=== PATIENT | male | born 1940 | race Caucasian/White ===

== ENCOUNTER 2020-07-01 14:34 | Inpatient (IN) | payer MEDICARE, BC ==
--- NOTE | 2020-07-01 15:10 | EDM.PDOC ---
ED HPI GENERAL MEDICAL PROBLEM - General Chief Complaint: Respiratory Problem Stated Complaint: SOB Time Seen by Provider: 07/01/20 14:34 Source of Information: Reports: Patient History Limitations: Reports: No Limitations - History of Present Illness INITIAL COMMENTS - FREE TEXT/NARRATIVE: Patient comes emergency department today for further evaluation of shortness of breath. This patient has had generalized malaise fatigue weakness and shortness of breath since . No fever no chills. He has some intermittent stabbing chest pain that is chronic for him that has been going on for years that last for about a second or 2 but otherwise no other chest pain. He has generalized weakness but no weakness of his extremities. No palpitations. No syncope. No dizziness no vertigo. No cough or congestion or difficulty breathing. No abdominal pain nausea or vomiting. No hematuria dysuria or urinary frequency. No black or tarry stools. No pedal edema. He does have a pretty extensive history hypertension coronary artery disease TIA PVD COPD type 2 diabetes. He had some arterial vascular procedures in his lower extremities at the beginning of May. He has no history of DVTs or pulmonary embolism. No COVID exposure no COVID symptoms. - Related Data Allergies Allergy/AdvReac Type Severity Reaction Status Date / Time Ptuaacf-Rse-Dex Reductase Allergy Leg Cramps Verified 07/01/20 14:47 Inhibitor Home Meds: Home Meds Hydrocodone/Acetaminophen [Hydrocodone-Acetaminophen 5-325] 2 tab PO Q4HR PRN 01/19/14 [History] Metoprolol Tartrate [Lopressor] 50 mg PO Q12HR 01/19/14 [History] NIFEdipine [Nifedipine ER] 60 mg PO DAILY 01/19/14 [History] Nitroglycerin [Nitrostat] 1 tab PO ASDIRECTED PRN 01/19/14 [History] metFORMIN [Glucophage] 500 mg PO BID 01/19/14 [History] traMADol [Ultram] 50 mg PO Q6HR PRN 01/19/14 [History] Aspirin 81 mg PO DAILY 07/01/20 [History] Cyclobenzaprine [Flexeril] 10 mg PO BID PRN 07/01/20 [History] Past Medical History Cardiovascular History: Reports: CAD, High Cholesterol, PVD Respiratory History: Reports: COPD Endocrine/Metabolic History: Reports: Diabetes, Type II Social & Family History - Tobacco Use Tobacco Use Status *Q: Unknown Ever Used Tobacco ED ROS GENERAL - Review of Systems Review Of Systems: Comprehensive ROS is negative, except as noted in HPI. ED EXAM, GENERAL - Physical Exam Exam: See Below Free Text/Narrative:: The patient at rest is minimally dyspneic. He is only able to speak in about 7- 8 word sentences. I did get him up from the chair and walk him over about 3 steps to the caught and he became very tachypneic and short of breath. And this resolved after about 30 seconds of sitting on the cot. There is no audible wheezing. Exam Limited By: No Limitations General Appearance: Alert, WD/WN, Mild Distress Eye Exam: Bilateral Eye: EOMI Ears: Normal External Exam Nose: Normal Inspection Throat/Mouth: Normal Inspection Head: Atraumatic, Normocephalic Neck: Normal Inspection, Supple, Non-Tender, Full Range of Motion Respiratory/Chest: Lungs Clear, Normal Breath Sounds, No Accessory Muscle Use, Chest Non-Tender. No: Crackles, Rales, Rhonchi, Wheezing Cardiovascular: Normal Peripheral Pulses, Regular Rate, Rhythm, Tachycardia Peripheral Pulses: 1+: Posterior Tibial (L), Posterior Tibial (R), Dorsalis Pedis (L), Dorsalis Pedis (R), 2+: Radial (L), Radial (R) GI/Abdominal: Normal Bowel Sounds, Soft, Non-Tender (Male) Exam: Deferred Rectal (Males) Exam: Deferred Back Exam: Normal Inspection, Full Range of Motion Extremities: Normal Inspection, Normal Range of Motion, Non-Tender, No Pedal Edema, Normal Capillary Refill Neurological: Alert, Oriented, Normal Cognition, Normal Gait, No Motor/Sensory Deficits Psychiatric: Normal Affect, Normal Mood Skin Exam: Dry, Intact, No Rash, Cool, Pallor #1 Interpretation EKG Date: 07/01/20 Time: 15:03 Rhythm: NSR Rate (Beats/Min): 88 Todd: Normal P-Wave: Present QRS: Normal ST-T: Normal QT: Normal Course - Vital Signs Last Recorded V/S: Last Vital Signs Temp 96.9 F 07/01/20 14:34 Pulse 122 H 07/01/20 14:34 Resp 28 H 07/01/20 14:34 BP 137/73 07/01/20 15:28 Pulse Ox 96 07/01/20 14:34 - Orders/Labs/Meds Orders: Active Orders 24 hr Category Date Time Status EKG Documentation Completion [RC] STAT Care 07/01/20 14:34 Active RT Aerosol Therapy [RC] ASDIRECTED Care 07/01/20 15:29 Active CULTURE BLOOD [BC] Stat Lab 07/01/20 14:59 Received CULTURE BLOOD [BC] Stat Lab 07/01/20 15:05 Received LACTIC ACID [CHEM] Timed Lab 07/01/20 19:00 Ordered UA RFX BLADIMIR AND CULT IF INDIC [URIN] Stat Lab 07/01/20 14:35 Ordered Azithromycin [Zithromax] 500 mg Med 07/01/20 15:28 Active Sodium Chloride 0.9% [Normal Saline (AdvBag)] 250 ml IV STAT Lactated Ringers [Ringers, Lactated] 1,000 ml Med 07/01/20 16:00 Active IV ASDIRECTED Lactated Ringers [Ringers, Lactated] 1,000 ml Med 07/01/20 15:51 Active IV ONETIME Sodium Chloride 0.9% [Saline Flush] Med 07/01/20 14:34 Active 10 ml FLUSH ASDIRECTED PRN Blood Culture x2 Reflex Set [OM.PC] Stat Oth 07/01/20 14:35 Ordered Peripheral IV Insertion Adult [OM.PC] Stat Oth 07/01/20 14:34 Ordered Medication Orders Azithromycin 500 mg/ Sodium (Chloride) 250 mls @ 250 mls/hr IV STAT ONE Stop: 07/01/20 16:27 Last Admin: 07/01/20 15:52 Dose: 250 mls/hr Documented by: HAUGJOD Lactated Ringer's (Ringers, Lactated) 1,000 mls @ 150 mls/hr IV ASDIRECTED RADHA Lactated Ringer's (Ringers, Lactated) 1,000 mls @ 999 mls/hr IV ONETIME ONE Stop: 07/01/20 16:51 Last Admin: 07/01/20 16:06 Dose: 999 mls/hr Documented by: Sodium Chloride (Saline Flush) 10 ml FLUSH ASDIRECTED PRN PRN Reason: Keep Vein Open Labs: Laboratory Tests 07/01/20 07/01/20 07/01/20 Range/Units 14:37 14:59 14:59 WBC 15.4 H (4.0-10.0) x10^3/uL RBC 4.09 L (4.5-6.0) x10^6/uL Hgb 13.0 L D (14.0-18.0) g/dL Hct 39.0 L (40.0-52.0) % MCV 95.4 H (78.0-93.0) fL MCH 31.8 (26.0-32.0) pg MCHC 33.3 (32.0-36.0) g/dL RDW Coeff of Bobo 14.0 (10.0-15.0) % Plt Count 419 H D (130-400) x10^3/uL Neut % (Auto) 89.1 H (50.0-80.0) % Lymph % (Auto) 4.5 L (25.0-50.0) % Navarro % (Auto) 6.2 (2.0-11.0) % Eos % (Auto) 0.1 (0.0-4.0) % Baso % (Auto) 0.1 L (0.2-1.2) % PT (9.5-12.3) SEC INR (2.0-3.5) APTT (25.6-32.8) SEC D-Dimer, Quantitative (<=0.58) mg/LFEU Sodium 131 L (136-145) mmol/L Potassium 4.0 (3.5-5.1) mmol/L Chloride 94 L (98-107) mmol/L Carbon Dioxide 22 (21-32) mmol/L Anion Gap 19.0 H (5-15) mmol/L BUN 21 H (7-18) mg/dL Creatinine 1.7 H (0.70-1.30) mg/dL Est Cr Clr Drug Dosing TNP Estimated GFR (MDRD) 39 Glucose 171 H (74-106) mg/dL Lactic Acid (0.4-2.0) mmol/L Calcium 9.4 (8.5-10.1) mg/dL Corrected Calcium 10.20 H (8.5-10.1) mg/dL Total Bilirubin 0.9 (0.2-1.0) mg/dL AST 17 (15-37) U/L ALT 24 (16-63) U/L Alkaline Phosphatase 146 H (46-116) U/L Troponin I < 0.017 (<=0.056) ng/mL C-Reactive Protein 112.9 H (<=0.9) mg/dL NT-Pro-B Natriuret Pep 2945 H (<=450) pg/mL Total Protein 8.3 H (6.4-8.2) g/dL Albumin 3.0 L (3.4-5.0) g/dL Globulin 5.3 Albumin/Globulin Ratio 0.57 SARS CoV-2 RNA Rapid HUMBERTO Negative (NEGATIVE) 07/01/20 07/01/20 07/01/20 Range/Units 14:59 14:59 14:59 WBC (4.0-10.0) x10^3/uL RBC (4.5-6.0) x10^6/uL Hgb (14.0-18.0) g/dL Hct (40.0-52.0) % MCV (78.0-93.0) fL MCH (26.0-32.0) pg MCHC (32.0-36.0) g/dL RDW Coeff of Bobo (10.0-15.0) % Plt Count (130-400) x10^3/uL Neut % (Auto) (50.0-80.0) % Lymph % (Auto) (25.0-50.0) % Navarro % (Auto) (2.0-11.0) % Eos % (Auto) (0.0-4.0) % Baso % (Auto) (0.2-1.2) % PT 11.7 (9.5-12.3) SEC INR 1.1 L (2.0-3.5) APTT 31.6 (25.6-32.8) SEC D-Dimer, Quantitative 6.61 H (<=0.58) mg/LFEU Sodium (136-145) mmol/L Potassium (3.5-5.1) mmol/L Chloride (98-107) mmol/L Carbon Dioxide (21-32) mmol/L Anion Gap (5-15) mmol/L BUN (7-18) mg/dL Creatinine (0.70-1.30) mg/dL Est Cr Clr Drug Dosing Estimated GFR (MDRD) Glucose (74-106) mg/dL Lactic Acid 3.9 H* (0.4-2.0) mmol/L Calcium (8.5-10.1) mg/dL Corrected Calcium (8.5-10.1) mg/dL Total Bilirubin (0.2-1.0) mg/dL AST (15-37) U/L ALT (16-63) U/L Alkaline Phosphatase (46-116) U/L Troponin I (<=0.056) ng/mL C-Reactive Protein (<=0.9) mg/dL NT-Pro-B Natriuret Pep (<=450) pg/mL Total Protein (6.4-8.2) g/dL Albumin (3.4-5.0) g/dL Globulin Albumin/Globulin Ratio SARS CoV-2 RNA Rapid HUMBERTO (NEGATIVE) Meds: Medications Generic Name Dose Route Start Last Admin Trade Name Jr PRN Reason Stop Dose Admin Azithromycin 500 mg/ Sodium 250 mls @ 250 mls/hr 07/01/20 15:28 07/01/20 15:52 Chloride IV 07/01/20 16:27 250 mls/hr STAT ONE Administration Lactated Ringer's 1,000 mls @ 150 mls/hr 07/01/20 16:00 Ringers, Lactated IV ASDIRECTED RADHA Lactated Ringer's 1,000 mls @ 999 mls/hr 07/01/20 15:51 07/01/20 16:06 Ringers, Lactated IV 07/01/20 16:51 999 mls/hr ONETIME ONE Administration Sodium Chloride 10 ml 07/01/20 14:34 Saline Flush FLUSH ASDIRECTED PRN Keep Vein Open Discontinued Medications Generic Name Dose Route Start Last Admin Trade Name Freq PRN Reason Stop Dose Admin Albuterol/Ipratropium 3 ml 07/01/20 15:29 07/01/20 15:49 Duoneb 3.0-0.5 Mg/3 Ml NEB 07/01/20 15:30 3 ml ONETIME ONE Administration Ceftriaxone Sodium 1 gm 07/01/20 15:28 07/01/20 15:44 Rocephin IVPUSH 07/01/20 15:29 1 gm STAT ONE Administration Methylprednisolone Sodium Succinate 125 mg 07/01/20 15:33 07/01/20 15:49 Solu-Medrol IVPUSH 07/01/20 15:34 125 mg ONETIME ONE Administration - Radiology Interpretation Free Text/Narrative:: Chest x-ray per radiology shows right midlung zone pulmonary infiltrate - Re-Assessments/Exams Free Text/Narrative Re-Assessment/Exam: 07/01/20 15:11 COVID influenza negative. Blood cultures x 2 pending. CXR pending. Chest x-ray initially reviewed extemporaneously by myself concerns for right midlung infiltrate. Radiological review to follow. Labs pending and EKG. There is no adventitious lung sounds even when he becomes quite dyspneic with even 3 steps. This resolved shortly after sitting back down. Laboratory evaluation with a WBC of 15.4 hemoglobin of 13.0 platelet count of 419. Neutrophil 89% with a lymphocyte push down of 4.5. Sodium 131, creatinine 1.7 with a BUN of 21, glucose 171. Lactic acid 3.9. Ceftriaxone 1 g IV push. A azithromycin 500 mg IV piggyback. LR 500 mill bolus then 150 an hour. I will be gentle with hydration with his mild elevation of a proBNP at 2945. Troponin less than 0.017. 07/01/20 16:02 Also has a presence of acute kidney injury with a baseline of creatinine of 1. 07/01/20 16:03 He does have a elevated D-Dimer at 6.61 although his age variation for D-Dimer that is not elevated. Wells score is 1.5 low risk And I have a cause of his SOB with pneumonia and sepsis. I will discuss this case with Dr. Keith his PCP about admission here in [place] for further care management as inpatient. 07/01/20 16:16 Dr. Keith agrees low risk for PE and will admit Acute inpatient her for further care management. Departure - Departure Time of Disposition: 15:55 Disposition: Admitted As Inpatient 64 Clinical Impression: COPD with exacerbation, LORENA (acute kidney injury) Pneumonia Qualifiers: Pneumonia type: due to unspecified organism Laterality: right Lung location: middle lobe of lung Qualified Code(s): J18.9 - Pneumonia, unspecified organism Sepsis Qualifiers: Sepsis type: sepsis due to unspecified organism Sepsis acute organ dysfunction status: with acute organ dysfunction Severe sepsis acute organ dysfunction type: acute renal failure Acute renal failure type: unspecified Severe sepsis shock status: without septic shock Qualified Code(s): A41.9 - Sepsis, unspecified organism - Discharge Information Forms: ED Department Discharge Sepsis Event Note (ED) - Evaluation Sepsis Screening Result: No Definite Risk - Focused Exam Vital Signs: Vital Signs Temp Pulse Resp BP Pulse Ox 07/01/20 15:28 137/73 07/01/20 14:34 96.9 F 122 H 28 H 146/75 H 96 - My Orders Last 24 Hours: My Active Orders 07/01/20 14:34 EKG Documentation Completion [RC] STAT Sodium Chloride 0.9% [Saline Flush] 10 ml FLUSH ASDIRECTED PRN Peripheral IV Insertion Adult [OM.PC] Stat 07/01/20 14:35 UA RFX BLADIMIR AND CULT IF INDIC [URIN] Stat Blood Culture x2 Reflex Set [OM.PC] Stat 07/01/20 14:59 CULTURE BLOOD [BC] Stat 07/01/20 15:05 CULTURE BLOOD [BC] Stat 07/01/20 15:28 Azithromycin [Zithromax] 500 mg Sodium Chloride 0.9% [Normal Saline (AdvBag)] 250 ml IV STAT 07/01/20 15:29 RT Aerosol Therapy [RC] ASDIRECTED 07/01/20 15:51 Lactated Ringers [Ringers, Lactated] 1,000 ml IV ONETIME 07/01/20 16:00 Lactated Ringers [Ringers, Lactated] 1,000 ml IV ASDIRECTED 07/01/20 19:00 LACTIC ACID [CHEM] Timed - Assessment/Plan Last 24 Hours: My Active Orders 07/01/20 14:34 EKG Documentation Completion [RC] STAT Sodium Chloride 0.9% [Saline Flush] 10 ml FLUSH ASDIRECTED PRN Peripheral IV Insertion Adult [OM.PC] Stat 07/01/20 14:35 UA RFX BLADIMIR AND CULT IF INDIC [URIN] Stat Blood Culture x2 Reflex Set [OM.PC] Stat 07/01/20 14:59 CULTURE BLOOD [BC] Stat 07/01/20 15:05 CULTURE BLOOD [BC] Stat 07/01/20 15:28 Azithromycin [Zithromax] 500 mg Sodium Chloride 0.9% [Normal Saline (AdvBag)] 250 ml IV STAT 07/01/20 15:29 RT Aerosol Therapy [RC] ASDIRECTED 07/01/20 15:51 Lactated Ringers [Ringers, Lactated] 1,000 ml IV ONETIME 07/01/20 16:00 Lactated Ringers [Ringers, Lactated] 1,000 ml IV ASDIRECTED 07/01/20 19:00 LACTIC ACID [CHEM] Timed
[2020-07-01] MEDS ORDERED: Azithromycin 500 MG in Sodium Chloride 0.9% 250 ML IV ONE (15:28)
[2020-07-01] MEDS ORDERED: cefTRIAXone 1 GM Vial IVPUSH ONE (15:28)
[2020-07-01] MEDS ORDERED: Albuterol/Ipratropium 3.0-0.5 MG/3 ML Neb Soln NEB ONE (15:29)
[2020-07-01] MEDS ORDERED: methylPREDNISolone Sodium Succinate 125 MG/2 ML SDV IVPUSH ONE (15:33)
[2020-07-01 15:39] LABS: PTT,PARTIAL THROMBOPLSTIN TIME 31.6 SEC (25.6-32.8)
[2020-07-01 15:42] LABS: CHLORIDE,CL 94 mmol/L (98-107); SODIUM,NA 131 mmol/L (136-145)
--- NOTE | 2020-07-01 15:48 | CR ---
[id number] RAD/RAD Chest PA or AP 1V EXAM: RAD Chest PA or AP 1V INDICATION: SHORTNESS OF BREATH, QUESTION COVID-19. COMPARISON: January 19, 2014. DISCUSSION: Median sternotomy wires. Cardiomediastinal silhouette is stable in size and contour. Right midlung zone pulmonary infiltrate. No pneumothorax or pleural effusion. IMPRESSION: Right midlung zone pulmonary infiltrate. Keny Parada DO 07/01/20 1547 Thank you for allowing us to participate in the care of your patient.
[2020-07-01] MEDS ORDERED: Lactated Ringers 1,000 ML IV ONE (15:51)
[2020-07-01] MEDS ORDERED: Ondansetron 4 MG Tab.DIS PO PRN (18:03)
--- NOTE | 2020-07-01 18:17 | PCM.HP.2 ---
H&P History of Present Illness - General Date of Service: 07/01/20 Admit Problem/Dx: Admission Diagnosis/Problem Admission Diagnosis/Problem Pneumonia Source of Information: Patient History Limitations: Reports: No Limitations - History of Present Illness Initial Comments - Free Text/Narative: Mike Rincon is an 79-year-old male with a past medical history of hypertension, coronary artery disease, TIA, peripheral vascular disease, COPD, type 2 diabetes, hyperlipidemia who called into the clinic for evaluation of shortness of breath, body aches, fatigue earlier today. Symptoms initially started on 06/27/2020. He noted that he was hardly able to get up and move aroun d the house. So nauseous that he is unable to even look at food for the last few days. Due to the degree of shortness of breath that he was having during our conversation I referred him to the ER for further evaluation. Upon arrival to the ER he was noted to be tachycardic with a pulse of 122, t achypnea with a respiratory rate of 28, and slightly hypertensive with blood pressure 146/75. Oxygen saturation was normal. Provider in the ER noted that his breath sounds were normal throughout the bilateral lungs. He was not short of breath when resting but with any exertion he would become severely short of breath. Laboratory evaluation was notable for leukocytosis with a left shift. Provided to grab a d-dimer which is elevated at 6.61. Lactic acid came back at 3.9. Sodium slightly low at 131. Small AK I with creatinine of 1.7 (baseline of 1.0). CRP was elevated at 112.9. ProBNP elevated at 2945. COVID and FLU tests were negative. Chest x-ray did demonstrate a right middle lobe infiltrate. Patient was given 1 L of IV fluids. He was also given a dose Rocephin and azithromycin for the community-acquired pneumonia. Decision was made to admit him for further evaluation and IV antibiotics. At the time of this provider saw the patient he notes that he was feeling quite a bit better after getting some IV fluids and the first dose of antibiotic. He does bring up the lower back pain that he has been having since all the other symptoms started this last Tuesday. ER provider has also mention this and noted the patient was very slow to move. Patient is able to ambulate on his own at this time, denies overt weakness in the extremities; just notes pain around the area of the L5/sacroiliac joints. - Related Data Allergies/Adverse Reactions: Allergies Allergy/AdvReac Type Severity Reaction Status Date / Time [id number]-[id number] Reductase Allergy Leg Cramps Verified 07/01/20 14:47 Inhibitor Home Medications: Home Meds Metoprolol Tartrate [Lopressor] 50 mg PO Q12HR 01/19/14 [History] NIFEdipine [Nifedipine ER] 60 mg PO DAILY 01/19/14 [History] metFORMIN [Glucophage] 500 mg PO BID 01/19/14 [History] traMADol [Ultram] 50 mg PO Q6HR PRN 01/19/14 [History] Aspirin 81 mg PO DAILY 07/01/20 [History] Cyclobenzaprine [Flexeril] 10 mg PO BID PRN 07/01/20 [History] Sennosides/Docusate Sodium [Senna-Docusate Sodium Tablet] 2 each PO DAILY 07/01/20 [History] Past Medical History HEENT History: Reports: Hard of Hearing Cardiovascular History: Reports: CAD, High Cholesterol, PVD, Other (See Below) Other Cardiovascular History: coronary atherosclerosis. peripheral vascular disease Respiratory History: Reports: COPD Gastrointestinal History: Reports: Other (See Below) Other Gastrointestinal History: peptic ulcer disease Genitourinary History: Reports: Other (See Below) Other Genitourinary History: Hypertrophy of prostate w/o urinary obstruction. elevated PSA Musculoskeletal History: Reports: Neck Pain, Chronic, Other (See Below) Other Musculoskeletal History: LBP radiating to right leg Neurological History: Reports: TIA, Other (See Below) Other Neuro History: abd aortic aneurysm Psychiatric History: Reports: Other (See Below) Other Psychiatric History: depressive disorder not classified elsewhere Endocrine/Metabolic History: Reports: Diabetes, Type II - Infectious Disease History Infectious Disease History: Reports: Chicken Pox, Measles, Mumps - Past Surgical History Cardiovascular Surgical History: Reports: Other (See Below) Other Cardiovascular Surgeries/Procedures: right to left femoral artery bypass. right femoral politeal bypass. vein grafting. Hyperlipidemia Musculoskeletal Surgical History: Reports: Other (See Below) Other Musculoskeletal Surgeries/Procedures:: right hallux partial amputation Social & Family History - Tobacco Use Tobacco Use Status *Q: Unknown Ever Used Tobacco H&P Review of Systems - Review of Systems: Review Of Systems: See Below General: Reports: No Symptoms, Fatigue HEENT: Reports: No Symptoms Pulmonary: Reports: Shortness of Breath, Wheezing Cardiovascular: Reports: No Symptoms Gastrointestinal: Reports: Constipation (for 6 days) Genitourinary: Reports: No Symptoms Musculoskeletal: Reports: Back Pain (low back ,for 5 days) Skin: Reports: No Symptoms Psychiatric: Reports: No Symptoms Neurological: Reports: No Symptoms Hematologic/Lymphatic: Reports: No Symptoms Immunologic: Reports: No Symptoms Exam - Exam Exam: See Below - Vital Signs Vital Signs: Last Vital Signs Temp 96.9 F 07/01/20 16:23 Pulse 72 07/01/20 16:23 Resp 20 07/01/20 16:15 BP 134/73 07/01/20 16:23 Pulse Ox 94 L 07/01/20 16:23 - Exam General: Alert, Oriented HEENT: EOMI Neck: Supple, Trachea Midline Lungs: Normal Respiratory Effort, Crackles (faint (heard under the left axilla)) Cardiovascular: Regular Rate, Regular Rhythm GI/Abdominal Exam: Other (hypoactive bowel sounds, slightly distended, slightly tender to palpation) Back Exam: Paraspinal Tenderness (SI/L5 area. patient is tender over the bony area here) Extremities: Normal Inspection, Non-Tender, No Pedal Edema Skin: Warm, Dry, Incision (bilateral inguinal incisions are CDI) Neuro Extensive - Mental Status: Alert, Oriented x3, Normal Mood/Affect Psychiatric: Alert, Normal Affect, Normal Mood - Patient Data Lab Results Last 24 hrs: Laboratory Results - last 24 hr 07/01/20 07/01/20 07/01/20 Range/Units 14:37 14:59 14:59 WBC 15.4 H (4.0-10.0) x10^3/uL RBC 4.09 L (4.5-6.0) x10^6/uL Hgb 13.0 L D (14.0-18.0) g/dL Hct 39.0 L (40.0-52.0) % MCV 95.4 H (78.0-93.0) fL MCH 31.8 (26.0-32.0) pg MCHC 33.3 (32.0-36.0) g/dL RDW Coeff of Bobo 14.0 (10.0-15.0) % Plt Count 419 H D (130-400) x10^3/uL Neut % (Auto) 89.1 H (50.0-80.0) % Lymph % (Auto) 4.5 L (25.0-50.0) % [place] % (Auto) 6.2 (2.0-11.0) % Eos % (Auto) 0.1 (0.0-4.0) % Baso % (Auto) 0.1 L (0.2-1.2) % PT (9.5-12.3) SEC INR (2.0-3.5) APTT (25.6-32.8) SEC D-Dimer, Quantitative (<=0.58) mg/LFEU Sodium 131 L (136-145) mmol/L Potassium 4.0 (3.5-5.1) mmol/L Chloride 94 L (98-107) mmol/L Carbon Dioxide 22 (21-32) mmol/L Anion Gap 19.0 H (5-15) mmol/L BUN 21 H (7-18) mg/dL Creatinine 1.7 H (0.70-1.30) mg/dL Est Cr Clr Drug Dosing TNP Estimated GFR (MDRD) 39 Glucose 171 H (74-106) mg/dL Lactic Acid (0.4-2.0) mmol/L Calcium 9.4 (8.5-10.1) mg/dL Corrected Calcium 10.20 H (8.5-10.1) mg/dL Total Bilirubin 0.9 (0.2-1.0) mg/dL AST 17 (15-37) U/L ALT 24 (16-63) U/L Alkaline Phosphatase 146 H (46-116) U/L Troponin I < 0.017 (<=0.056) ng/mL C-Reactive Protein 112.9 H (<=0.9) mg/dL NT-Pro-B Natriuret Pep 2945 H (<=450) pg/mL Total Protein 8.3 H (6.4-8.2) g/dL Albumin 3.0 L (3.4-5.0) g/dL Globulin 5.3 Albumin/Globulin Ratio 0.57 SARS CoV-2 RNA Rapid HUMBERTO Negative (NEGATIVE) 07/01/20 07/01/20 07/01/20 Range/Units 14:59 14:59 14:59 WBC (4.0-10.0) x10^3/uL RBC (4.5-6.0) x10^6/uL Hgb (14.0-18.0) g/dL Hct (40.0-52.0) % MCV (78.0-93.0) fL MCH (26.0-32.0) pg MCHC (32.0-36.0) g/dL RDW Coeff of Bobo (10.0-15.0) % Plt Count (130-400) x10^3/uL Neut % (Auto) (50.0-80.0) % Lymph % (Auto) (25.0-50.0) % [place] % (Auto) (2.0-11.0) % Eos % (Auto) (0.0-4.0) % Baso % (Auto) (0.2-1.2) % PT 11.7 (9.5-12.3) SEC INR 1.1 L (2.0-3.5) APTT 31.6 (25.6-32.8) SEC D-Dimer, Quantitative 6.61 H (<=0.58) mg/LFEU Sodium (136-145) mmol/L Potassium (3.5-5.1) mmol/L Chloride (98-107) mmol/L Carbon Dioxide (21-32) mmol/L Anion Gap (5-15) mmol/L BUN (7-18) mg/dL Creatinine (0.70-1.30) mg/dL Est Cr Clr Drug Dosing Estimated GFR (MDRD) Glucose (74-106) mg/dL Lactic Acid 3.9 H* (0.4-2.0) mmol/L Calcium (8.5-10.1) mg/dL Corrected Calcium (8.5-10.1) mg/dL Total Bilirubin (0.2-1.0) mg/dL AST (15-37) U/L ALT (16-63) U/L Alkaline Phosphatase (46-116) U/L Troponin I (<=0.056) ng/mL C-Reactive Protein (<=0.9) mg/dL NT-Pro-B Natriuret Pep (<=450) pg/mL Total Protein (6.4-8.2) g/dL Albumin (3.4-5.0) g/dL Globulin Albumin/Globulin Ratio SARS CoV-2 RNA Rapid HUMBERTO (NEGATIVE) Result Diagrams: 07/01/20 14:59 07/01/20 14:59 Manjit Results Last 24 hrs: Microbiology 07/01/20 14:37 Influenza Type A Antigen Screen - Final Nasopharyngeal Swab NEGATIVE INFLUENZA A VIRUS AG REFERENCE RANGE: NEGATIVE Influenza Type B Antigen Screen - Final NEGATIVE INFLUENZA B VIRUS AG REFERENCE RANGE: NEGATIVE Sepsis Event Note - Evaluation Sepsis Screening Result: No Definite Risk - Focused Exam Vital Signs: Vital Signs Temp Pulse Resp BP Pulse Ox 07/01/20 16:23 96.9 F 72 134/73 94 L 07/01/20 16:15 97.8 F 73 20 132/70 95 07/01/20 15:28 137/73 07/01/20 14:34 96.9 F 122 H 28 H 146/75 H 96 - Problem List (1) Sepsis SNOMED Code(s): 36949353 ICD Code: A41.9 - SEPSIS, UNSPECIFIED ORGANISM Status: Acute Current Visit: No Qualifiers: Sepsis type: sepsis due to unspecified organism Sepsis acute organ dysfunction status: with acute organ dysfunction Severe sepsis acute organ dysfunction type: acute renal failure Acute renal failure type: unspecified Severe sepsis shock status: without septic shock Qualified Code(s): A41.9 - Sepsis, unspecified organism; R65.20 - Severe sepsis without septic shock; N17.9 - Acute kidney failure, unspecified (2) Pneumonia SNOMED Code(s): 270413756 ICD Code: J18.9 - PNEUMONIA, UNSPECIFIED ORGANISM Status: Acute Current Visit: No Qualifiers: Pneumonia type: due to unspecified organism Laterality: right Lung location: middle lobe of lung Qualified Code(s): J18.9 - Pneumonia, unspecified organism (3) COPD with exacerbation SNOMED Code(s): 326556413 ICD Code: J44.1 - CHRONIC OBSTRUCTIVE PULMONARY DISEASE W (ACUTE) EXACERBATIO N Status: Acute Current Visit: No (4) LORENA (acute kidney injury) SNOMED Code(s): 32935880, 73068695 ICD Code: N17.9 - ACUTE KIDNEY FAILURE, UNSPECIFIED Status: Acute Current Visit: No (5) Constipation SNOMED Code(s): 85779516 ICD Code: K59.00 - CONSTIPATION, UNSPECIFIED Status: Acute Current Visit: Yes (6) Low back pain SNOMED Code(s): 300923685 ICD Code: M54.5 - LOW BACK PAIN Status: Acute Current Visit: Yes (7) Generalized weakness SNOMED Code(s): 20944238 ICD Code: R53.1 - WEAKNESS Status: Acute Current Visit: Yes Problem List Initiated/Reviewed/Updated: Yes Orders Last 24hrs: Active Orders 24 hr Category Date Time Status Admission Status [Patient Status] [ADT] Routine ADT 07/01/20 16:20 Active Dietary Supplements [RC] BIDMEALS Care 07/01/20 18:08 Ordered Dietary Supplements [RC] BIDMEALS Care 07/01/20 18:11 Ordered EKG Documentation Completion [RC] STAT Care 07/01/20 14:34 Active Oxygen Therapy [RC] PRN Care 07/01/20 18:03 Ordered Pulse Oximetry [RC] PRN Care 07/01/20 18:04 Ordered RT Aerosol Therapy [RC] ASDIRECTED Care 07/01/20 15:29 Active Up ad Laura [RC] ASDIRECTED Care 07/01/20 18:03 Ordered VTE/DVT Education [RC] PER UNIT ROUTINE Care 07/01/20 18:03 Ordered Vital Signs [RC] Q4H Care 07/01/20 18:03 Ordered Heart Healthy Diet [DIET] Diet 07/01/20 Dinner Ordered BASIC METABOLIC PANEL,BMP [CHEM] AM Lab 07/02/20 05:11 Ordered CBC WITH AUTO DIFF [HEME] AM Lab 07/02/20 05:11 Ordered CULTURE BLOOD [BC] Stat Lab 07/01/20 14:59 Received CULTURE BLOOD [BC] Stat Lab 07/01/20 15:05 Received LACTIC ACID [CHEM] Timed Lab 07/01/20 19:00 Ordered UA RFX MANJIT AND CULT IF INDIC [URIN] Stat Lab 07/01/20 14:35 Ordered Acetaminophen [TylenoL] Med 07/01/20 18:03 Ordered 650 mg PO Q4H PRN Aspirin Med 07/02/20 08:00 Ordered 81 mg PO DAILY Azithromycin [Zithromax] 500 mg Med 07/02/20 08:00 Ordered Sodium Chloride 0.9% [Normal Saline (AdvBag)] 250 ml IV DAILY Cyclobenzaprine [Flexeril] Med 07/01/20 18:09 Ordered 10 mg PO BID PRN Docusate Sodium/Sennosides [Senna Plus] Med 07/02/20 08:00 Ordered 2 each PO DAILY Enoxaparin [Lovenox] Med 07/02/20 08:00 Ordered 40 mg SUBCUT DAILY HYDROmorphone [Dilaudid] Med 07/01/20 18:03 Ordered 0.25 mg IVPUSH Q2H PRN Lactated Ringers [Ringers, Lactated] 1,000 ml Med 07/01/20 16:00 Active IV ASDIRECTED Metoprolol Tartrate [Lopressor] Med 07/01/20 20:00 Ordered 50 mg PO Q12HR NIFEdipine [Nifedipine ER] Med 07/02/20 08:00 Ordered 60 mg PO DAILY Ondansetron [Zofran ODT] Med 07/01/20 18:03 Ordered 4 mg PO Q4H PRN Sodium Chloride 0.9% [Saline Flush] Med 07/01/20 14:34 Active 10 ml FLUSH ASDIRECTED PRN cefTRIAXone [Rocephin] Med 07/02/20 08:00 Ordered 1 gm IVPUSH DAILY polyethylene glycoL 3350 [MiraLAX] Med 07/01/20 18:30 Once 17 gm PO BEDTIME ONE traMADol [Ultram] Med 07/01/20 18:09 Ordered 50 mg PO Q6HR PRN Blood Culture x2 Reflex Set [OM.PC] Stat Oth 07/01/20 14:35 Ordered Peripheral IV Insertion Adult [OM.PC] Stat Oth 07/01/20 14:34 Ordered Resuscitation Status Routine Resus Stat 07/01/20 18:03 Ordered Medication Orders Acetaminophen (Tylenol) 650 mg PO Q4H PRN PRN Reason: Pain (Mild 1-3)/fever Aspirin (Aspirin) 81 mg PO DAILY RADHA Ceftriaxone Sodium (Rocephin) 1 gm IVPUSH DAILY RADHA Stop: 07/07/20 08:00 Cyclobenzaprine HCl (Flexeril) 10 mg PO BID PRN PRN Reason: Muscle Spasm Enoxaparin Sodium (Lovenox) 40 mg SUBCUT DAILY RADHA Hydromorphone HCl (Dilaudid) 0.25 mg IVPUSH Q2H PRN PRN Reason: Pain (severe 7-10) Lactated Ringer's (Ringers, Lactated) 1,000 mls @ 150 mls/hr IV ASDIRECTED RADHA Azithromycin 500 mg/ Sodium (Chloride) 250 mls @ 250 mls/hr IV DAILY [facility] Stop: 07/05/20 08:00 Metoprolol Tartrate (Lopressor) 50 mg PO Q12HR [facility] Non-Formulary Medication (Nifedipine [Nifedipine Er]) 60 mg PO DAILY [facility] Ondansetron HCl (Zofran Odt) 4 mg PO Q4H PRN PRN Reason: nausea, able to take PO Polyethylene Glycol (Miralax) 17 gm PO BEDTIME ONE Stop: 07/01/20 18:31 Senna/Docusate Sodium (Senna Plus) tab PO DAILY [facility] Sodium Chloride (Saline Flush) 10 ml FLUSH ASDIRECTED PRN PRN Reason: Keep Vein Open Tramadol HCl (Ultram) 50 mg PO Q6HR PRN PRN Reason: Pain Assessment/Plan Comment:: Patient with 5 days of increasing shortness of breath, body aches and fatigue. Found to have a right middle lobe pneumonia. Sepsis secondary to Pneumonia - Tachypnea, tachycardia, leukocytosis and elevated lactic acid in the setting of a right middle lobe pneumonia - COVID and Flu negative - Patient received Rocephin and azithromycin in the ER as well as 1 L fluid and continues on a saline drip at 150mL's per hour Plan: - Blood cultures pending - Repeat LA pending. If this comes back improved would cut normal saline down from 150 to 75 mils per hour given the elevated BNP at admit - Repeat CBC in the am - Rocephin and Azithro IV tomorrow - Supplemental O2 as needed (on RA now) as well as prn O2 monitoring LORENA - Cr 1.7 on admit (baseline 1.0) - Patient s/p 1L bolus + NS @ 150ml/hr at this time Plan: - Likely cut down fluids after repeat LA tonight - Holding home metformin, likely able to restart in the morning - Repeat BMP in the am Acute on Chronic Low Back Pain - Patient with new onset of low back pain. Previous site of trouble - Slightly tender with palpation of the L5/SI area Plan: - Monitor - Pain control: tylenol, ultram (home med), dilaudid - Continue home Flexeril prn - If worsening could consider repeat imaging Constipation - Patient has a tendency towards constipation however has not had a bowel movement in over 6 days at this point and abdomen is a little bit distended and tender to palpation Plan: - Continue home stool softener - Will add on MiraLAX tonight - If no improvement with bowel movements would have to consider Fleet enema tomorrow pending patient's discomfort Chronic: Hypertension - continue home metoprolol and Procardia Coronary artery disease - continue home baby aspirin Diabetes - holding metformin, we've restart once AK I is improved Diet -heart healthy DVT - SQ Lovenox 40 daily IV fluids - NS @150mL/hr, likely able to cut down to 75 tonight if LA improved Therapies - physical therapy for deconditioning and generalized weakness Code - full Dispo: Anticipate 1-2 days of hospitalization for IV antibiotics for a right middle lobe pneumonia. Patient will benefit from some physical therapy as well as he is here. We will keep a close eye in the low back pain and if this pe rsists or worsen would have a low threshold to image this. - Mortality Measure Prognosis:: Good
[2020-07-01] MEDS ORDERED: Polyethylene Glycol 3350 Powder 17 GM Packet PO ONE (18:30)
[2020-07-01] MEDS: traMADol 50 MG Tab PO PRN (19:40)
[2020-07-01] MEDS: Metoprolol Tartrate 50 MG Tab PO SCH (19:41)
[2020-07-01] MEDS: Lactated Ringers 1,000 ML IV SCH (20:19)
[2020-07-02] MEDS: Lactated Ringers 1,000 ML IV SCH (03:00)
[2020-07-02 06:51] LABS: CHLORIDE,CL 99 mmol/L (98-107); SODIUM,NA 135 mmol/L (136-145)
[2020-07-02 06:52] LABS: ANION GAP 13.3 mmol/L (5-15)
[2020-07-02] MEDS: Aspirin 81 MG Tab.Chew PO SCH (07:35)
[2020-07-02] MEDS: Enoxaparin 40 MG/0.4 ML Syringe SUBCUT SCH (07:35)
[2020-07-02] MEDS: NIFEdipine 30 MG Tab.ER PO SCH (07:35)
[2020-07-02] MEDS: cefTRIAXone 1 GM Vial IVPUSH SCH (07:35)
[2020-07-02] MEDS: Metoprolol Tartrate 50 MG Tab PO SCH ×2 (07:35→19:24)
[2020-07-02] MEDS: Sodium Chloride 0.9% 10 ML Syringe FLUSH PRN (07:36)
[2020-07-02] MEDS: Azithromycin 500 MG in Sodium Chloride 0.9% 250 ML IV SCH (07:46)
[2020-07-02] MEDS: traMADol 50 MG Tab PO PRN ×2 (08:00→15:36)
--- NOTE | 2020-07-02 11:24 | PCM.PN ---
- General Info Date of Service: 07/02/20 Admission Dx/Problem (Free Text): Admission Diagnosis/Problem Admission Diagnosis/Problem Pneumonia Subjective Update: Jacek is an 79-year-old male who was admitted on 07/01/2020 (now hospital day 2) for community-acquired pneumonia. Did meet criteria for sepsis at the time of admission. No acute events overnight. Nursing concern: Brought positive blood cultures to the provider's attention. Continued on fluid at 150mL/hr overnight for the continued elevation of lactic acid on repeat last evening. He did end up being placed on a little bit of oxygen early this morning due to his saturations dipping down into the upper 80s while he was sleeping. Patient states that he feels about the same as when he came in in regards to his shortness of breath. He is eating and drinking fine and urinating very well. Has not yet had a bowel movement. - Review of Systems General: Reports: Fatigue HEENT: Reports: No Symptoms Pulmonary: Reports: Shortness of Breath Cardiovascular: Reports: No Symptoms Gastrointestinal: Reports: Constipation Genitourinary: Reports: No Symptoms Musculoskeletal: Reports: Back Pain Skin: Reports: No Symptoms Neurological: Reports: No Symptoms Psychiatric: Reports: No Symptoms - Patient Data Vitals - Most Recent: Last Vital Signs Temp 96.7 F L 07/02/20 10:00 Pulse 76 07/02/20 10:00 Resp 20 07/02/20 10:00 BP 109/55 L 07/02/20 10:00 Pulse Ox 89 L 07/02/20 10:00 Weight - Most Recent: 178 lb 12.8 oz I&O - Last 24 Hours: Intake & Output 07/01/20 07/02/20 07/02/20 22:59 06:59 14:59 Intake Total 750 1800 240 Output Total 500 Balance 750 1300 240 Lab Results Last 24 Hours: Laboratory Results - last 24 hr 07/01/20 07/01/20 07/01/20 Range/Units 14:37 14:59 14:59 WBC 15.4 H (4.0-10.0) x10^3/uL RBC 4.09 L (4.5-6.0) x10^6/uL Hgb 13.0 L D (14.0-18.0) g/dL Hct 39.0 L (40.0-52.0) % MCV 95.4 H (78.0-93.0) fL MCH 31.8 (26.0-32.0) pg MCHC 33.3 (32.0-36.0) g/dL RDW Coeff of Bobo 14.0 (10.0-15.0) % Plt Count 419 H D (130-400) x10^3/uL Neut % (Auto) 89.1 H (50.0-80.0) % Lymph % (Auto) 4.5 L (25.0-50.0) % Hend[place] % (Auto) 6.2 (2.0-11.0) % Eos % (Auto) 0.1 (0.0-4.0) % Baso % (Auto) 0.1 L (0.2-1.2) % PT (9.5-12.3) SEC INR (2.0-3.5) APTT (25.6-32.8) SEC D-Dimer, Quantitative (<=0.58) mg/LFEU Sodium 131 L (136-145) mmol/L Potassium 4.0 (3.5-5.1) mmol/L Chloride 94 L (98-107) mmol/L Carbon Dioxide 22 (21-32) mmol/L Anion Gap 19.0 H (5-15) mmol/L BUN 21 H (7-18) mg/dL Creatinine 1.7 H (0.70-1.30) mg/dL Est Cr Clr Drug Dosing TNP Estimated GFR (MDRD) 39 Glucose 171 H (74-106) mg/dL Lactic Acid (0.4-2.0) mmol/L Calcium 9.4 (8.5-10.1) mg/dL Corrected Calcium 10.20 H (8.5-10.1) mg/dL Total Bilirubin 0.9 (0.2-1.0) mg/dL AST 17 (15-37) U/L ALT 24 (16-63) U/L Alkaline Phosphatase 146 H (46-116) U/L Troponin I < 0.017 (<=0.056) ng/mL C-Reactive Protein 112.9 H (<=0.9) mg/dL NT-Pro-B Natriuret Pep 2945 H (<=450) pg/mL Total Protein 8.3 H (6.4-8.2) g/dL Albumin 3.0 L (3.4-5.0) g/dL Globulin 5.3 Albumin/Globulin Ratio 0.57 Urine Color (YELLOW) Urine Appearance (CLEAR) Urine pH (5.0-8.0) Ur Specific [place] Urine Protein (NEGATIVE) mg/dL Urine Glucose (UA) (NEGATIVE) mg/dL Urine Ketones (NEGATIVE) mg/dL Urine Occult Blood (NEGATIVE) Urine Nitrite (NEGATIVE) Urine Bilirubin (NEGATIVE) Urine Urobilinogen (0.2) EU/dL Ur Leukocyte Esterase (NEGATIVE) U Hyaline Cast (Auto) Urine RBC (NOT SEEN) /HPF Urine WBC (NOT SEEN) /HPF Ur Squamous Epith Cells (NEGATIVE) /HPF Amorphous Sediment Urine Bacteria (NEGATIVE) /HPF Urine Mucus (NEGATIVE) /LPF SARS CoV-2 RNA Rapid HUMBERTO Negative (NEGATIVE) 07/01/20 07/01/20 07/01/20 Range/Units 14:59 14:59 14:59 WBC (4.0-10.0) x10^3/uL RBC (4.5-6.0) x10^6/uL Hgb (14.0-18.0) g/dL Hct (40.0-52.0) % MCV (78.0-93.0) fL MCH (26.0-32.0) pg MCHC (32.0-36.0) g/dL RDW Coeff of Bobo (10.0-15.0) % Plt Count (130-400) x10^3/uL Neut % (Auto) (50.0-80.0) % Lymph % (Auto) (25.0-50.0) % Hendry % (Auto) (2.0-11.0) % Eos % (Auto) (0.0-4.0) % Baso % (Auto) (0.2-1.2) % PT 11.7 (9.5-12.3) SEC INR 1.1 L (2.0-3.5) APTT 31.6 (25.6-32.8) SEC D-Dimer, Quantitative 6.61 H (<=0.58) mg/LFEU Sodium (136-145) mmol/L Potassium (3.5-5.1) mmol/L Chloride (98-107) mmol/L Carbon Dioxide (21-32) mmol/L Anion Gap (5-15) mmol/L BUN (7-18) mg/dL Creatinine (0.70-1.30) mg/dL Est Cr Clr Drug Dosing Estimated GFR (MDRD) Glucose (74-106) mg/dL Lactic Acid 3.9 H* (0.4-2.0) mmol/L Calcium (8.5-10.1) mg/dL Corrected Calcium (8.5-10.1) mg/dL Total Bilirubin (0.2-1.0) mg/dL AST (15-37) U/L ALT (16-63) U/L Alkaline Phosphatase (46-116) U/L Troponin I (<=0.056) ng/mL C-Reactive Protein (<=0.9) mg/dL NT-Pro-B Natriuret Pep (<=450) pg/mL Total Protein (6.4-8.2) g/dL Albumin (3.4-5.0) g/dL Globulin Albumin/Globulin Ratio Urine Color (YELLOW) Urine Appearance (CLEAR) Urine pH (5.0-8.0) Ur Specific [place] Urine Protein (NEGATIVE) mg/dL Urine Glucose (UA) (NEGATIVE) mg/dL Urine Ketones (NEGATIVE) mg/dL Urine Occult Blood (NEGATIVE) Urine Nitrite (NEGATIVE) Urine Bilirubin (NEGATIVE) Urine Urobilinogen (0.2) EU/dL Ur Leukocyte Esterase (NEGATIVE) U Hyaline Cast (Auto) Urine RBC (NOT SEEN) /HPF Urine WBC (NOT SEEN) /HPF Ur Squamous Epith Cells (NEGATIVE) /HPF Amorphous Sediment Urine Bacteria (NEGATIVE) /HPF Urine Mucus (NEGATIVE) /LPF SARS CoV-2 RNA Rapid HUMBERTO (NEGATIVE) 07/01/20 07/01/20 07/02/20 Range/Units 19:03 19:33 06:17 WBC 12.0 H (4.0-10.0) x10^3/uL RBC 3.57 L (4.5-6.0) x10^6/uL Hgb 11.4 L D (14.0-18.0) g/dL Hct 34.1 L (40.0-52.0) % MCV 95.5 H (78.0-93.0) fL MCH 31.9 (26.0-32.0) pg MCHC 33.4 (32.0-36.0) g/dL RDW Coeff of Bobo 13.7 (10.0-15.0) % Plt Count 328 D (130-400) x10^3/uL Neut % (Auto) 89.5 H (50.0-80.0) % Lymph % (Auto) 7.2 L (25.0-50.0) % Hendry % (Auto) 3.2 (2.0-11.0) % Eos % (Auto) 0.0 (0.0-4.0) % Baso % (Auto) 0.1 L (0.2-1.2) % PT (9.5-12.3) SEC INR (2.0-3.5) APTT (25.6-32.8) SEC D-Dimer, Quantitative (<=0.58) mg/LFEU Sodium (136-145) mmol/L Potassium (3.5-5.1) mmol/L Chloride (98-107) mmol/L Carbon Dioxide (21-32) mmol/L Anion Gap (5-15) mmol/L BUN (7-18) mg/dL Creatinine (0.70-1.30) mg/dL Est Cr Clr Drug Dosing Estimated GFR (MDRD) Glucose (74-106) mg/dL Lactic Acid 3.2 H* (0.4-2.0) mmol/L Calcium (8.5-10.1) mg/dL Corrected Calcium (8.5-10.1) mg/dL Total Bilirubin (0.2-1.0) mg/dL AST (15-37) U/L ALT (16-63) U/L Alkaline Phosphatase (46-116) U/L Troponin I (<=0.056) ng/mL C-Reactive Protein (<=0.9) mg/dL NT-Pro-B Natriuret Pep (<=450) pg/mL Total Protein (6.4-8.2) g/dL Albumin (3.4-5.0) g/dL Globulin Albumin/Globulin Ratio Urine Color Dark yellow H (YELLOW) Urine Appearance Slightly cloudy H (CLEAR) Urine pH 5.0 (5.0-8.0) Ur Specific [place] 1.025 Urine Protein 30 H (NEGATIVE) mg/dL Urine Glucose (UA) 100 H (NEGATIVE) mg/dL Urine Ketones 15 H (NEGATIVE) mg/dL Urine Occult Blood Negative (NEGATIVE) Urine Nitrite Negative (NEGATIVE) Urine Bilirubin Small H (NEGATIVE) Urine Urobilinogen 0.2 (0.2) EU/dL Ur Leukocyte Esterase Negative (NEGATIVE) U Hyaline Cast (Auto) Occasional Urine RBC Not seen (NOT SEEN) /HPF Urine WBC 0-5 (NOT SEEN) /HPF Ur Squamous Epith Cells Not seen (NEGATIVE) /HPF Amorphous Sediment Few Urine Bacteria Few H (NEGATIVE) /HPF Urine Mucus Few H (NEGATIVE) /LPF SARS CoV-2 RNA Rapid HUMBERTO (NEGATIVE) 07/02/20 07/02/20 Range/Units 06:17 06:17 WBC (4.0-10.0) x10^3/uL RBC (4.5-6.0) x10^6/uL Hgb (14.0-18.0) g/dL Hct (40.0-52.0) % MCV (78.0-93.0) fL MCH (26.0-32.0) pg MCHC (32.0-36.0) g/dL RDW Coeff of Bobo (10.0-15.0) % Plt Count (130-400) x10^3/uL Neut % (Auto) (50.0-80.0) % Lymph % (Auto) (25.0-50.0) % [place] % (Auto) (2.0-11.0) % Eos % (Auto) (0.0-4.0) % Baso % (Auto) (0.2-1.2) % PT (9.5-12.3) SEC INR (2.0-3.5) APTT (25.6-32.8) SEC D-Dimer, Quantitative (<=0.58) mg/LFEU Sodium 135 L (136-145) mmol/L Potassium 4.3 (3.5-5.1) mmol/L Chloride 99 (98-107) mmol/L Carbon Dioxide 27 (21-32) mmol/L Anion Gap 13.3 (5-15) mmol/L BUN 18 (7-18) mg/dL Creatinine 1.0 (0.70-1.30) mg/dL Est Cr Clr Drug Dosing 61.70 Estimated GFR (MDRD) > 60 Glucose 173 H (74-106) mg/dL Lactic Acid 1.2 (0.4-2.0) mmol/L Calcium 8.7 (8.5-10.1) mg/dL Corrected Calcium (8.5-10.1) mg/dL Total Bilirubin (0.2-1.0) mg/dL AST (15-37) U/L ALT (16-63) U/L Alkaline Phosphatase (46-116) U/L Troponin I (<=0.056) ng/mL C-Reactive Protein (<=0.9) mg/dL NT-Pro-B Natriuret Pep (<=450) pg/mL Total Protein (6.4-8.2) g/dL Albumin (3.4-5.0) g/dL Globulin Albumin/Globulin Ratio Urine Color (YELLOW) Urine Appearance (CLEAR) Urine pH (5.0-8.0) Ur Specific [place] Urine Protein (NEGATIVE) mg/dL Urine Glucose (UA) (NEGATIVE) mg/dL Urine Ketones (NEGATIVE) mg/dL Urine Occult Blood (NEGATIVE) Urine Nitrite (NEGATIVE) Urine Bilirubin (NEGATIVE) Urine Urobilinogen (0.2) EU/dL Ur Leukocyte Esterase (NEGATIVE) U Hyaline Cast (Auto) Urine RBC (NOT SEEN) /HPF Urine WBC (NOT SEEN) /HPF Ur Squamous Epith Cells (NEGATIVE) /HPF Amorphous Sediment Urine Bacteria (NEGATIVE) /HPF Urine Mucus (NEGATIVE) /LPF SARS CoV-2 RNA Rapid HUMBERTO (NEGATIVE) Manjit Results Last 24 Hours: Microbiology 07/01/20 14:59 Aerobic Blood Culture - Preliminary Blood - Venous Gram Positive Cocci Anaerobic Blood Culture - Preliminary Gram Positive Cocci 07/01/20 15:05 Aerobic Blood Culture - Preliminary Blood - Venous - Lab Draw Gram Positive Cocci Anaerobic Blood Culture - Preliminary Gram Positive Cocci 07/01/20 14:37 Influenza Type A Antigen Screen - Final Nasopharyngeal Swab NEGATIVE INFLUENZA A VIRUS AG REFERENCE RANGE: NEGATIVE Influenza Type B Antigen Screen - Final NEGATIVE INFLUENZA B VIRUS AG REFERENCE RANGE: NEGATIVE Med Orders - Current: Current Medications Acetaminophen (Tylenol) 650 mg PO Q4H PRN PRN Reason: Pain (Mild 1-3)/fever Aspirin (Aspirin) 81 mg PO DAILY RADHA Last Admin: 07/02/20 07:35 Dose: 81 mg Documented by: Ceftriaxone Sodium (Rocephin) 1 gm IVPUSH DAILY [facility] Stop: 07/07/20 08:00 Last Admin: 07/02/20 07:35 Dose: 1 gm Documented by: Cyclobenzaprine HCl (Flexeril) 10 mg PO BID PRN PRN Reason: Muscle Spasm Enoxaparin Sodium (Lovenox) 40 mg SUBCUT DAILY [facility] Last Admin: 07/02/20 07:35 Dose: 40 mg Documented by: Hydromorphone HCl (Dilaudid) 0.25 mg IVPUSH Q2H PRN PRN Reason: Pain (severe 7-10) Azithromycin 500 mg/ Sodium (Chloride) 250 mls @ 250 mls/hr IV DAILY@0830 [facility] Last Admin: 07/02/20 07:46 Dose: 250 mls/hr Documented by: Metformin HCl (Glucophage) 500 mg PO BID [facility] Metoprolol Tartrate (Lopressor) 50 mg PO Q12HR [facility] Last Admin: 07/02/20 07:35 Dose: 50 mg Documented by: Nifedipine (Procardia Xl) 60 mg PO DAILY [facility] Last Admin: 07/02/20 07:35 Dose: 60 mg Documented by: Ondansetron HCl (Zofran Odt) 4 mg PO Q4H PRN PRN Reason: nausea, able to take PO Senna/Docusate Sodium (Senna Plus) 2 tab PO DAILY [facility] Last Admin: 07/02/20 07:34 Dose: 2 tab Documented by: Sodium Chloride (Saline Flush) 10 ml FLUSH ASDIRECTED PRN PRN Reason: Keep Vein Open Last Admin: 07/02/20 07:36 Dose: 10 ml Documented by: Tramadol HCl (Ultram) 50 mg PO Q6HR PRN PRN Reason: Pain Last Admin: 07/02/20 08:00 Dose: 50 mg Documented by: Discontinued Medications Albuterol/Ipratropium (Duoneb 3.0-0.5 Mg/3 Ml) 3 ml NEB ONETIME ONE Stop: 07/01/20 15:30 Last Admin: 07/01/20 15:49 Dose: 3 ml Documented by: Ceftriaxone Sodium (Rocephin) 1 gm IVPUSH STAT ONE Stop: 07/01/20 15:29 Last Admin: 07/01/20 15:44 Dose: 1 gm Documented by: Azithromycin 500 mg/ Sodium (Chloride) 250 mls @ 250 mls/hr IV STAT ONE Stop: 07/01/20 16:27 Last Admin: 07/01/20 15:52 Dose: 250 mls/hr Documented by: Lactated Ringer's (Ringers, Lactated) 1,000 mls @ 75 mls/hr IV ASDIRECTED RADHA Last Admin: 07/02/20 03:00 Dose: 150 mls/hr Documented by: Lactated Ringer's (Ringers, Lactated) 1,000 mls @ 999 mls/hr IV ONETIME ONE Stop: 07/01/20 16:51 Last Admin: 07/01/20 16:06 Dose: 999 mls/hr Documented by: Methylprednisolone Sodium Succinate (Solu-Medrol) 125 mg IVPUSH ONETIME ONE Stop: 07/01/20 15:34 Last Admin: 07/01/20 15:49 Dose: 125 mg Documented by: Polyethylene Glycol (Miralax) 17 gm PO BEDTIME ONE Stop: 07/01/20 18:31 Last Admin: 07/01/20 19:40 Dose: 17 gm Documented by: - Exam Quality Assessment: Supplemental Oxygen (1L) General: Alert, Oriented HEENT: EOMI, Mucous Membr. Moist/[place] Neck: Supple Lungs: Normal Respiratory Effort, Crackles (Right middle/lower lobe) Cardiovascular: Regular Rate, Regular Rhythm GI/Abdominal Exam: Normal Bowel Sounds, Soft, Non-Tender, Distended Extremities: Normal Inspection, No Pedal Edema Skin: Warm, Dry, Intact Wound/Incisions: Healing Well Neurological: No New Focal Deficit Psy/Mental Status: Alert, Normal Affect, Normal Mood Sepsis Event Note - Evaluation Sepsis Screening Result: Severe Sepsis Risk - Focused Exam Vital Signs: Vital Signs Temp Pulse Pulse Resp BP BP BP 07/02/20 10:00 96.7 F L 76 20 109/55 L 07/02/20 07:35 75 107/57 L 07/02/20 06:00 95.5 F L 72 19 98/40 L 07/02/20 05:57 07/02/20 02:00 95 F L 68 19 120/66 Pulse Ox 07/02/20 10:00 89 L 07/02/20 07:35 07/02/20 06:00 91 L 07/02/20 05:57 91 L 07/02/20 02:00 92 L - Problem List & Annotations (1) Bacteremia SNOMED Code(s): 3299615 Code(s): R78.81 - BACTEREMIA Status: Acute Current Visit: Yes (2) Sepsis SNOMED Code(s): 15552248 Code(s): A41.9 - SEPSIS, UNSPECIFIED ORGANISM Status: Resolved Current Visit: No Qualifiers: Sepsis type: sepsis due to unspecified organism Sepsis acute organ dysfunction status: with acute organ dysfunction Severe sepsis acute organ dysfunction type: acute renal failure Acute renal failure type: unspecified Severe sepsis shock status: without septic shock Qualified Code(s): A41.9 - Sepsis, unspecified organism; R65.20 - Severe sepsis without septic shock; N17.9 - Acute kidney failure, unspecified (3) Pneumonia SNOMED Code(s): 230460369 Code(s): J18.9 - PNEUMONIA, UNSPECIFIED ORGANISM Status: Acute Current Visit: No Qualifiers: Pneumonia type: due to unspecified organism Laterality: right Lung location: middle lobe of lung Qualified Code(s): J18.9 - Pneumonia, unspecified organism (4) Diastolic CHF SNOMED Code(s): 622021342, 337032195 Code(s): I50.30 - UNSPECIFIED DIASTOLIC (CONGESTIVE) HEART FAILURE Status: Acute Current Visit: Yes (5) COPD with exacerbation SNOMED Code(s): 022364399 Code(s): J44.1 - CHRONIC OBSTRUCTIVE PULMONARY DISEASE W (ACUTE) EXACERBATION Status: Acute Current Visit: No (6) LORENA (acute kidney injury) SNOMED Code(s): 71605236, 47054111 Code(s): N17.9 - ACUTE KIDNEY FAILURE, UNSPECIFIED Status: Resolved Current Visit: No (7) Constipation SNOMED Code(s): 32392144 Code(s): K59.00 - CONSTIPATION, UNSPECIFIED Status: Acute Current Visit: Yes (8) Low back pain SNOMED Code(s): 449029615 Code(s): M54.5 - LOW BACK PAIN Status: Acute Current Visit: Yes (9) Generalized weakness SNOMED Code(s): 23758594 Code(s): R53.1 - WEAKNESS Status: Acute Current Visit: Yes - Problem List Review Problem List Initiated/Reviewed/Updated: Yes - My Orders Last 24 Hours: My Active Orders 07/01/20 Dinner Heart Healthy Diet [DIET] 07/01/20 18:03 Oxygen Therapy [RC] 08,20 Up ad Laura [RC] 08,20 VTE/DVT Education [RC] PER UNIT ROUTINE Vital Signs [RC] 06,10,14,18,22,02 Acetaminophen [TylenoL] 650 mg PO Q4H PRN HYDROmorphone [Dilaudid] 0.25 mg IVPUSH Q2H PRN Ondansetron [Zofran ODT] 4 mg PO Q4H PRN Resuscitation Status Routine 07/01/20 18:04 Pulse Oximetry [RC] 06,10,14,18,22,02 07/01/20 18:08 Dietary Supplements [] 11,1730 07/01/20 18:09 Cyclobenzaprine [Flexeril] 10 mg PO BID PRN traMADol [Ultram] 50 mg PO Q6HR PRN 07/01/20 18:20 Consult to Physical Therapy [PT Evaluation and Treatment] [CONS] Routine 07/01/20 20:00 Metoprolol Tartrate [Lopressor] 50 mg PO Q12HR 07/02/20 08:00 Aspirin 81 mg PO DAILY Docusate Sodium/Sennosides [Senna Plus] 2 tab PO DAILY Enoxaparin [Lovenox] 40 mg SUBCUT DAILY NIFEdipine [Procardia XL] 60 mg PO DAILY cefTRIAXone [Rocephin] 1 gm IVPUSH DAILY 07/02/20 08:30 Azithromycin [Zithromax] 500 mg Sodium Chloride 0.9% [Normal Saline (AdvBag)] 250 ml IV DAILY@0830 07/02/20 11:30 metFORMIN [Glucophage] 500 mg PO BID 07/03/20 06:00 BASIC METABOLIC PANEL,BMP [CHEM] Routine CBC WITH AUTO DIFF [HEME] Routine - Plan Plan:: Kidney is an 79-year-old male who is now hospital day #2 for community-acquired pneumonia. Community Acquired Pneumonia -right middle lobe Gram Positive Bacteremia Hypoxic respiratory Failure Chronic Diastolic CHF Sepsis - Resolved - Vital signs and labs improved this morning. A lactic acid back to normal range. - Blood cultures grew out gram-positive cocci in 2 out of 2 tubes - Patient with need for supplemental oxygen overnight. ProBNP was elevated at time of admission. Has now received all over 2 L of fluid but is having good diuresis without medical assistance. Plan: - Repeat CBC in the am - Continue IV Rocephin and azithromycin - Supplemental O2 as needed as well as prn O2 monitoring - Will stop fluids at this time and monitor respiratory status, if worsening/no improvement may need to consider addition of Lasix LORENA - Resolved - Cr 1.7 on admit (baseline 1.0), back to baseline this am Plan: - Repeat BMP in the am Acute on Chronic Low Back Pain - Patient with new onset of low back pain. Previous site of trouble - Slightly tender with palpation of the L5/SI area Plan: - Monitor - Pain control: tylenol, ultram (home med), dilaudid - Continue home Flexeril prn - If worsening could consider repeat imaging Constipation - Patient has a tendency towards constipation however has not had a bowel movement in over 6 days at this point and abdomen is a little bit distended and tender to palpation Plan: - Continue home stool softener - patient would like to try miralax 1 more time today - If no improvement with bowel movements would have to consider Fleet enema tomorrow pending patient's discomfort Chronic: Hypertension - continue home metoprolol and Procardia Coronary artery disease - continue home baby aspirin Diabetes - metformin restarted today Diet -heart healthy DVT - SQ Lovenox 40 daily IV fluids - NS @150mL/hr, likely able to cut down to 75 tonight if LA improved Therapies - physical therapy for deconditioning and generalized weakness Code - full Dispo: Anticipate 1-2 days of hospitalization for IV antibiotics for a right middle lobe pneumonia. may need diuresis given fluid hydration and new need for O2 (will monitor). Patient will benefit from some physical therapy as well as he is here. We will keep a close eye in the low back pain and if this persists or worsen would have a low threshold to image this.
[2020-07-02] MEDS ORDERED: Polyethylene Glycol 3350 Powder 17 GM Packet PO ONE (11:32)
[2020-07-02] MEDS: metFORMIN 500 MG Tab PO SCH ×2 (11:52→19:21)
[2020-07-02] MEDS ORDERED: Furosemide 20 MG Tab PO ONE (14:48)
[2020-07-02] MEDS: Acetaminophen 325 MG Tab PO PRN (15:37)
[2020-07-03] MEDS: traMADol 50 MG Tab PO PRN ×3 (01:56→17:37)
[2020-07-03] MEDS: Sodium Chloride 0.9% 10 ML Syringe FLUSH PRN ×2 (01:57→07:56)
[2020-07-03] MEDS: Acetaminophen 325 MG Tab PO PRN ×2 (06:41→20:18)
[2020-07-03] MEDS: Cyclobenzaprine 10 MG Tab PO PRN ×2 (06:41→20:18)
[2020-07-03 07:11] LABS: CHLORIDE,CL 101 mmol/L (98-107); SODIUM,NA 138 mmol/L (136-145)
[2020-07-03 07:13] LABS: ANION GAP 10.8 mmol/L (5-15)
[2020-07-03] MEDS: Aspirin 81 MG Tab.Chew PO SCH (07:56)
[2020-07-03] MEDS: Enoxaparin 40 MG/0.4 ML Syringe SUBCUT SCH (07:56)
[2020-07-03] MEDS: cefTRIAXone 1 GM Vial IVPUSH SCH (07:56)
[2020-07-03] MEDS: metFORMIN 500 MG Tab PO SCH ×2 (07:56→20:19)
[2020-07-03] MEDS: NIFEdipine 30 MG Tab.ER PO SCH (07:57)
[2020-07-03] MEDS: Metoprolol Tartrate 50 MG Tab PO SCH ×2 (07:57→20:18)
[2020-07-03] MEDS: Azithromycin 500 MG in Sodium Chloride 0.9% 250 ML IV SCH (07:57)
[2020-07-03] MEDS ORDERED: Furosemide 20 MG Tab PO ONE (10:05)
[2020-07-03] MEDS ORDERED: Sodium Phosphate,Monobasic/Sodium Phosphate,Dibasic Enema 133 ML Bottle RECTAL ONE (10:06)
--- NOTE | 2020-07-03 10:13 | PCM.PN ---
- General Info Date of Service: 07/03/20 Admission Dx/Problem (Free Text): Admission Diagnosis/Problem Admission Diagnosis/Problem Pneumonia Subjective Update: Jacek is an 79-year-old male who was admitted on 07/01/2020 (now hospital day 3) for community-acquired pneumonia. Did meet criteria for sepsis at the time of admission. No acute events overnight. Continues on supplemental O2. Still has SOB. Did well with PT yesterday. Still has low back pain. No fevers, chills, CP. Still constipated (no movement with miralax), willing to give a trial of enema today. Functional Status: Reports: Pain Controlled - Review of Systems General: Reports: Fatigue HEENT: Reports: No Symptoms Pulmonary: Reports: Shortness of Breath Cardiovascular: Reports: No Symptoms Gastrointestinal: Reports: Constipation Genitourinary: Reports: No Symptoms Musculoskeletal: Reports: No Symptoms Skin: Reports: No Symptoms Neurological: Reports: No Symptoms Psychiatric: Reports: No Symptoms - Patient Data Vitals - Most Recent: Last Vital Signs Temp 96.1 F L 07/03/20 06:00 Pulse 77 07/03/20 07:57 Resp 07/03/20 06:00 BP 135/70 07/03/20 07:57 Pulse Ox 94 L 07/03/20 08:44 Weight - Most Recent: 182 lb 9.6 oz I&O - Last 24 Hours: Intake & Output 07/02/20 07/03/20 07/03/20 22:59 06:59 14:59 Intake Total 670 300 Output Total 700 575 Balance -30 -575 300 Lab Results Last 24 Hours: Laboratory Results - last 24 hr 07/02/20 07/02/20 07/03/20 Range/Units 11:52 19:18 06:27 WBC 11.2 H (4.0-10.0) x10^3/uL RBC 3.60 L (4.5-6.0) x10^6/uL Hgb 11.2 L (14.0-18.0) g/dL Hct 34.7 L (40.0-52.0) % MCV 96.4 H (78.0-93.0) fL MCH 31.1 (26.0-32.0) pg MCHC 32.3 (32.0-36.0) g/dL RDW Coeff of Bobo 13.7 (10.0-15.0) % Plt Count 339 (130-400) x10^3/uL Neut % (Auto) 78.1 (50.0-80.0) % Lymph % (Auto) 14.4 L (25.0-50.0) % [place] % (Auto) 6.6 (2.0-11.0) % Eos % (Auto) 0.8 (0.0-4.0) % Baso % (Auto) 0.1 L (0.2-1.2) % Sodium (136-145) mmol/L Potassium (3.5-5.1) mmol/L Chloride (98-107) mmol/L Carbon Dioxide (21-32) mmol/L Anion Gap (5-15) mmol/L BUN (7-18) mg/dL Creatinine (0.70-1.30) mg/dL Est Cr Clr Drug Dosing mL/min Estimated GFR (MDRD) Glucose (74-106) mg/dL POC Glucose 153 H 192 H (74-106) mg/dL Calcium (8.5-10.1) mg/dL NT-Pro-B Natriuret Pep (<=450) pg/mL 07/03/20 07/03/20 07/03/20 Range/Units 06:27 06:27 06:37 WBC (4.0-10.0) x10^3/uL RBC (4.5-6.0) x10^6/uL Hgb (14.0-18.0) g/dL Hct (40.0-52.0) % MCV (78.0-93.0) fL MCH (26.0-32.0) pg MCHC (32.0-36.0) g/dL RDW Coeff of Bobo (10.0-15.0) % Plt Count (130-400) x10^3/uL Neut % (Auto) (50.0-80.0) % Lymph % (Auto) (25.0-50.0) % [place] % (Auto) (2.0-11.0) % Eos % (Auto) (0.0-4.0) % Baso % (Auto) (0.2-1.2) % Sodium 138 (136-145) mmol/L Potassium 3.8 (3.5-5.1) mmol/L Chloride 101 (98-107) mmol/L Carbon Dioxide 30 (21-32) mmol/L Anion Gap 10.8 (5-15) mmol/L BUN 19 H (7-18) mg/dL Creatinine 1.1 (0.70-1.30) mg/dL Est Cr Clr Drug Dosing 56.09 mL/min Estimated GFR (MDRD) > 60 Glucose 87 (74-106) mg/dL POC Glucose 91 (74-106) mg/dL Calcium 8.8 (8.5-10.1) mg/dL NT-Pro-B Natriuret Pep 1102 H (<=450) pg/mL Manjit Results Last 24 Hours: Microbiology 07/01/20 15:05 Aerobic Blood Culture - Preliminary Blood - Venous - Lab Draw Staphylococcus Aureus Anaerobic Blood Culture - Preliminary Staphylococcus Aureus 07/01/20 14:59 Aerobic Blood Culture - Preliminary Blood - Venous Staphylococcus Aureus Anaerobic Blood Culture - Preliminary Staphylococcus Aureus Med Orders - Current: Current Medications Acetaminophen (Tylenol) 650 mg PO Q4H PRN PRN Reason: Pain (Mild 1-3)/fever Last Admin: 07/03/20 06:41 Dose: 650 mg Documented by: Aspirin (Aspirin) 81 mg PO DAILY [facility] Last Admin: 07/03/20 07:56 Dose: 81 mg Documented by: Ceftriaxone Sodium (Rocephin) 1 gm IVPUSH DAILY [facility] Stop: 07/07/20 08:00 Last Admin: 07/03/20 07:56 Dose: 1 gm Documented by: Cyclobenzaprine HCl (Flexeril) 10 mg PO BID PRN PRN Reason: Muscle Spasm Last Admin: 07/03/20 06:41 Dose: 10 mg Documented by: Enoxaparin Sodium (Lovenox) 40 mg SUBCUT DAILY [facility] Last Admin: 07/03/20 07:56 Dose: 40 mg Documented by: Furosemide (Lasix) 20 mg PO ONETIME ONE Stop: 07/03/20 10:06 Hydromorphone HCl (Dilaudid) 0.25 mg IVPUSH Q2H PRN PRN Reason: Pain (severe 7-10) Azithromycin 500 mg/ Sodium (Chloride) 250 mls @ 250 mls/hr IV DAILY@0830 [facility] Last Admin: 07/03/20 07:57 Dose: 250 mls/hr Documented by: Metformin HCl (Glucophage) 500 mg PO BID [facility] Last Admin: 07/03/20 07:56 Dose: 500 mg Documented by: Metoprolol Tartrate (Lopressor) 50 mg PO Q12HR [facility] Last Admin: 07/03/20 07:57 Dose: 50 mg Documented by: Nifedipine (Procardia Xl) 60 mg PO DAILY [facility] Last Admin: 07/03/20 07:57 Dose: 60 mg Documented by: Ondansetron HCl (Zofran Odt) 4 mg PO Q4H PRN PRN Reason: nausea, able to take PO Senna/Docusate Sodium (Senna Plus) 2 tab PO DAILY [facility] Last Admin: 07/03/20 07:57 Dose: 2 tab Documented by: Sodium Biphosphate/Sodium Phosphate (Fleet Enema) 133 ml RECTAL ONETIME ONE Stop: 07/03/20 10:07 Sodium Chloride (Saline Flush) 10 ml FLUSH ASDIRECTED PRN PRN Reason: Keep Vein Open Last Admin: 07/03/20 07:56 Dose: 10 ml Documented by: Tramadol HCl (Ultram) 50 mg PO Q6HR PRN PRN Reason: Pain Last Admin: 07/03/20 01:56 Dose: 50 mg Documented by: Discontinued Medications Albuterol/Ipratropium (Duoneb 3.0-0.5 Mg/3 Ml) 3 ml NEB ONETIME ONE Stop: 07/01/20 15:30 Last Admin: 07/01/20 15:49 Dose: 3 ml Documented by: Ceftriaxone Sodium (Rocephin) 1 gm IVPUSH STAT ONE Stop: 07/01/20 15:29 Last Admin: 07/01/20 15:44 Dose: 1 gm Documented by: Furosemide (Lasix) 20 mg PO ONETIME ONE Stop: 07/02/20 14:49 Last Admin: 07/02/20 15:31 Dose: 20 mg Documented by: Azithromycin 500 mg/ Sodium (Chloride) 250 mls @ 250 mls/hr IV STAT ONE Stop: 07/01/20 16:27 Last Admin: 07/01/20 15:52 Dose: 250 mls/hr Documented by: Lactated Ringer's (Ringers, Lactated) 1,000 mls @ 75 mls/hr IV ASDIRECTED [facility] Last Admin: 07/02/20 03:00 Dose: 150 mls/hr Documented by: Lactated Ringer's (Ringers, Lactated) 1,000 mls @ 999 mls/hr IV ONETIME ONE Stop: 07/01/20 16:51 Last Admin: 07/01/20 16:06 Dose: 999 mls/hr Documented by: Methylprednisolone Sodium Succinate (Solu-Medrol) 125 mg IVPUSH ONETIME ONE Stop: 07/01/20 15:34 Last Admin: 07/01/20 15:49 Dose: 125 mg Documented by: Polyethylene Glycol (Miralax) 17 gm PO BEDTIME ONE Stop: 07/01/20 18:31 Last Admin: 07/01/20 19:40 Dose: 17 gm Documented by: Polyethylene Glycol (Miralax) 17 gm PO ONETIME ONE Stop: 07/02/20 11:33 Last Admin: 07/02/20 11:51 Dose: 17 gm Documented by: - Exam General: Alert, Oriented HEENT: EOMI Neck: Supple Lungs: Crackles (RLL>LLL) Cardiovascular: Regular Rate, Regular Rhythm GI/Abdominal Exam: Normal Bowel Sounds, Soft, Non-Tender Back Exam: Normal Inspection Extremities: Normal Inspection, Non-Tender, No Pedal Edema Skin: Warm, Dry Psy/Mental Status: Alert, Normal Affect, Normal Mood Sepsis Event Note - Evaluation Sepsis Screening Result: No Definite Risk - Focused Exam Vital Signs: Vital Signs Temp Pulse Pulse Resp BP BP Pulse Ox 07/03/20 08:44 07/03/20 07:57 77 135/70 07/03/20 06:44 94 L 07/03/20 06:00 96.1 F L 77 20 135/70 94 L 07/03/20 02:09 96 07/03/20 02:00 96.1 F L 85 18 143/74 H 96 07/02/20 22:51 92 L 07/02/20 22:49 Pulse Ox 07/03/20 08:44 94 L 07/03/20 07:57 07/03/20 06:44 07/03/20 06:00 07/03/20 02:09 07/03/20 02:00 07/02/20 22:51 07/02/20 22:49 92 L - Problem List & Annotations (1) Bacteremia SNOMED Code(s): 5800403 Code(s): R78.81 - BACTEREMIA Status: Acute Current Visit: Yes (2) Pneumonia SNOMED Code(s): 569522337 Code(s): J18.9 - PNEUMONIA, UNSPECIFIED ORGANISM Status: Acute Current Vi sit: No Qualifiers: Pneumonia type: due to unspecified organism Laterality: right Lung location: middle lobe of lung Qualified Code(s): J18.9 - Pneumonia, unspecified organism (3) Diastolic CHF SNOMED Code(s): 832173691, 798976133 Code(s): I50.30 - UNSPECIFIED DIASTOLIC (CONGESTIVE) HEART FAILURE Status: Acute Current Visit: Yes (4) COPD with exacerbation SNOMED Code(s): 460201445 Code(s): J44.1 - CHRONIC OBSTRUCTIVE PULMONARY DISEASE W (ACUTE) EXACERBATION Status: Acute Current Visit: No (5) Constipation SNOMED Code(s): 91183233 Code(s): K59.00 - CONSTIPATION, UNSPECIFIED Status: Acute Current Visit: Yes (6) Low back pain SNOMED Code(s): 703212600 Code(s): M54.5 - LOW BACK PAIN Status: Acute Current Visit: Yes (7) Generalized weakness SNOMED Code(s): 31658922 Code(s): R53.1 - WEAKNESS Status: Acute Current Visit: Yes - Problem List Review Problem List Initiated/Reviewed/Updated: Yes - My Orders Last 24 Hours: My Active Orders 07/02/20 11:30 metFORMIN [Glucophage] 500 mg PO BID 07/02/20 11:54 Accu Check [Blood Glucose Check, Bedside] [RC] 07/02/20 20:44 Resuscitation Status Routine 07/03/20 10:05 Chest 2V [CR] Routine Furosemide [Lasix] 20 mg PO ONETIME ONE 07/03/20 10:06 Na Phos,M-B/Na Phos,DI-B [Fleet Enema] 133 ml RECTAL ONETIME ONE - Plan Plan:: Kidney is an 79-year-old male who is now hospital day #3 for community-acquired pneumonia. Community Acquired Pneumonia -right middle lobe Gram Positive Bacteremia: preliminary staph Hypoxic respiratory Failure Chronic Diastolic CHF Sepsis - Resolved - Vital signs and labs improved this morning. Continues on supplemental O2 - Blood cultures grew out prelim staph: 2/2 tubes - BNP improved from admit, good diuresis Plan: - Repeat CBC in the am - Continue IV Rocephin and azithromycin - Supplemental O2 as needed as well as prn O2 monitoring - Will repeat CXR today as well as dose of Lasix 20mg PO given continued O2 need LORENA - Resolved - Cr 1.7 on admit (baseline 1.0), back to baseline this am Plan: - Repeat BMP in the am Acute on Chronic Low Back Pain - Patient with new onset of low back pain. Previous site of trouble - Slightly tender with palpation of the L5/SI area Plan: - Monitor - Pain control: tylenol, ultram (home med), dilaudid - Continue home Flexeril prn - If worsening could consider repeat imaging Constipation - Now 1 week without a BM Plan: - Continue home stool softener - Will order Fleet today Chronic: Hypertension - continue home metoprolol and Procardia Coronary artery disease - continue home baby aspirin Diabetes - metformin restarted today Diet -heart healthy DVT - SQ Lovenox 40 daily Therapies - physical therapy for deconditioning and generalized weakness Code - DNR Dispo: Anticipate another 1-2 days of hospitalization for IV antibiotics for a right middle lobe pneumonia as well as diuresis given the amount of fluid we gave him.
[2020-07-03] MEDS: Albuterol/Ipratropium 3.0-0.5 MG/3 ML Neb Soln NEB PRN ×2 (12:25→18:18)
--- NOTE | 2020-07-03 12:33 | CR ---
[id number] RAD/RAD Chest PA And Lateral EXAM: RAD Chest PA And Lateral INDICATION: SHORT OF BREATH,HYPOXIA. COMPARISON: July 01, 2020. DISCUSSION: Cardiomediastinal silhouette is normal in size and contour. Median sternotomy wires. Persistent but improved right midlung pulmonary infiltrate. No pneumothorax or pleural effusion. IMPRESSION: Persistent but improved right midlung pulmonary infiltrate. Keny Parada DO 07/03/20 1232 Thank you for allowing us to participate in the care of your patient.
[2020-07-03] MEDS: HYDROmorphone 0.5 MG/0.5 ML Syringe IVPUSH PRN ×2 (13:37→20:15)
[2020-07-04] MEDS: HYDROmorphone 0.5 MG/0.5 ML Syringe IVPUSH PRN (02:54)
[2020-07-04] MEDS: Albuterol/Ipratropium 3.0-0.5 MG/3 ML Neb Soln NEB PRN (02:54)
[2020-07-04] MEDS: Sodium Chloride 0.9% 10 ML Syringe FLUSH PRN ×2 (02:54→07:55)
[2020-07-04] MEDS ORDERED: Albuterol/Ipratropium 3.0-0.5 MG/3 ML Neb Soln NEB PRN (06:15)
[2020-07-04] MEDS ORDERED: Albuterol/Ipratropium 3.0-0.5 MG/3 ML Neb Soln NEB SCH (07:00)
[2020-07-04 07:05] LABS: ANION GAP 11.8 mmol/L (5-15); CHLORIDE,CL 101 mmol/L (98-107); SODIUM,NA 138 mmol/L (136-145)
[2020-07-04] MEDS: Azithromycin 500 MG in Sodium Chloride 0.9% 250 ML IV SCH (07:54)
[2020-07-04] MEDS: NIFEdipine 30 MG Tab.ER PO SCH (07:54)
[2020-07-04] MEDS: metFORMIN 500 MG Tab PO SCH ×2 (07:54→19:31)
[2020-07-04] MEDS: Aspirin 81 MG Tab.Chew PO SCH (07:54)
[2020-07-04] MEDS: Metoprolol Tartrate 50 MG Tab PO SCH ×2 (07:54→19:32)
[2020-07-04] MEDS: cefTRIAXone 1 GM Vial IVPUSH SCH (07:54)
[2020-07-04] MEDS: traMADol 50 MG Tab PO PRN ×2 (07:54→19:31)
[2020-07-04] MEDS: Enoxaparin 40 MG/0.4 ML Syringe SUBCUT SCH (07:55)
[2020-07-04] MEDS ORDERED: Albuterol HFA 18 Gm Inhaler INH PRN (10:16)
--- NOTE | 2020-07-04 10:32 | PCM.PN ---
- General Info Date of Service: 07/04/20 Admission Dx/Problem (Free Text): Admission Diagnosis/Problem Admission Diagnosis/Problem Pneumonia Subjective Update: Jacek is an 79-year-old male who was admitted on 07/01/2020 (now hospital day 4) for community-acquired pneumonia. Did meet criteria for sepsis at the time of admission. No acute events overnight. Continues on supplemental O2 (2L). Patient notes his breathing status is improved; feels almost back to baseline. Still has low back pain but in looking back this level of pain has been there for over a year, comes and goes at the level it is at. Did have a BM yesterday. - Review of Systems General: Reports: No Symptoms HEENT: Reports: No Symptoms Pulmonary: Reports: No Symptoms Cardiovascular: Reports: No Symptoms Musculoskeletal: Reports: Back Pain Skin: Reports: No Symptoms Neurological: Reports: No Symptoms Psychiatric: Reports: No Symptoms - Patient Data Vitals - Most Recent: Last Vital Signs Temp 98.7 F 07/04/20 10:00 Pulse 95 07/04/20 10:00 Resp 16 07/04/20 10:00 BP 116/77 07/04/20 10:00 Pulse Ox 95 07/04/20 10:00 Weight - Most Recent: 182 lb 9.6 oz I&O - Last 24 Hours: Intake & Output 07/03/20 07/04/20 07/04/20 22:59 06:59 14:59 Intake Total 430 300 Output Total 300 225 Balance 130 -225 300 Lab Results Last 24 Hours: Laboratory Results - last 24 hr 07/03/20 07/04/20 07/04/20 Range/Units 20:15 06:30 06:30 WBC 8.9 (4.0-10.0) x10^3/uL RBC 3.69 L (4.5-6.0) x10^6/uL Hgb 11.5 L (14.0-18.0) g/dL Hct 36.1 L (40.0-52.0) % MCV 97.8 H (78.0-93.0) fL MCH 31.2 (26.0-32.0) pg MCHC 31.9 L (32.0-36.0) g/dL RDW Coeff of Bobo 13.9 (10.0-15.0) % Plt Count 328 (130-400) x10^3/uL Neut % (Auto) 75.8 (50.0-80.0) % Lymph % (Auto) 14.6 L (25.0-50.0) % [place] % (Auto) 8.3 (2.0-11.0) % Eos % (Auto) 1.2 (0.0-4.0) % Baso % (Auto) 0.1 L (0.2-1.2) % Sodium 138 (136-145) mmol/L Potassium 4.8 (3.5-5.1) mmol/L Chloride 101 (98-107) mmol/L Carbon Dioxide 30 (21-32) mmol/L Anion Gap 11.8 (5-15) mmol/L BUN 16 (7-18) mg/dL Creatinine 1.1 (0.70-1.30) mg/dL Est Cr Clr Drug Dosing 56.09 mL/min Estimated GFR (MDRD) > 60 Glucose 96 (74-106) mg/dL POC Glucose 157 H (74-106) mg/dL Calcium 8.5 (8.5-10.1) mg/dL 07/04/20 Range/Units 06:30 WBC (4.0-10.0) x10^3/uL RBC (4.5-6.0) x10^6/uL Hgb (14.0-18.0) g/dL Hct (40.0-52.0) % MCV (78.0-93.0) fL MCH (26.0-32.0) pg MCHC (32.0-36.0) g/dL RDW Coeff of [place] (10.0-15.0) % Plt Count (130-400) x10^3/uL Neut % (Auto) (50.0-80.0) % Lymph % (Auto) (25.0-50.0) % [place] % (Auto) (2.0-11.0) % Eos % (Auto) (0.0-4.0) % Baso % (Auto) (0.2-1.2) % Sodium (136-145) mmol/L Potassium (3.5-5.1) mmol/L Chloride (98-107) mmol/L Carbon Dioxide (21-32) mmol/L Anion Gap (5-15) mmol/L BUN (7-18) mg/dL Creatinine (0.70-1.30) mg/dL Est Cr Clr Drug Dosing mL/min Estimated GFR (MDRD) Glucose (74-106) mg/dL POC Glucose 91 (74-106) mg/dL Calcium (8.5-10.1) mg/dL Manjit Results Last 24 Hours: Microbiology 07/01/20 14:59 Bacterial Identification - Preliminary Blood - Venous Staphylococcus Aureus 07/01/20 15:05 Aerobic Blood Culture - Preliminary Blood - Venous - Lab Draw Staphylococcus Aureus Anaerobic Blood Culture - Preliminary Staphylococcus Aureus 07/01/20 14:59 Aerobic Blood Culture - Preliminary Blood - Venous Staphylococcus Aureus Anaerobic Blood Culture - Preliminary Staphylococcus Aureus Med Orders - Current: Current Medications Acetaminophen (Tylenol) 650 mg PO Q4H PRN PRN Reason: Pain (Mild 1-3)/fever Last Admin: 07/03/20 20:18 Dose: 650 mg Documented by: Albuterol (Ventolin Hfa) 0 gm INH Q4H PRN PRN Reason: Shortness of Breath Aspirin (Aspirin) 81 mg PO DAILY [facility] Last Admin: 07/04/20 07:54 Dose: 81 mg Documented by: Azithromycin (Zithromax) 500 mg PO DAILY [facility] Ceftriaxone Sodium (Rocephin) 1 gm IVPUSH DAILY [facility] Stop: 07/07/20 08:00 Last Admin: 07/04/20 07:54 Dose: 1 gm Documented by: Cyclobenzaprine HCl (Flexeril) 10 mg PO BID PRN PRN Reason: Muscle Spasm Last Admin: 07/03/20 20:18 Dose: 10 mg Documented by: Enoxaparin Sodium (Lovenox) 40 mg SUBCUT DAILY [facility] Last Admin: 07/04/20 07:55 Dose: 40 mg Documented by: Hydromorphone HCl (Dilaudid) 0.25 mg IVPUSH Q2H PRN PRN Reason: Pain (severe 7-10) Last Admin: 07/04/20 02:54 Dose: 0.25 mg Documented by: Azithromycin 500 mg/ Sodium (Chloride) 250 mls @ 250 mls/hr IV DAILY@0830 [facility] Last Admin: 07/04/20 07:54 Dose: 250 mls/hr Documented by: Metformin HCl (Glucophage) 500 mg PO BID [facility] Last Admin: 07/04/20 07:54 Dose: 500 mg Documented by: Metoprolol Tartrate (Lopressor) 50 mg PO Q12HR [facility] Last Admin: 07/04/20 07:54 Dose: 50 mg Documented by: Nifedipine (Procardia Xl) 60 mg PO DAILY [facility] Last Admin: 07/04/20 07:54 Dose: 60 mg Documented by: Ondansetron HCl (Zofran Odt) 4 mg PO Q4H PRN PRN Reason: nausea, able to take PO Senna/Docusate Sodium (Senna Plus) 2 tab PO DAILY [facility] Last Admin: 07/04/20 07:54 Dose: 2 tab Documented by: Sodium Chloride (Saline Flush) 10 ml FLUSH ASDIRECTED PRN PRN Reason: Keep Vein Open Last Admin: 07/04/20 07:55 Dose: 10 ml Documented by: Tramadol HCl (Ultram) 50 mg PO Q6HR PRN PRN Reason: Pain Last Admin: 07/04/20 07:54 Dose: 50 mg Documented by: Discontinued Medications Albuterol/Ipratropium (Duoneb 3.0-0.5 Mg/3 Ml) 3 ml NEB ONETIME ONE Stop: 07/01/20 15:30 Last Admin: 07/01/20 15:49 Dose: 3 ml Documented by: Albuterol/Ipratropium (Duoneb 3.0-0.5 Mg/3 Ml) 3 ml NEB Q4HRRT PRN PRN Reason: Wheezing/Shortness of Breath Last Admin: 07/04/20 02:54 Dose: 3 ml Documented by: Albuterol/Ipratropium (Duoneb 3.0-0.5 Mg/3 Ml) 3 ml NEB BID PRN PRN Reason: Wheezing/Shortness of Breath Albuterol/Ipratropium (Duoneb 3.0-0.5 Mg/3 Ml) 3 ml NEB BIDRT [facility] Last Admin: 07/04/20 06:29 Dose: 3 ml Documented by: Ceftriaxone Sodium (Rocephin) 1 gm IVPUSH STAT ONE Stop: 07/01/20 15:29 Last Admin: 07/01/20 15:44 Dose: 1 gm Documented by: Furosemide (Lasix) 20 mg PO ONETIME ONE Stop: 07/02/20 14:49 Last Admin: 07/02/20 15:31 Dose: 20 mg Documented by: Furosemide (Lasix) 20 mg PO ONETIME ONE Stop: 07/03/20 10:06 Last Admin: 07/03/20 11:08 Dose: 20 mg Documented by: Azithromycin 500 mg/ Sodium (Chloride) 250 mls @ 250 mls/hr IV STAT ONE Stop: 07/01/20 16:27 Last Admin: 07/01/20 15:52 Dose: 250 mls/hr Documented by: Lactated Ringer's (Ringers, Lactated) 1,000 mls @ 75 mls/hr IV ASDIRECTED [facility] Last Admin: 07/02/20 03:00 Dose: 150 mls/hr Documented by: Lactated Ringer's (Ringers, Lactated) 1,000 mls @ 999 mls/hr IV ONETIME ONE Stop: 07/01/20 16:51 Last Admin: 07/01/20 16:06 Dose: 999 mls/hr Documented by: Methylprednisolone Sodium Succinate (Solu-Medrol) 125 mg IVPUSH ONETIME ONE Stop: 07/01/20 15:34 Last Admin: 07/01/20 15:49 Dose: 125 mg Documented by: Polyethylene Glycol (Miralax) 17 gm PO BEDTIME ONE Stop: 07/01/20 18:31 Last Admin: 07/01/20 19:40 Dose: 17 gm Documented by: Polyethylene Glycol (Miralax) 17 gm PO ONETIME ONE Stop: 07/02/20 11:33 Last Admin: 07/02/20 11:51 Dose: 17 gm Documented by: Sodium Biphosphate/Sodium Phosphate (Fleet Enema) 133 ml RECTAL ONETIME ONE Stop: 07/03/20 10:07 Last Admin: 07/03/20 17:51 Dose: Not Given Documented by: - Exam General: Alert, Oriented HEENT: Mucous Membr. Moist/[place] Neck: Supple Lungs: Normal Respiratory Effort, Rales (RML/RLL areas, faint, improving) Cardiovascular: Regular Rate, Regular Rhythm GI/Abdominal Exam: Normal Bowel Sounds, Soft, Non-Tender, No Distention Extremities: Normal Inspection Skin: Warm, Dry Psy/Mental Status: Alert, Normal Affect, Normal Mood Sepsis Event Note - Evaluation Sepsis Screening Result: No Definite Risk - Focused Exam Vital Signs: Vital Signs Temp Pulse Pulse Resp BP BP Pulse Ox 07/04/20 10:00 98.7 F 95 16 116/77 95 07/04/20 07:54 78 133/66 07/04/20 06:00 92 L 07/04/20 05:46 96.4 F L 78 22 H 126/54 L 92 L 07/04/20 02:00 96.5 F L 73 18 125/59 L 95 - Problem List & Annotations (1) Bacteremia SNOMED Code(s): 7399520 Code(s): R78.81 - BACTEREMIA Status: Acute Current Visit: Yes (2) Pneumonia SNOMED Code(s): 387942654 Code(s): J18.9 - PNEUMONIA, UNSPECIFIED ORGANISM Status: Acute Current Visit: No Qualifiers: Pneumonia type: due to unspecified organism Laterality: right Lung location: middle lobe of lung Qualified Code(s): J18.9 - Pneumonia, unspecified organism (3) Diastolic CHF SNOMED Code(s): 470034493, 227361526 Code(s): I50.30 - UNSPECIFIED DIASTOLIC (CONGESTIVE) HEART FAILURE Status: Acute Current Visit: Yes (4) COPD with exacerbation SNOMED Code(s): 359310198 Code(s): J44.1 - CHRONIC OBSTRUCTIVE PULMONARY DISEASE W (ACUTE) EXACERBATION Status: Acute Current Visit: No (5) Constipation SNOMED Code(s): 47339702 Code(s): K59.00 - CONSTIPATION, UNSPECIFIED Status: Resolved Current Visit: Yes (6) Low back pain SNOMED Code(s): 205662841 Code(s): M54.5 - LOW BACK PAIN Status: Acute Current Visit: Yes (7) Generalized weakness SNOMED Code(s): 09836731 Code(s): R53.1 - WEAKNESS Status: Acute Current Visit: Yes - Problem List Review Problem List Initiated/Reviewed/Updated: Yes - My Orders Last 24 Hours: My Active Orders 07/03/20 11:44 RT Aerosol Therapy [RC] .PRN 07/04/20 06:16 RT Aerosol Therapy [RC] 07/04/20 10:16 Albuterol [Ventolin HFA] See Dose Instructions INH Q4H PRN 07/04/20 10:18 Dietary Supplements [RC] BIDMEALS 07/05/20 08:00 Azithromycin [Zithromax] 500 mg PO DAILY Tiotropium BR/Olodaterol HCL [Stiolto Respimat] See Dose Instructions INH DAILY - Plan Plan:: Kidney is an 79-year-old male who is now hospital day #4 for community-acquired pneumonia with hypoxic respiratory failure in the setting of underlying HFpEF and COPD. Community Acquired Pneumonia -right middle lobe MSSA bacteremia Acute hypoxic respiratory Failure Chronic Diastolic CHF Sepsis - Resolved - Leukocytosis resolved, vitals stable - Continues on supplemental O2 - Blood cultures grew out prelim staph: 2/2 tubes - Repeat CXR yesterday demonstrating improvement of RML consolidation Plan: - Repeat CBC in the am. Will also recheck pro-BNP tomorrow - Continue IV Rocephin. Azithro switched to PO (starting tomorrow). Plan for a total of 7 days of antibiotics. - Supplemental O2 as needed as well as prn O2 monitoring, working on wean today - COPD regiment to be started - spiriva daily, albuterol prn Acute on Chronic Low Back Pain - Long discussion this morning about chronicity of pain. This is not a 'new' problem for him. Has been having trouble for well over a year. Hx of surgery in the past Plan: - Monitor - Pain control: tylenol, ultram (home med), dilaudid - Continue home Flexeril prn - Offered possible referral to pain clinic, patient defers Constipation - resolved - BM yesterday after fleets Plan: - Continue home stool softener LORENA - resolved - Cr back to baseline Plan: - Monitor BMP daily Chronic: Hypertension - continue home metoprolol and Procardia Coronary artery disease - continue home baby aspirin Diabetes - metformin restarted today Diet -heart healthy DVT - SQ Lovenox 40 daily Therapies - physical therapy for deconditioning and generalized weakness Code - DNR Dispo: Anticipate another 1-2 days of hospitalization for continued hypoxia in the setting of resolved RML pneumonia. Patient has underlying COPD that is likely what we are fighting now with his continued hypoxia. Starting inhaler regiment today in hopes to work towards discharge. Nursing to get patient out of bed and attempt wean down on O2.
[2020-07-04] MEDS: Tiotropium BR/Olodaterol HCL 4 GM Inhalation Spray 2.5mcg/1 dose; 10 doses INH SCH (12:22)
[2020-07-04] MEDS: Cyclobenzaprine 10 MG Tab PO PRN (19:31)
[2020-07-05] MEDS: HYDROmorphone 0.5 MG/0.5 ML Syringe IVPUSH PRN ×3 (05:59→19:21)
[2020-07-05] MEDS: Enoxaparin 40 MG/0.4 ML Syringe SUBCUT SCH (07:42)
[2020-07-05] MEDS: Azithromycin 250 MG Tab PO SCH (07:42)
[2020-07-05] MEDS: metFORMIN 500 MG Tab PO SCH ×2 (07:43→19:22)
[2020-07-05] MEDS: NIFEdipine 30 MG Tab.ER PO SCH (07:43)
[2020-07-05] MEDS: cefTRIAXone 1 GM Vial IVPUSH SCH (07:43)
[2020-07-05] MEDS: Aspirin 81 MG Tab.Chew PO SCH (07:43)
[2020-07-05] MEDS: Metoprolol Tartrate 50 MG Tab PO SCH ×2 (07:43→19:22)
[2020-07-05] MEDS: Tiotropium BR/Olodaterol HCL 4 GM Inhalation Spray 2.5mcg/1 dose; 10 doses INH SCH (07:44)
[2020-07-05] MEDS: traMADol 50 MG Tab PO PRN (07:45)
[2020-07-05 08:17] LABS: CHLORIDE,CL 101 mmol/L (98-107); SODIUM,NA 137 mmol/L (136-145)
[2020-07-05 08:20] LABS: ANION GAP 11.8 mmol/L (5-15)
[2020-07-05] MEDS ORDERED: Albuterol/Ipratropium 3.0-0.5 MG/3 ML Neb Soln NEB PRN (10:01)
[2020-07-05] MEDS: methylPREDNISolone Sodium Succinate 40 MG/1 ML SDV IVPUSH SCH (10:48)
[2020-07-05] MEDS: Albuterol/Ipratropium 3.0-0.5 MG/3 ML Neb Soln NEB SCH ×4 (10:48→23:55)
[2020-07-05] MEDS: Sodium Chloride 0.9% 10 ML Syringe FLUSH PRN ×2 (10:48→13:07)
--- NOTE | 2020-07-05 14:48 | PN ---
Progress Note for TAMARA MCDUFFIE Date: 07/05/2020 Room #: VM214 CHIEF COMPLAINT: Shortness of breath. SUBJECTIVE: Hospital day #5 for an 79-year-old male patient with a past medical history of hypertension, CAD, TIA, peripheral vascular disease, COPD, type 2 diabetes, and hyperlipidemia who was admitted on 07/01/2020 for community- acquired pneumonia. The patient states he is feeling much better today. He has had a productive cough producing a green/yellow-appearing purulent sputum. The patient continues to require oxygen as his oxygen saturations have been in the mid 80s without oxygen. The patient denies any headaches. No dizziness or lightheadedness. The patient has chronic back pain. The patient denies any chest pain or palpitations. No leg edema. The patient denies any abdominal pain. No nausea, vomiting, or diarrhea. The patient states he does not feel overly short of breath, but continues to have a productive cough. REVIEW OF SYSTEMS: Constitutional: Negative. Skin: Negative. Respiratory: Denies shortness of breath, but has a productive cough. Cardiovascular: Negative. Abdomen: Negative. Neurological: Negative. PHYSICAL EXAMINATION: Vital Signs: Temperature 96.3, pulse 72, blood pressure 138/72, respiratory rate 22, oxygen saturation 95% on 1 L. General: The patient is alert. The patient is not in any acute distress. The patient is cooperative. Skin: Intact. Warm and dry. Respiratory: Lungs are clear to auscultation with the exception of scant scattered crackles bibasilar. Cardiovascular: Regular rate and rhythm, no murmur. Abdomen: Soft. Abdominal sounds are normoactive x4. Nontender. Neurologic: The patient is alert. The patient is oriented to person, place, and time. Sensation is intact. LABORATORY DATA: CBC: White blood cell count 7.9, hemoglobin 11.6, hematocrit 36.3, platelets are 315,000. BMP: Sodium 137, potassium 3.8, chloride 101, CO2 of 28, anion gap 11.8, BUN 13, creatinine 1.0, GFR greater than 60, glucose 105, calcium 8.8. BNP is 1091. ASSESSMENT: 1. Sepsis. 2. Pneumonia. 3. Chronic obstructive pulmonary disease with exacerbation. 4. Acute kidney injury. 5. Constipation. 6. Low back pain. 7. Generalized weakness. 8. Methicillin-sensitive Staphylococcus aureus bacteremia. 9. Acute hypoxic respiratory failure. PLAN: Hospital day #5 for an 79-year-old male patient who was admitted for the above diagnoses. We will start the patient on scheduled DuoNeb every 4 hours and every 2 hours as needed. We will also add Solu-Medrol 40 mg IV daily. The patient remains on acute care due to hypoxia and need for oxygen. If the patient is able to wean off oxygen and maintain saturation over the next 24 hours, may consider discharge home tomorrow. We discussed cough and deep breathing exercises. IS at bedside. Discussed with the patient he needs to get up out of bed and walk as much as he is able. The patient will continue on antibiotic after discharge. The patient's blood cultures were positive for Staph aureus. Antibiotics will be as adjusted at time of discharge. The patient is a code level 2. TB: 07/05/2020 12:45:21 MODL: 07/05/2020 14:43:44 /[id number]
[2020-07-05] MEDS: Cyclobenzaprine 10 MG Tab PO PRN (18:17)
[2020-07-06] MEDS: Albuterol/Ipratropium 3.0-0.5 MG/3 ML Neb Soln NEB SCH ×2 (03:21→06:11)
[2020-07-06 06:11] VITALS: BP 146/60; PULSE 78
[2020-07-06] MEDS: methylPREDNISolone Sodium Succinate 40 MG/1 ML SDV IVPUSH SCH (07:56)
[2020-07-06] MEDS: cefTRIAXone 1 GM Vial IVPUSH SCH (07:56)
[2020-07-06] MEDS: Metoprolol Tartrate 50 MG Tab PO SCH (07:56)
[2020-07-06] MEDS: Enoxaparin 40 MG/0.4 ML Syringe SUBCUT SCH (07:56)
[2020-07-06] MEDS: traMADol 50 MG Tab PO PRN (07:57)
[2020-07-06] MEDS: Aspirin 81 MG Tab.Chew PO SCH (07:57)
[2020-07-06] MEDS: Azithromycin 250 MG Tab PO SCH (07:57)
[2020-07-06] MEDS: NIFEdipine 30 MG Tab.ER PO SCH (07:57)
[2020-07-06] MEDS: metFORMIN 500 MG Tab PO SCH (07:57)
[2020-07-06] MEDS: Tiotropium BR/Olodaterol HCL 4 GM Inhalation Spray 2.5mcg/1 dose; 10 doses INH SCH (08:07)
[2020-07-06 08:11] LABS: CHLORIDE,CL 102 mmol/L (98-107); SODIUM,NA 140 mmol/L (136-145)
--- NOTE | 2020-07-06 14:02 | DISCH ---
ADMITTING DIAGNOSES: 1. Sepsis. 2. Pneumonia. 3. Chronic obstructive pulmonary disease with exacerbation. 4. Acute kidney injury. 5. Constipation. 6. Chronic low back pain. 7. Generalized weakness. DISCHARGE DIAGNOSES: 1. Sepsis secondary to pneumonia-improved. 2. Chronic obstructive pulmonary disease with exacerbation-resolved. 3. Acute kidney injury-resolved. 4. Constipation, chronic. 5. Chronic low back pain. 6. Generalized weakness-improved. HISTORY OF PRESENT ILLNESS: An 79-year-old male patient with a past medical history of hypertension, coronary artery disease, TIA, peripheral vascular disease, COPD, type 2 diabetes, hyperlipidemia, was admitted to the acute care floor at [facility] for the above diagnoses. The patient's admitting symptoms started on 06/27/2020. The patient states he had profound weakness. He felt very nauseous. The patient has some degree of shortness of breath. Upon arrival to the emergency room, the patient was tachycardic and tachypneic. The patient was slightly hypertensive in the 140s over 70s. Oxygen saturation was normal. The patient's laboratory work did show elevated D-dimer of 6.61, lactic acid 3.9, low sodium at 131. The patient's creatinine was elevated at 1.7 with a baseline of 1.0. The patient also had an elevated CRP of 112.9. The patient's COVID and influenza tests were negative. The patient's chest x-ray did show a right middle lobe infiltrate, therefore the patient was admitted for further treatment. BRIEF HOSPITAL COURSE: The patient did remain hemodynamically stable and afebrile. However, the patient did have problems with oxygen saturations. The patient was started appropriately on azithromycin and Rocephin IV. The patient was continued on his home medications. The patient continued to have a productive cough throughout his stay. The patient was adamant he did not want to go home on home oxygen. Therefore, medications were changed yesterday in which Solu-Medrol and scheduled DuoNeb were added. The patient's oxygen saturations did improve and he was able to be off oxygen for over 24 hours. The patient maintained room air saturations of 92% to 94%. The patient's blood test results also did improve. REVIEW OF SYSTEMS: Skin: Negative. Respiratory: Intermittent productive cough, denies shortness of breath. Cardiovascular: Denies chest pain or palpitations. Abdomen: Negative. Neurological: Negative. DISCHARGE PHYSICAL EXAMINATION: Vital Signs: Temperature 97.7, pulse 78, blood pressure 146/60, respiratory rate 15, oxygen saturation 91% on room air. Skin: Intact, warm and dry. Respiratory: Lungs are diminished, but clear throughout, no crackles, no rhonchi. Cardiovascular: Regular rate and rhythm, no murmur. Abdomen: Soft. Nontender. Bowel sounds are normoactive x4. Neurological: No focal neurological deficits. The patient is alert and oriented appropriately. DISCHARGE LABORATORY DATA: 1. CBC: White blood cell count 9.7, hemoglobin 11.3, hematocrit 36.2, platelets 314,000. 2. CMP: Sodium 140, potassium 4.0, chloride 102, CO2 of 28, anion gap of 14, BUN 15, creatinine 1.0, GFR greater than 60, glucose 113, calcium 9.1, AST 35, ALT 62, alkaline phosphatase 117, total protein 6.6. DISCHARGE MEDICATIONS: 1. Aspirin 81 mg 1 tablet p.o. daily. 2. Cyclobenzaprine 10 mg 1 tablet p.o. twice daily as needed. 3. Metoprolol 50 mg 1 tablet p.o. twice daily. 4. Nifedipine 60 mg 1 tablet p.o. daily. 5. Senna/docusate 2 tablets p.o. daily. 6. Stiolto Respimat 2 puffs inhalation daily. 7. Triamcinolone 0.1% cream, apply topical twice daily as needed for itching. 8. Metformin 500 mg 1 tablet p.o. twice daily. 9. Tramadol 50 mg 1 tablet p.o. every 6 hours as needed. 10.Azithromycin 500 mg 1 tablet p.o. daily x5 days. 11.Prednisone 20 mg 1 tablet p.o. twice daily x5 days. ASSESSMENT: 1. Community-acquired pneumonia-right middle lobe. 2. Methicillin-sensitive Staphylococcus aureus bacteremia. 3. Acute hypoxic respiratory failure, resolved. 4. Chronic diastolic heart failure-stable. 5. Sepsis-resolved. 6. Evluu-qe-pcczbmr low back pain-stable. 7. Constipation-resolved. 8. Acute kidney injury-resolved. PLAN: An 79-year-old male patient who was admitted to the acute care floor at [facility] for the above diagnoses. The patient will be continued on azithromycin for the next 5 days. We will also start the patient on prednisone 20 mg 1 tablet twice daily for the next 5 days. The patient will also have an albuterol inhaler to be used every 4 hours as needed. Continue all other home medications the same without any changes. Diabetic diet. Activity as tolerated. We thoroughly discussed cough and deep breathing and using the incentive spirometer. We discussed that the inhaler is only as rescue. The patient to continue on his Stiolto Respimat as directed. Would like close monitoring of the patient, therefore, I have asked the patient to follow up in the clinic over the next couple of days. Discussed should his symptoms get worse, he should return to the emergency room, however, the patient was stable at the time of discharge. TB: 07/06/2020 11:19:53 MODL: 07/06/2020 13:56:44 /[id number]
== END 2020-07-06 10:00 | disposition home or self-care (01) | DRG 871 ==
LOC: VM.ED 14:34 → VM.MS 16:20
PROVIDERS: ADMIT Family Medicine; ATTEND Family Medicine
DX: A41.9 Sepsis, unspecified organism (principal); A41.01 Sepsis due to Methicillin susceptible Staphylococcus aureus; J18.9 Pneumonia, unspecified organism; J96.01 Acute respiratory failure with hypoxia; J44.1 Chronic obstructive pulmonary disease with (acute) exacerbation; N17.9 Acute kidney failure, unspecified; E78.00 Pure hypercholesterolemia, unspecified; I50.32 Chronic diastolic (congestive) heart failure; I73.9 Peripheral vascular disease, unspecified; J44.0 Chronic obstructive pulmonary disease with (acute) lower respiratory infection; K59.00 Constipation, unspecified; G89.29 Other chronic pain; M54.5 Low back pain; R53.1 Weakness; I25.10 Atherosclerotic heart disease of native coronary artery without angina pectoris; I11.0 Hypertensive heart disease with heart failure; E11.51 Type 2 diabetes mellitus with diabetic peripheral angiopathy without gangrene; E78.5 Hyperlipidemia, unspecified; Z79.82 Long term (current) use of aspirin; Z79.899 Other long term (current) drug therapy; Z86.73 Personal history of transient ischemic attack (TIA), and cerebral infarction without residual deficits; Z88.8 Allergy status to other drugs, medicaments and biological substances; Z79.52 Long term (current) use of systemic steroids; Z79.84 Long term (current) use of oral hypoglycemic drugs; E11.9 Type 2 diabetes mellitus without complications; Z20.822 Contact with and (suspected) exposure to COVID-19
CPT/HCPCS: 36415; 71045; 71046; 80048; 80053; 81001; 82962; 83605; 83880; 84484; 85025; 85379; 85610; 85730; 86140; 87040; 87077; 87147; 87186; 87804; 87804-59; 93005; 93010; 94640; 94760; 96365; 96375; 97110-GP; 97116-GP; 97161-GP; 97530-GP; 99284; 99285-25; A9270-GY; J0456; J0696; J1170; J1650; J2920; J2930; J7050; J7120; J7620-GY; U0002

== ENCOUNTER 2020-07-29 09:50 | Inpatient (IN) | payer MEDICARE, BC ==
--- NOTE | 2020-07-29 10:28 | EDM.PDOC ---
ED HPI GENERAL MEDICAL PROBLEM - General Chief Complaint: General Stated Complaint: WEAK, FALLING Time Seen by Provider: 07/29/20 09:50 Source of Information: Reports: Patient History Limitations: Reports: No Limitations - History of Present Illness INITIAL COMMENTS - FREE TEXT/NARRATIVE: Pt. presents to ER via EMS. He is a resident at [facility], and his neighbor heard him yelling for hold in his apartment and called 911. Pt. was notably confused for EMS. He states that he thought someone was stealing his TV and furniture of his apartment. He states that he crawled out to assess the situation and was unable to get off the floor. He does not think he fell, but states that he was weak and unable to stand due to severe low back pain. He has been dealing with problems with acute exacerbation of low back pain for some time, and is set up to see pain management. Denies any saddle anesthesia or fecal incontinence. Pt. denies any numbness/tingling in extremities, headache, head trauma, Pt. was admitted for pneumonia, sepsis, and COPD exacerbation approx. 1 month ago. Onset: Today Treatments ENVIRONMENTAL SERVICES FLOOR TECH: Reports: IV/IO Lower Back Pain Score (Numeric/FACES): 8 - Related Data Allergies Allergy/AdvReac Type Severity Reaction Status Date / Time [id number] Reductase AdvReac Leg Cramps Verified 07/29/20 12:20 Inhibitor Home Meds: Home Meds metFORMIN [Glucophage] 500 mg PO BID 01/19/14 [History] traMADol [Ultram] 50 mg PO Q6HR PRN 01/19/14 [History] Cyclobenzaprine [Flexeril] 10 mg PO BID PRN 07/01/20 [History] Sennosides/Docusate Sodium [Senna-Docusate Sodium Tablet] 2 tab PO DAILY 1 [History] Aspirin [Adult Aspirin Regimen] 81 mg PO DAILY 07/02/20 [History] Metoprolol Tartrate [Lopressor] 50 mg PO BID 07/02/20 [History] Triamcinolone Acetonide [Triamcinolone Acetonide 0.1% Crm] 1 gram TOP BID PRN 07/02/20 [History] Azithromycin 500 mg PO DAILY 5 Days #5 tablet 07/06/20 [Rx] Tiotropium BR/Olodaterol HCL [Stiolto Respimat] 2 puff INH DAILY inhaler 07/06/20 [Rx] predniSONE 20 mg PO BID 5 Days #10 tab 07/06/20 [Rx] NIFEdipine [Procardia Xl] 60 mg PO DAILY 07/29/20 [History] Past Medical History HEENT History: Reports: Hard of Hearing Cardiovascular History: Reports: CAD, High Cholesterol, PVD, Other (See Below) Other Cardiovascular History: coronary atherosclerosis. peripheral vascular disease Respiratory History: Reports: COPD Gastrointestinal History: Reports: Other (See Below) Other Gastrointestinal History: peptic ulcer disease Genitourinary History: Reports: Other (See Below) Other Genitourinary History: Hypertrophy of prostate w/o urinary obstruction. elevated PSA Musculoskeletal History: Reports: Neck Pain, Chronic, Other (See Below) Other Musculoskeletal History: LBP radiating to right leg Neurological History: Reports: TIA, Other (See Below) Other Neuro History: abd aortic aneurysm Psychiatric History: Reports: Other (See Below) Other Psychiatric History: depressive disorder not classified elsewhere Endocrine/Metabolic History: Reports: Diabetes, Type II - Infectious Disease History Infectious Disease History: Reports: Chicken Pox, Measles, Mumps - Past Surgical History Cardiovascular Surgical History: Reports: Other (See Below) Other Cardiovascular Surgeries/Procedures: right to left femoral artery bypass. right femoral politeal bypass. vein grafting. Hyperlipidemia Musculoskeletal Surgical History: Reports: Other (See Below) Other Musculoskeletal Surgeries/Procedures:: right hallux partial amputation Social & Family History - Tobacco Use Tobacco Use Status *Q: Unknown Ever Used Tobacco - Caffeine Use Caffeine Use: Reports: Coffee ED ROS GENERAL - Review of Systems Review Of Systems: See Below Constitutional: Reports: Weakness HEENT: Reports: No Symptoms Respiratory: Reports: No Symptoms Cardiovascular: Reports: No Symptoms Endocrine: Reports: No Symptoms GI/Abdominal: Reports: No Symptoms : Reports: No Symptoms Musculoskeletal: Reports: Back Pain (states is chronic. Denies any acute injury.) Skin: Reports: No Symptoms Neurological: Reports: Confusion Psychiatric: Reports: No Symptoms Hematologic/Lymphatic: Reports: No Symptoms Immunologic: Reports: No Symptoms ED EXAM, GENERAL - Physical Exam Exam: See Below Exam Limited By: No Limitations General Appearance: Alert, No Apparent Distress Eye Exam: Bilateral Eye: EOMI Nose: Normal Inspection, Normal Mucosa, No Blood Throat/Mouth: Normal Inspection, Normal Lips, Normal Oropharynx, Normal Voice, No Airway Compromise Head: Atraumatic, Normocephalic Neck: Normal Inspection, Supple, Non-Tender, Full Range of Motion Respiratory/Chest: No Respiratory Distress, Normal Breath Sounds, No Accessory Muscle Use, Chest Non-Tender, Decreased Breath Sounds Cardiovascular: Normal Peripheral Pulses, Regular Rate, Rhythm, No Edema, No JVD Peripheral Pulses: 4+: Radial (L) GI/Abdominal: Soft, Non-Tender, No Distention, No Mass (Male) Exam: Deferred Rectal (Males) Exam: Deferred Extremities: Normal Inspection, Normal Range of Motion, Non-Tender, No Pedal Edema, Normal Capillary Refill Neurological: Alert, Oriented, CN II-XII Intact, Confused Psychiatric: Normal Affect, Normal Mood Skin Exam: Warm, Dry, Intact, No Rash, Pallor Lymphatic: No Adenopathy Course - Vital Signs Last Recorded V/S: Last Vital Signs Temp 36.8 C 07/30/20 02:00 Pulse 72 07/30/20 02:00 Resp 20 07/30/20 02:00 BP 138/56 L 07/30/20 02:00 Pulse Ox 95 07/30/20 02:00 - Orders/Labs/Meds Orders: Active Orders 24 hr Category Date Time Status CULTURE BLOOD [BC] Stat Lab 07/29/20 10:23 Results CULTURE BLOOD [BC] Stat Lab 07/29/20 10:26 Received Sodium Chloride 0.9% [Normal Saline] 1,000 ml Med 07/29/20 11:00 Active IV ASDIRECTED Blood Culture x2 Reflex Set [OM.PC] Stat Oth 07/29/20 10:11 Ordered Medication Orders Acetaminophen (Tylenol) 650 mg PO Q4H PRN PRN Reason: Pain (Mild 1-3)/fever Hydrocodone Bitart/Acetaminophen (Lawrence 325-5 Mg) 1 tab PO Q4H PRN PRN Reason: Pain (moderate 4-6) Last Admin: 07/30/20 00:21 Dose: 1 tab Documented by: Admin: 07/29/20 18:42 Dose: 1 tab Documented by: NANCY Heparin Sodium (Porcine) (Heparin Sodium) 5,000 units SUBCUT Q8H [facility] Last Admin: 07/29/20 15:32 Dose: 5,000 units Documented by: YVON Hydromorphone HCl (Dilaudid) 0.25 mg IVPUSH Q2H PRN PRN Reason: Pain (severe 7-10) Last Admin: 07/30/20 02:33 Dose: 0.25 mg Documented by: RIP Sodium Chloride (Normal Saline) 1,000 mls @ 150 mls/hr IV ASDIRECTED [facility] Last Admin: 07/30/20 00:14 Dose: 500 mls/hr Documented by: Infusion: 07/29/20 15:22 Dose: 500 mls/hr Documented by: Admin: 07/29/20 13:22 Dose: 500 mls/hr Documented by: Infusion: 07/29/20 13:22 Dose: 500 mls/hr Documented by: Infusion: 07/29/20 11:50 Dose: 500 mls/hr Documented by: Admin: 07/29/20 10:57 Dose: 150 mls/hr Documented by: TRACY Sodium Chloride (Normal Saline) 1,000 mls @ 150 mls/hr IV ASDIRECTED [facility] Last Admin: 07/29/20 17:35 Dose: 150 mls/hr Documented by: NANCY Influenza Virus Vaccine (Fluzone High-Dose Quad ) 240 mcg IM .ONCE ONE Stop: 07/30/20 10:01 Metformin HCl (Glucophage) 500 mg PO BIDMEALS [facility] Last Admin: 07/29/20 17:34 Dose: 500 mg Documented by: NANCY Metoprolol Tartrate (Lopressor) 50 mg PO BID [facility] Last Admin: 07/29/20 20:25 Dose: 50 mg Documented by: KYLE Nifedipine (Procardia Xl) 60 mg PO DAILY [facility] Ondansetron HCl (Zofran Odt) 4 mg PO Q4H PRN PRN Reason: nausea, able to take PO Polyethylene Glycol (Miralax) 17 gm PO DAILY [facility] Last Admin: 07/29/20 15:33 Dose: Not Given Documented by: YVON Senna/Docusate Sodium (Senna Plus) 2 tab PO DAILY [facility] Triamcinolone Acetonide (Triamcinolone Acetonide 0.1% Crm) 0 gm TOP BID PRN PRN Reason: Itching Labs: Laboratory Tests 02/16/21 02/16/21 02/16/21 Range/Units 10:16 10:23 10:23 WBC 7.0 (4.0-10.0) x10^3/uL RBC 3.79 L (4.5-6.0) x10^6/uL Hgb 11.4 L (14.0-18.0) g/dL Hct 35.3 L (40.0-52.0) % MCV 93.1 H D (78.0-93.0) fL MCH 30.1 (26.0-32.0) pg MCHC 32.3 (32.0-36.0) g/dL RDW Coeff of Bobo 13.9 (10.0-15.0) % Plt Count 262 (130-400) x10^3/uL Neut % (Auto) 83.6 H (50.0-80.0) % Lymph % (Auto) 9.7 L (25.0-50.0) % Mckenzie % (Auto) 6.5 (2.0-11.0) % Eos % (Auto) 0.1 (0.0-4.0) % Baso % (Auto) 0.1 L (0.2-1.2) % PT 12.8 H (9.9-12.5) SEC INR 1.1 L (2.0-3.5) APTT (25.6-32.8) SEC Sodium (136-145) mmol/L Potassium (3.5-5.1) mmol/L Chloride (98-107) mmol/L Carbon Dioxide (21-32) mmol/L Anion Gap (5-15) mmol/L BUN (7-18) mg/dL Creatinine (0.70-1.30) mg/dL Est Cr Clr Drug Dosing Estimated GFR (MDRD) Glucose (74-106) mg/dL Lactic Acid (0.4-2.0) mmol/L Calcium (8.5-10.1) mg/dL Corrected Calcium (8.5-10.1) mg/dL Magnesium (1.8-2.4) mg/dL Total Bilirubin (0.2-1.0) mg/dL AST (15-37) U/L ALT (16-63) U/L Alkaline Phosphatase (46-116) U/L Creatine Kinase (39-308) U/L Troponin I (<=0.056) ng/mL C-Reactive Protein (<=0.9) mg/dL Total Protein (6.4-8.2) g/dL Albumin (3.4-5.0) g/dL Globulin Albumin/Globulin Ratio Urine Color Peri H (YELLOW) Urine Appearance Slightly cloudy H (CLEAR) Urine pH 5.5 (5.0-8.0) Ur Specific [place] >=1.030 Urine Protein 30 H (NEGATIVE) mg/dL Urine Glucose (UA) Negative (NEGATIVE) mg/dL Urine Ketones 40 H (NEGATIVE) mg/dL Urine Occult Blood Trace-intact H (NEGATIVE) Urine Nitrite Negative (NEGATIVE) Urine Bilirubin Small H (NEGATIVE) Urine Urobilinogen 0.2 (0.2) EU/dL Ur Leukocyte Esterase Negative (NEGATIVE) Urine RBC 5-10 H (NOT SEEN) /HPF Urine WBC 0-5 (NOT SEEN) /HPF Ur Squamous Epith Cells Not seen (NEGATIVE) /HPF Amorphous Sediment Rare Urine Bacteria Rare (NEGATIVE) /HPF Urine Mucus Occasional H (NEGATIVE) /LPF 07/29/20 07/29/20 07/29/20 Range/Units 10:23 10:23 10:23 WBC (4.0-10.0) x10^3/uL RBC (4.5-6.0) x10^6/uL Hgb (14.0-18.0) g/dL Hct (40.0-52.0) % MCV (78.0-93.0) fL MCH (26.0-32.0) pg MCHC (32.0-36.0) g/dL RDW Coeff of Bobo (10.0-15.0) % Plt Count (130-400) x10^3/uL Neut % (Auto) (50.0-80.0) % Lymph % (Auto) (25.0-50.0) % Mckenzie % (Auto) (2.0-11.0) % Eos % (Auto) (0.0-4.0) % Baso % (Auto) (0.2-1.2) % PT (9.9-12.5) SEC INR (2.0-3.5) APTT 28.6 (25.6-32.8) SEC Sodium 136 (136-145) mmol/L Potassium 3.7 (3.5-5.1) mmol/L Chloride 97 L (98-107) mmol/L Carbon Dioxide 25 (21-32) mmol/L Anion Gap 17.7 H (5-15) mmol/L BUN 11 (7-18) mg/dL Creatinine 1.0 (0.70-1.30) mg/dL Est Cr Clr Drug Dosing TNP Estimated GFR (MDRD) > 60 Glucose 108 H (74-106) mg/dL Lactic Acid 2.4 H* (0.4-2.0) mmol/L Calcium 9.7 (8.5-10.1) mg/dL Corrected Calcium 10.42 H (8.5-10.1) mg/dL Magnesium 1.8 (1.8-2.4) mg/dL Total Bilirubin 0.7 (0.2-1.0) mg/dL AST 23 (15-37) U/L ALT 20 (16-63) U/L Alkaline Phosphatase 119 H (46-116) U/L Creatine Kinase 567 H* (39-308) U/L Troponin I < 0.017 (<=0.056) ng/mL C-Reactive Protein 20.1 H (<=0.9) mg/dL Total Protein 7.8 (6.4-8.2) g/dL Albumin 3.1 L (3.4-5.0) g/dL Globulin 4.7 Albumin/Globulin Ratio 0.66 Urine Color (YELLOW) Urine Appearance (CLEAR) Urine pH (5.0-8.0) Ur Specific [place] Urine Protein (NEGATIVE) mg/dL Urine Glucose (UA) (NEGATIVE) mg/dL Urine Ketones (NEGATIVE) mg/dL Urine Occult Blood (NEGATIVE) Urine Nitrite (NEGATIVE) Urine Bilirubin (NEGATIVE) Urine Urobilinogen (0.2) EU/dL Ur Leukocyte Esterase (NEGATIVE) Urine RBC (NOT SEEN) /HPF Urine WBC (NOT SEEN) /HPF Ur Squamous Epith Cells (NEGATIVE) /HPF Amorphous Sediment Urine Bacteria (NEGATIVE) /HPF Urine Mucus (NEGATIVE) /LPF Meds: Medications Generic Name Dose Route Start Last Admin Trade Name Freq PRN Reason Stop Dose Admin Acetaminophen 650 mg 07/29/20 15:10 Tylenol PO Q4H PRN Pain (Mild 1-3)/fever Hydrocodone Bitart/Acetaminophen 1 tab 07/29/20 15:10 07/30/20 00:21 Lawrence 325-5 Mg PO 1 tab Q4H PRN Administration Pain (moderate 4-6) Heparin Sodium (Porcine) 5,000 units 07/29/20 15:30 07/29/20 15:32 Heparin Sodium SUBCUT 5,000 units Q8H RADHA Administration Hydromorphone HCl 0.25 mg 07/29/20 15:10 07/30/20 02:33 Dilaudid IVPUSH 0.25 mg Q2H PRN Administration Pain (severe 7-10) Sodium Chloride 1,000 mls @ 150 mls/hr 07/29/20 11:00 07/30/20 00:14 Normal Saline IV 500 mls/hr ASDIRECTED RADHA Administration Sodium Chloride 1,000 mls @ 150 mls/hr 07/29/20 15:15 07/29/20 17:35 Normal Saline IV 150 mls/hr ASDIRECTED RADHA Administration Influenza Virus Vaccine 240 mcg 07/30/20 10:00 Fluzone High-Dose Quad IM 07/30/20 10:01 .ONCE ONE Metformin HCl 500 mg 07/29/20 18:00 07/29/20 17:34 Glucophage PO 500 mg BIDMEALS RADHA Administration Metoprolol Tartrate 50 mg 07/29/20 20:00 07/29/20 20:25 Lopressor PO 50 mg BID RADHA Administration Nifedipine 60 mg 07/30/20 08:00 Procardia Xl PO DAILY RADHA Ondansetron HCl 4 mg 07/29/20 15:10 Zofran Odt PO Q4H PRN nausea, able to take PO Polyethylene Glycol 17 gm 07/29/20 15:15 07/29/20 15:33 Miralax PO Not Given DAILY [facility] Senna/Docusate Sodium 2 tab 07/30/20 08:00 Senna Plus PO DAILY RADHA Triamcinolone Acetonide 0 gm 07/29/20 15:14 Triamcinolone Acetonide 0.1% Crm TOP BID PRN Itching Discontinued Medications Generic Name Dose Route Start Last Admin Trade Name Freq PRN Reason Stop Dose Admin Influenza Virus Vaccine 1 each 07/29/20 13:10 Pharmacy To Dose - Influenza Vaccine IM 07/29/20 13:11 ONETIME ONE Influenza Virus Vaccine 240 mcg 07/29/20 14:00 Fluzone High-Dose Quad IM 07/29/20 14:01 .ONCE ONE - Radiology Interpretation Free Text/Narrative:: CT brain negative for acute pathology Chest x-ray is negative Departure - Departure Time of Disposition: 12:00 Disposition: Admitted As Inpatient 64 Clinical Impression: Rhabdomyolysis - Discharge Information Sepsis Event Note (ED) - Evaluation Sepsis Screening Result: No Definite Risk - Problem List Review Problem List Initiated/Reviewed/Updated: Yes - My Orders Last 24 Hours: My Active Orders 07/29/20 10:11 Blood Culture x2 Reflex Set [OM.PC] Stat 07/29/20 10:23 CULTURE BLOOD [BC] Stat 07/29/20 10:26 CULTURE BLOOD [BC] Stat 07/29/20 11:00 Sodium Chloride 0.9% [Normal Saline] 1,000 ml IV ASDIRECTED - Assessment/Plan Last 24 Hours: My Active Orders 07/29/20 10:11 Blood Culture x2 Reflex Set [OM.PC] Stat 07/29/20 10:23 CULTURE BLOOD [BC] Stat 07/29/20 10:26 CULTURE BLOOD [BC] Stat 07/29/20 11:00 Sodium Chloride 0.9% [Normal Saline] 1,000 ml IV ASDIRECTED Plan: Pt. will be admitted acutely. He is a code 2, DNR/DNI. He has 2 sons, one in [place] and one in [place] who are his next of kin. Lisette Keith MD will be admitting this patient.
[2020-07-29] MEDS: Sodium Chloride 0.9% 1,000 ML IV SCH ×3 (10:57→17:35)
[2020-07-29 11:07] LABS: ANION GAP 17.7 mmol/L (5-15); CHLORIDE,CL 97 mmol/L (98-107); SODIUM,NA 136 mmol/L (136-145)
--- NOTE | 2020-07-29 12:05 | CR ---
[id number] RAD/RAD Chest PA or AP 1V EXAM: SINGLE VIEW CHEST. INDICATION: CHANGE IN MENTAL STATUS COMPARISON: CORRELATION IS MADE WITH JULY 03, 2020 FINDINGS: The lungs are clear but hyperaerated The cardiomediastinal contour is stable IMPRESSION: AIRWAY DISEASE Hebert Bianchi MD 07/29/20 [id number] Thank you for allowing us to participate in the care of your patient.
--- NOTE | 2020-07-29 12:05 | CT ---
[id number] CT/CT Head WO IV EXAM: CT Head WO IV CLINICAL DATA: CHANGE IN MENTAL STATUS COMPARISON: NO PREVIOUS SIMILAR EXAM IS AVAILABLE FOR COMPARISON. FINDINGS: There is no mass or mass effect. There is no hemorrhage or hydrocephalus. There are no extra-axial fluid collections. There are no sites of abnormal attenuation. IMPRESSION: NO PLAIN CT EVIDENCE OF ACUTE INTRACRANIAL PROCESS. Hebert Bianchi MD 07/29/20 [id number] Thank you for allowing us to participate in the care of your patient.
[2020-07-29] MEDS ORDERED: FLU Vacc QV2020-21(65YR UP)/PF 240 MCG/0.7 ML Syringe IM ONE (14:00)
[2020-07-29] MEDS ORDERED: Ondansetron 4 MG Tab.DIS PO PRN (15:10)
[2020-07-29] MEDS ORDERED: Acetaminophen 325 MG Tab PO PRN (15:10)
[2020-07-29] MEDS ORDERED: Triamcinolone Acetonide 0.1% Crm 15 GM Tube TOP PRN (15:14)
[2020-07-29] MEDS: Heparin Sodium 5,000 Units/ML Vial SUBCUT SCH (15:32)
[2020-07-29] MEDS: Polyethylene Glycol 3350 Powder 17 GM Packet PO SCH (15:33)
[2020-07-29] MEDS: Tiotropium BR/Olodaterol HCL 4 GM Inhalation Spray 2.5mcg/1 dose; 10 doses INH SCH (15:33)
--- NOTE | 2020-07-29 16:27 | PCM.HP.2 ---
H&P History of Present Illness - General Date of Service: 07/29/20 Admit Problem/Dx: Admission Diagnosis/Problem Admission Diagnosis/Problem Rhabdomyolysis - History of Present Illness Initial Comments - Free Text/Narative: Mike is an 79-year-old male with past medical history of coronary artery disease, TIA, hypertension, COPD, hyperlipidemia, type 2 diabetes, chronic low back pain who presented to the ER this morning via EMS. He is found by neighbor this morning after they heard him yelling (lives at [facility]). He is noted to the EMS on arrival that he thought that he was feeling his TV and his furniture in his apartment last night he crawled out of his bedroom to assess the situation and known was unable to get up off the floor. He denied any falls. He has been struggling with back pain for which we have been trying to manage an outpatient for; at his last visit we set him up to it establish with the pain management clinic here at the hospital. Upon arrival to the ED he was noted to be hypertensive and tachycardic; do not take his morning meds. Laboratory evaluation was notable for a lactic acid of 2.4, anion gap of 17.7, CK of 567, CRP of 20. Cr was 1.0. Blood counts are stable from previous. Urine was negative for UTI. COVID was negative. EKG, chest x-ray, head CT were normal. Blood cultures were drawn. He was given 1 L of fluid over a two-hour period. He is being admitted for rhabdomyolysis. Upon my discussion with the patient he notes that he is very embarrassed about the circumstances. At that he is allergic crawling up and down the hallway of his apartment complex looking for somebody to help. He is unsure if he was on the floor for 12 hours or potentially even up to 3 days. He is much more confused than he normally is. He does have a little bit of pain on his head from hitting head when he fell. He denies any lightheadedness, dizziness, vision changes, trouble swallowing, chest pain, racing heart, breathing troubles (aside from baseline shortness of breath), bowel or bladder changes. He does have the back pain as well as some leg weakness. Lower Back Pain Score (Numeric/FACES): 8 - Related Data Allergies/Adverse Reactions: Allergies Allergy/AdvReac Type Severity Reaction Status Date / Time Obhpyoq-Vco-Cby Reductase AdvReac Leg Cramps Verified 07/29/20 12:20 Inhibitor Home Medications: Home Meds metFORMIN [Glucophage] 500 mg PO BID 01/19/14 [History] traMADol [Ultram] 50 mg PO Q6HR PRN 01/19/14 [History] Cyclobenzaprine [Flexeril] 10 mg PO BID PRN 07/01/20 [History] Sennosides/Docusate Sodium [Senna-Docusate Sodium Tablet] 2 tab PO DAILY 07/01/20 [History] Aspirin [Adult Aspirin Regimen] 81 mg PO DAILY 07/02/20 [History] Metoprolol Tartrate [Lopressor] 50 mg PO BID 07/02/20 [History] Triamcinolone Acetonide [Triamcinolone Acetonide 0.1% Crm] 1 gram TOP BID PRN 07/02/20 [History] Azithromycin 500 mg PO DAILY 5 Days #5 tablet 07/06/20 [Rx] Tiotropium BR/Olodaterol HCL [Stiolto Respimat] 2 puff INH DAILY inhaler 07/06/20 [Rx] predniSONE 20 mg PO BID 5 Days #10 tab 07/06/20 [Rx] NIFEdipine [Procardia Xl] 60 mg PO DAILY 07/29/20 [History] Past Medical History HEENT History: Reports: Hard of Hearing Cardiovascular History: Reports: CAD, High Cholesterol, Hypertension, [place], PVD, Other (See Below) Other Cardiovascular History: coronary atherosclerosis. peripheral vascular disease. AAA without rupture Respiratory History: Reports: COPD Gastrointestinal History: Reports: Other (See Below) Other Gastrointestinal History: peptic ulcer disease Genitourinary History: Reports: Other (See Below) Other Genitourinary History: Hypertrophy of prostate w/o urinary obstruction. 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 right femoral politeal bypass. vein grafting. Hyperlipidemia Musculoskeletal Surgical History: Reports: Other (See Below) Other Musculoskeletal Surgeries/Procedures:: right hallux partial amputation Social & Family History - Family History Family Medical History: No Pertinent Family History - Tobacco Use Tobacco Use Status *Q: Never Tobacco User - Caffeine Use Caffeine Use: Reports: None - Alcohol Use Days Per Week of Alcohol Use: 1 Number of Drinks Per Day: 1 Total Drinks Per Week: 1 - Recreational Drug Use Recreational Drug Use: No H&P Review of Systems - Review of Systems: Review Of Systems: See Below General: Reports: Weakness, Fatigue HEENT: Reports: Headaches Pulmonary: Reports: No Symptoms Cardiovascular: Reports: No Symptoms Gastrointestinal: Reports: No Symptoms Genitourinary: Reports: No Symptoms Musculoskeletal: Reports: No Symptoms Skin: Reports: No Symptoms Neurological: Reports: Headache, Weakness Exam - Exam Exam: See Below - Vital Signs Vital Signs: Last Vital Signs Temp 97.8 F 07/29/20 15:20 Pulse 110 H 07/29/20 15:20 Resp 24 H 07/29/20 15:20 BP 159/78 H 07/29/20 15:20 Pulse Ox 99 07/29/20 15:20 Weight: 175 lb 4.8 oz - Exam General: Alert, Oriented, Mild Distress HEENT: Conjunctiva Clear, EOMI Neck: Supple Lungs: Normal Respiratory Effort, Wheezing Cardiovascular: Regular Rate, Regular Rhythm GI/Abdominal Exam: Soft, Non-Tender, Abnormal Bowel Sounds (hypoactive) Back Exam: Other (tenderness over lumbar spine) Extremities: Normal Inspection, Non-Tender, No Pedal Edema Peripheral Pulses: 2+: Posterior Tibial (L), Posterior Tibial (R) Skin: Warm, Dry, Other (rug burn to forehead, knuckles, knees, dorsum of toes) Neurological: Cranial Nerves Intact, Reflexes Equal Bilateral, Strength Equal Bilateral (4+/5 on leg raise, 5/5 dorsi and plantar flexion bilaterally) Neuro Extensive - Mental Status: Alert, Memory Loss-Recent Events Psychiatric: Alert - Patient Data Lab Results Last 24 hrs: Laboratory Results - last 24 hr 07/29/20 07/29/20 07/29/20 Range/Units 10:16 10:23 10:23 WBC 7.0 (4.0-10.0) x10^3/uL RBC 3.79 L (4.5-6.0) x10^6/uL Hgb 11.4 L (14.0-18.0) g/dL Hct 35.3 L (40.0-52.0) % MCV 93.1 H D (78.0-93.0) fL MCH 30.1 (26.0-32.0) pg MCHC 32.3 (32.0-36.0) g/dL RDW Coeff of Bobo 13.9 (10.0-15.0) % Plt Count 262 (130-400) x10^3/uL Neut % (Auto) 83.6 H (50.0-80.0) % Lymph % (Auto) 9.7 L (25.0-50.0) % [place] % (Auto) 6.5 (2.0-11.0) % Eos % (Auto) 0.1 (0.0-4.0) % Baso % (Auto) 0.1 L (0.2-1.2) % PT 12.8 H (9.9-12.5) SEC INR 1.1 L (2.0-3.5) APTT (25.6-32.8) SEC Sodium (136-145) mmol/L Potassium (3.5-5.1) mmol/L Chloride (98-107) mmol/L Carbon Dioxide (21-32) mmol/L Anion Gap (5-15) mmol/L BUN (7-18) mg/dL Creatinine (0.70-1.30) mg/dL Est Cr Clr Drug Dosing Estimated GFR (MDRD) Glucose (74-106) mg/dL Lactic Acid (0.4-2.0) mmol/L Calcium (8.5-10.1) mg/dL Corrected Calcium (8.5-10.1) mg/dL Magnesium (1.8-2.4) mg/dL Total Bilirubin (0.2-1.0) mg/dL AST (15-37) U/L ALT (16-63) U/L Alkaline Phosphatase (46-116) U/L Creatine Kinase (39-308) U/L Troponin I (<=0.056) ng/mL C-Reactive Protein (<=0.9) mg/dL Total Protein (6.4-8.2) g/dL Albumin (3.4-5.0) g/dL Globulin Albumin/Globulin Ratio Urine Color Peri H (YELLOW) Urine Appearance Slightly cloudy H (CLEAR) Urine pH 5.5 (5.0-8.0) Ur Specific Tiger >=1.030 Urine Protein 30 H (NEGATIVE) mg/dL Urine Glucose (UA) Negative (NEGATIVE) mg/dL Urine Ketones 40 H (NEGATIVE) mg/dL Urine Occult Blood Trace-intact H (NEGATIVE) Urine Nitrite Negative (NEGATIVE) Urine Bilirubin Small H (NEGATIVE) Urine Urobilinogen 0.2 (0.2) EU/dL Ur Leukocyte Esterase Negative (NEGATIVE) Urine RBC 5-10 H (NOT SEEN) /HPF Urine WBC 0-5 (NOT SEEN) /HPF Ur Squamous Epith Cells Not seen (NEGATIVE) /HPF Amorphous Sediment Rare Urine Bacteria Rare (NEGATIVE) /HPF Urine Mucus Occasional H (NEGATIVE) /LPF SARS CoV-2 RNA Rapid HUMBERTO (NEGATIVE) 07/29/20 07/29/20 07/29/20 Range/Units 10:23 10:23 10:23 WBC (4.0-10.0) x10^3/uL RBC (4.5-6.0) x10^6/uL Hgb (14.0-18.0) g/dL Hct (40.0-52.0) % MCV (78.0-93.0) fL MCH (26.0-32.0) pg MCHC (32.0-36.0) g/dL RDW Coeff of Bobo (10.0-15.0) % Plt Count (130-400) x10^3/uL Neut % (Auto) (50.0-80.0) % Lymph % (Auto) (25.0-50.0) % [place] % (Auto) (2.0-11.0) % Eos % (Auto) (0.0-4.0) % Baso % (Auto) (0.2-1.2) % PT (9.9-12.5) SEC INR (2.0-3.5) APTT 28.6 (25.6-32.8) SEC Sodium 136 (136-145) mmol/L Potassium 3.7 (3.5-5.1) mmol/L Chloride 97 L (98-107) mmol/L Carbon Dioxide 25 (21-32) mmol/L Anion Gap 17.7 H (5-15) mmol/L BUN 11 (7-18) mg/dL Creatinine 1.0 (0.70-1.30) mg/dL Est Cr Clr Drug Dosing TNP Estimated GFR (MDRD) > 60 Glucose 108 H (74-106) mg/dL Lactic Acid 2.4 H* (0.4-2.0) mmol/L Calcium 9.7 (8.5-10.1) mg/dL Corrected Calcium 10.42 H (8.5-10.1) mg/dL Magnesium 1.8 (1.8-2.4) mg/dL Total Bilirubin 0.7 (0.2-1.0) mg/dL AST 23 (15-37) U/L ALT 20 (16-63) U/L Alkaline Phosphatase 119 H (46-116) U/L Creatine Kinase 567 H* (39-308) U/L Troponin I < 0.017 (<=0.056) ng/mL C-Reactive Protein 20.1 H (<=0.9) mg/dL Total Protein 7.8 (6.4-8.2) g/dL Albumin 3.1 L (3.4-5.0) g/dL Globulin 4.7 Albumin/Globulin Ratio 0.66 Urine Color (YELLOW) Urine Appearance (CLEAR) Urine pH (5.0-8.0) Ur Specific Tiger Urine Protein (NEGATIVE) mg/dL Urine Glucose (UA) (NEGATIVE) mg/dL Urine Ketones (NEGATIVE) mg/dL Urine Occult Blood (NEGATIVE) Urine Nitrite (NEGATIVE) Urine Bilirubin (NEGATIVE) Urine Urobilinogen (0.2) EU/dL Ur Leukocyte Esterase (NEGATIVE) Urine RBC (NOT SEEN) /HPF Urine WBC (NOT SEEN) /HPF Ur Squamous Epith Cells (NEGATIVE) /HPF Amorphous Sediment Urine Bacteria (NEGATIVE) /HPF Urine Mucus (NEGATIVE) /LPF SARS CoV-2 RNA Rapid HUMBERTO (NEGATIVE) 07/29/20 07/29/20 Range/Units 12:10 13:50 WBC (4.0-10.0) x10^3/uL RBC (4.5-6.0) x10^6/uL Hgb (14.0-18.0) g/dL Hct (40.0-52.0) % MCV (78.0-93.0) fL MCH (26.0-32.0) pg MCHC (32.0-36.0) g/dL RDW Coeff of Bobo (10.0-15.0) % Plt Count (130-400) x10^3/uL Neut % (Auto) (50.0-80.0) % Lymph % (Auto) (25.0-50.0) % [place] % (Auto) (2.0-11.0) % Eos % (Auto) (0.0-4.0) % Baso % (Auto) (0.2-1.2) % PT (9.9-12.5) SEC INR (2.0-3.5) APTT (25.6-32.8) SEC Sodium (136-145) mmol/L Potassium (3.5-5.1) mmol/L Chloride (98-107) mmol/L Carbon Dioxide (21-32) mmol/L Anion Gap (5-15) mmol/L BUN (7-18) mg/dL Creatinine (0.70-1.30) mg/dL Est Cr Clr Drug Dosing Estimated GFR (MDRD) Glucose (74-106) mg/dL Lactic Acid 1.3 (0.4-2.0) mmol/L Calcium (8.5-10.1) mg/dL Corrected Calcium (8.5-10.1) mg/dL Magnesium (1.8-2.4) mg/dL Total Bilirubin (0.2-1.0) mg/dL AST (15-37) U/L ALT (16-63) U/L Alkaline Phosphatase (46-116) U/L Creatine Kinase (39-308) U/L Troponin I (<=0.056) ng/mL C-Reactive Protein (<=0.9) mg/dL Total Protein (6.4-8.2) g/dL Albumin (3.4-5.0) g/dL Globulin Albumin/Globulin Ratio Urine Color (YELLOW) Urine Appearance (CLEAR) Urine pH (5.0-8.0) Ur Specific Tiger Urine Protein (NEGATIVE) mg/dL Urine Glucose (UA) (NEGATIVE) mg/dL Urine Ketones (NEGATIVE) mg/dL Urine Occult Blood (NEGATIVE) Urine Nitrite (NEGATIVE) Urine Bilirubin (NEGATIVE) Urine Urobilinogen (0.2) EU/dL Ur Leukocyte Esterase (NEGATIVE) Urine RBC (NOT SEEN) /HPF Urine WBC (NOT SEEN) /HPF Ur Squamous Epith Cells (NEGATIVE) /HPF Amorphous Sediment Urine Bacteria (NEGATIVE) /HPF Urine Mucus (NEGATIVE) /LPF SARS CoV-2 RNA Rapid HUMBERTO Negative (NEGATIVE) Result Diagrams: 07/29/20 10:23 07/29/20 10:23 Sepsis Event Note - Evaluation Sepsis Screening Result: No Definite Risk - Focused Exam Vital Signs: Vital Signs Temp Pulse Resp BP BP Pulse Ox 07/29/20 15:20 97.8 F 110 H 24 H 159/78 H 99 07/29/20 12:32 97.6 F 112 H 16 174/85 H 100 07/29/20 11:45 98.3 F 111 H 18 177/101 H 100 07/29/20 09:50 98.0 F 120 H 24 H 176/104 H 98 - Problem List (1) Rhabdomyolysis SNOMED Code(s): 284797105 ICD Code: M62.82 - RHABDOMYOLYSIS Status: Acute Current Visit: Yes (2) Physical deconditioning SNOMED Code(s): 10197718153957 ICD Code: R53.81 - OTHER MALAISE Status: Acute Current Visit: Yes (3) Confusion SNOMED Code(s): 439521959 ICD Code: R41.0 - DISORIENTATION, UNSPECIFIED Status: Acute Current Visit: Yes (4) Low back pain SNOMED Code(s): 189565303 ICD Code: M54.5 - LOW BACK PAIN Status: Acute Current Visit: No Problem List Initiated/Reviewed/Updated: Yes Orders Last 24hrs: Active Orders 24 hr Category Date Time Status Patient Status [ADT] Routine ADT 07/29/20 11:58 Active Influenza Vaccine Charge [RC] .DISCHARGE Care 07/29/20 13:10 Active Intake and Output [RC] 06,18 Care 07/29/20 12:32 Active Oxygen Therapy [RC] PRN Care 07/29/20 15:10 Ordered Up With Assistance [RC] 08,20 Care 07/29/20 12:32 Active VTE/DVT Education [RC] .PRN Care 07/29/20 12:32 Active VTE/DVT Education [RC] PER UNIT ROUTINE Care 07/29/20 15:10 Ordered Vital Signs [RC] 02,06,10,14,18,22 Care 07/29/20 12:32 Active Vital Signs [RC] Q4H Care 07/29/20 15:10 Ordered PT Evaluation and Treatment [CONS] Routine Cons 07/29/20 16:07 Ordered [place] [employer] Diet [DIET] Diet 07/29/20 Dinner Active BASIC METABOLIC PANEL,BMP [CHEM] DAILY Lab 07/30/20 07:00 Ordered CBC WITH AUTO DIFF [HEME] DAILY Lab 07/30/20 07:00 Ordered CREATINE KINASE,CK [CHEM] AM Lab 07/30/20 05:11 Ordered CULTURE BLOOD [BC] Stat Lab 07/29/20 10:23 Received CULTURE BLOOD [BC] Stat Lab 07/29/20 10:26 Received Acetaminophen [TylenoL] Med 07/29/20 15:10 Ordered 650 mg PO Q4H PRN Acetaminophen/HYDROcodone [[place] 325-5 MG] Med 07/29/20 15:10 Ordered 1 tab PO Q4H PRN Docusate Sodium/Sennosides [Senna Plus] Med 07/30/20 08:00 Ordered 2 tab PO DAILY HYDROmorphone [Dilaudid] Med 07/29/20 15:10 Ordered 0.25 mg IVPUSH Q2H PRN Heparin Sodium Med 07/29/20 15:15 Ordered 5,000 units SUBCUT Q8H Metoprolol Tartrate [Lopressor] Med 07/29/20 20:00 Ordered 50 mg PO BID NIFEdipine [Procardia Xl] Med 07/30/20 08:00 Ordered 60 mg PO DAILY Ondansetron [Zofran ODT] Med 07/29/20 15:10 Ordered 4 mg PO Q4H PRN Sodium Chloride 0.9% @ 150 MLS/HR (1000ml) Med 07/29/20 15:15 Ordered Sodium Chloride 0.9% [Normal Saline] 1,000 ml IV ASDIRECTED Sodium Chloride 0.9% [Normal Saline] 1,000 ml Med 07/29/20 11:00 Active IV ASDIRECTED Tiotropium BR/Olodaterol HCL [Stiolto Respimat] Med 07/29/20 15:15 Ordered 2 puff INH DAILY Triamcinolone Acetonide [Triamcinolone Acetonide 0.1% Med 07/29/20 15:14 Ordered Crm] 1 gm TOP BID PRN metFORMIN [Glucophage] Med 07/29/20 20:00 Ordered 500 mg PO BID polyethylene glycoL 3350 [MiraLAX] Med 07/29/20 15:15 Ordered 17 gm PO DAILY Blood Culture x2 Reflex Set [OM.PC] Stat Oth 07/29/20 10:11 Ordered CM Case Management Follow Up [CM] Routine Oth 07/29/20 16:07 Ordered Code Status [Resuscitation Status] Routine Resus Stat 07/29/20 12:32 Ordered Medication Orders Acetaminophen (Tylenol) 650 mg PO Q4H PRN PRN Reason: Pain (Mild 1-3)/fever Hydrocodone Bitart/Acetaminophen ([place] 325-5 Mg) 1 tab PO Q4H PRN PRN Reason: Pain (moderate 4-6) Heparin Sodium (Porcine) (Heparin Sodium) 5,000 units SUBCUT Q8H [facility] Last Admin: 07/29/20 15:32 Dose: 5,000 units Documented by: YVON Hydromorphone HCl (Dilaudid) 0.25 mg IVPUSH Q2H PRN PRN Reason: Pain (severe 7-10) Sodium Chloride (Normal Saline) 1,000 mls @ 150 mls/hr IV ASDIRECTED [facility] Last Admin: 07/29/20 13:22 Dose: 500 mls/hr Documented by: Infusion: 07/29/20 13:22 Dose: 500 mls/hr Documented by: Infusion: 07/29/20 11:50 Dose: 500 mls/hr Documented by: Admin: 07/29/20 10:57 Dose: 150 mls/hr Documented by: TRACY Sodium Chloride (Normal Saline) 1,000 mls @ 150 mls/hr IV ASDIRECTED [facility] Metformin HCl (Glucophage) 500 mg PO BIDMEALS [facility] Metoprolol Tartrate (Lopressor) 50 mg PO BID [facility] Nifedipine (Procardia Xl) 60 mg PO DAILY [facility] Ondansetron HCl (Zofran Odt) 4 mg PO Q4H PRN PRN Reason: nausea, able to take PO Polyethylene Glycol (Miralax) 17 gm PO DAILY [facility] Last Admin: 07/29/20 15:33 Dose: Not Given Documented by: WAGEFEY Senna/Docusate Sodium (Senna Plus) 2 tab PO DAILY [facility] Triamcinolone Acetonide (Triamcinolone Acetonide 0.1% Crm) 0 gm TOP BID PRN PRN Reason: Itching Assessment/Plan Comment:: Rhabdomyolysis Confusion -Patient was found on the ground by a neighbor after being there for a clean most of the night. Renal function is stable at this time. -CK 567 on admit. LA elevated on presentation, improved at 4 hour recheck -Patient was given 1 L of fluid for rehydration, no history of heart failure Plan: Continue IV fluids at 150mL/hr Repeat CK in the morning Repeat BMP in the morning Low back pain Deconditioning -Acute on chronic. Patients most recently on a regiment of Flexeril 10 mg twice a day for muscle spasms as well as Ultram 50 mg every 6 hours as needed for severe pain. Plan: -Pain control: tylenol, norco, dilaudid -PT evaluation -Social Work evaluation; 2 hospitalizations over the last month -Will see how the next 24 hours go, if pain continues to be elevated I think we should do imaging of the back given the progressive nature -Did already breach discussion about safety returns about him going home; [facility] would not an option for him financially Constipation 5-7 days per patient report Does suffer from constipatoin chronically Plan: - Stool softeners, mirilax - Will monitor for the next 24 hours if not improving will give enema Hypertension - continue home meds metoprolol 50 mg twice a day, Procardia 60 mg daily Diabetes - continue home metformin 500 mg twice a day COPD - patient stopped his home inhaler, restart here Diet: Diabetic DVT: Heparin SQ CODE: DNR Disposition: Patient is admitted for continued hydration and monitoring in the setting of his acute confusion and rhabdomyoysis. I am quite concerned about his functional decline in the setting of the worsening lower back pain. Appreciate input from both PT and CM on this. - Mortality Measure Prognosis:: Good
[2020-07-29] MEDS: metFORMIN 500 MG Tab PO SCH (17:34)
[2020-07-29] MEDS: Acetaminophen/HYDROcodone 325-5 MG Tab PO PRN (18:42)
[2020-07-29] MEDS: Metoprolol Tartrate 50 MG Tab PO SCH (20:25)
[2020-07-30] MEDS: Sodium Chloride 0.9% 1,000 ML IV SCH ×3 (00:14→13:32)
[2020-07-30] MEDS: Acetaminophen/HYDROcodone 325-5 MG Tab PO PRN ×2 (00:21→08:40)
[2020-07-30] MEDS: HYDROmorphone 0.5 MG/0.5 ML Syringe IVPUSH PRN ×2 (02:33→15:40)
[2020-07-30] MEDS: Heparin Sodium 5,000 Units/ML Vial SUBCUT SCH ×3 (04:10→14:39)
[2020-07-30 07:30] LABS: CHLORIDE,CL 104 mmol/L (98-107); SODIUM,NA 139 mmol/L (136-145)
[2020-07-30 07:35] LABS: ANION GAP 15.7 mmol/L (5-15)
[2020-07-30] MEDS ORDERED: NIFEdipine 30 MG Tab.ER PO SCH (08:00)
[2020-07-30] MEDS: Polyethylene Glycol 3350 Powder 17 GM Packet PO SCH (08:40)
[2020-07-30] MEDS: metFORMIN 500 MG Tab PO SCH (08:42)
[2020-07-30] MEDS: Metoprolol Tartrate 50 MG Tab PO SCH (08:42)
[2020-07-30] MEDS: Tiotropium BR/Olodaterol HCL 4 GM Inhalation Spray 2.5mcg/1 dose; 10 doses INH SCH (08:48)
--- NOTE | 2020-07-30 10:36 | PCM.PN ---
- General Info Date of Service: 07/30/20 Admission Dx/Problem (Free Text): Admission Diagnosis/Problem Admission Diagnosis/Problem Rhabdomyolysis Subjective Update: Jacek did well overnight. Labs improved this morning with this CK back WNL. He still has c/o of the bad low back pain. Blood cultures grew out 2/2 cultures gram + cocci. When he was in for pneumonia in June he grew out MSSA. Jacek is still a bit confused this morning, frustrated that he can't find his kids numbers as he left his phone at his apartment. He still has the bad back pain. No other complaints. Vitals and labwork normal and not indicative of bacteremic/septic picture. - Review of Systems General: Reports: Weakness HEENT: Reports: No Symptoms Pulmonary: Reports: No Symptoms Cardiovascular: Reports: No Symptoms Gastrointestinal: Reports: No Symptoms, Other (Had a good BM yesterday per patient, no longer constipated) Genitourinary: Reports: No Symptoms Musculoskeletal: Reports: Back Pain Skin: Reports: No Symptoms Neurological: Reports: Confusion Psychiatric: Reports: Confusion - Patient Data Vitals - Most Recent: Last Vital Signs Temp 96.3 F L 07/30/20 09:52 Pulse 74 07/30/20 09:52 Resp 20 07/30/20 09:52 BP 173/97 H 07/30/20 09:52 Pulse Ox 100 07/30/20 09:52 Weight - Most Recent: 175 lb 4.8 oz I&O - Last 24 Hours: Intake & Output 07/29/20 07/30/20 07/30/20 22:59 06:59 14:59 Intake Total 670 1350 Output Total 350 475 Balance 320 875 Lab Results Last 24 Hours: Laboratory Results - last 24 hr 07/29/20 07/29/20 07/29/20 Range/Units 10:16 10:23 10:23 WBC 7.0 (4.0-10.0) x10^3/uL RBC 3.79 L (4.5-6.0) x10^6/uL Hgb 11.4 L (14.0-18.0) g/dL Hct 35.3 L (40.0-52.0) % MCV 93.1 H D (78.0-93.0) fL MCH 30.1 (26.0-32.0) pg MCHC 32.3 (32.0-36.0) g/dL RDW Coeff of Bobo 13.9 (10.0-15.0) % Plt Count 262 (130-400) x10^3/uL Neut % (Auto) 83.6 H (50.0-80.0) % Lymph % (Auto) 9.7 L (25.0-50.0) % [place] % (Auto) 6.5 (2.0-11.0) % Eos % (Auto) 0.1 (0.0-4.0) % Baso % (Auto) 0.1 L (0.2-1.2) % PT 12.8 H (9.9-12.5) SEC INR 1.1 L (2.0-3.5) APTT (25.6-32.8) SEC Sodium (136-145) mmol/L Potassium (3.5-5.1) mmol/L Chloride (98-107) mmol/L Carbon Dioxide (21-32) mmol/L Anion Gap (5-15) mmol/L BUN (7-18) mg/dL Creatinine (0.70-1.30) mg/dL Est Cr Clr Drug Dosing Estimated GFR (MDRD) Glucose (74-106) mg/dL Lactic Acid (0.4-2.0) mmol/L Calcium (8.5-10.1) mg/dL Corrected Calcium (8.5-10.1) mg/dL Magnesium (1.8-2.4) mg/dL Total Bilirubin (0.2-1.0) mg/dL AST (15-37) U/L ALT (16-63) U/L Alkaline Phosphatase (46-116) U/L Creatine Kinase (39-308) U/L Troponin I (<=0.056) ng/mL C-Reactive Protein (<=0.9) mg/dL Total Protein (6.4-8.2) g/dL Albumin (3.4-5.0) g/dL Globulin Albumin/Globulin Ratio Urine Color Peri H (YELLOW) Urine Appearance Slightly cloudy H (CLEAR) Urine pH 5.5 (5.0-8.0) Ur Specific [place] >=1.030 Urine Protein 30 H (NEGATIVE) mg/dL Urine Glucose (UA) Negative (NEGATIVE) mg/dL Urine Ketones 40 H (NEGATIVE) mg/dL Urine Occult Blood Trace-intact H (NEGATIVE) Urine Nitrite Negative (NEGATIVE) Urine Bilirubin Small H (NEGATIVE) Urine Urobilinogen 0.2 (0.2) EU/dL Ur Leukocyte Esterase Negative (NEGATIVE) Urine RBC 5-10 H (NOT SEEN) /HPF Urine WBC 0-5 (NOT SEEN) /HPF Ur Squamous Epith Cells Not seen (NEGATIVE) /HPF Amorphous Sediment Rare Urine Bacteria Rare (NEGATIVE) /HPF Urine Mucus Occasional H (NEGATIVE) /LPF SARS CoV-2 RNA Rapid HUMBERTO (NEGATIVE) 07/29/20 07/29/20 07/29/20 Range/Units 10:23 10:23 10:23 WBC (4.0-10.0) x10^3/uL RBC (4.5-6.0) x10^6/uL Hgb (14.0-18.0) g/dL Hct (40.0-52.0) % MCV (78.0-93.0) fL MCH (26.0-32.0) pg MCHC (32.0-36.0) g/dL RDW Coeff of Bobo (10.0-15.0) % Plt Count (130-400) x10^3/uL Neut % (Auto) (50.0-80.0) % Lymph % (Auto) (25.0-50.0) % [place] % (Auto) (2.0-11.0) % Eos % (Auto) (0.0-4.0) % Baso % (Auto) (0.2-1.2) % PT (9.9-12.5) SEC INR (2.0-3.5) APTT 28.6 (25.6-32.8) SEC Sodium 136 (136-145) mmol/L Potassium 3.7 (3.5-5.1) mmol/L Chloride 97 L (98-107) mmol/L Carbon Dioxide 25 (21-32) mmol/L Anion Gap 17.7 H (5-15) mmol/L BUN 11 (7-18) mg/dL Creatinine 1.0 (0.70-1.30) mg/dL Est Cr Clr Drug Dosing TNP Estimated GFR (MDRD) > 60 Glucose 108 H (74-106) mg/dL Lactic Acid 2.4 H* (0.4-2.0) mmol/L Calcium 9.7 (8.5-10.1) mg/dL Corrected Calcium 10.42 H (8.5-10.1) mg/dL Magnesium 1.8 (1.8-2.4) mg/dL Total Bilirubin 0.7 (0.2-1.0) mg/dL AST 23 (15-37) U/L ALT 20 (16-63) U/L Alkaline Phosphatase 119 H (46-116) U/L Creatine Kinase 567 H* (39-308) U/L Troponin I < 0.017 (<=0.056) ng/mL C-Reactive Protein 20.1 H (<=0.9) mg/dL Total Protein 7.8 (6.4-8.2) g/dL Albumin 3.1 L (3.4-5.0) g/dL Globulin 4.7 Albumin/Globulin Ratio 0.66 Urine Color (YELLOW) Urine Appearance (CLEAR) Urine pH (5.0-8.0) Ur Specific [place] Urine Protein (NEGATIVE) mg/dL Urine Glucose (UA) (NEGATIVE) mg/dL Urine Ketones (NEGATIVE) mg/dL Urine Occult Blood (NEGATIVE) Urine Nitrite (NEGATIVE) Urine Bilirubin (NEGATIVE) Urine Urobilinogen (0.2) EU/dL Ur Leukocyte Esterase (NEGATIVE) Urine RBC (NOT SEEN) /HPF Urine WBC (NOT SEEN) /HPF Ur Squamous Epith Cells (NEGATIVE) /HPF Amorphous Sediment Urine Bacteria (NEGATIVE) /HPF Urine Mucus (NEGATIVE) /LPF SARS CoV-2 RNA Rapid HUMBERTO (NEGATIVE) 07/29/20 07/29/20 07/30/20 Range/Units 12:10 13:50 06:37 WBC (4.0-10.0) x10^3/uL RBC (4.5-6.0) x10^6/uL Hgb (14.0-18.0) g/dL Hct (40.0-52.0) % MCV (78.0-93.0) fL MCH (26.0-32.0) pg MCHC (32.0-36.0) g/dL RDW Coeff of Bobo (10.0-15.0) % Plt Count (130-400) x10^3/uL Neut % (Auto) (50.0-80.0) % Lymph % (Auto) (25.0-50.0) % [place] % (Auto) (2.0-11.0) % Eos % (Auto) (0.0-4.0) % Baso % (Auto) (0.2-1.2) % PT (9.9-12.5) SEC INR (2.0-3.5) APTT (25.6-32.8) SEC Sodium (136-145) mmol/L Potassium (3.5-5.1) mmol/L Chloride (98-107) mmol/L Carbon Dioxide (21-32) mmol/L Anion Gap (5-15) mmol/L BUN (7-18) mg/dL Creatinine (0.70-1.30) mg/dL Est Cr Clr Drug Dosing Estimated GFR (MDRD) Glucose (74-106) mg/dL Lactic Acid 1.3 (0.4-2.0) mmol/L Calcium (8.5-10.1) mg/dL Corrected Calcium (8.5-10.1) mg/dL Magnesium (1.8-2.4) mg/dL Total Bilirubin (0.2-1.0) mg/dL AST (15-37) U/L ALT (16-63) U/L Alkaline Phosphatase (46-116) U/L Creatine Kinase 185 (39-308) U/L Troponin I (<=0.056) ng/mL C-Reactive Protein (<=0.9) mg/dL Total Protein (6.4-8.2) g/dL Albumin (3.4-5.0) g/dL Globulin Albumin/Globulin Ratio Urine Color (YELLOW) Urine Appearance (CLEAR) Urine pH (5.0-8.0) Ur Specific [place] Urine Protein (NEGATIVE) mg/dL Urine Glucose (UA) (NEGATIVE) mg/dL Urine Ketones (NEGATIVE) mg/dL Urine Occult Blood (NEGATIVE) Urine Nitrite (NEGATIVE) Urine Bilirubin (NEGATIVE) Urine Urobilinogen (0.2) EU/dL Ur Leukocyte Esterase (NEGATIVE) Urine RBC (NOT SEEN) /HPF Urine WBC (NOT SEEN) /HPF Ur Squamous Epith Cells (NEGATIVE) /HPF Amorphous Sediment Urine Bacteria (NEGATIVE) /HPF Urine Mucus (NEGATIVE) /LPF SARS CoV-2 RNA Rapid HUMBERTO Negative (NEGATIVE) 07/30/20 07/30/20 Range/Units 06:37 06:37 WBC 5.0 (4.0-10.0) x10^3/uL RBC 3.20 L (4.5-6.0) x10^6/uL Hgb 9.6 L D (14.0-18.0) g/dL Hct 30.3 L (40.0-52.0) % MCV 94.7 H (78.0-93.0) fL MCH 30.0 (26.0-32.0) pg MCHC 31.7 L (32.0-36.0) g/dL RDW Coeff of Bobo 14.0 (10.0-15.0) % Plt Count 236 (130-400) x10^3/uL Neut % (Auto) 69.3 (50.0-80.0) % Lymph % (Auto) 20.2 L (25.0-50.0) % [place] % (Auto) 8.7 (2.0-11.0) % Eos % (Auto) 1.4 (0.0-4.0) % Baso % (Auto) 0.4 (0.2-1.2) % PT (9.9-12.5) SEC INR (2.0-3.5) APTT (25.6-32.8) SEC Sodium 139 (136-145) mmol/L Potassium 3.7 (3.5-5.1) mmol/L Chloride 104 (98-107) mmol/L Carbon Dioxide 23 (21-32) mmol/L Anion Gap 15.7 H (5-15) mmol/L BUN 6 L (7-18) mg/dL Creatinine 0.9 (0.70-1.30) mg/dL Est Cr Clr Drug Dosing 67.40 Estimated GFR (MDRD) > 60 Glucose 79 (74-106) mg/dL Lactic Acid (0.4-2.0) mmol/L Calcium 8.2 L D (8.5-10.1) mg/dL Corrected Calcium (8.5-10.1) mg/dL Magnesium (1.8-2.4) mg/dL Total Bilirubin (0.2-1.0) mg/dL AST (15-37) U/L ALT (16-63) U/L Alkaline Phosphatase (46-116) U/L Creatine Kinase (39-308) U/L Troponin I (<=0.056) ng/mL C-Reactive Protein (<=0.9) mg/dL Total Protein (6.4-8.2) g/dL Albumin (3.4-5.0) g/dL Globulin Albumin/Globulin Ratio Urine Color (YELLOW) Urine Appearance (CLEAR) Urine pH (5.0-8.0) Ur Specific [place] Urine Protein (NEGATIVE) mg/dL Urine Glucose (UA) (NEGATIVE) mg/dL Urine Ketones (NEGATIVE) mg/dL Urine Occult Blood (NEGATIVE) Urine Nitrite (NEGATIVE) Urine Bilirubin (NEGATIVE) Urine Urobilinogen (0.2) EU/dL Ur Leukocyte Esterase (NEGATIVE) Urine RBC (NOT SEEN) /HPF Urine WBC (NOT SEEN) /HPF Ur Squamous Epith Cells (NEGATIVE) /HPF Amorphous Sediment Urine Bacteria (NEGATIVE) /HPF Urine Mucus (NEGATIVE) /LPF SARS CoV-2 RNA Rapid HUMBERTO (NEGATIVE) Manjit Results Last 24 Hours: Microbiology 07/29/20 10:23 Aerobic Blood Culture - Preliminary Blood - Venous Gram Positive Cocci Anaerobic Blood Culture - Preliminary Gram Positive Cocci 07/29/20 10:26 Aerobic Blood Culture - Preliminary Blood - Venous - Lab Draw Gram Positive Cocci Anaerobic Blood Culture - Preliminary Gram Positive Cocci Med Orders - Current: Current Medications Acetaminophen (Tylenol) 650 mg PO Q4H PRN PRN Reason: Pain (Mild 1-3)/fever Hydrocodone Bitart/Acetaminophen (Valier 325-5 Mg) 1 tab PO Q4H PRN PRN Reason: Pain (moderate 4-6) Last Admin: 07/30/20 08:40 Dose: 1 tab Documented by: Heparin Sodium (Porcine) (Heparin Sodium) 5,000 units SUBCUT Q8H [facility] Last Admin: 07/30/20 04:10 Dose: 5,000 units Documented by: Hydromorphone HCl (Dilaudid) 0.25 mg IVPUSH Q2H PRN PRN Reason: Pain (severe 7-10) Last Admin: 07/30/20 02:33 Dose: 0.25 mg Documented by: Sodium Chloride (Normal Saline) 1,000 mls @ 150 mls/hr IV ASDIRECTED [facility] Last Admin: 07/30/20 06:58 Dose: 500 mls/hr Documented by: Sodium Chloride (Normal Saline) 1,000 mls @ 150 mls/hr IV ASDIRECTED [facility] Last Admin: 07/29/20 17:35 Dose: 150 mls/hr Documented by: Influenza Virus Vaccine (Fluzone High-Dose Quad ) 240 mcg IM .ONCE ONE Stop: 08/01/20 10:01 Metformin HCl (Glucophage) 500 mg PO BIDMEALS [facility] Last Admin: 07/30/20 08:42 Dose: 500 mg Documented by: Metoprolol Tartrate (Lopressor) 50 mg PO BID [facility] Last Admin: 07/30/20 08:42 Dose: 50 mg Documented by: Nafcillin Sodium (Nafcillin) 2 gm IV Q4H [facility] Nifedipine (Procardia Xl) 60 mg PO DAILY [facility] Last Admin: 07/30/20 08:43 Dose: 60 mg Documented by: Ondansetron HCl (Zofran Odt) 4 mg PO Q4H PRN PRN Reason: nausea, able to take PO Polyethylene Glycol (Miralax) 17 gm PO DAILY [facility] Last Admin: 07/30/20 08:40 Dose: 17 gm Documented by: Senna/Docusate Sodium (Senna Plus) 2 tab PO DAILY [facility] Last Admin: 07/30/20 08:43 Dose: 2 tab Documented by: Triamcinolone Acetonide (Triamcinolone Acetonide 0.1% Crm) 0 gm TOP BID PRN PRN Reason: Itching Discontinued Medications Influenza Virus Vaccine (Pharmacy To Dose - Influenza Vaccine) 1 each IM ONETIME ONE Stop: 07/29/20 13:11 Influenza Virus Vaccine (Fluzone High-Dose Quad ) 240 mcg IM .ONCE ONE Stop: 07/29/20 14:01 - Exam General: Alert, Oriented, Mild Distress HEENT: Pupils Equal, EOMI, Mucous Membr. Moist/[place] Neck: Supple Lungs: Clear to Auscultation, Normal Respiratory Effort Cardiovascular: Regular Rate, Regular Rhythm GI/Abdominal Exam: Normal Bowel Sounds, Soft, Non-Tender (Male) Exam: No Hernia, Normal Inspection, Other (surgicanl incisions reviewed again this morning, CDI, no sign of infection) Back Exam: Normal Inspection, Paraspinal Tenderness, Vertebral Tenderness (L4 r egion) Extremities: Normal Inspection, Non-Tender, No Pedal Edema, Normal Capillary Refill Skin: Warm, Dry, Intact (full body skin check with no cuts, scrapes, infected lesions) Psy/Mental Status: Alert, Anxious Sepsis Event Note - Evaluation Sepsis Screening Result: No Definite Risk - Focused Exam Vital Signs: Vital Signs Temp Pulse Pulse Resp BP BP Pulse Ox 07/30/20 09:52 96.3 F L 74 20 173/97 H 100 07/30/20 08:43 128/56 L 07/30/20 08:42 71 128/56 L 07/30/20 05:49 98.0 F 71 18 128/56 L 97 07/30/20 02:00 98.3 F 72 20 138/56 L 95 - Problem List & Annotations (1) Rhabdomyolysis SNOMED Code(s): 993465268 Code(s): M62.82 - RHABDOMYOLYSIS Status: Acute Current Visit: Yes (2) Physical deconditioning SNOMED Code(s): 13747071529344 Code(s): R53.81 - OTHER MALAISE Status: Acute Current Visit: Yes (3) Confusion SNOMED Code(s): 532392963 Code(s): R41.0 - DISORIENTATION, UNSPECIFIED Status: Acute Current Visit: Yes (4) Low back pain SNOMED Code(s): 743873107 Code(s): M54.5 - LOW BACK PAIN Status: Acute Current Visit: No (5) Bacteremia SNOMED Code(s): 0505454 Code(s): R78.81 - BACTEREMIA Status: Acute Current Visit: No - My Orders Last 24 Hours: My Active Orders 07/29/20 13:10 Influenza Vaccine Charge [RC] .DISCHARGE 07/29/20 15:10 Oxygen Therapy [RC] PRN VTE/DVT Education [RC] PER UNIT ROUTINE Vital Signs [RC] Q4H Acetaminophen [TylenoL] 650 mg PO Q4H PRN Acetaminophen/HYDROcodone [Valier 325-5 MG] 1 tab PO Q4H PRN HYDROmorphone [Dilaudid] 0.25 mg IVPUSH Q2H PRN Ondansetron [Zofran ODT] 4 mg PO Q4H PRN 07/29/20 15:14 Triamcinolone Acetonide [Triamcinolone Acetonide 0.1% Crm] 0 gm TOP BID PRN 07/29/20 15:15 Sodium Chloride 0.9% [Normal Saline] 1,000 ml IV ASDIRECTED Tiotropium BR/Olodaterol HCL [Stiolto Respimat] 0 gm INH DAILY polyethylene glycoL 3350 [MiraLAX] 17 gm PO DAILY 07/29/20 15:30 Heparin Sodium 5,000 units SUBCUT Q8H 07/29/20 16:07 PT Evaluation and Treatment [CONS] Routine CM Case Management Follow Up [CM] Routine 07/29/20 18:00 metFORMIN [Glucophage] 500 mg PO BIDMEALS 07/29/20 20:00 Metoprolol Tartrate [Lopressor] 50 mg PO BID 07/30/20 08:00 Docusate Sodium/Sennosides [Senna Plus] 2 tab PO DAILY NIFEdipine [Procardia XL] 60 mg PO DAILY 07/30/20 08:20 Abdomen Pelvis wo Cont [CT] Routine 07/30/20 10:24 Dietary Supplements [RC] BIDMEALS 07/30/20 10:30 Nafcillin 2 gm IV Q4H 08/01/20 10:00 FLU Vacc [id number](65YR UP)/PF [Fluzone High-Dose Quad ] 240 mcg IM .ONCE ONE 08/01/20 12:00 CULTURE BLOOD [BC] Stat CULTURE BLOOD [BC] Stat Blood Culture x2 Reflex Set [OM.PC] Stat - Plan Plan:: Jacek is [id number] who is HD #2 for Rhabdo/confusion. Found to have Gram+ bacteremia on 07/30/20. Suspect MSSA as this is what he had on last admission in June when he was in for pneumonia. Gram Positive Bacteremia (suspect MSSA) Confusion Low back pain Deconditioning - Strong suspicion for disciitis at this time given increasing back pain over the last month and seemingly undertreated bacteremia - Vitals and remainder of the labwork look good - No prosthetic valves, prosthetic joints Plan: -CT scan today of a/p/lumbar spine -Nafcillin 2g q4hr -Repeat blood cultures 08/01/20 -Pain control: tylenol, norco, dilaudid -PT evaluation -Social Work evaluation; 2 hospitalizations over the last month -Did already breach discussion about safety returns about him going home; NURSING HOME would not an option for him financially Rhabdomyolysis - resolved - CK normal this morning Plan: - Slow fluids down to TKO Constipation - resolved - Patient reports large BM last night (not charted) - Does suffer from constipation chronically Plan: - Continue Stool softeners, mirilax Hypertension - continue home meds metoprolol 50 mg twice a day, Procardia 60 mg daily Diabetes - continue home metformin 500 mg twice a day COPD - patient stopped his home inhaler, restart here Diet: Diabetic DVT: Heparin SQ CODE: DNR Disposition: Patient is admitted for continued hydration and monitoring in the setting of his acute confusion and rhabdomyoysis. I am quite concerned about his functional decline in the setting of the worsening lower back pain. Appreciate input from both PT and CM on this.
--- NOTE | 2020-07-30 11:04 | CT ---
[id number] CT/CT Abdomen Pelvis WO IV EXAM: CT Abdomen Pelvis WO IV CLINICAL DATA: POSITIVE BLOOD CULTURES. COMPARISON STUDY: 04/28/2020. FINDINGS: There is new aneurysmal dilatation with surrounding inflammatory change involving the distal thoracic aorta measuring up to 5.1 x 4.5 x 4.7 cm. Postsurgical change following recent femorofemoral bypass. Evaluation for patency is limited without the use of IV contrast. Atherosclerotic calcifications of aorta and its branches. Dependent atelectasis at the lung bases bilaterally. Liver, spleen, gallbladder, pancreas, and adrenal glands are unremarkable. Bilateral renal cortical cysts. No bowel obstruction or inflammation. No lymphadenopathy, free fluid, or pneumoperitoneum. Postsurgical changes of the lower lumbar spine. Scattered changes of spondylosis the spine. No fracture or osseous lesion. IMPRESSION: 1. 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 Given the recent surgical history and clinical history of bacteremia. 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 Findings discussed with ordering provider at time of dictation. Keny Parada DO 07/30/20 [id number] Thank you for allowing us to participate in the care of your patient.
--- NOTE | 2020-07-30 13:01 | PCM.DCSUM1 ---
Discharge Summary - Hospital Course Free Text/Narrative:: Mike is an 80-year-old male with past medical history of coronary artery disease, TIA, hypertension, COPD, hyperlipidemia, type 2 diabetes, chronic low back pain who presented to the ER on 07/29/20 via EMS. He is found by neighbor this morning after they heard him yelling (lives at [facility]); he was found crawling around on the floor confused. States that he fell getting out bed but doesn't remember how and couldn't get back up. EMS was called. Upon arrival to the ED he was noted to be hypertensive and tachycardic; he did not take his morning meds. Laboratory evaluation was notable for a lactic acid of 2.4, anion gap of 17.7, CK of 567, CRP of 20. Cr was 1.0. Blood counts are stable from previous. Urine was negative for UTI. COVID was negative. EKG, chest x-ray, head CT were normal. Blood cultures were drawn. Fluids were given with resolution of his elevated LA and CK. He did well overnight. This morning he still has c/o of the bad low back pain. Still a little confused. Was informed by nursing staff that his blood cultures grew out 2/2 cultures gram + cocci. When he was in for pneumonia in June he grew out MSSA in a tube as well. Vitals and labwork are normal at this time; not indicative of bacteremia/septic picture. We did get a CT abdomen pelvis to assess for possible suspected disciitis/further evaluation of the back pain. The CT results were called into me before 11am and these demonstrated new aneurysmal irritation of the distal descending thoracic aorta with associated inflammatory change. 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 The aneurysm measures 5.1 cm at its widest. He is s/p fem-fem bypass on 05/23/21. These findings were discussed with the patient. He denies any abdominal pain at this time. He was initiated on on Nafcillin 2g q4hr for suspected MSSA bacteremia.One-call contacted; concern with location of aneurysm but plan for patient to be transferred to [facility] for med-surg admit with vascular consult once arrives. 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 - Blood cultures with 2/2 tubes positive for Gram+ cocci, did have positive tube when admitted for pneumonia last zackery - Vitals and remainder of the labwork look good - No prosthetic valves, prosthetic joints Plan: -Transfer to [place] -Nafcillin 2g q4hr -Repeat blood cultures 08/01/20 -Pain control: tylenol, norco, dilaudid Rhabdomyolysis - resolved - CK normal this morning Plan: - Slow fluids down to TKO Constipation - resolved - Patient reports large BM last night (not charted) - Does suffer from constipation chronically Plan: - Continue Stool softeners, mirilax Hypertension - continue home meds metoprolol 50 mg twice a day, Procardia 60 mg daily Diabetes - continue home metformin 500 mg twice a day COPD - untreated, patient preference - Discharge Data Discharge Date: 07/30/20 Discharge Disposition: DC/Tfer to Acute Hospital 02 Condition: Poor - Referral to Home Health Primary Care Physician: Lisette Keith MD - Discharge Diagnosis/Problem(s) (1) Bacteremia SNOMED Code(s): 3194998 ICD Code: R78.81 - BACTEREMIA Status: Acute Current Visit: No (2) Low back pain SNOMED Code(s): 645938631 ICD Code: M54.5 - LOW BACK PAIN Status: Acute Current Visit: No (3) Rhabdomyolysis SNOMED Code(s): 675380537 ICD Code: M62.82 - RHABDOMYOLYSIS Status: Acute Current Visit: Yes (4) Physical deconditioning SNOMED Code(s): 45781805368557 ICD Code: R53.81 - OTHER MALAISE Status: Acute Current Visit: Yes (5) Confusion SNOMED Code(s): 912708797 ICD Code: R41.0 - DISORIENTATION, UNSPECIFIED Status: Acute Current Visit: Yes - Patient Summary/Data Consults: Consultations 07/29/20 16:07 PT Evaluation and Treatment [CONS] Routine - Discharge Plan Home Medications: Home Meds metFORMIN [Glucophage] 500 mg PO BID 01/19/14 [History] traMADol [Ultram] 50 mg PO Q6HR PRN 01/19/14 [History] Cyclobenzaprine [Flexeril] 10 mg PO BID PRN 07/01/20 [History] Sennosides/Docusate Sodium [Senna-Docusate Sodium Tablet] 2 tab PO DAILY 07/01/20 [History] Aspirin [Adult Aspirin Regimen] 81 mg PO DAILY 07/02/20 [History] Metoprolol Tartrate [Lopressor] 50 mg PO BID 07/02/20 [History] Triamcinolone Acetonide [Triamcinolone Acetonide 0.1% Crm] 1 gram TOP BID PRN 07/02/20 [History] Azithromycin 500 mg PO DAILY 5 Days #5 tablet 07/06/20 [Rx] Tiotropium BR/Olodaterol HCL [Stiolto Respimat] 2 puff INH DAILY inhaler 07/06/20 [Rx] predniSONE 20 mg PO BID 5 Days #10 tab 07/06/20 [Rx] NIFEdipine [Procardia Xl] 60 mg PO DAILY 07/29/20 [History] Patient Handouts: Rhabdomyolysis Forms: ED Department Discharge, Interfacility Transfer EMTALA Referrals: Lisette Keith MD [Primary Care Provider] - - Discharge Summary/Plan Comment DC Time >30 min.: Yes - General Info Functional Status: Reports: Pain Controlled - Review of Systems General: Reports: Weakness, Fatigue HEENT: Reports: No Symptoms Pulmonary: Reports: No Symptoms Cardiovascular: Reports: No Symptoms Gastrointestinal: Reports: No Symptoms Genitourinary: Reports: No Symptoms Musculoskeletal: Reports: Back Pain Skin: Reports: No Symptoms Neurological: Reports: No Symptoms Psychiatric: Reports: Confusion - Patient Data Vitals - Most Recent: Last Vital Signs Temp 96.3 F L 07/30/20 09:52 Pulse 74 07/30/20 09:52 Resp 20 07/30/20 09:52 BP 173/97 H 07/30/20 09:52 Pulse Ox 100 07/30/20 09:52 Weight - Most Recent: 175 lb 4.8 oz I&O - Last 24 hours: Intake & Output 07/29/20 07/30/20 07/30/20 22:59 06:59 14:59 Intake Total 670 1350 Output Total 350 475 Balance 320 875 Lab Results - Last 24 hrs: Laboratory Results - last 24 hr 07/29/20 07/30/20 07/30/20 Range/Units 13:50 06:37 06:37 WBC 5.0 (4.0-10.0) x10^3/uL RBC 3.20 L (4.5-6.0) x10^6/uL Hgb 9.6 L D (14.0-18.0) g/dL Hct 30.3 L (40.0-52.0) % MCV 94.7 H (78.0-93.0) fL MCH 30.0 (26.0-32.0) pg MCHC 31.7 L (32.0-36.0) g/dL RDW Coeff of Bobo 14.0 (10.0-15.0) % Plt Count 236 (130-400) x10^3/uL Neut % (Auto) 69.3 (50.0-80.0) % Lymph % (Auto) 20.2 L (25.0-50.0) % [place] % (Auto) 8.7 (2.0-11.0) % Eos % (Auto) 1.4 (0.0-4.0) % Baso % (Auto) 0.4 (0.2-1.2) % Sodium (136-145) mmol/L Potassium (3.5-5.1) mmol/L Chloride (98-107) mmol/L Carbon Dioxide (21-32) mmol/L Anion Gap (5-15) mmol/L BUN (7-18) mg/dL Creatinine (0.70-1.30) mg/dL Est Cr Clr Drug Dosing mL/min Estimated GFR (MDRD) Glucose (74-106) mg/dL Lactic Acid 1.3 (0.4-2.0) mmol/L Calcium (8.5-10.1) mg/dL Creatine Kinase 185 (39-308) U/L 07/30/20 Range/Units 06:37 WBC (4.0-10.0) x10^3/uL RBC (4.5-6.0) x10^6/uL Hgb (14.0-18.0) g/dL Hct (40.0-52.0) % MCV (78.0-93.0) fL MCH (26.0-32.0) pg MCHC (32.0-36.0) g/dL RDW Coeff of Bobo (10.0-15.0) % Plt Count (130-400) x10^3/uL Neut % (Auto) (50.0-80.0) % Lymph % (Auto) (25.0-50.0) % [place] % (Auto) (2.0-11.0) % Eos % (Auto) (0.0-4.0) % Baso % (Auto) (0.2-1.2) % Sodium 139 (136-145) mmol/L Potassium 3.7 (3.5-5.1) mmol/L Chloride 104 (98-107) mmol/L Carbon Dioxide 23 (21-32) mmol/L Anion Gap 15.7 H (5-15) mmol/L BUN 6 L (7-18) mg/dL Creatinine 0.9 (0.70-1.30) mg/dL Est Cr Clr Drug Dosing 67.40 mL/min Estimated GFR (MDRD) > 60 Glucose 79 (74-106) mg/dL Lactic Acid (0.4-2.0) mmol/L Calcium 8.2 L D (8.5-10.1) mg/dL Creatine Kinase (39-308) U/L BLADIMIR Results - Last 24 hrs: Microbiology 07/29/20 10:23 Aerobic Blood Culture - Preliminary Blood - Venous Gram Positive Cocci Anaerobic Blood Culture - Preliminary Gram Positive Cocci 07/29/20 10:26 Aerobic Blood Culture - Preliminary Blood - Venous - Lab Draw Gram Positive Cocci Anaerobic Blood Culture - Preliminary Gram Positive Cocci Med Orders - Current: Current Medications Acetaminophen (Tylenol) 650 mg PO Q4H PRN PRN Reason: Pain (Mild 1-3)/fever Hydrocodone Bitart/Acetaminophen (Burson 325-5 Mg) 1 tab PO Q4H PRN PRN Reason: Pain (moderate 4-6) Last Admin: 07/30/20 08:40 Dose: 1 tab Documented by: Heparin Sodium (Porcine) (Heparin Sodium) 5,000 units SUBCUT Q8H RADHA Last Admin: 07/30/20 04:10 Dose: 5,000 units Documented by: Hydromorphone HCl (Dilaudid) 0.25 mg IVPUSH Q2H PRN PRN Reason: Pain (severe 7-10) Last Admin: 07/30/20 02:33 Dose: 0.25 mg Documented by: Sodium Chloride (Normal Saline) 1,000 mls @ 50 mls/hr IV ASDIRECTED [facility] Last Admin: 07/29/20 17:35 Dose: 150 mls/hr Documented by: Influenza Virus Vaccine (Fluzone High-Dose Quad ) 240 mcg IM .ONCE ONE Stop: 08/01/20 10:01 Metformin HCl (Glucophage) 500 mg PO BIDMEALS [facility] Last Admin: 07/30/20 08:42 Dose: 500 mg Documented by: Metoprolol Tartrate (Lopressor) 50 mg PO BID [facility] Last Admin: 07/30/20 08:42 Dose: 50 mg Documented by: Nafcillin Sodium (Nafcillin) 2 gm IV Q4H [facility] Nifedipine (Procardia Xl) 60 mg PO DAILY [facility] Last Admin: 07/30/20 08:43 Dose: 60 mg Documented by: Ondansetron HCl (Zofran Odt) 4 mg PO Q4H PRN PRN Reason: nausea, able to take PO Polyethylene Glycol (Miralax) 17 gm PO DAILY [facility] Last Admin: 07/30/20 08:40 Dose: 17 gm Documented by: Senna/Docusate Sodium (Senna Plus) 2 tab PO DAILY [facility] Last Admin: 07/30/20 08:43 Dose: 2 tab Documented by: Triamcinolone Acetonide (Triamcinolone Acetonide 0.1% Crm) 0 gm TOP BID PRN PRN Reason: Itching Discontinued Medications Sodium Chloride (Normal Saline) 1,000 mls @ 150 mls/hr IV ASDIRECTED [facility] Last Admin: 07/30/20 06:58 Dose: 500 mls/hr Documented by: Influenza Virus Vaccine (Pharmacy To Dose - Influenza Vaccine) 1 each IM ONETIME ONE Stop: 07/29/20 13:11 Influenza Virus Vaccine (Fluzone High-Dose Quad ) 240 mcg IM .ONCE ONE Stop: 07/29/20 14:01 - Exam General: Reports: Alert, Cooperative, Mild Distress HEENT: Reports: Pupils Equal, EOMI, Mucous Membr. Moist/[place] Neck: Reports: Supple Lungs: Reports: Clear to Auscultation, Normal Respiratory Effort Cardiovascular: Reports: Regular Rate, Regular Rhythm GI/Abdominal Exam: Normal Bowel Sounds, Soft, Non-Tender Back Exam: Reports: Normal Inspection, Paraspinal Tenderness (L>R), Vertebral Tenderness (lumbar spine, L4 level) Extremities: Normal Inspection, Non-Tender, No Pedal Edema, Normal Capillary Refill Skin: Reports: Warm, Dry Neurological: Reports: No New Focal Deficit Psy/Mental Status: Reports: Alert, Anxious
[2020-07-30] MEDS: Nafcillin 2 GM Vial IV SCH ×2 (13:28→15:41)
[2020-07-30 15:30] VITALS: BP 125/52; PULSE 83
[2020-08-01] MEDS ORDERED: FLU Vacc QV2020-21(65YR UP)/PF 240 MCG/0.7 ML Syringe IM ONE (10:00)
== END 2020-07-30 16:25 | disposition short-term general hospital (02) | DRG 558 ==
LOC: VM.ED 09:50 → VM.MS 11:58
PROVIDERS: ADMIT Family Medicine; ATTEND Family Medicine
DX: M62.82 Rhabdomyolysis (principal); R78.81 Bacteremia; M54.5 Low back pain; R53.81 Other malaise; R41.0 Disorientation, unspecified; M46.40 Discitis, unspecified, site unspecified; I71.2 Thoracic aortic aneurysm, without rupture; I25.10 Atherosclerotic heart disease of native coronary artery without angina pectoris; J44.9 Chronic obstructive pulmonary disease, unspecified; Z66 Do not resuscitate; I73.9 Peripheral vascular disease, unspecified; Z20.822 Contact with and (suspected) exposure to COVID-19; Z87.11 Personal history of peptic ulcer disease; E78.5 Hyperlipidemia, unspecified; G89.29 Other chronic pain; H91.90 Unspecified hearing loss, unspecified ear; E78.00 Pure hypercholesterolemia, unspecified; I10 Essential (primary) hypertension; I71.4 Abdominal aortic aneurysm, without rupture; M54.2 Cervicalgia; Z86.73 Personal history of transient ischemic attack (TIA), and cerebral infarction without residual deficits; Z88.8 Allergy status to other drugs, medicaments and biological substances; Z79.82 Long term (current) use of aspirin; Z79.899 Other long term (current) drug therapy; Z79.84 Long term (current) use of oral hypoglycemic drugs; Z79.52 Long term (current) use of systemic steroids; I25.2 Old myocardial infarction; N40.0 Benign prostatic hyperplasia without lower urinary tract symptoms; E11.9 Type 2 diabetes mellitus without complications
CPT/HCPCS: 36415; 70450; 71045; 74176; 80048; 80053; 81001; 82550; 83605; 83735; 84484; 85025; 85610; 85730; 86140; 87040; 87077; 93005; 97110-GP; 97161-GP; 99284; 99285-25; A9270-GY; J1170; J1644; J7030; U0002

== ENCOUNTER 2020-08-04 10:11 | Inpatient (IN) | payer MEDICARE, BC ==
[2020-08-08] MEDS: Ondansetron 4 MG Tab.DIS PO PRN (15:00)
[2020-08-08] MEDS ORDERED: Heparin Sodium 100 Units/ML 3 ML Syringe IVPUSH PRN (15:10)
[2020-08-08] MEDS ORDERED: HYDROmorphone 0.5 MG/0.5 ML Syringe IVPUSH PRN (16:34)
[2020-08-08] MEDS ORDERED: Acetaminophen/HYDROcodone 325-5 MG Tab PO PRN (16:34)
[2020-08-08] MEDS ORDERED: Triamcinolone Acetonide 0.1% Crm 15 GM Tube TOP PRN (16:50)
--- NOTE | 2020-08-08 17:26 | PCM.HP.2 ---
H&P History of Present Illness - General Date of Service: 08/08/20 Admit Problem/Dx: Admission Diagnosis/Problem Admission Diagnosis/Problem Bacteremia Source of Information: Patient, Old Records History Limitations: Reports: No Limitations - History of Present Illness Initial Comments - Free Text/Narative: Jacek is a pleasant 80yoM with a past medical history of coronary artery disease, type 2 diabetes, chronic back pain, hypertension, COPD who is admitted to [facility] today for step-down for prolonged antibiotic therapy for MSSA bacteremia. He was originally admitted to [facility] on 07/29/2020 after being found down in his apartment. He was treated for rhabdomyolysis. Due to ongoing back pain and positive blood cultures decision was made to CT scan him for concerns of intra-abdominal versus spinal infection. He was found to have a mycotic aneurysm at this time and was transferred to [place] on 07/30/2020 for infectious disease and vascular consult. Blood cultures grew out MSSA. Patient deferred any vascular intervention. An MRI was performed and did demonstrates discitis/osteomyelitis at T11-L2. Transthoracic echo was negative for any vegetation, patient deferred a BOYD. Once his blood cultures returned negative decision was made to place a PICC line and bring him back to [facility] for 8 weeks of IV antibiotic therapy. Infectious disease would like for him to be on Ancef 2 g every 8 hours through 09/29/2020. Infectious disease would like to be see him back on 09/30/2020 for follow-up. They would like weekly CBC, CMP, ESR, CRP. At this time Jacek is happy to be back home. He is a little bit frustrated at the length of antibiotic need. He is feeling well and has no concerns other than the back pain. - Related Data Allergies/Adverse Reactions: Allergies Allergy/AdvReac Type Severity Reaction Status Date / Time [id number] Reductase AdvReac Leg Cramps Verified 07/29/20 12:20 Inhibitor Home Medications: Home Meds metFORMIN [Glucophage] 500 mg PO BIDMEALS 01/19/14 [History] traMADol [Ultram] 50 mg PO Q6HR PRN 01/19/14 [History] Cyclobenzaprine [Flexeril] 10 mg PO BID PRN 07/01/20 [History] Sennosides/Docusate Sodium [Senna-Docusate Sodium Tablet] 2 tab PO DAILY 07/01/20 [History] Aspirin [Adult Aspirin Regimen] 81 mg PO DAILY 07/02/20 [History] Metoprolol Tartrate [Lopressor] 50 mg PO BID 07/02/20 [History] Triamcinolone Acetonide [Triamcinolone Acetonide 0.1% Crm] 1 gram TOP BID PRN 07/02/20 [History] Tiotropium BR/Olodaterol HCL [Stiolto Respimat] 2 puff INH DAILY inhaler 07/06/20 [Rx] NIFEdipine [Procardia Xl] 60 mg PO DAILY 07/29/20 [History] Past Medical History HEENT History: Reports: Hard of Hearing Cardiovascular History: Reports: CAD, High Cholesterol, Hypertension, HI, PVD, Other (See Below) Other Cardiovascular History: coronary atherosclerosis. peripheral vascular disease. AAA without rupture Respiratory History: Reports: COPD Gastrointestinal History: Reports: Other (See Below) Other Gastrointestinal History: peptic ulcer disease Genitourinary History: Reports: Other (See Below) Other Genitourinary History: Hypertrophy of prostate w/o urinary obstruction. 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 right femoral politeal bypass. vein grafting. Hyperlipidemia Musculoskeletal Surgical History: Reports: Other (See Below) Other Musculoskeletal Surgeries/Procedures:: right hallux partial amputation Social & Family History - Family History Family Medical History: No Pertinent Family History - Caffeine Use Caffeine Use: Reports: None H&P Review of Systems - Review of Systems: Review Of Systems: See Below General: Reports: No Symptoms HEENT: Reports: No Symptoms Pulmonary: Reports: No Symptoms Cardiovascular: Reports: No Symptoms Gastrointestinal: Reports: No Symptoms Genitourinary: Reports: No Symptoms Musculoskeletal: Reports: Back Pain Skin: Reports: No Symptoms Psychiatric: Reports: Depression Neurological: Reports: No Symptoms Exam - Exam Exam: See Below - Vital Signs Vital Signs: Last Vital Signs Temp 98.1 F 08/08/20 16:34 Pulse 74 08/08/20 16:34 Resp 20 08/08/20 16:34 BP 182/78 H 08/08/20 16:34 Pulse Ox 100 08/08/20 16:34 Weight: 176 lb 1.6 oz - Exam General: Alert, Oriented, 4 HEENT: Conjunctiva Clear, EOMI, Mucosa Moist & [place], Posterior Pharynx Clear Neck: Supple Lungs: Clear to Auscultation, Normal Respiratory Effort Cardiovascular: Regular Rate, Regular Rhythm GI/Abdominal Exam: Normal Bowel Sounds, Soft, Non-Tender Back Exam: Normal Inspection, Paraspinal Tenderness (L2-L4 area) Extremities: Normal Inspection, Non-Tender, No Pedal Edema Skin: Warm, Dry, Intact Neuro Extensive - Mental Status: Alert, Oriented x3, Normal Mood/Affect Psychiatric: Alert, Normal Affect, Depressed Sepsis Event Note - Focused Exam Vital Signs: Vital Signs Temp Pulse Resp BP Pulse Ox 08/08/20 16:34 98.1 F 74 20 182/78 H 100 08/08/20 14:35 98.3 F 68 21 H 204/88 H 99 - Problem List (1) Mycotic aneurysm SNOMED Code(s): 450595616 ICD Code: I72.9 - ANEURYSM OF UNSPECIFIED SITE Status: Acute Current Visit: Yes (2) Discitis SNOMED Code(s): 3004161 ICD Code: M46.40 - DISCITIS, UNSPECIFIED, SITE UNSPECIFIED Status: Acute Current Visit: Yes (3) Osteomyelitis SNOMED Code(s): 23855971 ICD Code: M86.9 - OSTEOMYELITIS, UNSPECIFIED Status: Acute Current Visit: Yes (4) Bacteremia SNOMED Code(s): 8468120 ICD Code: R78.81 - BACTEREMIA Status: Acute Current Visit: No (5) Physical deconditioning SNOMED Code(s): 01787754172073 ICD Code: R53.81 - OTHER MALAISE Status: Acute Current Visit: Yes Problem List Initiated/Reviewed/Updated: Yes Orders Last 24hrs: Active Orders 24 hr Category Date Time Status Admission Status [Patient Status] [ADT] Routine ADT 08/08/20 14:15 Active Blood Glucose Check, Bedside [RC] BIDMEALS Care 08/08/20 16:34 Ordered Dietary Supplements [RC] BIDMEALS Care 08/08/20 15:10 Active Oxygen Therapy [RC] PRN Care 08/08/20 16:34 Ordered Up With Assistance [RC] ASDIRECTED Care 08/08/20 16:34 Ordered VTE/DVT Education [RC] PER UNIT ROUTINE Care 08/08/20 16:34 Ordered Vital Signs [RC] Q4H Care 08/08/20 16:34 Ordered OT Evaluation and Treatment [CONS] Routine Cons 08/08/20 16:34 Ordered PT Evaluation and Treatment [CONS] Routine Cons 08/08/20 16:34 Ordered Citizen Of [place] [employer] Diet [DIET] Diet 08/08/20 Dinner Ordered C-REACTIVE PROTEIN [CHEM] WEEKLY Lab 08/11/20 16:34 Ordered C-REACTIVE PROTEIN [CHEM] WEEKLY Lab 08/18/20 16:34 Ordered C-REACTIVE PROTEIN [CHEM] WEEKLY Lab 08/25/20 16:34 Ordered C-REACTIVE PROTEIN [CHEM] WEEKLY Lab 09/01/20 16:34 Ordered C-REACTIVE PROTEIN [CHEM] WEEKLY Lab 09/08/20 16:34 Ordered C-REACTIVE PROTEIN [CHEM] WEEKLY Lab 09/15/20 16:34 Ordered C-REACTIVE PROTEIN [CHEM] WEEKLY Lab 09/22/20 16:34 Ordered C-REACTIVE PROTEIN [CHEM] WEEKLY Lab 09/29/20 16:34 Ordered CBC WITH AUTO DIFF [HEME] WEEKLY Lab 08/11/20 16:34 Ordered CBC WITH AUTO DIFF [HEME] WEEKLY Lab 08/18/20 16:34 Ordered CBC WITH AUTO DIFF [HEME] WEEKLY Lab 08/25/20 16:34 Ordered CBC WITH AUTO DIFF [HEME] WEEKLY Lab 09/01/20 16:34 Ordered CBC WITH AUTO DIFF [HEME] WEEKLY Lab 09/08/20 16:34 Ordered CBC WITH AUTO DIFF [HEME] WEEKLY Lab 09/15/20 16:34 Ordered CBC WITH AUTO DIFF [HEME] WEEKLY Lab 09/22/20 16:34 Ordered CBC WITH AUTO DIFF [HEME] WEEKLY Lab 09/29/20 16:34 Ordered COMPREHENSIVE METABOLIC PN,CMP [CHEM] WEEKLY Lab 08/11/20 16:34 Ordered COMPREHENSIVE METABOLIC PN,CMP [CHEM] WEEKLY Lab 08/18/20 16:34 Ordered COMPREHENSIVE METABOLIC PN,CMP [CHEM] WEEKLY Lab 08/25/20 16:34 Ordered COMPREHENSIVE METABOLIC PN,CMP [CHEM] WEEKLY Lab 09/01/20 16:34 Ordered COMPREHENSIVE METABOLIC PN,CMP [CHEM] WEEKLY Lab 09/08/20 16:34 Ordered COMPREHENSIVE METABOLIC PN,CMP [CHEM] WEEKLY Lab 09/15/20 16:34 Ordered COMPREHENSIVE METABOLIC PN,CMP [CHEM] WEEKLY Lab 09/22/20 16:34 Ordered COMPREHENSIVE METABOLIC PN,CMP [CHEM] WEEKLY Lab 09/29/20 16:34 Ordered ESR [SEDIMENTATION RATE AUTO] [HEME] WEEKLY Lab 08/11/20 16:39 Ordered ESR [SEDIMENTATION RATE AUTO] [HEME] WEEKLY Lab 08/18/20 16:39 Ordered ESR [SEDIMENTATION RATE AUTO] [HEME] WEEKLY Lab 08/25/20 16:39 Ordered ESR [SEDIMENTATION RATE AUTO] [HEME] WEEKLY Lab 09/01/20 16:39 Ordered ESR [SEDIMENTATION RATE AUTO] [HEME] WEEKLY Lab 09/08/20 16:39 Ordered ESR [SEDIMENTATION RATE AUTO] [HEME] WEEKLY Lab 09/15/20 16:39 Ordered ESR [SEDIMENTATION RATE AUTO] [HEME] WEEKLY Lab 09/22/20 16:39 Ordered ESR [SEDIMENTATION RATE AUTO] [HEME] WEEKLY Lab 09/29/20 16:39 Ordered Acetaminophen [TylenoL] Med 08/08/20 16:34 Ordered 650 mg PO Q4H PRN Aspirin [Halfprin] Med 08/09/20 08:00 Ordered 81 mg PO DAILY Cyclobenzaprine [Flexeril] Med 08/08/20 16:50 Ordered 10 mg PO BID PRN Docusate Sodium/Sennosides [Senna Plus] Med 08/09/20 08:00 Ordered 2 tab PO DAILY Enoxaparin [Lovenox] Med 08/09/20 08:00 Ordered 40 mg SUBCUT DAILY Heparin Sodium [Heparin Lock Flush 100 Units/ML] Med 08/08/20 15:10 Active 300 unit IVPUSH ASDIRECTED PRN Heparin Sodium [Heparin Lock Flush 100 Units/ML] Med 08/08/20 16:15 Active 300 unit IVPUSH Q8H Metoprolol Tartrate [Lopressor] Med 08/08/20 20:00 Ordered 50 mg PO BID NIFEdipine [Procardia Xl] Med 08/09/20 08:00 Ordered 60 mg PO DAILY Ondansetron [Zofran ODT] Med 08/08/20 14:46 Active 4 mg PO Q6H PRN Sodium Chloride 0.9% [Saline Flush] Med 08/08/20 15:10 Active 10 ml IV ASDIRECTED PRN Sodium Chloride 0.9% [Saline Flush] Med 08/08/20 16:15 Active 10 ml IV Q8H Tiotropium BR/Olodaterol HCL [Stiolto Respimat] Med 08/09/20 08:00 Ordered 2 puff INH DAILY Triamcinolone Acetonide [Triamcinolone Acetonide 0.1% Med 08/08/20 16:50 Ordered Crm] 1 gram TOP BID PRN ceFAZolin [Ancef] Med 08/08/20 16:00 Active 2 gm IVPUSH Q8H metFORMIN [Glucophage] Med 08/08/20 18:00 Ordered 500 mg PO BIDMEALS traMADol [Ultram] Med 08/08/20 16:50 Ordered 50 mg PO Q6HR PRN Resuscitation Status Routine Resus Stat 08/08/20 16:34 Ordered Medication Orders Acetaminophen (Tylenol) 650 mg PO Q4H PRN PRN Reason: Pain (Mild 1-3)/fever Aspirin (Halfprin) 81 mg PO DAILY [facility] Cefazolin Sodium (Ancef) 2 gm IVPUSH Q8H [facility] Stop: 09/29/20 16:01 Cyclobenzaprine HCl (Flexeril) 10 mg PO BID PRN PRN Reason: Muscle Spasm Enoxaparin Sodium (Lovenox) 40 mg SUBCUT DAILY [facility] Heparin Sodium (Porcine) (Heparin Lock Flush 100 Units/Ml) 300 unit IVPUSH Q8H RADHA Stop: 09/29/20 16:16 Heparin Sodium (Porcine) (Heparin Lock Flush 100 Units/Ml) 300 unit IVPUSH ASDIRECTED PRN PRN Reason: PICC FLUSH Stop: 09/29/20 15:11 Metformin HCl (Glucophage) 500 mg PO BIDMEALS [facility] Metoprolol Tartrate (Lopressor) 50 mg PO BID [facility] Non-Formulary Medication (Nifedipine [Procardia Xl]) 60 mg PO DAILY [facility] Non-Formulary Medication (Triamcinolone Acetonide [Triamcinolone Acetonide 0.1% Crm]) 1 gram TOP BID PRN PRN Reason: Itching Ondansetron HCl (Zofran Odt) 4 mg PO Q6H PRN PRN Reason: Nausea/Vomiting Last Admin: 08/08/20 15:00 Dose: 4 mg Documented by: DANNIE Senna/Docusate Sodium (Senna Plus) 2 tab PO DAILY RADHA Sodium Chloride (Saline Flush) 10 ml IV ASDIRECTED PRN PRN Reason: Keep Vein Open Stop: 09/29/20 15:11 Sodium Chloride (Saline Flush) 10 ml IV Q8H RADHA Stop: 09/29/20 16:16 Tramadol HCl (Ultram) 50 mg PO Q6HR PRN PRN Reason: SEVERE PAIN Assessment/Plan Comment:: #Bacteremia, MSSA (mec gene not detected) # 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, present on admission # 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 - Patient defers any invasive procedures - ID plans to treat with 8 weeks of IV antibiotics Plan: - Cefazolin 2g q8hr for 8 weeks (through 09/29/20) - ID followup on 09/30/20 - Weekly CBC, CMP, ESR, CRP (ordered for mondays) - Pain control: metformin BID prn for spasm, tylenol, tramadol #Deconditioning - Patient with multiple hospitalizations and ongoing back pain Plan: - PT and OT referrals placed Chronic: HTN - metoprolol 50 mg twice a day, Procardia 60 mg daily Type 2 diabetes - metformin 500 mg twice a day COPD - tiotropium-olodaterol 2 puff BID Diet: diabetic DVT: Lovenox SQ CODE: DNR Disposition: patient admitted for prolonged antibiotics and therapies in the setting of bacteremia with known mycotic aneurysm and discitis/osteomyelitis. - Mortality Measure Prognosis:: Good
[2020-08-08] MEDS: Metoprolol Tartrate 50 MG Tab PO SCH (19:46)
[2020-08-08] MEDS: ceFAZolin 1 GM Vial IVPUSH SCH (20:20)
[2020-08-08] MEDS: traMADol 50 MG Tab PO PRN (20:20)
[2020-08-08] MEDS: Heparin Sodium 100 Units/ML 3 ML Syringe IVPUSH SCH (20:21)
[2020-08-08] MEDS: Sodium Chloride 0.9% 10 ML Syringe IV SCH (20:21)
[2020-08-08] MEDS: metFORMIN 500 MG Tab PO SCH (22:22)
[2020-08-09] MEDS: ceFAZolin 1 GM Vial IVPUSH SCH ×3 (01:55→16:26)
[2020-08-09] MEDS: Heparin Sodium 100 Units/ML 3 ML Syringe IVPUSH SCH ×3 (01:56→16:38)
[2020-08-09] MEDS: Sodium Chloride 0.9% 10 ML Syringe IV SCH ×3 (01:56→16:20)
[2020-08-09] MEDS: traMADol 50 MG Tab PO PRN ×2 (05:24→12:16)
[2020-08-09] MEDS: Metoprolol Tartrate 50 MG Tab PO SCH ×2 (08:28→19:53)
[2020-08-09] MEDS: Aspirin 81 MG Tab.EC PO SCH (08:28)
[2020-08-09] MEDS: metFORMIN 500 MG Tab PO SCH ×2 (08:29→18:13)
[2020-08-09] MEDS: Enoxaparin 40 MG/0.4 ML Syringe SUBCUT SCH (08:30)
[2020-08-09] MEDS: NIFEdipine 30 MG Tab.ER PO SCH (08:30)
[2020-08-09] MEDS: Sodium Chloride 0.9% 10 ML Syringe IV PRN (08:31)
[2020-08-09] MEDS: Cyclobenzaprine 10 MG Tab PO PRN (08:54)
[2020-08-09] MEDS: Acetaminophen 325 MG Tab PO PRN ×2 (08:54→15:44)
[2020-08-09] MEDS: Tiotropium BR/Olodaterol HCL 4 GM Inhalation Spray 2.5mcg/1 dose; 10 doses INH SCH (16:28)
[2020-08-09] MEDS: HYDROmorphone 0.5 MG/0.5 ML Syringe IV PRN (19:59)
[2020-08-10] MEDS: traMADol 50 MG Tab PO PRN ×2 (00:15→15:30)
[2020-08-10] MEDS: Heparin Sodium 100 Units/ML 3 ML Syringe IVPUSH SCH ×3 (00:16→17:12)
[2020-08-10] MEDS: Sodium Chloride 0.9% 10 ML Syringe IV SCH ×3 (00:16→16:45)
[2020-08-10] MEDS: ceFAZolin 1 GM Vial IVPUSH SCH ×3 (00:16→16:42)
[2020-08-10] MEDS: metFORMIN 500 MG Tab PO SCH ×2 (08:29→20:15)
[2020-08-10] MEDS: Metoprolol Tartrate 50 MG Tab PO SCH ×2 (08:31→19:36)
[2020-08-10] MEDS: Aspirin 81 MG Tab.EC PO SCH (08:31)
[2020-08-10] MEDS: NIFEdipine 30 MG Tab.ER PO SCH (08:31)
[2020-08-10] MEDS: Enoxaparin 40 MG/0.4 ML Syringe SUBCUT SCH (08:32)
[2020-08-10] MEDS: Tiotropium BR/Olodaterol HCL 4 GM Inhalation Spray 2.5mcg/1 dose; 10 doses INH SCH (17:12)
[2020-08-10] MEDS: Ondansetron 4 MG Tab.DIS PO PRN (17:43)
[2020-08-11] MEDS: ceFAZolin 1 GM Vial IVPUSH SCH ×3 (00:11→16:04)
[2020-08-11] MEDS: Heparin Sodium 100 Units/ML 3 ML Syringe IVPUSH SCH ×3 (00:12→16:05)
[2020-08-11] MEDS: Sodium Chloride 0.9% 10 ML Syringe IV SCH ×3 (00:12→16:05)
[2020-08-11] MEDS: HYDROmorphone 0.5 MG/0.5 ML Syringe IV PRN (00:12)
[2020-08-11 07:43] LABS: CHLORIDE,CL 102 mmol/L (98-107); SODIUM,NA 140 mmol/L (136-145)
[2020-08-11] MEDS: metFORMIN 500 MG Tab PO SCH ×2 (08:06→17:50)
[2020-08-11] MEDS: Metoprolol Tartrate 50 MG Tab PO SCH ×2 (08:06→19:58)
[2020-08-11] MEDS: traMADol 50 MG Tab PO PRN ×2 (08:06→16:19)
[2020-08-11] MEDS: NIFEdipine 30 MG Tab.ER PO SCH (08:07)
[2020-08-11] MEDS: Enoxaparin 40 MG/0.4 ML Syringe SUBCUT SCH (08:07)
[2020-08-11] MEDS: Aspirin 81 MG Tab.EC PO SCH (08:07)
[2020-08-11] MEDS: Tiotropium BR/Olodaterol HCL 4 GM Inhalation Spray 2.5mcg/1 dose; 10 doses INH SCH (08:09)
[2020-08-11] MEDS: Cyclobenzaprine 10 MG Tab PO PRN (13:00)
[2020-08-11] MEDS: Ondansetron 4 MG Tab.DIS PO PRN (16:33)
[2020-08-12] MEDS: Heparin Sodium 100 Units/ML 3 ML Syringe IVPUSH SCH ×3 (00:11→16:10)
[2020-08-12] MEDS: Sodium Chloride 0.9% 10 ML Syringe IV SCH ×3 (00:11→16:08)
[2020-08-12] MEDS: ceFAZolin 1 GM Vial IVPUSH SCH ×3 (00:11→16:07)
[2020-08-12] MEDS: Enoxaparin 40 MG/0.4 ML Syringe SUBCUT SCH (08:41)
[2020-08-12] MEDS: metFORMIN 500 MG Tab PO SCH ×2 (08:42→18:20)
[2020-08-12] MEDS: Aspirin 81 MG Tab.EC PO SCH (08:42)
[2020-08-12] MEDS: NIFEdipine 30 MG Tab.ER PO SCH (08:43)
[2020-08-12] MEDS: Metoprolol Tartrate 50 MG Tab PO SCH ×2 (08:43→19:52)
[2020-08-12] MEDS: Tiotropium BR/Olodaterol HCL 4 GM Inhalation Spray 2.5mcg/1 dose; 10 doses INH SCH (08:44)
[2020-08-12] MEDS: traMADol 50 MG Tab PO PRN ×2 (08:45→19:51)
[2020-08-12] MEDS: Cyclobenzaprine 10 MG Tab PO PRN (08:46)
[2020-08-12] MEDS: Acetaminophen 325 MG Tab PO PRN (14:21)
[2020-08-13] MEDS: ceFAZolin 1 GM Vial IVPUSH SCH ×4 (00:33→23:34)
[2020-08-13] MEDS: Acetaminophen 325 MG Tab PO PRN (00:34)
[2020-08-13] MEDS: Sodium Chloride 0.9% 10 ML Syringe IV SCH ×4 (00:35→23:34)
[2020-08-13] MEDS: Heparin Sodium 100 Units/ML 3 ML Syringe IVPUSH SCH ×4 (00:35→23:46)
[2020-08-13] MEDS: Enoxaparin 40 MG/0.4 ML Syringe SUBCUT SCH (08:23)
[2020-08-13] MEDS: Aspirin 81 MG Tab.EC PO SCH (08:24)
[2020-08-13] MEDS: traMADol 50 MG Tab PO PRN ×2 (08:25→19:44)
[2020-08-13] MEDS: metFORMIN 500 MG Tab PO SCH ×2 (08:25→17:59)
[2020-08-13] MEDS: Metoprolol Tartrate 50 MG Tab PO SCH ×2 (08:26→19:42)
[2020-08-13] MEDS: NIFEdipine 30 MG Tab.ER PO SCH (08:26)
[2020-08-13] MEDS: Tiotropium BR/Olodaterol HCL 4 GM Inhalation Spray 2.5mcg/1 dose; 10 doses INH SCH (08:27)
[2020-08-13] MEDS: Ondansetron 4 MG Tab.DIS PO PRN (10:06)
[2020-08-13] MEDS: Cyclobenzaprine 10 MG Tab PO PRN (19:43)
[2020-08-13] MEDS: Sodium Chloride 0.9% 10 ML Syringe IV PRN (23:45)
[2020-08-14] MEDS: ceFAZolin 1 GM Vial IVPUSH SCH ×2 (07:49→16:15)
[2020-08-14] MEDS: Enoxaparin 40 MG/0.4 ML Syringe SUBCUT SCH (07:49)
[2020-08-14] MEDS: traMADol 50 MG Tab PO PRN ×2 (07:50→19:45)
[2020-08-14] MEDS: metFORMIN 500 MG Tab PO SCH ×2 (07:50→17:04)
[2020-08-14] MEDS: Aspirin 81 MG Tab.EC PO SCH (07:51)
[2020-08-14] MEDS: Tiotropium BR/Olodaterol HCL 4 GM Inhalation Spray 2.5mcg/1 dose; 10 doses INH SCH (07:52)
[2020-08-14] MEDS: NIFEdipine 30 MG Tab.ER PO SCH (07:53)
[2020-08-14] MEDS: Metoprolol Tartrate 50 MG Tab PO SCH ×2 (07:53→19:41)
[2020-08-14] MEDS: Heparin Sodium 100 Units/ML 3 ML Syringe IVPUSH SCH ×2 (07:53→16:16)
[2020-08-14] MEDS: Sodium Chloride 0.9% 10 ML Syringe IV SCH ×2 (10:07→16:16)
[2020-08-14] MEDS: Cyclobenzaprine 10 MG Tab PO PRN (15:16)
[2020-08-15] MEDS: ceFAZolin 1 GM Vial IVPUSH SCH ×3 (06:48→17:08)
[2020-08-15] MEDS: Heparin Sodium 100 Units/ML 3 ML Syringe IVPUSH SCH ×3 (06:48→17:20)
[2020-08-15] MEDS: Sodium Chloride 0.9% 10 ML Syringe IV SCH ×3 (06:48→17:08)
[2020-08-15] MEDS: traMADol 50 MG Tab PO PRN ×3 (08:02→23:47)
[2020-08-15] MEDS: metFORMIN 500 MG Tab PO SCH ×2 (08:03→17:20)
[2020-08-15] MEDS: Enoxaparin 40 MG/0.4 ML Syringe SUBCUT SCH (08:03)
[2020-08-15] MEDS: Metoprolol Tartrate 50 MG Tab PO SCH ×2 (08:03→20:16)
[2020-08-15] MEDS: NIFEdipine 30 MG Tab.ER PO SCH (08:04)
[2020-08-15] MEDS: Aspirin 81 MG Tab.EC PO SCH (08:04)
[2020-08-15] MEDS: Tiotropium BR/Olodaterol HCL 4 GM Inhalation Spray 2.5mcg/1 dose; 10 doses INH SCH (08:05)
[2020-08-15] MEDS: HYDROmorphone 0.5 MG/0.5 ML Syringe IV PRN (17:20)
[2020-08-16] MEDS: ceFAZolin 1 GM Vial IVPUSH SCH ×3 (00:04→17:04)
[2020-08-16] MEDS: Heparin Sodium 100 Units/ML 3 ML Syringe IVPUSH SCH ×3 (00:04→17:15)
[2020-08-16] MEDS: Sodium Chloride 0.9% 10 ML Syringe IV SCH ×3 (00:04→17:04)
[2020-08-16] MEDS: HYDROmorphone 0.5 MG/0.5 ML Syringe IV PRN (03:21)
[2020-08-16] MEDS: Enoxaparin 40 MG/0.4 ML Syringe SUBCUT SCH (08:33)
[2020-08-16] MEDS: NIFEdipine 30 MG Tab.ER PO SCH (08:33)
[2020-08-16] MEDS: Metoprolol Tartrate 50 MG Tab PO SCH ×2 (08:34→19:35)
[2020-08-16] MEDS: metFORMIN 500 MG Tab PO SCH ×2 (08:34→17:03)
[2020-08-16] MEDS: Aspirin 81 MG Tab.EC PO SCH (08:34)
[2020-08-16] MEDS: traMADol 50 MG Tab PO PRN (08:34)
[2020-08-16] MEDS: Tiotropium BR/Olodaterol HCL 4 GM Inhalation Spray 2.5mcg/1 dose; 10 doses INH SCH (08:38)
--- NOTE | 2020-08-16 18:13 | PCM.SN.2 ---
- Free Text/Narrative Note: Patient has a picc line for IV ABX just yesterday nurse noted some drainage from the line and a little bit of bleeding under the new dressing that had recently been changed. Picc is flushing and working ok. The drainage was a small amount after the ABX. I looked at his dressing there is some dried blood but no marylu kage now the site looks perfect. My advice to nursing is to change the dressing again today and let me know if the drainage gets worse.
[2020-08-17] MEDS: Heparin Sodium 100 Units/ML 3 ML Syringe IVPUSH SCH ×3 (00:12→16:02)
[2020-08-17] MEDS: ceFAZolin 1 GM Vial IVPUSH SCH ×3 (00:13→16:01)
[2020-08-17] MEDS: traMADol 50 MG Tab PO PRN ×3 (00:28→16:00)
[2020-08-17] MEDS: Sodium Chloride 0.9% 10 ML Syringe IV SCH ×3 (00:30→16:02)
[2020-08-17] MEDS: Tiotropium BR/Olodaterol HCL 4 GM Inhalation Spray 2.5mcg/1 dose; 10 doses INH SCH (09:19)
[2020-08-17] MEDS: Enoxaparin 40 MG/0.4 ML Syringe SUBCUT SCH (09:20)
[2020-08-17] MEDS: NIFEdipine 30 MG Tab.ER PO SCH (09:21)
[2020-08-17] MEDS: metFORMIN 500 MG Tab PO SCH ×2 (09:21→19:00)
[2020-08-17] MEDS: Metoprolol Tartrate 50 MG Tab PO SCH ×2 (09:22→20:17)
[2020-08-17] MEDS: Aspirin 81 MG Tab.EC PO SCH (09:22)
[2020-08-18] MEDS: ceFAZolin 1 GM Vial IVPUSH SCH ×3 (00:08→16:14)
[2020-08-18] MEDS: traMADol 50 MG Tab PO PRN ×4 (00:08→22:07)
[2020-08-18] MEDS: Heparin Sodium 100 Units/ML 3 ML Syringe IVPUSH SCH ×3 (00:09→16:14)
[2020-08-18] MEDS: Sodium Chloride 0.9% 10 ML Syringe IV SCH ×3 (00:10→16:14)
[2020-08-18 07:35] LABS: CHLORIDE,CL 104 mmol/L (98-107); SODIUM,NA 141 mmol/L (136-145)
[2020-08-18 07:41] LABS: ANION GAP 11.4 mmol/L (5-15)
[2020-08-18] MEDS: Acetaminophen 325 MG Tab PO PRN (07:47)
[2020-08-18] MEDS: NIFEdipine 30 MG Tab.ER PO SCH (07:47)
[2020-08-18] MEDS: Metoprolol Tartrate 50 MG Tab PO SCH ×2 (07:48→19:36)
[2020-08-18] MEDS: Aspirin 81 MG Tab.EC PO SCH (07:48)
[2020-08-18] MEDS: metFORMIN 500 MG Tab PO SCH ×2 (07:48→17:38)
[2020-08-18] MEDS: Tiotropium BR/Olodaterol HCL 4 GM Inhalation Spray 2.5mcg/1 dose; 10 doses INH SCH (07:49)
[2020-08-18] MEDS: Enoxaparin 40 MG/0.4 ML Syringe SUBCUT SCH (09:51)
[2020-08-19] MEDS: Heparin Sodium 100 Units/ML 3 ML Syringe IVPUSH SCH ×3 (00:10→16:46)
[2020-08-19] MEDS: Sodium Chloride 0.9% 10 ML Syringe IV SCH ×3 (00:11→16:46)
[2020-08-19] MEDS: ceFAZolin 1 GM Vial IVPUSH SCH ×3 (00:11→16:46)
[2020-08-19] MEDS: Enoxaparin 40 MG/0.4 ML Syringe SUBCUT SCH (08:01)
[2020-08-19] MEDS: Aspirin 81 MG Tab.EC PO SCH (08:01)
[2020-08-19] MEDS: Acetaminophen 325 MG Tab PO PRN (08:01)
[2020-08-19] MEDS: NIFEdipine 30 MG Tab.ER PO SCH (08:01)
[2020-08-19] MEDS: metFORMIN 500 MG Tab PO SCH ×2 (08:02→17:52)
[2020-08-19] MEDS: Metoprolol Tartrate 50 MG Tab PO SCH ×2 (08:03→19:40)
[2020-08-19] MEDS: Tiotropium BR/Olodaterol HCL 4 GM Inhalation Spray 2.5mcg/1 dose; 10 doses INH SCH (08:07)
[2020-08-19] MEDS: Ondansetron 4 MG Tab.DIS PO PRN ×2 (08:08→17:51)
[2020-08-19] MEDS: traMADol 50 MG Tab PO PRN (17:51)
[2020-08-20] MEDS: Heparin Sodium 100 Units/ML 3 ML Syringe IVPUSH SCH ×3 (00:54→15:56)
[2020-08-20] MEDS: ceFAZolin 1 GM Vial IVPUSH SCH ×3 (00:54→15:56)
[2020-08-20] MEDS: Sodium Chloride 0.9% 10 ML Syringe IV SCH ×3 (00:55→15:56)
[2020-08-20] MEDS: traMADol 50 MG Tab PO PRN ×3 (01:08→15:56)
[2020-08-20] MEDS: Enoxaparin 40 MG/0.4 ML Syringe SUBCUT SCH (07:31)
[2020-08-20] MEDS: Aspirin 81 MG Tab.EC PO SCH (07:36)
[2020-08-20] MEDS: Ondansetron 4 MG Tab.DIS PO PRN ×2 (07:36→20:16)
[2020-08-20] MEDS: NIFEdipine 30 MG Tab.ER PO SCH (07:36)
[2020-08-20] MEDS: Metoprolol Tartrate 50 MG Tab PO SCH ×2 (07:37→20:16)
[2020-08-20] MEDS: metFORMIN 500 MG Tab PO SCH ×2 (07:37→17:42)
[2020-08-20] MEDS: Tiotropium BR/Olodaterol HCL 4 GM Inhalation Spray 2.5mcg/1 dose; 10 doses INH SCH (07:38)
[2020-08-20] MEDS ORDERED: Metoprolol Tartrate 50 MG Tab PO ONE (08:30)
--- NOTE | 2020-08-20 08:53 | PCM.SN.2 ---
- Free Text/Narrative Note: Chart reviewed and patient seen today for quick visit. Vitals notable for continued slightly elevated BP. Will increase metoprolol to 100mg BID. Labs/inflammatory markers improving, BS stable. Patient reports he is 'holding in there.' Feels back pain and abdominal pain is slightly improved but not gone, still fairly reliant on the pain medication. Diet comes/goes, bowels and bladder working fine. Discussed medication adjustment with the patient and nursing staff. Continue therapies and antibiotics.
[2020-08-21] MEDS: Heparin Sodium 100 Units/ML 3 ML Syringe IVPUSH SCH ×4 (00:02→23:53)
[2020-08-21] MEDS: ceFAZolin 1 GM Vial IVPUSH SCH ×4 (00:02→23:52)
[2020-08-21] MEDS: traMADol 50 MG Tab PO PRN ×2 (00:02→20:08)
[2020-08-21] MEDS: Sodium Chloride 0.9% 10 ML Syringe IV SCH ×4 (00:03→23:53)
[2020-08-21] MEDS: Enoxaparin 40 MG/0.4 ML Syringe SUBCUT SCH (08:31)
[2020-08-21] MEDS: metFORMIN 500 MG Tab PO SCH ×2 (08:32→18:08)
[2020-08-21] MEDS: Metoprolol Tartrate 50 MG Tab PO SCH ×2 (08:33→20:09)
[2020-08-21] MEDS: Aspirin 81 MG Tab.EC PO SCH (08:34)
[2020-08-21] MEDS: NIFEdipine 30 MG Tab.ER PO SCH (08:34)
[2020-08-21] MEDS: Tiotropium BR/Olodaterol HCL 4 GM Inhalation Spray 2.5mcg/1 dose; 10 doses INH SCH (08:54)
[2020-08-22] MEDS: traMADol 50 MG Tab PO PRN ×3 (05:29→23:47)
[2020-08-22] MEDS: Ondansetron 4 MG Tab.DIS PO PRN (07:49)
[2020-08-22] MEDS: Sodium Chloride 0.9% 10 ML Syringe IV SCH ×3 (07:50→23:47)
[2020-08-22] MEDS: Heparin Sodium 100 Units/ML 3 ML Syringe IVPUSH SCH ×3 (07:50→23:46)
[2020-08-22] MEDS: ceFAZolin 1 GM Vial IVPUSH SCH ×3 (07:50→23:46)
[2020-08-22] MEDS: Enoxaparin 40 MG/0.4 ML Syringe SUBCUT SCH (07:50)
[2020-08-22] MEDS: Aspirin 81 MG Tab.EC PO SCH (07:51)
[2020-08-22] MEDS: NIFEdipine 30 MG Tab.ER PO SCH (07:51)
[2020-08-22] MEDS: Metoprolol Tartrate 50 MG Tab PO SCH ×2 (07:51→19:17)
[2020-08-22] MEDS: metFORMIN 500 MG Tab PO SCH ×2 (07:51→17:40)
[2020-08-22] MEDS: Tiotropium BR/Olodaterol HCL 4 GM Inhalation Spray 2.5mcg/1 dose; 10 doses INH SCH (07:52)
[2020-08-22] MEDS: Acetaminophen 325 MG Tab PO PRN ×2 (15:39→19:18)
[2020-08-22] MEDS: Cyclobenzaprine 10 MG Tab PO PRN (19:16)
[2020-08-23] MEDS: Acetaminophen 325 MG Tab PO PRN ×2 (06:13→16:11)
[2020-08-23] MEDS: traMADol 50 MG Tab PO PRN ×3 (06:45→23:42)
[2020-08-23] MEDS: ceFAZolin 1 GM Vial IVPUSH SCH ×3 (07:56→23:44)
[2020-08-23] MEDS: Ondansetron 4 MG Tab.DIS PO PRN ×2 (07:56→16:11)
[2020-08-23] MEDS: Heparin Sodium 100 Units/ML 3 ML Syringe IVPUSH SCH ×3 (07:56→23:52)
[2020-08-23] MEDS: Enoxaparin 40 MG/0.4 ML Syringe SUBCUT SCH (07:56)
[2020-08-23] MEDS: Sodium Chloride 0.9% 10 ML Syringe IV SCH ×3 (07:56→23:43)
[2020-08-23] MEDS: Aspirin 81 MG Tab.EC PO SCH (07:57)
[2020-08-23] MEDS: Metoprolol Tartrate 50 MG Tab PO SCH ×2 (07:57→20:00)
[2020-08-23] MEDS: NIFEdipine 30 MG Tab.ER PO SCH (07:57)
[2020-08-23] MEDS: metFORMIN 500 MG Tab PO SCH ×2 (07:58→17:33)
[2020-08-23] MEDS: Tiotropium BR/Olodaterol HCL 4 GM Inhalation Spray 2.5mcg/1 dose; 10 doses INH SCH (07:58)
[2020-08-23] MEDS: Cyclobenzaprine 10 MG Tab PO PRN ×2 (08:57→20:02)
--- NOTE | 2020-08-23 09:06 | PCM.SN.2 ---
- Free Text/Narrative Note: Patient received second dose of COVID vaccine yesterday and has had a headache since last night. Nurse has given tylenol, flexeril, and tramadol without relief. Patient inquired about Fiorinal. Does not want to do dilaudid given side effects before. Nurse will do tylenol and flexeril again this am. Anticipate headache will resolve by this evening regardless of what we do. I don't see a contraindication to NSAID's so this would be an option if the above measures are not effective.
[2020-08-23] MEDS: Sodium Chloride 0.9% 10 ML Syringe IV PRN (23:51)
[2020-08-24] MEDS: Tiotropium BR/Olodaterol HCL 4 GM Inhalation Spray 2.5mcg/1 dose; 10 doses INH SCH (08:01)
[2020-08-24] MEDS: ceFAZolin 1 GM Vial IVPUSH SCH ×3 (08:01→23:49)
[2020-08-24] MEDS: Sodium Chloride 0.9% 10 ML Syringe IV SCH ×3 (08:02→23:49)
[2020-08-24] MEDS: Heparin Sodium 100 Units/ML 3 ML Syringe IVPUSH SCH ×3 (08:02→23:57)
[2020-08-24] MEDS: Enoxaparin 40 MG/0.4 ML Syringe SUBCUT SCH (08:04)
[2020-08-24] MEDS: Metoprolol Tartrate 50 MG Tab PO SCH ×2 (08:04→19:35)
[2020-08-24] MEDS: Ondansetron 4 MG Tab.DIS PO PRN (08:05)
[2020-08-24] MEDS: NIFEdipine 30 MG Tab.ER PO SCH (08:05)
[2020-08-24] MEDS: Acetaminophen 325 MG Tab PO PRN ×2 (08:05→15:56)
[2020-08-24] MEDS: Aspirin 81 MG Tab.EC PO SCH (08:05)
[2020-08-24] MEDS: metFORMIN 500 MG Tab PO SCH ×2 (08:05→17:25)
[2020-08-24] MEDS: traMADol 50 MG Tab PO PRN ×3 (08:06→23:47)
[2020-08-24] MEDS: Cyclobenzaprine 10 MG Tab PO PRN (19:35)
[2020-08-24] MEDS: Sodium Chloride 0.9% 10 ML Syringe IV PRN (23:57)
[2020-08-25 07:32] LABS: CHLORIDE,CL 104 mmol/L (98-107); SODIUM,NA 142 mmol/L (136-145)
[2020-08-25] MEDS: ceFAZolin 1 GM Vial IVPUSH SCH ×3 (07:45→23:30)
[2020-08-25] MEDS: Enoxaparin 40 MG/0.4 ML Syringe SUBCUT SCH (07:45)
[2020-08-25] MEDS: Tiotropium BR/Olodaterol HCL 4 GM Inhalation Spray 2.5mcg/1 dose; 10 doses INH SCH (07:45)
[2020-08-25] MEDS: Heparin Sodium 100 Units/ML 3 ML Syringe IVPUSH SCH ×3 (07:46→23:37)
[2020-08-25] MEDS: Sodium Chloride 0.9% 10 ML Syringe IV SCH ×3 (07:46→23:30)
[2020-08-25] MEDS: Ondansetron 4 MG Tab.DIS PO PRN (07:46)
[2020-08-25] MEDS: Metoprolol Tartrate 50 MG Tab PO SCH ×2 (07:47→19:40)
[2020-08-25] MEDS: NIFEdipine 30 MG Tab.ER PO SCH (07:47)
[2020-08-25] MEDS: Aspirin 81 MG Tab.EC PO SCH (07:47)
[2020-08-25] MEDS: metFORMIN 500 MG Tab PO SCH ×2 (07:47→18:24)
[2020-08-25] MEDS: traMADol 50 MG Tab PO PRN ×3 (07:48→22:00)
[2020-08-25] MEDS: Cyclobenzaprine 10 MG Tab PO PRN (19:38)
[2020-08-25] MEDS: Sodium Chloride 0.9% 10 ML Syringe IV PRN ×2 (20:00→23:37)
[2020-08-26] MEDS: traMADol 50 MG Tab PO PRN ×3 (04:38→18:13)
[2020-08-26] MEDS: ceFAZolin 1 GM Vial IVPUSH SCH ×2 (08:14→16:07)
[2020-08-26] MEDS: Acetaminophen 325 MG Tab PO PRN (08:14)
[2020-08-26] MEDS: Aspirin 81 MG Tab.EC PO SCH (08:14)
[2020-08-26] MEDS: Metoprolol Tartrate 50 MG Tab PO SCH ×2 (08:15→19:34)
[2020-08-26] MEDS: NIFEdipine 30 MG Tab.ER PO SCH (08:15)
[2020-08-26] MEDS: Enoxaparin 40 MG/0.4 ML Syringe SUBCUT SCH (08:15)
[2020-08-26] MEDS: metFORMIN 500 MG Tab PO SCH ×2 (08:15→18:09)
[2020-08-26] MEDS: Heparin Sodium 100 Units/ML 3 ML Syringe IVPUSH SCH ×2 (08:16→16:08)
[2020-08-26] MEDS: Tiotropium BR/Olodaterol HCL 4 GM Inhalation Spray 2.5mcg/1 dose; 10 doses INH SCH (08:17)
[2020-08-26] MEDS: Sodium Chloride 0.9% 10 ML Syringe IV SCH ×2 (08:17→16:08)
[2020-08-26] MEDS: Cyclobenzaprine 10 MG Tab PO PRN (18:12)
[2020-08-27] MEDS: ceFAZolin 1 GM Vial IVPUSH SCH ×3 (00:59→16:33)
[2020-08-27] MEDS: Sodium Chloride 0.9% 10 ML Syringe IV SCH ×3 (00:59→16:33)
[2020-08-27] MEDS: Heparin Sodium 100 Units/ML 3 ML Syringe IVPUSH SCH ×3 (01:00→16:33)
[2020-08-27] MEDS: traMADol 50 MG Tab PO PRN ×3 (01:10→16:34)
[2020-08-27] MEDS: Acetaminophen 325 MG Tab PO PRN ×2 (01:11→19:55)
[2020-08-27] MEDS: metFORMIN 500 MG Tab PO SCH ×2 (07:46→18:24)
[2020-08-27] MEDS: Aspirin 81 MG Tab.EC PO SCH (07:46)
[2020-08-27] MEDS: NIFEdipine 30 MG Tab.ER PO SCH (07:47)
[2020-08-27] MEDS: Metoprolol Tartrate 50 MG Tab PO SCH ×2 (07:47→19:58)
[2020-08-27] MEDS: Enoxaparin 40 MG/0.4 ML Syringe SUBCUT SCH (07:47)
[2020-08-27] MEDS: Tiotropium BR/Olodaterol HCL 4 GM Inhalation Spray 2.5mcg/1 dose; 10 doses INH SCH (07:48)
[2020-08-27] MEDS: Cyclobenzaprine 10 MG Tab PO PRN (19:54)
[2020-08-28] MEDS: ceFAZolin 1 GM Vial IVPUSH SCH ×3 (00:12→16:18)
[2020-08-28] MEDS: Sodium Chloride 0.9% 10 ML Syringe IV SCH ×3 (00:13→16:19)
[2020-08-28] MEDS: Heparin Sodium 100 Units/ML 3 ML Syringe IVPUSH SCH ×3 (00:15→16:18)
[2020-08-28] MEDS: traMADol 50 MG Tab PO PRN ×3 (00:16→15:48)
[2020-08-28] MEDS: Enoxaparin 40 MG/0.4 ML Syringe SUBCUT SCH (07:40)
[2020-08-28] MEDS: Metoprolol Tartrate 50 MG Tab PO SCH ×2 (07:41→19:52)
[2020-08-28] MEDS: metFORMIN 500 MG Tab PO SCH ×2 (07:41→17:56)
[2020-08-28] MEDS: NIFEdipine 30 MG Tab.ER PO SCH (07:41)
[2020-08-28] MEDS: Aspirin 81 MG Tab.EC PO SCH (07:41)
[2020-08-28] MEDS: Tiotropium BR/Olodaterol HCL 4 GM Inhalation Spray 2.5mcg/1 dose; 10 doses INH SCH (08:28)
[2020-08-28] MEDS: Cyclobenzaprine 10 MG Tab PO PRN (17:55)
[2020-08-28] MEDS: Acetaminophen 325 MG Tab PO PRN (19:52)
[2020-08-29] MEDS: Heparin Sodium 100 Units/ML 3 ML Syringe IVPUSH SCH ×3 (00:20→16:03)
[2020-08-29] MEDS: traMADol 50 MG Tab PO PRN ×3 (00:20→16:01)
[2020-08-29] MEDS: ceFAZolin 1 GM Vial IVPUSH SCH ×3 (00:20→16:02)
[2020-08-29] MEDS: Sodium Chloride 0.9% 10 ML Syringe IV SCH ×3 (00:21→16:02)
[2020-08-29] MEDS: Enoxaparin 40 MG/0.4 ML Syringe SUBCUT SCH (07:41)
[2020-08-29] MEDS: Tiotropium BR/Olodaterol HCL 4 GM Inhalation Spray 2.5mcg/1 dose; 10 doses INH SCH (07:41)
[2020-08-29] MEDS: Acetaminophen 325 MG Tab PO PRN (07:42)
[2020-08-29] MEDS: Metoprolol Tartrate 50 MG Tab PO SCH ×2 (07:42→19:26)
[2020-08-29] MEDS: Aspirin 81 MG Tab.EC PO SCH (07:42)
[2020-08-29] MEDS: Ondansetron 4 MG Tab.DIS PO PRN (07:42)
[2020-08-29] MEDS: metFORMIN 500 MG Tab PO SCH ×2 (07:42→17:36)
[2020-08-29] MEDS: NIFEdipine 30 MG Tab.ER PO SCH (07:42)
[2020-08-30] MEDS: Heparin Sodium 100 Units/ML 3 ML Syringe IVPUSH SCH ×3 (00:02→16:09)
[2020-08-30] MEDS: ceFAZolin 1 GM Vial IVPUSH SCH ×3 (00:03→16:10)
[2020-08-30] MEDS: Sodium Chloride 0.9% 10 ML Syringe IV SCH ×3 (00:03→16:10)
[2020-08-30] MEDS: Cyclobenzaprine 10 MG Tab PO PRN ×2 (00:04→19:24)
[2020-08-30] MEDS: traMADol 50 MG Tab PO PRN ×3 (00:20→16:10)
[2020-08-30] MEDS: Ondansetron 4 MG Tab.DIS PO PRN (08:05)
[2020-08-30] MEDS: Enoxaparin 40 MG/0.4 ML Syringe SUBCUT SCH (08:06)
[2020-08-30] MEDS: Aspirin 81 MG Tab.EC PO SCH (08:08)
[2020-08-30] MEDS: NIFEdipine 30 MG Tab.ER PO SCH (08:08)
[2020-08-30] MEDS: Metoprolol Tartrate 50 MG Tab PO SCH ×2 (08:08→19:21)
[2020-08-30] MEDS: metFORMIN 500 MG Tab PO SCH ×2 (08:09→17:28)
[2020-08-30] MEDS: Tiotropium BR/Olodaterol HCL 4 GM Inhalation Spray 2.5mcg/1 dose; 10 doses INH SCH (08:09)
[2020-08-31] MEDS: Heparin Sodium 100 Units/ML 3 ML Syringe IVPUSH SCH ×4 (00:05→23:47)
[2020-08-31] MEDS: traMADol 50 MG Tab PO PRN ×4 (00:05→23:46)
[2020-08-31] MEDS: ceFAZolin 1 GM Vial IVPUSH SCH ×4 (00:06→23:47)
[2020-08-31] MEDS: Sodium Chloride 0.9% 10 ML Syringe IV SCH ×4 (00:07→23:47)
[2020-08-31] MEDS: Metoprolol Tartrate 50 MG Tab PO SCH ×2 (07:52→19:34)
[2020-08-31] MEDS: Aspirin 81 MG Tab.EC PO SCH (07:52)
[2020-08-31] MEDS: metFORMIN 500 MG Tab PO SCH ×2 (07:52→18:14)
[2020-08-31] MEDS: Enoxaparin 40 MG/0.4 ML Syringe SUBCUT SCH (07:52)
[2020-08-31] MEDS: NIFEdipine 30 MG Tab.ER PO SCH (07:53)
[2020-08-31] MEDS: Tiotropium BR/Olodaterol HCL 4 GM Inhalation Spray 2.5mcg/1 dose; 10 doses INH SCH (07:53)
[2020-08-31] MEDS: Cyclobenzaprine 10 MG Tab PO PRN (18:16)
[2020-09-01] MEDS: Ondansetron 4 MG Tab.DIS PO PRN (05:44)
[2020-09-01] MEDS: metFORMIN 500 MG Tab PO SCH ×3 (05:45→17:30)
[2020-09-01] MEDS: Aspirin 81 MG Tab.EC PO SCH ×2 (05:46→07:36)
[2020-09-01] MEDS: Heparin Sodium 100 Units/ML 3 ML Syringe IVPUSH SCH ×3 (05:46→16:00)
[2020-09-01] MEDS: traMADol 50 MG Tab PO PRN ×2 (05:46→12:07)
[2020-09-01] MEDS: ceFAZolin 1 GM Vial IVPUSH SCH ×3 (05:47→16:00)
[2020-09-01] MEDS: Metoprolol Tartrate 50 MG Tab PO SCH ×3 (05:49→19:36)
[2020-09-01] MEDS: NIFEdipine 30 MG Tab.ER PO SCH ×2 (05:49→07:37)
[2020-09-01] MEDS: Enoxaparin 40 MG/0.4 ML Syringe SUBCUT SCH ×2 (05:50→07:37)
[2020-09-01] MEDS: Sodium Chloride 0.9% 10 ML Syringe IV SCH ×3 (05:54→16:00)
[2020-09-01] MEDS: Tiotropium BR/Olodaterol HCL 4 GM Inhalation Spray 2.5mcg/1 dose; 10 doses INH SCH (07:37)
[2020-09-01] MEDS: Acetaminophen 325 MG Tab PO PRN (12:07)
[2020-09-01] MEDS: Cyclobenzaprine 10 MG Tab PO PRN (19:36)
[2020-09-02] MEDS: traMADol 50 MG Tab PO PRN ×3 (00:05→15:56)
[2020-09-02] MEDS: Sodium Chloride 0.9% 10 ML Syringe IV SCH ×3 (00:06→15:56)
[2020-09-02] MEDS: ceFAZolin 1 GM Vial IVPUSH SCH ×3 (00:06→15:55)
[2020-09-02] MEDS: Heparin Sodium 100 Units/ML 3 ML Syringe IVPUSH SCH ×3 (00:06→15:56)
[2020-09-02] MEDS: Ondansetron 4 MG Tab.DIS PO PRN (07:42)
[2020-09-02] MEDS: Tiotropium BR/Olodaterol HCL 4 GM Inhalation Spray 2.5mcg/1 dose; 10 doses INH SCH (07:42)
[2020-09-02] MEDS: Enoxaparin 40 MG/0.4 ML Syringe SUBCUT SCH (07:43)
[2020-09-02] MEDS: metFORMIN 500 MG Tab PO SCH ×2 (07:44→18:03)
[2020-09-02] MEDS: NIFEdipine 30 MG Tab.ER PO SCH (07:44)
[2020-09-02] MEDS: Acetaminophen 325 MG Tab PO PRN ×2 (07:44→15:56)
[2020-09-02] MEDS: Metoprolol Tartrate 50 MG Tab PO SCH ×2 (07:44→19:35)
[2020-09-02] MEDS: Aspirin 81 MG Tab.EC PO SCH (07:45)
[2020-09-02] MEDS: Cyclobenzaprine 10 MG Tab PO PRN (19:35)
[2020-09-03] MEDS: traMADol 50 MG Tab PO PRN ×4 (00:07→19:37)
[2020-09-03] MEDS: Sodium Chloride 0.9% 10 ML Syringe IV SCH ×3 (00:07→16:42)
[2020-09-03] MEDS: Heparin Sodium 100 Units/ML 3 ML Syringe IVPUSH SCH ×3 (00:07→16:41)
[2020-09-03] MEDS: ceFAZolin 1 GM Vial IVPUSH SCH ×3 (00:08→16:41)
[2020-09-03] MEDS: Enoxaparin 40 MG/0.4 ML Syringe SUBCUT SCH (07:36)
[2020-09-03] MEDS: Acetaminophen 325 MG Tab PO PRN ×2 (07:37→19:37)
[2020-09-03] MEDS: Aspirin 81 MG Tab.EC PO SCH (07:37)
[2020-09-03] MEDS: Metoprolol Tartrate 50 MG Tab PO SCH ×2 (07:37→19:36)
[2020-09-03] MEDS: metFORMIN 500 MG Tab PO SCH ×2 (07:38→17:54)
[2020-09-03] MEDS: NIFEdipine 30 MG Tab.ER PO SCH (07:38)
[2020-09-03] MEDS: Ondansetron 4 MG Tab.DIS PO PRN (07:38)
[2020-09-03] MEDS: Tiotropium BR/Olodaterol HCL 4 GM Inhalation Spray 2.5mcg/1 dose; 10 doses INH SCH (07:40)
[2020-09-04] MEDS: Cyclobenzaprine 10 MG Tab PO PRN (00:02)
[2020-09-04] MEDS: ceFAZolin 1 GM Vial IVPUSH SCH ×3 (00:03→16:48)
[2020-09-04] MEDS: Heparin Sodium 100 Units/ML 3 ML Syringe IVPUSH SCH ×3 (00:03→16:48)
[2020-09-04] MEDS: Sodium Chloride 0.9% 10 ML Syringe IV SCH ×3 (00:03→16:48)
[2020-09-04] MEDS: traMADol 50 MG Tab PO PRN ×3 (06:03→20:33)
[2020-09-04] MEDS: Tiotropium BR/Olodaterol HCL 4 GM Inhalation Spray 2.5mcg/1 dose; 10 doses INH SCH (07:59)
[2020-09-04] MEDS: Enoxaparin 40 MG/0.4 ML Syringe SUBCUT SCH (08:00)
[2020-09-04] MEDS: Metoprolol Tartrate 50 MG Tab PO SCH ×2 (08:00→20:32)
[2020-09-04] MEDS: Ondansetron 4 MG Tab.DIS PO PRN (08:01)
[2020-09-04] MEDS: metFORMIN 500 MG Tab PO SCH ×2 (08:01→18:06)
[2020-09-04] MEDS: Aspirin 81 MG Tab.EC PO SCH (08:01)
[2020-09-04] MEDS: Acetaminophen 325 MG Tab PO PRN ×3 (08:01→20:33)
[2020-09-04] MEDS: NIFEdipine 30 MG Tab.ER PO SCH (08:01)
[2020-09-05] MEDS: Cyclobenzaprine 10 MG Tab PO PRN ×2 (00:39→20:12)
[2020-09-05] MEDS: Heparin Sodium 100 Units/ML 3 ML Syringe IVPUSH SCH ×3 (00:40→16:25)
[2020-09-05] MEDS: ceFAZolin 1 GM Vial IVPUSH SCH ×3 (00:40→16:22)
[2020-09-05] MEDS: Sodium Chloride 0.9% 10 ML Syringe IV SCH ×3 (00:41→16:23)
[2020-09-05] MEDS: traMADol 50 MG Tab PO PRN ×2 (06:21→16:33)
[2020-09-05] MEDS: Tiotropium BR/Olodaterol HCL 4 GM Inhalation Spray 2.5mcg/1 dose; 10 doses INH SCH (08:10)
[2020-09-05] MEDS: Enoxaparin 40 MG/0.4 ML Syringe SUBCUT SCH (08:11)
[2020-09-05] MEDS: Aspirin 81 MG Tab.EC PO SCH (08:12)
[2020-09-05] MEDS: NIFEdipine 30 MG Tab.ER PO SCH (08:12)
[2020-09-05] MEDS: Metoprolol Tartrate 50 MG Tab PO SCH ×2 (08:12→20:12)
[2020-09-05] MEDS: metFORMIN 500 MG Tab PO SCH ×2 (08:12→17:28)
[2020-09-05] MEDS: Acetaminophen 325 MG Tab PO PRN (20:13)
[2020-09-06] MEDS: traMADol 50 MG Tab PO PRN ×4 (00:29→23:39)
[2020-09-06] MEDS: ceFAZolin 1 GM Vial IVPUSH SCH ×4 (00:29→23:40)
[2020-09-06] MEDS: Heparin Sodium 100 Units/ML 3 ML Syringe IVPUSH SCH ×4 (00:30→23:40)
[2020-09-06] MEDS: Sodium Chloride 0.9% 10 ML Syringe IV SCH ×4 (00:30→23:40)
[2020-09-06] MEDS: Enoxaparin 40 MG/0.4 ML Syringe SUBCUT SCH (08:00)
[2020-09-06] MEDS: Ondansetron 4 MG Tab.DIS PO PRN (08:01)
[2020-09-06] MEDS: Metoprolol Tartrate 50 MG Tab PO SCH ×2 (08:01→19:47)
[2020-09-06] MEDS: Aspirin 81 MG Tab.EC PO SCH (08:01)
[2020-09-06] MEDS: Acetaminophen 325 MG Tab PO PRN ×2 (08:01→16:05)
[2020-09-06] MEDS: NIFEdipine 30 MG Tab.ER PO SCH (08:01)
[2020-09-06] MEDS: metFORMIN 500 MG Tab PO SCH ×2 (08:01→17:26)
[2020-09-06] MEDS: Tiotropium BR/Olodaterol HCL 4 GM Inhalation Spray 2.5mcg/1 dose; 10 doses INH SCH (08:03)
[2020-09-06] MEDS: Cyclobenzaprine 10 MG Tab PO PRN (19:47)
[2020-09-07] MEDS: Metoprolol Tartrate 50 MG Tab PO SCH ×2 (08:20→20:17)
[2020-09-07] MEDS: Enoxaparin 40 MG/0.4 ML Syringe SUBCUT SCH (08:20)
[2020-09-07] MEDS: metFORMIN 500 MG Tab PO SCH ×2 (08:20→17:29)
[2020-09-07] MEDS: traMADol 50 MG Tab PO PRN ×2 (08:21→15:28)
[2020-09-07] MEDS: Sodium Chloride 0.9% 10 ML Syringe IV SCH ×2 (08:21→15:28)
[2020-09-07] MEDS: Acetaminophen 325 MG Tab PO PRN ×2 (08:21→15:28)
[2020-09-07] MEDS: NIFEdipine 30 MG Tab.ER PO SCH (08:21)
[2020-09-07] MEDS: ceFAZolin 1 GM Vial IVPUSH SCH ×2 (08:21→15:28)
[2020-09-07] MEDS: Heparin Sodium 100 Units/ML 3 ML Syringe IVPUSH SCH ×2 (08:21→15:28)
[2020-09-07] MEDS: Ondansetron 4 MG Tab.DIS PO PRN (08:21)
[2020-09-07] MEDS: Aspirin 81 MG Tab.EC PO SCH (08:22)
[2020-09-07] MEDS: Tiotropium BR/Olodaterol HCL 4 GM Inhalation Spray 2.5mcg/1 dose; 10 doses INH SCH (08:24)
[2020-09-07] MEDS: Cyclobenzaprine 10 MG Tab PO PRN (20:18)
[2020-09-08] MEDS: traMADol 50 MG Tab PO PRN ×4 (00:35→23:14)
[2020-09-08] MEDS: Heparin Sodium 100 Units/ML 3 ML Syringe IVPUSH SCH ×4 (00:36→23:15)
[2020-09-08] MEDS: ceFAZolin 1 GM Vial IVPUSH SCH ×4 (00:37→23:15)
[2020-09-08] MEDS: Sodium Chloride 0.9% 10 ML Syringe IV SCH ×4 (02:32→23:15)
[2020-09-08 07:31] LABS: ANION GAP 12.4 mmol/L (5-15); CHLORIDE,CL 104 mmol/L (98-107); SODIUM,NA 139 mmol/L (136-145)
[2020-09-08] MEDS: Acetaminophen 325 MG Tab PO PRN ×2 (08:25→15:43)
[2020-09-08] MEDS: Aspirin 81 MG Tab.EC PO SCH (08:25)
[2020-09-08] MEDS: NIFEdipine 30 MG Tab.ER PO SCH (08:25)
[2020-09-08] MEDS: Metoprolol Tartrate 50 MG Tab PO SCH ×2 (08:26→19:52)
[2020-09-08] MEDS: metFORMIN 500 MG Tab PO SCH ×2 (08:27→17:45)
[2020-09-08] MEDS: Tiotropium BR/Olodaterol HCL 4 GM Inhalation Spray 2.5mcg/1 dose; 10 doses INH SCH (08:28)
[2020-09-08] MEDS: Ondansetron 4 MG Tab.DIS PO PRN (08:28)
[2020-09-08] MEDS: Enoxaparin 40 MG/0.4 ML Syringe SUBCUT SCH (08:29)
[2020-09-08] MEDS: Cyclobenzaprine 10 MG Tab PO PRN (19:52)
[2020-09-09] MEDS: NIFEdipine 30 MG Tab.ER PO SCH (07:42)
[2020-09-09] MEDS: metFORMIN 500 MG Tab PO SCH ×2 (07:43→17:47)
[2020-09-09] MEDS: Aspirin 81 MG Tab.EC PO SCH (07:43)
[2020-09-09] MEDS: Enoxaparin 40 MG/0.4 ML Syringe SUBCUT SCH (07:43)
[2020-09-09] MEDS: ceFAZolin 1 GM Vial IVPUSH SCH ×3 (07:43→23:59)
[2020-09-09] MEDS: Metoprolol Tartrate 50 MG Tab PO SCH ×2 (07:43→19:45)
[2020-09-09] MEDS: Heparin Sodium 100 Units/ML 3 ML Syringe IVPUSH SCH ×2 (07:44→15:46)
[2020-09-09] MEDS: Sodium Chloride 0.9% 10 ML Syringe IV SCH ×2 (07:44→15:46)
[2020-09-09] MEDS: Tiotropium BR/Olodaterol HCL 4 GM Inhalation Spray 2.5mcg/1 dose; 10 doses INH SCH (07:44)
[2020-09-09] MEDS: Acetaminophen 325 MG Tab PO PRN (15:45)
[2020-09-09] MEDS: traMADol 50 MG Tab PO PRN (15:46)
[2020-09-09] MEDS: Cyclobenzaprine 10 MG Tab PO PRN (19:45)
[2020-09-10] MEDS: Tiotropium BR/Olodaterol HCL 4 GM Inhalation Spray 2.5mcg/1 dose; 10 doses INH SCH (07:14)
[2020-09-10] MEDS: Aspirin 81 MG Tab.EC PO SCH (07:14)
[2020-09-10] MEDS: Metoprolol Tartrate 50 MG Tab PO SCH ×2 (07:14→19:52)
[2020-09-10] MEDS: NIFEdipine 30 MG Tab.ER PO SCH (07:14)
[2020-09-10] MEDS: ceFAZolin 1 GM Vial IVPUSH SCH ×2 (07:15→16:09)
[2020-09-10] MEDS: Sodium Chloride 0.9% 10 ML Syringe IV SCH ×3 (07:15→16:09)
[2020-09-10] MEDS: Enoxaparin 40 MG/0.4 ML Syringe SUBCUT SCH (07:15)
[2020-09-10] MEDS: metFORMIN 500 MG Tab PO SCH ×2 (07:15→17:01)
[2020-09-10] MEDS: Heparin Sodium 100 Units/ML 3 ML Syringe IVPUSH SCH ×3 (07:15→16:10)
[2020-09-10] MEDS: traMADol 50 MG Tab PO PRN ×3 (11:17→19:50)
[2020-09-10] MEDS: Cyclobenzaprine 10 MG Tab PO PRN ×2 (16:08→16:09)
[2020-09-10] MEDS: Acetaminophen 325 MG Tab PO PRN ×2 (16:08→16:09)
[2020-09-11] MEDS: ceFAZolin 1 GM Vial IVPUSH SCH ×3 (00:01→16:17)
[2020-09-11] MEDS: Sodium Chloride 0.9% 10 ML Syringe IV SCH ×3 (00:02→16:17)
[2020-09-11] MEDS: Heparin Sodium 100 Units/ML 3 ML Syringe IVPUSH SCH ×3 (00:02→16:17)
[2020-09-11] MEDS: traMADol 50 MG Tab PO PRN ×3 (00:03→14:26)
[2020-09-11] MEDS: Acetaminophen 325 MG Tab PO PRN ×3 (00:04→19:19)
[2020-09-11] MEDS: Tiotropium BR/Olodaterol HCL 4 GM Inhalation Spray 2.5mcg/1 dose; 10 doses INH SCH (07:34)
[2020-09-11] MEDS: Enoxaparin 40 MG/0.4 ML Syringe SUBCUT SCH (07:34)
[2020-09-11] MEDS: NIFEdipine 30 MG Tab.ER PO SCH (07:35)
[2020-09-11] MEDS: Metoprolol Tartrate 50 MG Tab PO SCH ×2 (07:35→19:20)
[2020-09-11] MEDS: metFORMIN 500 MG Tab PO SCH ×2 (07:35→17:11)
[2020-09-11] MEDS: Aspirin 81 MG Tab.EC PO SCH (07:36)
[2020-09-11] MEDS: Ondansetron 4 MG Tab.DIS PO PRN (07:36)
[2020-09-11] MEDS: Cyclobenzaprine 10 MG Tab PO PRN (19:19)
[2020-09-12] MEDS: ceFAZolin 1 GM Vial IVPUSH SCH ×4 (00:10→23:47)
[2020-09-12] MEDS: Heparin Sodium 100 Units/ML 3 ML Syringe IVPUSH SCH ×4 (00:11→23:48)
[2020-09-12] MEDS: traMADol 50 MG Tab PO PRN ×4 (00:11→23:55)
[2020-09-12] MEDS: Sodium Chloride 0.9% 10 ML Syringe IV SCH ×4 (00:11→23:48)
[2020-09-12] MEDS: Acetaminophen 325 MG Tab PO PRN ×2 (08:16→16:00)
[2020-09-12] MEDS: Enoxaparin 40 MG/0.4 ML Syringe SUBCUT SCH (08:16)
[2020-09-12] MEDS: Aspirin 81 MG Tab.EC PO SCH (08:16)
[2020-09-12] MEDS: Metoprolol Tartrate 50 MG Tab PO SCH ×2 (08:16→19:33)
[2020-09-12] MEDS: Ondansetron 4 MG Tab.DIS PO PRN (08:16)
[2020-09-12] MEDS: NIFEdipine 30 MG Tab.ER PO SCH (08:17)
[2020-09-12] MEDS: metFORMIN 500 MG Tab PO SCH ×2 (08:17→17:40)
[2020-09-12] MEDS: Tiotropium BR/Olodaterol HCL 4 GM Inhalation Spray 2.5mcg/1 dose; 10 doses INH SCH (08:19)
--- NOTE | 2020-09-12 08:37 | PCM.PN ---
- General Info Date of Service: 09/12/20 Admission Dx/Problem (Free Text): Admission Diagnosis/Problem Admission Diagnosis/Problem Bacteremia Subjective Update: "Jacek is a pleasant 80yoM with a past medical history of coronary artery disease, type 2 diabetes, chronic back pain, hypertension, COPD who is admitted to [facility] today for step-down for prolonged antibiotic therapy for MSSA bacteremia. He was originally admitted to [facility] on 07/29/2020 after being found down in his apartment. He was treated for rhabdomyolysis. Due to ongoing back pain and positive blood cultures decision was made to CT scan him for concerns of intra-abdominal versus spinal infection. 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 Blood cultures grew out MSSA. Patient deferred any vascular intervention. An MRI was performed and did demonstrates discitis/osteomyelitis at T11-L2. Transthoracic echo was negative for any vegetation, patient deferred a BOYD. Once his blood cultures returned negative decision was made to place a PICC line and bring him back to [facility] for 8 weeks of IV antibiotic therapy. Infectious disease would like for him to be on Ancef 2 g every 8 hours through 09/29/2020. Infectious disease would like to be see him back on 09/30/2020 for follow-up. They would like weekly CBC, CMP, ESR, CRP." Jacek has done well progressing through therapies. Appetite and strength have improved significantly over the last month. Did see our pain specialist this last week for further evaluation of the back pain and some mild manipulations were performed, decision made not to pursue any steroids/injections at this time with the underlying infectious process and possible osteo. Jacek notes his back pain is slightly worse since working with pain; we discussed importance of hydration and stretching. - Review of Systems General: Reports: No Symptoms HEENT: Reports: No Symptoms Pulmonary: Reports: No Symptoms Cardiovascular: Reports: No Symptoms Gastrointestinal: Reports: No Symptoms, Constipation (every 5 days, clears with prune juice. Discussed likely 2/2 pain medications) Genitourinary: Reports: No Symptoms Musculoskeletal: Reports: Back Pain (a little worse this last week after working with pain specialist) Skin: Reports: No Symptoms Neurological: Reports: No Symptoms - Patient Data Vitals - Most Recent: Last Vital Signs Temp 97.4 F 09/12/20 06:27 Pulse 70 09/12/20 08:16 Resp 18 09/12/20 06:27 BP 144/74 H 09/12/20 08:17 Pulse Ox 96 09/12/20 06:27 Weight - Most Recent: 164 lb 6.4 oz I&O - Last 24 Hours: Intake & Output 09/11/20 09/12/20 09/12/20 22:59 06:59 14:59 Intake Total 220 380 Balance 220 380 Lab Results Last 24 Hours: Laboratory Results - last 24 hr 09/11/20 09/12/20 Range/Units 17:10 06:15 POC Glucose 116 H 108 H (74-106) mg/dL Med Orders - Current: Current Medications Acetaminophen (Acetaminophen 325 Mg Tab) 650 mg PO Q4H PRN PRN Reason: Pain (Mild 1-3)/fever Last Admin: 09/12/20 08:16 Dose: 650 mg Documented by: Aspirin (Aspirin 81 Mg Tab.Ec) 81 mg PO DAILY [facility] Last Admin: 09/12/20 08:16 Dose: 81 mg Documented by: Cefazolin Sodium (Cefazolin 1 Gm Vial) 2 gm IVPUSH Q8H RADHA Stop: 09/29/20 16:01 Last Admin: 09/12/20 08:15 Dose: 2 gm Documented by: Cyclobenzaprine HCl (Cyclobenzaprine 10 Mg Tab) 10 mg PO BID PRN PRN Reason: Muscle Spasm Last Admin: 09/11/20 19:19 Dose: 10 mg Documented by: Enoxaparin Sodium (Enoxaparin 40 Mg/0.4 Ml Syringe) 40 mg SUBCUT DAILY [facility] Last Admin: 09/12/20 08:16 Dose: 40 mg Documented by: Heparin Sodium (Porcine) (Heparin Sodium 100 Units/Ml 3 Ml Syringe) 300 unit IVPUSH Q8H RADHA Stop: 09/29/20 16:16 Last Admin: 09/12/20 08:15 Dose: 300 unit Documented by: Heparin Sodium (Porcine) (Heparin Sodium 100 Units/Ml 3 Ml Syringe) 300 unit IVPUSH ASDIRECTED PRN PRN Reason: PICC FLUSH Stop: 09/29/20 15:11 Last Admin: 08/25/20 20:00 Dose: 300 unit Documented by: Hydromorphone HCl (Hydromorphone 0.5 Mg/0.5 Ml Syringe) 0.25 mg IV Q2H PRN PRN Reason: Pain Last Admin: 08/16/20 03:21 Dose: 0.25 mg Documented by: Metformin HCl (Metformin 500 Mg Tab) 500 mg PO BIDMEALS [facility] Last Admin: 09/12/20 08:17 Dose: 500 mg Documented by: Metoprolol Tartrate (Metoprolol Tartrate 50 Mg Tab) 100 mg PO BID [facility] Last Admin: 09/12/20 08:16 Dose: 100 mg Documented by: Nifedipine (Nifedipine 30 Mg Tab.Er) 60 mg PO DAILY [facility] Last Admin: 09/12/20 08:17 Dose: 60 mg Documented by: Ondansetron HCl (Ondansetron 4 Mg Tab.Dis) 4 mg PO Q6H PRN PRN Reason: Nausea/Vomiting Last Admin: 09/12/20 08:16 Dose: 4 mg Documented by: Senna/Docusate Sodium (Docusate Sodium/Sennosides 50-8.6 Mg Tab) 2 tab PO DAILY [facility] Last Admin: 09/12/20 08:17 Dose: 2 tab Documented by: Sodium Chloride (Sodium Chloride 0.9% 10 Ml Syringe) 10 ml IV ASDIRECTED PRN PRN Reason: Keep Vein Open Stop: 09/29/20 15:11 Last Admin: 08/25/20 23:37 Dose: 10 ml Documented by: Sodium Chloride (Sodium Chloride 0.9% 10 Ml Syringe) 10 ml IV Q8H [facility] Stop: 09/29/20 16:16 Last Admin: 09/12/20 08:15 Dose: 10 ml Documented by: Tramadol HCl (Tramadol 50 Mg Tab) 50 mg PO Q4H PRN PRN Reason: SEVERE PAIN Last Admin: 09/12/20 08:17 Dose: 50 mg Documented by: Triamcinolone Acetonide (Triamcinolone Acetonide 0.1% Crm 15 Gm Tube) 0 gm TOP BID PRN PRN Reason: Itching Discontinued Medications Hydrocodone Bitart/Acetaminophen (Acetaminophen/Hydrocodone 325-5 Mg Tab) 1 tab PO Q4H PRN PRN Reason: Pain (moderate 4-6) Hydromorphone HCl (Hydromorphone 0.5 Mg/0.5 Ml Syringe) 0.25 mg IVPUSH Q2H PRN PRN Reason: Pain (severe 7-10) Metoprolol Tartrate (Metoprolol Tartrate 50 Mg Tab) 50 mg PO BID RADHA Last Admin: 08/20/20 07:37 Dose: 50 mg Documented by: Metoprolol Tartrate (Metoprolol Tartrate 50 Mg Tab) 50 mg PO ONETIME ONE Stop: 08/20/20 08:31 Last Admin: 08/20/20 10:06 Dose: 50 mg Documented by: Tramadol HCl (Tramadol 50 Mg Tab) 50 mg PO Q6HR PRN PRN Reason: SEVERE PAIN Last Admin: 09/07/20 15:28 Dose: 50 mg Documented by: - Exam General: Alert, Oriented, Cooperative, No Acute Distress HEENT: EOMI, Mucous Membr. Moist/[place]ill[place] Neck: Supple Lungs: Clear to Auscultation, Normal Respiratory Effort Cardiovascular: Regular Rate, Regular Rhythm GI/Abdominal Exam: Normal Bowel Sounds, Soft, Non-Tender Extremities: Normal Inspection, Non-Tender, No Pedal Edema Skin: Warm, Dry Neurological: No New Focal Deficit Psy/Mental Status: Alert, Normal Affect, Normal Mood - Patient Data Lab Results Last 24 hrs: Laboratory Results - last 24 hr 09/11/20 09/12/20 Range/Units 17:10 06:15 POC Glucose 116 H 108 H (74-106) mg/dL Result Diagrams: 09/08/20 06:20 09/08/20 06:20 Sepsis Event Note - Evaluation Sepsis Screening Result: No Definite Risk - Focused Exam Vital Signs: Vital Signs Temp Pulse Pulse Resp BP BP Pulse Ox 09/12/20 08:17 144/74 H 09/12/20 08:16 70 144/74 H 09/12/20 06:27 97.4 F 70 18 144/74 H 96 - Problem List & Annotations (1) Mycotic aneurysm SNOMED Code(s): 455091320 Code(s): I72.9 - ANEURYSM OF UNSPECIFIED SITE Status: Acute Current Visit: Yes (2) Discitis SNOMED Code(s): 7853835 Code(s): M46.40 - DISCITIS, UNSPECIFIED, SITE UNSPECIFIED Status: Acute Current Visit: Yes (3) Osteomyelitis SNOMED Code(s): 36700109 Code(s): M86.9 - OSTEOMYELITIS, UNSPECIFIED Status: Acute Current Visit: Yes (4) Bacteremia SNOMED Code(s): 7585554 Code(s): R78.81 - BACTEREMIA Status: Acute Current Visit: No (5) Physical deconditioning SNOMED Code(s): 57407899923986 Code(s): R53.81 - OTHER MALAISE Status: Acute Current Visit: Yes - Problem List Review Problem List Initiated/Reviewed/Updated: Yes - My Orders Last 24 Hours: My Active Orders 09/15/20 16:34 C-REACTIVE PROTEIN [CHEM] WEEKLY CBC WITH AUTO DIFF [HEME] WEEKLY COMPREHENSIVE METABOLIC PN,CMP [CHEM] WEEKLY 09/15/20 16:39 ESR [SEDIMENTATION RATE AUTO] [HEME] WEEKLY 09/22/20 16:34 C-REACTIVE PROTEIN [CHEM] WEEKLY CBC WITH AUTO DIFF [HEME] WEEKLY COMPREHENSIVE METABOLIC PN,CMP [CHEM] WEEKLY 09/22/20 16:39 ESR [SEDIMENTATION RATE AUTO] [HEME] WEEKLY 09/29/20 16:34 C-REACTIVE PROTEIN [CHEM] WEEKLY CBC WITH AUTO DIFF [HEME] WEEKLY COMPREHENSIVE METABOLIC PN,CMP [CHEM] WEEKLY 09/29/20 16:39 ESR [SEDIMENTATION RATE AUTO] [HEME] WEEKLY - Plan Plan:: #Bacteremia, MSSA (mec gene not detected) # 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, present on admission # 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 - Patient defers any invasive procedures - ID plans to treat with 8 weeks of IV antibiotics - CBC has remained normal, ESR creeping up slightly Plan: - Cefazolin 2g q8hr for 8 weeks (through 09/29/20) - ID followup on 09/30/20 - Weekly CBC, CMP, ESR, CRP (ordered for mondays) - Pain control: flexeril BID prn for spasm, tylenol, tramadol - I will reach back out to ID in regards to the rising inflammatory markers #Deconditioning - Patient with multiple hospitalizations and ongoing back pain Plan: - PT/OT: continue to progress as able in anticipation of return home Chronic: HTN - metoprolol 50 mg twice a day, Procardia 60 mg daily Type 2 diabetes - metformin 500 mg twice a day COPD - tiotropium-olodaterol 2 puff BID Diet: diabetic DVT: Lovenox SQ CODE: DNR Disposition: patient admitted for prolonged antibiotics and therapies in the setting of bacteremia with known mycotic aneurysm and discitis/osteomyelitis. Hoping for discharge home later this month however some concern with rising inflammatory markers. Will reach out to ID to make sure we are still on track.
[2020-09-12] MEDS: Cyclobenzaprine 10 MG Tab PO PRN (16:00)
[2020-09-13] MEDS: Enoxaparin 40 MG/0.4 ML Syringe SUBCUT SCH (08:09)
[2020-09-13] MEDS: Tiotropium BR/Olodaterol HCL 4 GM Inhalation Spray 2.5mcg/1 dose; 10 doses INH SCH (08:09)
[2020-09-13] MEDS: Heparin Sodium 100 Units/ML 3 ML Syringe IVPUSH SCH ×2 (08:10→16:06)
[2020-09-13] MEDS: ceFAZolin 1 GM Vial IVPUSH SCH ×2 (08:10→16:06)
[2020-09-13] MEDS: Metoprolol Tartrate 50 MG Tab PO SCH ×2 (08:10→19:25)
[2020-09-13] MEDS: Sodium Chloride 0.9% 10 ML Syringe IV SCH ×2 (08:10→16:07)
[2020-09-13] MEDS: Aspirin 81 MG Tab.EC PO SCH (08:11)
[2020-09-13] MEDS: NIFEdipine 30 MG Tab.ER PO SCH (08:11)
[2020-09-13] MEDS: Acetaminophen 325 MG Tab PO PRN ×2 (08:11→19:28)
[2020-09-13] MEDS: metFORMIN 500 MG Tab PO SCH ×2 (08:11→17:36)
[2020-09-13] MEDS: traMADol 50 MG Tab PO PRN ×2 (08:11→19:25)
[2020-09-13] MEDS: Ondansetron 4 MG Tab.DIS PO PRN (08:11)
[2020-09-13] MEDS: Cyclobenzaprine 10 MG Tab PO PRN (14:25)
[2020-09-14] MEDS: ceFAZolin 1 GM Vial IVPUSH SCH ×4 (00:01→23:24)
[2020-09-14] MEDS: Sodium Chloride 0.9% 10 ML Syringe IV SCH ×4 (00:01→23:36)
[2020-09-14] MEDS: Heparin Sodium 100 Units/ML 3 ML Syringe IVPUSH SCH ×4 (00:01→23:37)
[2020-09-14] MEDS: traMADol 50 MG Tab PO PRN ×5 (07:53→23:25)
[2020-09-14] MEDS: metFORMIN 500 MG Tab PO SCH ×2 (07:55→17:34)
[2020-09-14] MEDS: Aspirin 81 MG Tab.EC PO SCH (07:55)
[2020-09-14] MEDS: NIFEdipine 30 MG Tab.ER PO SCH (07:56)
[2020-09-14] MEDS: Metoprolol Tartrate 50 MG Tab PO SCH ×2 (07:56→19:43)
[2020-09-14] MEDS: Enoxaparin 40 MG/0.4 ML Syringe SUBCUT SCH (07:57)
[2020-09-14] MEDS: Tiotropium BR/Olodaterol HCL 4 GM Inhalation Spray 2.5mcg/1 dose; 10 doses INH SCH (12:26)
[2020-09-14] MEDS: Cyclobenzaprine 10 MG Tab PO PRN (14:23)
[2020-09-14] MEDS: Acetaminophen 325 MG Tab PO PRN (19:44)
[2020-09-14] MEDS: Sodium Chloride 0.9% 10 ML Syringe IV PRN (23:24)
[2020-09-15] MEDS: Sodium Chloride 0.9% 10 ML Syringe IV PRN ×2 (06:56→23:29)
[2020-09-15] MEDS: ceFAZolin 1 GM Vial IVPUSH SCH ×3 (07:00→23:29)
[2020-09-15] MEDS: Heparin Sodium 100 Units/ML 3 ML Syringe IVPUSH SCH ×3 (07:15→23:40)
[2020-09-15] MEDS: Sodium Chloride 0.9% 10 ML Syringe IV SCH ×3 (07:15→23:39)
[2020-09-15 07:32] LABS: ANION GAP 11.1 mmol/L (5-15); CHLORIDE,CL 105 mmol/L (98-107); SODIUM,NA 140 mmol/L (136-145)
[2020-09-15] MEDS: NIFEdipine 30 MG Tab.ER PO SCH (07:52)
[2020-09-15] MEDS: Ondansetron 4 MG Tab.DIS PO PRN (07:52)
[2020-09-15] MEDS: Tiotropium BR/Olodaterol HCL 4 GM Inhalation Spray 2.5mcg/1 dose; 10 doses INH SCH (07:52)
[2020-09-15] MEDS: Acetaminophen 325 MG Tab PO PRN ×3 (07:53→23:28)
[2020-09-15] MEDS: Enoxaparin 40 MG/0.4 ML Syringe SUBCUT SCH (07:53)
[2020-09-15] MEDS: Aspirin 81 MG Tab.EC PO SCH (07:53)
[2020-09-15] MEDS: Metoprolol Tartrate 50 MG Tab PO SCH ×2 (07:53→19:24)
[2020-09-15] MEDS: metFORMIN 500 MG Tab PO SCH ×2 (07:53→17:28)
[2020-09-15] MEDS: traMADol 50 MG Tab PO PRN ×3 (11:29→23:27)
[2020-09-15] MEDS: Cyclobenzaprine 10 MG Tab PO SCH (19:25)
[2020-09-16] MEDS: traMADol 50 MG Tab PO PRN ×3 (05:44→16:00)
[2020-09-16] MEDS: Enoxaparin 40 MG/0.4 ML Syringe SUBCUT SCH (07:34)
[2020-09-16] MEDS: Sodium Chloride 0.9% 10 ML Syringe IV SCH ×2 (07:34→16:01)
[2020-09-16] MEDS: NIFEdipine 30 MG Tab.ER PO SCH (07:34)
[2020-09-16] MEDS: Heparin Sodium 100 Units/ML 3 ML Syringe IVPUSH SCH ×2 (07:34→16:01)
[2020-09-16] MEDS: ceFAZolin 1 GM Vial IVPUSH SCH ×2 (07:34→16:01)
[2020-09-16] MEDS: metFORMIN 500 MG Tab PO SCH ×2 (07:35→17:50)
[2020-09-16] MEDS: Cyclobenzaprine 10 MG Tab PO SCH ×2 (07:35→19:55)
[2020-09-16] MEDS: Tiotropium BR/Olodaterol HCL 4 GM Inhalation Spray 2.5mcg/1 dose; 10 doses INH SCH (07:35)
[2020-09-16] MEDS: Aspirin 81 MG Tab.EC PO SCH (07:35)
[2020-09-16] MEDS: Metoprolol Tartrate 50 MG Tab PO SCH ×2 (07:35→19:55)
[2020-09-16] MEDS: Acetaminophen 325 MG Tab PO PRN (16:00)
[2020-09-17] MEDS: Heparin Sodium 100 Units/ML 3 ML Syringe IVPUSH SCH ×3 (00:01→16:21)
[2020-09-17] MEDS: ceFAZolin 1 GM Vial IVPUSH SCH ×3 (00:01→16:21)
[2020-09-17] MEDS: traMADol 50 MG Tab PO PRN ×4 (00:01→18:20)
[2020-09-17] MEDS: Sodium Chloride 0.9% 10 ML Syringe IV SCH ×3 (00:01→16:21)
[2020-09-17] MEDS: Cyclobenzaprine 10 MG Tab PO SCH ×2 (07:52→19:15)
[2020-09-17] MEDS: metFORMIN 500 MG Tab PO SCH ×2 (07:52→18:16)
[2020-09-17] MEDS: Metoprolol Tartrate 50 MG Tab PO SCH ×2 (07:53→19:14)
[2020-09-17] MEDS: Aspirin 81 MG Tab.EC PO SCH (07:53)
[2020-09-17] MEDS: Enoxaparin 40 MG/0.4 ML Syringe SUBCUT SCH (07:54)
[2020-09-17] MEDS: NIFEdipine 30 MG Tab.ER PO SCH (07:55)
[2020-09-17] MEDS: Tiotropium BR/Olodaterol HCL 4 GM Inhalation Spray 2.5mcg/1 dose; 10 doses INH SCH (08:20)
--- NOTE | 2020-09-17 09:09 | PCM.SN.2 ---
- Free Text/Narrative Note: S: Called to the floor to visit with the patient about a number of his concerns. Patient is very worried about discharging home in 2 weeks time. Since he saw the pain specialists he has been having some increased pain into his right SI joint area; no manipulations were done nor was an injection completed at this visit, just some gentle poking and prodding. He denies any pain over the mid part of his back. He is able to continue to ambulate around the unit independently throughout the day. He has a lot of concern about his ability to get in and out of bed when he goes home and is worried that he'll end back in the same situation that he was in at the time of his admission to the hospital. I had spoken with the pain specialist we were contemplating a steroid joint injection into his SI joint area however were very hesitant given the underlying infection that he is on antibiotics for (mycotic aortic aneurysm and ? osteomyelitis/discitis of the lumbar spine). Is very hopeful that we can offer some relief for his pain while he is still in the hospital slowly to monitor how he does. Nursing also brings up concerns about his bowel movements. Since we had increased his tramadol to every 4 hours as needed his bowel movements have spaced out even more. Patient is wondering if he can take his stool softener 2 times a day. States that his typical regimens at home was 1 stool softener daily and then if he wouldn't go for 4-5 days he would take 3 a time and then clear out. Nursing does feel like prunes that we have been giving him has helped although the patient if he will not be doing this at home so he would like to find a regimen that works here. Nursing also brings up concerns about decreasing his Accu-Cheks daily or even less often as his blood sugars have been very stable. He is a type II diabetic who has had some very stable blood sugar readings and I do not think that he needs to be having this checked every single day. O: General: Patient is alert, oriented, pleasant to visit with this morning Cardiovascular: Regular rate and rhythm Respiratory: Patient breathing comfortably on room air Musculoskeletal: Patient is nontender with palpation over the lumbar spine. There is no tenderness with palpation over the upper sacral area. He is acutely tender with palpation over the muscle bodies overlying the SI joint on the right side A/P: SI joint pain - I will message his infectious disease doctor and inquire further into comfortability with our pain specialists performing a procedure while the patient is still inpatient so that we may observe him, we'll get back to him and his nurse as well as her pain specialists on plan of care once I hear from his infectious disease doctor - For now we will continue the tramadol every 4 hours as needed, K pad, Flexeril scheduled twice a day Constipation - Discussed with the patient that the increased troubles with his bowels are likely due to the increased dose of tramadol that he is taking as this can follow up the bowels - We will increase his senna to 2 tablets twice a day Diabetes - Numbers have been very well controlled over the last month - Will move his Accu-Cheks to twice weekly on Tuesday and
[2020-09-18] MEDS: traMADol 50 MG Tab PO PRN ×5 (00:03→23:59)
[2020-09-18] MEDS: ceFAZolin 1 GM Vial IVPUSH SCH ×4 (00:04→23:58)
[2020-09-18] MEDS: Sodium Chloride 0.9% 10 ML Syringe IV SCH ×4 (00:04→23:58)
[2020-09-18] MEDS: Heparin Sodium 100 Units/ML 3 ML Syringe IVPUSH SCH ×4 (00:04→23:59)
[2020-09-18] MEDS: Enoxaparin 40 MG/0.4 ML Syringe SUBCUT SCH (08:03)
[2020-09-18] MEDS: NIFEdipine 30 MG Tab.ER PO SCH (08:04)
[2020-09-18] MEDS: Tiotropium BR/Olodaterol HCL 4 GM Inhalation Spray 2.5mcg/1 dose; 10 doses INH SCH (08:05)
[2020-09-18] MEDS: Cyclobenzaprine 10 MG Tab PO SCH ×2 (08:05→19:44)
[2020-09-18] MEDS: Metoprolol Tartrate 50 MG Tab PO SCH ×2 (08:05→19:44)
[2020-09-18] MEDS: metFORMIN 500 MG Tab PO SCH ×2 (08:05→17:38)
[2020-09-18] MEDS: Aspirin 81 MG Tab.EC PO SCH (08:05)
[2020-09-19] MEDS: Acetaminophen 325 MG Tab PO PRN ×2 (02:01→16:01)
[2020-09-19] MEDS: ceFAZolin 1 GM Vial IVPUSH SCH ×3 (07:42→23:32)
[2020-09-19] MEDS: Tiotropium BR/Olodaterol HCL 4 GM Inhalation Spray 2.5mcg/1 dose; 10 doses INH SCH (07:42)
[2020-09-19] MEDS: Enoxaparin 40 MG/0.4 ML Syringe SUBCUT SCH (07:42)
[2020-09-19] MEDS: Sodium Chloride 0.9% 10 ML Syringe IV SCH ×3 (07:42→23:38)
[2020-09-19] MEDS: metFORMIN 500 MG Tab PO SCH ×2 (07:43→17:34)
[2020-09-19] MEDS: NIFEdipine 30 MG Tab.ER PO SCH (07:43)
[2020-09-19] MEDS: Aspirin 81 MG Tab.EC PO SCH (07:43)
[2020-09-19] MEDS: Metoprolol Tartrate 50 MG Tab PO SCH ×2 (07:43→20:05)
[2020-09-19] MEDS: Heparin Sodium 100 Units/ML 3 ML Syringe IVPUSH SCH ×3 (07:43→23:39)
[2020-09-19] MEDS: Cyclobenzaprine 10 MG Tab PO SCH ×2 (07:44→20:07)
[2020-09-19] MEDS: traMADol 50 MG Tab PO PRN ×3 (10:54→23:28)
[2020-09-19] MEDS: Sodium Chloride 0.9% 10 ML Syringe IV PRN (23:30)
[2020-09-20] MEDS: traMADol 50 MG Tab PO PRN ×4 (05:40→23:56)
[2020-09-20] MEDS: ceFAZolin 1 GM Vial IVPUSH SCH ×3 (08:10→23:57)
[2020-09-20] MEDS: Enoxaparin 40 MG/0.4 ML Syringe SUBCUT SCH (08:10)
[2020-09-20] MEDS: Aspirin 81 MG Tab.EC PO SCH (08:11)
[2020-09-20] MEDS: Cyclobenzaprine 10 MG Tab PO SCH ×2 (08:11→19:55)
[2020-09-20] MEDS: NIFEdipine 30 MG Tab.ER PO SCH (08:11)
[2020-09-20] MEDS: Metoprolol Tartrate 50 MG Tab PO SCH ×2 (08:11→19:54)
[2020-09-20] MEDS: Sodium Chloride 0.9% 10 ML Syringe IV SCH ×2 (08:11→16:28)
[2020-09-20] MEDS: metFORMIN 500 MG Tab PO SCH ×2 (08:11→18:11)
[2020-09-20] MEDS: Tiotropium BR/Olodaterol HCL 4 GM Inhalation Spray 2.5mcg/1 dose; 10 doses INH SCH (08:12)
[2020-09-20] MEDS: Heparin Sodium 100 Units/ML 3 ML Syringe IVPUSH SCH ×2 (08:13→16:28)
[2020-09-20] MEDS: Sodium Chloride 0.9% 10 ML Syringe IV PRN (23:57)
[2020-09-21] MEDS: Sodium Chloride 0.9% 10 ML Syringe IV SCH ×4 (00:06→23:59)
[2020-09-21] MEDS: Heparin Sodium 100 Units/ML 3 ML Syringe IVPUSH SCH ×4 (00:07→23:59)
[2020-09-21] MEDS: traMADol 50 MG Tab PO PRN ×4 (06:12→23:58)
[2020-09-21] MEDS: Tiotropium BR/Olodaterol HCL 4 GM Inhalation Spray 2.5mcg/1 dose; 10 doses INH SCH (08:05)
[2020-09-21] MEDS: ceFAZolin 1 GM Vial IVPUSH SCH ×3 (08:06→23:59)
[2020-09-21] MEDS: Enoxaparin 40 MG/0.4 ML Syringe SUBCUT SCH (08:06)
[2020-09-21] MEDS: NIFEdipine 30 MG Tab.ER PO SCH (08:07)
[2020-09-21] MEDS: Cyclobenzaprine 10 MG Tab PO SCH ×2 (08:07→19:24)
[2020-09-21] MEDS: Metoprolol Tartrate 50 MG Tab PO SCH ×2 (08:07→19:24)
[2020-09-21] MEDS: Aspirin 81 MG Tab.EC PO SCH (08:07)
[2020-09-21] MEDS: metFORMIN 500 MG Tab PO SCH ×2 (08:08→17:26)
[2020-09-22] MEDS: traMADol 50 MG Tab PO PRN ×3 (05:25→15:50)
[2020-09-22 07:33] LABS: CHLORIDE,CL 103 mmol/L (98-107); SODIUM,NA 139 mmol/L (136-145)
[2020-09-22 07:39] LABS: ANION GAP 14.1 mmol/L (5-15)
[2020-09-22] MEDS: Tiotropium BR/Olodaterol HCL 4 GM Inhalation Spray 2.5mcg/1 dose; 10 doses INH SCH (08:09)
[2020-09-22] MEDS: Heparin Sodium 100 Units/ML 3 ML Syringe IVPUSH SCH ×2 (08:10→15:50)
[2020-09-22] MEDS: Sodium Chloride 0.9% 10 ML Syringe IV SCH ×2 (08:10→15:50)
[2020-09-22] MEDS: NIFEdipine 30 MG Tab.ER PO SCH (08:10)
[2020-09-22] MEDS: Enoxaparin 40 MG/0.4 ML Syringe SUBCUT SCH (08:10)
[2020-09-22] MEDS: ceFAZolin 1 GM Vial IVPUSH SCH ×2 (08:10→15:50)
[2020-09-22] MEDS: Metoprolol Tartrate 50 MG Tab PO SCH ×2 (08:11→19:57)
[2020-09-22] MEDS: metFORMIN 500 MG Tab PO SCH ×2 (08:11→18:13)
[2020-09-22] MEDS: Cyclobenzaprine 10 MG Tab PO SCH ×2 (08:11→19:57)
[2020-09-22] MEDS: Aspirin 81 MG Tab.EC PO SCH (08:11)
--- NOTE | 2020-09-22 15:30 | MR ---
[id number] MR/MRI Lumbar Spine WO IV Exam: MRI Lumbar Spine WO IV Clinical Data: BACK PAIN SCIATICA COMPARISON: NO PREVIOUS SIMILAR EXAM IS AVAILABLE FINDINGS: L5-S1: No abnormality is seen at this level. L4-L5: There are surgical changes There is degenerative facet change. There is also moderate left-sided foraminal narrowing. L3-L4: There are surgical changes There is slight bulging of the annulus. There is also a 3.9 cm abdominal aortic aneurysm Note is made of the abnormal CAT scan report dated July 30, 2020 If there is any concern for possible mycotic aneurysm, consider follow-up contrast CT L2-L3: There is a mild bulging annulus. L1-L2: There is loss of disc space with marginal osteophyte There is borderline spinal stenosis The cauda equina and conus medullaris are unremarkable There is a moderate midpole right renal cyst IMPRESSION: DEGENERATIVE AND SURGICAL CHANGES DESCRIBED ABDOMINAL AORTIC ANEURYSM Hebert Bianchi MD 09/22/20 [id number] Thank you for allowing us to participate in the care of your patient.
[2020-09-23] MEDS: traMADol 50 MG Tab PO PRN ×3 (00:02→17:31)
[2020-09-23] MEDS: ceFAZolin 1 GM Vial IVPUSH SCH ×3 (00:03→16:03)
[2020-09-23] MEDS: Heparin Sodium 100 Units/ML 3 ML Syringe IVPUSH SCH ×3 (00:03→16:04)
[2020-09-23] MEDS: Sodium Chloride 0.9% 10 ML Syringe IV SCH ×3 (00:04→16:04)
[2020-09-23] MEDS: Enoxaparin 40 MG/0.4 ML Syringe SUBCUT SCH (08:26)
[2020-09-23] MEDS: Aspirin 81 MG Tab.EC PO SCH (08:27)
[2020-09-23] MEDS: NIFEdipine 30 MG Tab.ER PO SCH (08:27)
[2020-09-23] MEDS: Metoprolol Tartrate 50 MG Tab PO SCH ×2 (08:28→19:25)
[2020-09-23] MEDS: metFORMIN 500 MG Tab PO SCH ×2 (08:29→17:29)
[2020-09-23] MEDS: Cyclobenzaprine 10 MG Tab PO SCH ×2 (08:29→19:25)
[2020-09-23] MEDS: Tiotropium BR/Olodaterol HCL 4 GM Inhalation Spray 2.5mcg/1 dose; 10 doses INH SCH (08:45)
[2020-09-24] MEDS: traMADol 50 MG Tab PO PRN ×4 (00:09→23:33)
[2020-09-24] MEDS: Sodium Chloride 0.9% 10 ML Syringe IV PRN ×2 (00:12→23:35)
[2020-09-24] MEDS: ceFAZolin 1 GM Vial IVPUSH SCH ×4 (00:12→23:35)
[2020-09-24] MEDS: Sodium Chloride 0.9% 10 ML Syringe IV SCH ×4 (00:16→23:41)
[2020-09-24] MEDS: Heparin Sodium 100 Units/ML 3 ML Syringe IVPUSH SCH ×4 (00:20→23:42)
[2020-09-24] MEDS: Metoprolol Tartrate 50 MG Tab PO SCH ×2 (08:19→19:40)
[2020-09-24] MEDS: NIFEdipine 30 MG Tab.ER PO SCH (08:20)
[2020-09-24] MEDS: Aspirin 81 MG Tab.EC PO SCH (08:20)
[2020-09-24] MEDS: Cyclobenzaprine 10 MG Tab PO SCH ×2 (08:20→19:40)
[2020-09-24] MEDS: metFORMIN 500 MG Tab PO SCH ×2 (08:20→17:31)
[2020-09-24] MEDS: Enoxaparin 40 MG/0.4 ML Syringe SUBCUT SCH (08:20)
[2020-09-24] MEDS: Tiotropium BR/Olodaterol HCL 4 GM Inhalation Spray 2.5mcg/1 dose; 10 doses INH SCH (08:22)
[2020-09-25] MEDS: traMADol 50 MG Tab PO PRN ×4 (05:43→23:37)
[2020-09-25] MEDS: ceFAZolin 1 GM Vial IVPUSH SCH ×3 (07:55→23:39)
[2020-09-25] MEDS: Enoxaparin 40 MG/0.4 ML Syringe SUBCUT SCH (07:56)
[2020-09-25] MEDS: Metoprolol Tartrate 50 MG Tab PO SCH ×2 (07:56→19:21)
[2020-09-25] MEDS: Cyclobenzaprine 10 MG Tab PO SCH ×2 (07:57→19:21)
[2020-09-25] MEDS: Aspirin 81 MG Tab.EC PO SCH (07:57)
[2020-09-25] MEDS: metFORMIN 500 MG Tab PO SCH ×2 (07:57→17:32)
[2020-09-25] MEDS: NIFEdipine 30 MG Tab.ER PO SCH (07:57)
[2020-09-25] MEDS: Tiotropium BR/Olodaterol HCL 4 GM Inhalation Spray 2.5mcg/1 dose; 10 doses INH SCH (07:59)
[2020-09-25] MEDS: Sodium Chloride 0.9% 10 ML Syringe IV SCH ×3 (08:00→23:46)
[2020-09-25] MEDS: Heparin Sodium 100 Units/ML 3 ML Syringe IVPUSH SCH ×3 (08:00→23:47)
[2020-09-25] MEDS: Sodium Chloride 0.9% 10 ML Syringe IV PRN (23:39)
[2020-09-26] MEDS: traMADol 50 MG Tab PO PRN ×3 (05:23→23:31)
[2020-09-26] MEDS ORDERED: Acetaminophen/HYDROcodone 325-5 MG Tab PO ONE (08:20)
[2020-09-26] MEDS: ceFAZolin 1 GM Vial IVPUSH SCH ×3 (08:46→23:33)
[2020-09-26] MEDS: Enoxaparin 40 MG/0.4 ML Syringe SUBCUT SCH (08:46)
[2020-09-26] MEDS: Cyclobenzaprine 10 MG Tab PO SCH ×2 (08:47→19:38)
[2020-09-26] MEDS: NIFEdipine 30 MG Tab.ER PO SCH (08:47)
[2020-09-26] MEDS: Metoprolol Tartrate 50 MG Tab PO SCH ×2 (08:48→19:39)
[2020-09-26] MEDS: Aspirin 81 MG Tab.EC PO SCH (08:48)
[2020-09-26] MEDS: metFORMIN 500 MG Tab PO SCH ×2 (08:48→17:15)
[2020-09-26] MEDS: Heparin Sodium 100 Units/ML 3 ML Syringe IVPUSH SCH ×3 (08:49→23:33)
[2020-09-26] MEDS: Sodium Chloride 0.9% 10 ML Syringe IV SCH ×3 (08:49→23:33)
[2020-09-26] MEDS: Tiotropium BR/Olodaterol HCL 4 GM Inhalation Spray 2.5mcg/1 dose; 10 doses INH SCH (08:50)
[2020-09-26] MEDS: Acetaminophen 325 MG Tab PO PRN (17:14)
[2020-09-27] MEDS: traMADol 50 MG Tab PO PRN ×3 (06:13→16:27)
[2020-09-27] MEDS: metFORMIN 500 MG Tab PO SCH ×2 (08:41→17:32)
[2020-09-27] MEDS: Aspirin 81 MG Tab.EC PO SCH (08:41)
[2020-09-27] MEDS: Enoxaparin 40 MG/0.4 ML Syringe SUBCUT SCH (08:41)
[2020-09-27] MEDS: NIFEdipine 30 MG Tab.ER PO SCH (08:41)
[2020-09-27] MEDS: Cyclobenzaprine 10 MG Tab PO SCH ×2 (08:41→19:31)
[2020-09-27] MEDS: Metoprolol Tartrate 50 MG Tab PO SCH ×2 (08:42→19:31)
[2020-09-27] MEDS: ceFAZolin 1 GM Vial IVPUSH SCH ×2 (08:44→16:28)
[2020-09-27] MEDS: Sodium Chloride 0.9% 10 ML Syringe IV SCH ×2 (08:44→16:28)
[2020-09-27] MEDS: Heparin Sodium 100 Units/ML 3 ML Syringe IVPUSH SCH ×2 (08:45→16:28)
[2020-09-27] MEDS: Tiotropium BR/Olodaterol HCL 4 GM Inhalation Spray 2.5mcg/1 dose; 10 doses INH SCH (08:46)
[2020-09-28] MEDS: ceFAZolin 1 GM Vial IVPUSH SCH ×3 (00:33→16:23)
[2020-09-28] MEDS: Sodium Chloride 0.9% 10 ML Syringe IV SCH ×3 (00:33→16:23)
[2020-09-28] MEDS: Heparin Sodium 100 Units/ML 3 ML Syringe IVPUSH SCH ×3 (00:34→16:23)
[2020-09-28] MEDS: traMADol 50 MG Tab PO PRN ×3 (00:34→17:34)
[2020-09-28] MEDS: Tiotropium BR/Olodaterol HCL 4 GM Inhalation Spray 2.5mcg/1 dose; 10 doses INH SCH (07:54)
[2020-09-28] MEDS: Metoprolol Tartrate 50 MG Tab PO SCH ×2 (07:56→20:00)
[2020-09-28] MEDS: Cyclobenzaprine 10 MG Tab PO SCH ×2 (07:57→20:02)
[2020-09-28] MEDS: metFORMIN 500 MG Tab PO SCH ×2 (07:57→17:35)
[2020-09-28] MEDS: NIFEdipine 30 MG Tab.ER PO SCH (07:57)
[2020-09-28] MEDS: Aspirin 81 MG Tab.EC PO SCH (07:57)
[2020-09-28] MEDS: Enoxaparin 40 MG/0.4 ML Syringe SUBCUT SCH (07:58)
[2020-09-29] MEDS: traMADol 50 MG Tab PO PRN ×5 (00:04→23:52)
[2020-09-29] MEDS: ceFAZolin 1 GM Vial IVPUSH SCH ×4 (00:04→23:53)
[2020-09-29] MEDS: Heparin Sodium 100 Units/ML 3 ML Syringe IVPUSH SCH ×4 (00:05→23:53)
[2020-09-29] MEDS: Sodium Chloride 0.9% 10 ML Syringe IV SCH ×4 (00:09→23:53)
[2020-09-29] MEDS: Enoxaparin 40 MG/0.4 ML Syringe SUBCUT SCH (07:35)
[2020-09-29] MEDS: Tiotropium BR/Olodaterol HCL 4 GM Inhalation Spray 2.5mcg/1 dose; 10 doses INH SCH (07:39)
[2020-09-29] MEDS: Cyclobenzaprine 10 MG Tab PO SCH ×2 (07:40→20:23)
[2020-09-29] MEDS: Metoprolol Tartrate 50 MG Tab PO SCH ×2 (07:40→20:23)
[2020-09-29] MEDS: metFORMIN 500 MG Tab PO SCH ×2 (07:40→17:24)
[2020-09-29] MEDS: NIFEdipine 30 MG Tab.ER PO SCH (07:40)
[2020-09-29] MEDS: Aspirin 81 MG Tab.EC PO SCH (07:40)
[2020-09-29 07:54] LABS: ANION GAP 14.1 mmol/L (5-15); CHLORIDE,CL 104 mmol/L (98-107); SODIUM,NA 139 mmol/L (136-145)
[2020-09-30] MEDS: traMADol 50 MG Tab PO PRN (06:53)
--- NOTE | 2020-09-30 07:41 | PCM.DCSUM1 ---
Discharge Summary - Hospital Course Free Text/Narrative:: Jacek is a pleasant 80yoM with a past medical history of coronary artery disease, type 2 diabetes, chronic back pain, hypertension, COPD who was admitted to [facility] for step-down for prolonged antibiotic therapy for MSSA bacteremia. He was originally admitted to [facility] on 07/29/2020 after being found down in his apartment. He was treated for rhabdomyolysis. Due to ongoing back pain and positive blood cultures decision was made to CT scan him for concerns of intra- abdominal versus spinal infection. He was found to have a mycotic aneurysm at this time and was transferred to [place] on 07/30/2020 for infectious disease and vascular consult. Blood cultures grew out MSSA. Patient deferred any vascular intervention. An MRI was performed and did demonstrates discitis/osteomyelitis at T11-L2. Transthoracic echo was negative for any vegetation, patient deferred a BOYD. Once his blood cultures returned negative decision was made to place a PICC line and bring him back to [facility] for 8 weeks of IV antibiotic therapy. He has been receiving Ancef 2g q8hr throughout his stay. He has done well with progressing through his therapies. Appetite and strength improved significantly throughout his stay. Still has ongoing back pain on/off over the right SI area mainly. We have been putting off interventions by our pain specialist due to ongoing treatment for the infection. He is discharging today in stable condition. Infectious disease appointment today to determine definitive plan: ? need for chronic suppressive therapy. His PICC will remain in place and could be pulled by ID if they do not want any further IV antibiotics. He will be discharged home on his current medication regiment. Should follow-up with PCP in clinic in 2 weeks. Diagnosis: Stroke: No - Discharge Data Discharge Date: 09/30/20 Discharge Disposition: Home, Self-Care 01 Condition: Good - Referral to Home Health Primary Care Physician: Lisette Keith MD - Discharge Diagnosis/Problem(s) (1) Mycotic aneurysm SNOMED Code(s): 518915213 ICD Code: I72.9 - ANEURYSM OF UNSPECIFIED SITE Status: Acute Current Visit: Yes (2) Discitis SNOMED Code(s): 4000810 ICD Code: M46.40 - DISCITIS, UNSPECIFIED, SITE UNSPECIFIED Status: Acute Current Visit: Yes (3) Osteomyelitis SNOMED Code(s): 16353974 ICD Code: M86.9 - OSTEOMYELITIS, UNSPECIFIED Status: Acute Current Visit: Yes (4) Bacteremia SNOMED Code(s): 9376931 ICD Code: R78.81 - BACTEREMIA Status: Acute Current Visit: No (5) Physical deconditioning SNOMED Code(s): 04395275836369 ICD Code: R53.81 - OTHER MALAISE Status: Acute Current Visit: Yes - Patient Summary/Data Consults: Consultations 08/08/20 16:34 OT Evaluation and Treatment [CONS] Routine PT Evaluation and Treatment [CONS] Routine - Discharge Plan *PRESCRIPTION DRUG MONITORING PROGRAM REVIEWED*: Not Applicable *COPY OF PRESCRIPTION DRUG MONITORING REPORT IN PATIENT DARRICK: Not Applicable Prescriptions/Med Rec: traMADol [Ultram] 50 mg PO Q4HR PRN #60 PRN Reason: SEVERE PAIN Home Medications: Home Meds metFORMIN [Glucophage] 500 mg PO BIDMEALS 01/19/14 [History] Cyclobenzaprine [Flexeril] 10 mg PO BID PRN 07/01/20 [History] Sennosides/Docusate Sodium [Senna-Docusate Sodium Tablet] 2 tab PO DAILY 07/01/20 [History] Aspirin [Adult Aspirin Regimen] 81 mg PO DAILY 07/02/20 [History] Metoprolol Tartrate [Lopressor] 50 mg PO BID 07/02/20 [History] Triamcinolone Acetonide [Triamcinolone Acetonide 0.1% Crm] 1 gram TOP BID PRN 07/02/20 [History] Tiotropium BR/Olodaterol HCL [Stiolto Respimat] 2 puff INH DAILY inhaler 07/06/20 [Rx] NIFEdipine [Procardia Xl] 60 mg PO DAILY 07/29/20 [History] traMADol [Ultram] 50 mg PO Q4HR PRN #60 09/30/20 [Rx] - Discharge Summary/Plan Comment DC Time >30 min.: No - Patient Data Vitals - Most Recent: Last Vital Signs Temp 97.0 F 09/30/20 05:21 Pulse 69 09/30/20 05:21 Resp 16 09/30/20 05:21 BP 162/73 H 09/30/20 05:21 Pulse Ox 96 09/30/20 05:21 Weight - Most Recent: 161 lb 14.4 oz I&O - Last 24 hours: Intake & Output 04/19/21 04/20/21 04/20/21 22:59 06:59 14:59 Intake Total 240 Balance 240 Lab Results - Last 24 hrs: Laboratory Results - last 24 hr 09/29/20 09/29/20 Range/Units 06:12 06:12 ESR 74 H (0-15) mm/hr Sodium 139 (136-145) mmol/L Potassium 4.1 (3.5-5.1) mmol/L Chloride 104 (98-107) mmol/L Carbon Dioxide 25 (21-32) mmol/L Anion Gap 14.1 (5-15) mmol/L BUN 14 (7-18) mg/dL Creatinine 0.9 (0.70-1.30) mg/dL Est Cr Clr Drug Dosing 65.73 mL/min Estimated GFR (MDRD) > 60 Glucose 88 (70-99) mg/dL Calcium 8.6 (8.5-10.1) mg/dL Corrected Calcium 9.64 (8.5-10.1) mg/dL Total Bilirubin 0.2 (0.2-1.0) mg/dL AST 15 (15-37) U/L ALT 10 L (16-63) U/L Alkaline Phosphatase 124 H (46-116) U/L C-Reactive Protein 1.4 H (<=0.9) mg/dL Total Protein 6.6 (6.4-8.2) g/dL Albumin 2.7 L (3.4-5.0) g/dL Globulin 3.9 Albumin/Globulin Ratio 0.69 Med Orders - Current: Current Medications Acetaminophen (Acetaminophen 325 Mg Tab) 650 mg PO Q4H PRN PRN Reason: Pain (Mild 1-3)/fever Last Admin: 09/26/20 17:14 Dose: 650 mg Documented by: Aspirin (Aspirin 81 Mg Tab.Ec) 81 mg PO DAILY [facility] Last Admin: 09/29/20 07:40 Dose: 81 mg Documented by: Cefazolin Sodium (Cefazolin 1 Gm Vial) 2 gm IVPUSH Q8H [facility] Last Admin: 09/29/20 23:53 Dose: 2 gm Documented by: Cyclobenzaprine HCl (Cyclobenzaprine 10 Mg Tab) 10 mg PO BID [facility] Last Admin: 09/29/20 20:23 Dose: 10 mg Documented by: Enoxaparin Sodium (Enoxaparin 40 Mg/0.4 Ml Syringe) 40 mg SUBCUT DAILY [facility] Last Admin: 09/29/20 07:35 Dose: 40 mg Documented by: Heparin Sodium (Porcine) (Heparin Sodium 100 Units/Ml 3 Ml Syringe) 300 unit IVPUSH Q8H [facility] Last Admin: 09/29/20 23:53 Dose: 300 unit Documented by: Hydromorphone HCl (Hydromorphone 0.5 Mg/0.5 Ml Syringe) 0.25 mg IV Q2H PRN PRN Reason: Pain Last Admin: 08/16/20 03:21 Dose: 0.25 mg Documented by: Metformin HCl (Metformin 500 Mg Tab) 500 mg PO BIDMEALS [facility] Last Admin: 09/29/20 17:24 Dose: 500 mg Documented by: Metoprolol Tartrate (Metoprolol Tartrate 50 Mg Tab) 100 mg PO BID [facility] Last Admin: 09/29/20 20:23 Dose: 100 mg Documented by: Nifedipine (Nifedipine 30 Mg Tab.Er) 60 mg PO DAILY [facility] Last Admin: 09/29/20 07:40 Dose: 60 mg Documented by: Ondansetron HCl (Ondansetron 4 Mg Tab.Dis) 4 mg PO Q6H PRN PRN Reason: Nausea/Vomiting Last Admin: 09/15/20 07:52 Dose: 4 mg Documented by: Senna/Docusate Sodium (Docusate Sodium/Sennosides 50-8.6 Mg Tab) 2 tab PO BID [facility] Last Admin: 09/29/20 20:23 Dose: 2 tab Documented by: Sodium Chloride (Sodium Chloride 0.9% 10 Ml Syringe) 10 ml IV Q8H [facility] Last Admin: 09/29/20 23:53 Dose: 10 ml Documented by: Tramadol HCl (Tramadol 50 Mg Tab) 50 mg PO Q4H PRN PRN Reason: SEVERE PAIN Last Admin: 09/30/20 06:53 Dose: 50 mg Documented by: Triamcinolone Acetonide (Triamcinolone Acetonide 0.1% Crm 15 Gm Tube) 0 gm TOP BID PRN PRN Reason: Itching Discontinued Medications Hydrocodone Bitart/Acetaminophen (Acetaminophen/Hydrocodone 325-5 Mg Tab) 1 tab PO Q4H PRN PRN Reason: Pain (moderate 4-6) Hydrocodone Bitart/Acetaminophen (Acetaminophen/Hydrocodone 325-5 Mg Tab) 1 tab PO ONETIME ONE Stop: 09/26/20 08:21 Last Admin: 09/26/20 08:48 Dose: 1 tab Documented by: Cyclobenzaprine HCl (Cyclobenzaprine 10 Mg Tab) 10 mg PO BID PRN PRN Reason: Muscle Spasm Last Admin: 09/14/20 14:23 Dose: 10 mg Documented by: Heparin Sodium (Porcine) (Heparin Sodium 100 Units/Ml 3 Ml Syringe) 300 unit IVPUSH ASDIRECTED PRN PRN Reason: PICC FLUSH Stop: 09/29/20 15:11 Last Admin: 08/25/20 20:00 Dose: 300 unit Documented by: Hydromorphone HCl (Hydromorphone 0.5 Mg/0.5 Ml Syringe) 0.25 mg IVPUSH Q2H PRN PRN Reason: Pain (severe 7-10) Metoprolol Tartrate (Metoprolol Tartrate 50 Mg Tab) 50 mg PO BID [facility] Last Admin: 08/20/20 07:37 Dose: 50 mg Documented by: Metoprolol Tartrate (Metoprolol Tartrate 50 Mg Tab) 50 mg PO ONETIME ONE Stop: 08/20/20 08:31 Last Admin: 08/20/20 10:06 Dose: 50 mg Documented by: Senna/Docusate Sodium (Docusate Sodium/Sennosides 50-8.6 Mg Tab) 2 tab PO DAILY [facility] Last Admin: 09/17/20 07:55 Dose: 2 tab Documented by: Sodium Chloride (Sodium Chloride 0.9% 10 Ml Syringe) 10 ml IV ASDIRECTED PRN PRN Reason: Keep Vein Open Stop: 09/29/20 15:11 Last Admin: 09/25/20 23:39 Dose: 10 ml Documented by: Tramadol HCl (Tramadol 50 Mg Tab) 50 mg PO Q6HR PRN PRN Reason: SEVERE PAIN Last Admin: 09/07/20 15:28 Dose: 50 mg Documented by: - Exam General: Reports: Alert, Oriented HEENT: Reports: EOMI, Mucous Membr. Moist/[place] Neck: Reports: Supple Lungs: Reports: Clear to Auscultation, Normal Respiratory Effort Cardiovascular: Reports: Regular Rate, Regular Rhythm GI/Abdominal Exam: Normal Bowel Sounds, Soft, Non-Tender Skin: Reports: Warm, Dry Neurological: Reports: No New Focal Deficit Psy/Mental Status: Reports: Alert, Normal Affect, Normal Mood
[2020-09-30] MEDS: Enoxaparin 40 MG/0.4 ML Syringe SUBCUT SCH (07:42)
[2020-09-30] MEDS: Tiotropium BR/Olodaterol HCL 4 GM Inhalation Spray 2.5mcg/1 dose; 10 doses INH SCH (07:42)
[2020-09-30] MEDS: ceFAZolin 1 GM Vial IVPUSH SCH (07:42)
[2020-09-30] MEDS: metFORMIN 500 MG Tab PO SCH (07:43)
[2020-09-30] MEDS: NIFEdipine 30 MG Tab.ER PO SCH (07:43)
[2020-09-30] MEDS: Cyclobenzaprine 10 MG Tab PO SCH (07:43)
[2020-09-30] MEDS: Metoprolol Tartrate 50 MG Tab PO SCH (07:43)
[2020-09-30 07:44] VITALS: BP 153/83; PULSE 83
[2020-09-30] MEDS: Sodium Chloride 0.9% 10 ML Syringe IV SCH (07:44)
[2020-09-30] MEDS: Aspirin 81 MG Tab.EC PO SCH (07:44)
[2020-09-30] MEDS: Heparin Sodium 100 Units/ML 3 ML Syringe IVPUSH SCH (07:44)
== END 2020-09-30 08:00 | disposition home or self-care (01) | DRG 872 ==
LOC: VM.MS 08-08 14:24 → UNDOADMIN 08-08 14:24
PROVIDERS: ADMIT Family Medicine; ATTEND Family Medicine
PROC: XW0 New Technology, Anatomical Regions, Introduction (ICD-10-PCS; principal; 2020-08-23)
DX: R78.81 Bacteremia (principal); N13.8 Other obstructive and reflux uropathy; M46.24 Osteomyelitis of vertebra, thoracic region; E11.69 Type 2 diabetes mellitus with other specified complication; I72.9 Aneurysm of unspecified site; Z66 Do not resuscitate; M46.40 Discitis, unspecified, site unspecified; R53.81 Other malaise; I25.10 Atherosclerotic heart disease of native coronary artery without angina pectoris; M53.3 Sacrococcygeal disorders, not elsewhere classified; K59.00 Constipation, unspecified; G89.29 Other chronic pain; M54.9 Dorsalgia, unspecified; I10 Essential (primary) hypertension; J44.9 Chronic obstructive pulmonary disease, unspecified; B95.61 Methicillin susceptible Staphylococcus aureus infection as the cause of diseases classified elsewhere; H91.90 Unspecified hearing loss, unspecified ear; E78.00 Pure hypercholesterolemia, unspecified; E11.51 Type 2 diabetes mellitus with diabetic peripheral angiopathy without gangrene; I71.4 Abdominal aortic aneurysm, without rupture; N40.1 Benign prostatic hyperplasia with lower urinary tract symptoms; M10.9 Gout, unspecified; F32.9 Major depressive disorder, single episode, unspecified; I71.2 Thoracic aortic aneurysm, without rupture; Z88.8 Allergy status to other drugs, medicaments and biological substances; I25.2 Old myocardial infarction; Z87.11 Personal history of peptic ulcer disease; Z86.73 Personal history of transient ischemic attack (TIA), and cerebral infarction without residual deficits; Z79.84 Long term (current) use of oral hypoglycemic drugs; Z79.82 Long term (current) use of aspirin; Z79.899 Other long term (current) drug therapy
CPT/HCPCS: 36415; 72148; 80053; 81003; 82947; 82962; 85025; 85652; 86140; 97110-GO; 97110-GP; 97116-GP; 97161-GP; 97165-GO; A9270-GY; J0690; J1170; J1642; J1650

== ENCOUNTER 2020-11-12 10:39 | Emergency (ER) | payer MEDICARE, BC ==
--- NOTE | 2020-11-12 10:44 | EDM.PDOC ---
ED HPI GENERAL MEDICAL PROBLEM - General Stated Complaint: STROKE CODE Time Seen by Provider: 11/12/20 10:39 Source of Information: Reports: Patient History Limitations: Reports: No Limitations - History of Present Illness INITIAL COMMENTS - FREE TEXT/NARRATIVE: Pt. presents to ER with complaints of R sided weakness, R sided facial droop. Pt. was in the hospital (pain management) for radiofrequency ablation in L spine. DRAPERY SUPERVISOR states that no intravascular or epidural injections were made. Pt. developed symptoms when he was getting off the symptoms started. Stroke code was called immediately. Pt. initial NIH scale was 7. He was brought down to ER and by the time he got back from CT, his NIH was 1. Pt. has a history of carotid artery stenosis. His last US (2016) showed 50-69% L ICA stenosis and 50% R ICA stenosis. Pt. is not on any anticoagulation and only takes aspirin daily. Pt. denies any history of recent intracranial surgery. He denies any chest pain or shortness of breath. No nausea, vomiting, or diarrhea. Denies any fever or chills. Onset: Today Location: Reports: Upper Extremity, Right, Lower Extremity, Right - Related Data Allergies Allergy/AdvReac Type Severity Reaction Status Date / Time [id number] Reductase AdvReac Leg Cramps Verified 11/12/20 08:46 Inhibitor Home Meds: Home Meds metFORMIN [Glucophage] 500 mg PO BIDMEALS 01/19/14 [History] Cyclobenzaprine [Flexeril] 10 mg PO BID PRN 07/01/20 [History] Sennosides/Docusate Sodium [Senna-Docusate Sodium Tablet] 2 tab PO DAILY 07/01/20 [History] Aspirin [Adult Aspirin Regimen] 81 mg PO DAILY 07/02/20 [History] Metoprolol Tartrate [Lopressor] 50 mg PO BID 07/02/20 [History] NIFEdipine [Procardia Xl] 60 mg PO DAILY 07/29/20 [History] traMADol [Ultram] 50 mg PO Q4HR PRN #60 09/30/20 [Rx] Past Medical History HEENT History: Reports: Hard of Hearing, Other (See Below) Other HEENT History: Occipital Neuritis with ZAMORA Cardiovascular History: Reports: Aneurysm, CAD, High Cholesterol, Hypertension, [place], PVD, Other (See Below) Other Cardiovascular History: coronary atherosclerosis. AAA without rupture Respiratory History: Reports: COPD Gastrointestinal History: Reports: PUD Other Gastrointestinal History: peptic ulcer disease Genitourinary History: Reports: Other (See Below) Other Genitourinary History: Hypertrophy of prostate w/o urinary obstruction. 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 right femoral politeal bypass. vein grafting Neurological Surgical History: Reports: Spinal Fusion, Other (See Below) Other Neurological Surgeries/Procedures: L3-L4 spinal fusion Musculoskeletal Surgical History: Reports: Other (See Below) Other Musculoskeletal Surgeries/Procedures:: right hallux partial amputation Social & Family History - Family History Family Medical History: No Pertinent Family History Cardiac: Reports: CAD, [place] Other Cardiac Family History: Father Respiratory: Reports: Asthma Other Respiratory Family Hisory: Brother. 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[employer].) ED ROS GENERAL - Review of Systems Review Of Systems: See Below Constitutional: Reports: No Symptoms HEENT: Reports: No Symptoms Respiratory: Reports: No Symptoms Cardiovascular: Reports: No Symptoms Endocrine: Reports: No Symptoms GI/Abdominal: Reports: No Symptoms : Reports: No Symptoms Musculoskeletal: Reports: No Symptoms Skin: Reports: No Symptoms Neurological: Reports: Other (See HPI) Psychiatric: Reports: No Symptoms Hematologic/Lymphatic: Reports: No Symptoms Immunologic: Reports: No Symptoms ED EXAM, GENERAL - Physical Exam Exam: See Below Exam Limited By: No Limitations General Appearance: Alert, WD/WN, No Apparent Distress Eye Exam: Bilateral Eye: EOMI, Normal Fundi, Normal Inspection, PERRL Nose: Normal Inspection, Normal Mucosa, No Blood Throat/Mouth: Normal Lips, Normal Teeth, Normal Gums, Normal Oropharynx, Normal Voice, No Airway Compromise, Other (R sided facial droop) Head: Atraumatic, Normocephalic Neck: Normal Inspection, Supple, Non-Tender, Full Range of Motion Respiratory/Chest: No Respiratory Distress, Lungs Clear, Normal Breath Sounds, No Accessory Muscle Use, Chest Non-Tender Cardiovascular: Normal Peripheral Pulses, Regular Rate, Rhythm, No Edema, No JVD Peripheral Pulses: 4+: Radial (L) GI/Abdominal: Soft, Non-Tender, No Distention, No Mass (Male) Exam: Deferred Rectal (Males) Exam: Deferred Extremities: Normal Inspection, Normal Range of Motion, Non-Tender, No Pedal Edema, Normal Capillary Refill Neurological: Alert, Oriented #1 Interpretation Rhythm: NSR [place]: Normal P-Wave: Present QRS: Normal ST-T: Normal QT: Normal Course - Orders/Labs/Meds Orders: Active Orders 24 hr Category Date Time Status EKG Documentation Completion [RC] STAT Care 11/12/20 10:43 Active Mora Catheter Insertion [Insert Urinary Catheter] [OM. Care 11/12/20 11:45 Ordered PC] Q24H Urinary Catheter Assessment [RC] ASDIRECTED Care 11/12/20 11:36 Ordered Labs: Laboratory Tests 11/12/20 11/12/20 11/12/20 Range/Units 10:45 10:45 10:45 WBC 6.7 (4.0-10.0) x10^3/uL RBC 4.24 L (4.5-6.0) x10^6/uL Hgb 12.6 L D (14.0-18.0) g/dL Hct 39.3 L (40.0-52.0) % MCV 92.7 D (78.0-93.0) fL MCH 29.7 (26.0-32.0) pg MCHC 32.1 (32.0-36.0) g/dL RDW Coeff of Bobo 13.6 (10.0-15.0) % Plt Count 269 (130-400) x10^3/uL Neut % (Auto) 66.6 (50.0-80.0) % Lymph % (Auto) 22.2 L (25.0-50.0) % [place] % (Auto) 7.1 (2.0-11.0) % Eos % (Auto) 3.8 (0.0-4.0) % Baso % (Auto) 0.3 (0.2-1.2) % PT 10.8 (9.9-12.5) SEC INR 1.0 L (2.0-3.5) APTT 26.8 (25.6-32.8) SEC Sodium (136-145) mmol/L Potassium (3.5-5.1) mmol/L Chloride (98-107) mmol/L Carbon Dioxide (21-32) mmol/L Anion Gap (5-15) mmol/L BUN (7-18) mg/dL Creatinine (0.70-1.30) mg/dL Est Cr Clr Drug Dosing Estimated GFR (MDRD) Glucose (70-99) mg/dL Calcium (8.5-10.1) mg/dL Corrected Calcium (8.5-10.1) mg/dL Magnesium (1.8-2.4) mg/dL Total Bilirubin (0.2-1.0) mg/dL AST (15-37) U/L ALT (16-63) U/L Alkaline Phosphatase (46-116) U/L Troponin I High Sens (<=76) ng/L C-Reactive Protein (<=0.9) mg/dL Total Protein (6.4-8.2) g/dL Albumin (3.4-5.0) g/dL Globulin Albumin/Globulin Ratio TSH, Ultra Sensitive (0.358-3.74) uIU/mL 11/12/20 Range/Units 10:45 WBC (4.0-10.0) x10^3/uL RBC (4.5-6.0) x10^6/uL Hgb (14.0-18.0) g/dL Hct (40.0-52.0) % MCV (78.0-93.0) fL MCH (26.0-32.0) pg MCHC (32.0-36.0) g/dL RDW Coeff of Bobo (10.0-15.0) % Plt Count (130-400) x10^3/uL Neut % (Auto) (50.0-80.0) % Lymph % (Auto) (25.0-50.0) % [place] % (Auto) (2.0-11.0) % Eos % (Auto) (0.0-4.0) % Baso % (Auto) (0.2-1.2) % PT (9.9-12.5) SEC INR (2.0-3.5) APTT (25.6-32.8) SEC Sodium 138 (136-145) mmol/L Potassium 4.4 (3.5-5.1) mmol/L Chloride 102 (98-107) mmol/L Carbon Dioxide 24 (21-32) mmol/L Anion Gap 16.4 H (5-15) mmol/L BUN 12 (7-18) mg/dL Creatinine 1.0 (0.70-1.30) mg/dL Est Cr Clr Drug Dosing TNP Estimated GFR (MDRD) > 60 Glucose 109 H (70-99) mg/dL Calcium 8.9 (8.5-10.1) mg/dL Corrected Calcium 9.6 (8.5-10.1) mg/dL Magnesium 2.0 (1.8-2.4) mg/dL Total Bilirubin 0.2 (0.2-1.0) mg/dL AST 10 L (15-37) U/L ALT 11 L (16-63) U/L Alkaline Phosphatase 127 H (46-116) U/L Troponin I High Sens < 4 (<=76) ng/L C-Reactive Protein 2.9 H (<=0.9) mg/dL Total Protein 7.4 (6.4-8.2) g/dL Albumin 3.1 L (3.4-5.0) g/dL Globulin 4.3 Albumin/Globulin Ratio 0.72 TSH, Ultra Sensitive 2.607 (0.358-3.74) uIU/mL Meds: Medications Discontinued Medications Generic Name Dose Route Start Last Admin Trade Name Freq PRN Reason Stop Dose Admin Famotidine 20 mg 11/12/20 11:14 11/12/20 11:21 Famotidine 20 Mg/2 Ml Sdv IVPUSH 11/12/20 11:15 20 mg ONETIME ONE Administration Ondansetron HCl 4 mg 11/12/20 11:14 11/12/20 11:21 Ondansetron 4 Mg/2 Ml Sdv IVPUSH 11/12/20 11:15 4 mg ONETIME ONE Administration - Radiology Interpretation Free Text/Narrative:: CT brain without contrast obtained, negative for acute bleed, mass or other acute pathology. - Re-Assessments/Exams Free Text/Narrative Re-Assessment/Exam: Stroke code was called. Initial NIH stroke score was 7 right after onset of symptoms. By they time he was back from CT and in the trauma room, pt. NIH had improved to 1 (1 point off for facial droop). Pt. was also experiencing significant lack of motor function in R hand (he is R hand dominant). Discussed findings with Dr Lucia and the patient. Inclusion/exclusion criteria was p erformed and pt. met criteria to start TPA at the suggestion of Dr. Lucia. Pt. gave verbal consent, as he was unable to grasp a writing instrument. This was witnessed by myself and Latosha Miller RN. Departure - Departure Time of Disposition: 11:37 Disposition: DC/Tfer to Acute Hospital 02 Clinical Impression: CVA (cerebral vascular accident) - Discharge Information - Problem List Review Problem List Initiated/Reviewed/Updated: Yes - My Orders Last 24 Hours: My Active Orders 11/12/20 10:43 EKG Documentation Completion [RC] STAT 11/12/20 11:36 Urinary Catheter Assessment [RC] ASDIRECTED 11/12/20 11:45 Mora Catheter Insertion [Insert Urinary Catheter] [OM.PC] Q24H - Assessment/Plan Last 24 Hours: My Active Orders 11/12/20 10:43 EKG Documentation Completion [RC] STAT 11/12/20 11:36 Urinary Catheter Assessment [RC] ASDIRECTED 11/12/20 11:45 Mora Catheter Insertion [Insert Urinary Catheter] [OM.PC] Q24H Plan: Pt. will be transferred to [facility]. Dr. Lucia is accepting. Attempted to make contact with his son, Raoul in [place] but social work states that this went to voice mail. Number is [phone]. Pt. states that his cellphone is at home and it has all of his numbers in it. Social work is working with his landlord hopefully to get the phone so he can contact some people about his condition. TPA has been started. Pt. indicates that he is a code 2, DNR/DNI. He will be transported via ALS ground ambulance.
--- NOTE | 2020-11-12 11:08 | CT ---
[id number] CT/CT Head Stroke Protocol EXAM: CT Head Stroke Protocol CLINICAL DATA: STROKE CODE. RIGHT SIDED WEAKNESS. COMPARISON STUDY: July 29, 2020. FINDINGS: No intracranial hemorrhage, extra-axial fluid collection, mass, or acute ischemia. No hydrocephalus. Again seen is chronic white matter change, including parenchymal atrophy throughout both cerebral hemispheres. No change in appearance compared to July 29, 2020. Calvarium intact. Paranasal sinuses and mastoid air cells are clear. IMPRESSION: No acute findings in the brain or significant change from prior examination. Results relayed to Franky Hernandez at 1101 hours. Fab Peña MD 11/12/20 [id number] Thank you for allowing us to participate in the care of your patient.
[2020-11-12] MEDS ORDERED: Ondansetron 4 MG/2 ML SDV IVPUSH ONE (11:14)
[2020-11-12] MEDS ORDERED: Famotidine 20 MG/2 ML SDV IVPUSH ONE (11:14)
[2020-11-12 11:21] LABS: CHLORIDE,CL 102 mmol/L (98-107); SODIUM,NA 138 mmol/L (136-145)
[2020-11-12 11:22] LABS: ANION GAP 16.4 mmol/L (5-15)
== END 2020-11-12 12:18 | disposition short-term general hospital (02) ==
LOC: VM.ED 10:39
DX: I63.9 Cerebral infarction, unspecified (principal); I25.10 Atherosclerotic heart disease of native coronary artery without angina pectoris; E78.00 Pure hypercholesterolemia, unspecified; I10 Essential (primary) hypertension; I25.2 Old myocardial infarction; E11.9 Type 2 diabetes mellitus without complications; E66.9 Obesity, unspecified; Z68.30 Body mass index [BMI] 30.0-30.9, adult
CPT/HCPCS: 36415; 51702; 70450; 80053; 82947; 83735; 84443; 84484; 85025; 85610; 85730; 86140; 93010; 96374; 96375; 99284; 99285-25; J2405; J3490

== ENCOUNTER 2020-11-19 08:19 | Inpatient (IN) | payer MEDICARE, BC ==
[2020-11-19] MEDS ORDERED: Sodium Chloride 0.9% 10 ML Syringe FLUSH PRN (08:40)
[2020-11-19] MEDS ORDERED: Lactated Ringers 1,000 ML IV SCH (09:00)
[2020-11-19] MEDS ORDERED: Morphine 4 MG/ML Syringe IVPUSH ONE (09:07)
[2020-11-19 09:13] LABS: PTT,PARTIAL THROMBOPLSTIN TIME 30.3 SEC (25.6-32.8)
[2020-11-19 09:24] LABS: CHLORIDE,CL 98 mmol/L (98-107); SODIUM,NA 138 mmol/L (136-145)
[2020-11-19 09:34] LABS: ANION GAP 24.9 mmol/L (5-15)
--- NOTE | 2020-11-19 09:39 | CR ---
[id number] RAD/RAD Pelvis 1V W 2V Left Hip Exam: RAD Pelvis 1V W 2V Left Hip Clinical Data: TRAUMA COMPARISON: NO PREVIOUS SIMILAR EXAM IS AVAILABLE FINDINGS: No fracture or dislocation is seen IMPRESSION: NO ACUTE PLAIN FILM ABNORMALITY Hebert Bianchi MD 11/19/20 0946 Thank you for allowing us to participate in the care of your patient.
--- NOTE | 2020-11-19 09:54 | EDM.PDOC ---
ED HPI GENERAL MEDICAL PROBLEM - General Chief Complaint: Lower Extremity Injury/Pain Stated Complaint: fall Time Seen by Provider: 11/19/20 08:30 Source of Information: Reports: Patient History Limitations: Reports: No Limitations - History of Present Illness INITIAL COMMENTS - FREE TEXT/NARRATIVE: Patient comes emergency department today from home by ambulance with concerns of a fall and left hip pain. This patient was just recently discharged on Tuesday from [place] following a CVA where he received TPA. He has some residual deficits of his right hand and a right facial droop. He has a history of coronary artery disease, hypertension HI TIA carotid artery disease peripheral vascular disease peripheral artery disease AAA without rupture acute ischemic stroke COPD hyperlipidemia diabetes. This patient was at home and either Tuesday night when he got home or Tuesday when he was walking he tripped on his underwear falling onto the ground. He did not hit his head. He has no head neck or back pain. He has laying on the floor and crawling on the floor for the last couple of days until he was able to get to somewhere where he can make a phone call and called the ambulance. He does complain of left hip pain. He does have some chronic hip pain bilaterally. Prior to his fall he had no weakness dizziness lightheadedness palpitations shortness of breath chest pain or difficulty breathing. Upon arrival he really only complains of left hip pain and just some generalized aches and pains all over his body from laying on the ground. He has no chest pain no shortness of breath or difficulty breathing. No cough or congestion. No fever no chills. No abdominal pain nausea or vomiting. No hematuria dysuria or urinary frequency. No black or tarry stools. He did receive his Covid vaccine. He does live at home alone. He was supposed to come here for swing bed following his stroke although he denied it and wanted to go home. Left Hip Pain Score (Numeric/FACES): 10 - Related Data Allergies Allergy/AdvReac Type Severity Reaction Status Date / Time [id number] Reductase AdvReac Leg Cramps Verified 11/19/20 11:19 Inhibitor Home Meds: Home Meds metFORMIN [Glucophage] 500 mg PO BID 01/19/14 [History] Cyclobenzaprine [Flexeril] 10 mg PO BID PRN 07/01/20 [History] Sennosides/Docusate Sodium [Senna-Docusate Sodium Tablet] 2 tab PO DAILY 07/01/20 [History] Aspirin [Adult Aspirin Regimen] 81 mg PO DAILY 07/02/20 [History] Metoprolol Tartrate [Lopressor] 50 mg PO BID 07/02/20 [History] NIFEdipine [Procardia Xl] 60 mg PO DAILY 07/29/20 [History] Clopidogrel [Plavix] 75 mg PO DAILY 11/19/20 [History] Tiotropium BR/Olodaterol HCL [Stiolto Respimat] 2 puff IH DAILY 11/19/20 [History] Triamcinolone Acetonide [Triamcinolone Acetonide 0.1% Crm] 1 gm TOP BID PRN 11/19/20 [History] Vitamin B Complex [B Complex] 1 tab PO DAILY 11/19/20 [History] atorvaSTATin [Lipitor] 40 mg PO BEDTIME 11/19/20 [History] cephALEXin [Cephalexin] 500 mg PO BID 11/19/20 [History] traMADol [Ultram] 50 mg PO Q6H PRN 11/19/20 [History] Past Medical History HEENT History: Reports: Hard of Hearing, Other (See Below) Other HEENT History: Occipital Neuritis with ZAMORA Cardiovascular History: Reports: Aneurysm, CAD, High Cholesterol, Hypertension, HI, PVD, Other (See Below) Other Cardiovascular History: coronary atherosclerosis. AAA without rupture Respiratory History: Reports: COPD Gastrointestinal History: Reports: PUD Other Gastrointestinal History: peptic ulcer disease Genitourinary History: Reports: Other (See Below) Other Genitourinary History: Hypertrophy of prostate w/o urinary obstruction. 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 right femoral politeal bypass. vein grafting Neurological Surgical History: Reports: Spinal Fusion, Other (See Below) Other Neurological Surgeries/Procedures: L3-L4 spinal fusion Musculoskeletal Surgical History: Reports: Other (See Below) Other Musculoskeletal Surgeries/Procedures:: right hallux partial amputation Social & Family History - Family History Family Medical History: No Pertinent Family History Cardiac: Reports: CAD, HI Other Cardiac Family History: Father Respiratory: Reports: Asthma Other Respiratory Family Hisory: Brother. 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 ED EXAM, GENERAL - Physical Exam Exam: See Below Free Text/Narrative:: Patient is alert appropriate. He does have a little bit of thick speech but this is how it has been since he had his stroke. He has a little clumsiness of his right hand as well which is from his stroke from just 1 week ago. He has quite a bit of bruising on his elbows knees buttocks wrist that are not painful. He relates these are from him laying on the ground and crawling across the ground. There is no overt bony deformity to any of the sites of bruising. Exam Limited By: No Limitations General Appearance: Alert, WD/WN, No Apparent Distress Eye Exam: Bilateral Eye: EOMI, PERRL Ears: Normal External Exam Nose: Normal Inspection Throat/Mouth: Normal Inspection Head: Atraumatic, Normocephalic Neck: Normal Inspection, Supple, Non-Tender, Full Range of Motion Respiratory/Chest: No Respiratory Distress, Lungs Clear, Normal Breath Sounds, No Accessory Muscle Use, Chest Non-Tender Cardiovascular: Normal Peripheral Pulses, Regular Rate, Rhythm Peripheral Pulses: 2+: Radial (L), Radial (R), Posterior Tibial (L), Posterior Tibial (R), Dorsalis Pedis (L), Dorsalis Pedis (R) GI/Abdominal: Normal Bowel Sounds, Soft, Non-Tender (Male) Exam: Deferred Rectal (Males) Exam: Deferred Back Exam: Normal Inspection, Full Range of Motion. No: Paraspinal Tenderness, Vertebral Tenderness Extremities: No: Normal Inspection (He does complain of pain to the left hip. There is no bruising swelling ecchymosis bony deformity. There is no tenderness on palpation. The rest of extremities as above with multiple sites of bruising but no overt bony deformity) Neurological: Alert, Oriented, Normal Cognition, No Motor/Sensory Deficits Psychiatric: Normal Affect, Normal Mood Skin Exam: Warm, Dry, Intact, Normal Color Lymphatic: No Adenopathy Course - Vital Signs Last Recorded V/S: Last Vital Signs Temp 98.6 F 11/19/20 10:55 Pulse 106 H 11/19/20 10:55 Resp 16 11/19/20 10:55 BP 165/83 H 11/19/20 10:55 Pulse Ox 98 11/19/20 10:55 - Orders/Labs/Meds Orders: Active Orders 24 hr Category Date Time Status EKG Documentation Completion [RC] STAT Care 11/19/20 08:40 Active CORONAVIRUS COVID-19 [facility]O [MOLEC] Stat Lab 11/19/20 08:39 Ordered MYOGLOBIN, URINE Stat Lab 11/19/20 08:30 Received Lactated Ringers [Ringers, Lactated] 1,000 ml Med 11/19/20 09:00 Active IV ASDIRECTED Sodium Chloride 0.9% [Saline Flush] Med 11/19/20 08:40 Active 10 ml FLUSH ASDIRECTED PRN Peripheral IV Insertion Adult [OM.PC] Stat Oth 11/19/20 08:39 Ordered Medication Orders Acetaminophen (Acetaminophen 325 Mg Tab) 650 mg PO Q4H PRN PRN Reason: Pain (Mild 1-3)/fever Aspirin (Aspirin 81 Mg Tab.Ec) 81 mg PO DAILY [facility] Atorvastatin Calcium (Atorvastatin 40 Mg Tab) 40 mg PO BEDTIME [facility] Clopidogrel Bisulfate (Clopidogrel 75 Mg Tab) 75 mg PO DAILY [facility] Cyclobenzaprine HCl (Cyclobenzaprine 10 Mg Tab) 10 mg PO BID PRN PRN Reason: Muscle Spasm - Painful Enoxaparin Sodium (Enoxaparin 40 Mg/0.4 Ml Syringe) 40 mg SUBCUT DAILY@1200 [facility] Lactated Ringer's (Ringers, Lactated) 1,000 mls @ 150 mls/hr IV ASDIRECTED RADHA Last Admin: 11/19/20 09:10 Dose: 150 mls/hr Documented by: NEREYDA Lactated Ringer's (Ringers, Lactated) 1,000 mls @ 175 mls/hr IV ASDIRECTED [facility] Last Admin: 11/19/20 11:21 Dose: 175 mls/hr Documented by: JER Metformin HCl (Metformin 500 Mg Tab) 500 mg PO BIDMEALS RADHA Metoprolol Tartrate (Metoprolol Tartrate 50 Mg Tab) 50 mg PO BID RADHA Nifedipine (Nifedipine 30 Mg Tab.Er) 60 mg PO DAILY [facility] Non-Formulary Medication (Cephalexin [Cephalexin]) 500 mg PO BID RADHA Ondansetron HCl (Ondansetron 4 Mg Tab.Dis) 4 mg PO Q4H PRN PRN Reason: nausea, able to take PO Senna/Docusate Sodium (Docusate Sodium/Sennosides 50-8.6 Mg Tab) 2 tab PO DAILY [facility] Sodium Chloride (Sodium Chloride 0.9% 10 Ml Syringe) 10 ml FLUSH ASDIRECTED PRN PRN Reason: Keep Vein Open Tramadol HCl (Tramadol 50 Mg Tab) 50 mg PO Q6H PRN PRN Reason: SEVERE PAIN Labs: Laboratory Tests 11/19/20 11/19/20 11/19/20 Range/Units 08:30 08:43 08:43 WBC 14.5 H (4.0-10.0) x10^3/uL RBC 4.31 L (4.5-6.0) x10^6/uL Hgb 12.8 L (14.0-18.0) g/dL Hct 38.6 L (40.0-52.0) % MCV 89.6 D (78.0-93.0) fL MCH 29.7 (26.0-32.0) pg MCHC 33.2 (32.0-36.0) g/dL RDW Coeff of Bobo 13.6 (10.0-15.0) % Plt Count 367 D (130-400) x10^3/uL Neut % (Auto) 86.3 H (50.0-80.0) % Lymph % (Auto) 7.0 L (25.0-50.0) % Evans % (Auto) 6.5 (2.0-11.0) % Eos % (Auto) 0.1 (0.0-4.0) % Baso % (Auto) 0.1 L (0.2-1.2) % PT (9.9-12.5) SEC INR (2.0-3.5) APTT (25.6-32.8) SEC Sodium 138 (136-145) mmol/L Potassium 3.9 (3.5-5.1) mmol/L Chloride 98 (98-107) mmol/L Carbon Dioxide 19 L (21-32) mmol/L Anion Gap 24.9 H (5-15) mmol/L BUN 20 H (7-18) mg/dL Creatinine 1.1 (0.70-1.30) mg/dL Est Cr Clr Drug Dosing 53.15 mL/min Estimated GFR (MDRD) > 60 Glucose 113 H (70-99) mg/dL Lactic Acid (0.4-2.0) mmol/L Calcium 9.9 (8.5-10.1) mg/dL Corrected Calcium 10.5 H (8.5-10.1) mg/dL Magnesium 1.9 (1.8-2.4) mg/dL Total Bilirubin 0.7 (0.2-1.0) mg/dL AST 75 H (15-37) U/L ALT 15 L (16-63) U/L Alkaline Phosphatase 110 (46-116) U/L Creatine Kinase 3221 H* (39-308) U/L Troponin I High Sens 9 (<=76) ng/L C-Reactive Protein 31.2 H (<=0.9) mg/dL Total Protein 8.2 (6.4-8.2) g/dL Albumin 3.2 L (3.4-5.0) g/dL Globulin 5.0 Albumin/Globulin Ratio 0.64 Urine Color Dark yellow H (YELLOW) Urine Appearance Slightly cloudy H (CLEAR) Urine pH 5.5 (5.0-8.0) Ur Specific [place] >=1.030 Urine Protein 100 H (NEGATIVE) mg/dL Urine Glucose (UA) Negative (NEGATIVE) mg/dL Urine Ketones 40 H (NEGATIVE) mg/dL Urine Occult Blood Moderate H (NEGATIVE) Urine Nitrite Negative (NEGATIVE) Urine Bilirubin Small H (NEGATIVE) Urine Urobilinogen 0.2 (0.2) EU/dL Ur Leukocyte Esterase Negative (NEGATIVE) U Hyaline Cast (Auto) Many Urine RBC 5-10 H (NOT SEEN) /HPF Urine WBC 5-10 H (NOT SEEN) /HPF Ur Squamous Epith Cells Rare (NOT SEEN) /HPF Urine Bacteria Few H (NOT SEEN) /HPF Urine Mucus Rare H (NOT SEEN) /LPF Ethyl Alcohol < 3 (0-3) mg/dL SARS CoV-2 RNA Rapid HUMBERTO (NEGATIVE) 11/19/20 11/19/20 11/19/20 Range/Units 08:43 08:43 09:15 WBC (4.0-10.0) x10^3/uL RBC (4.5-6.0) x10^6/uL Hgb (14.0-18.0) g/dL Hct (40.0-52.0) % MCV (78.0-93.0) fL MCH (26.0-32.0) pg MCHC (32.0-36.0) g/dL RDW Coeff of Bobo (10.0-15.0) % Plt Count (130-400) x10^3/uL Neut % (Auto) (50.0-80.0) % Lymph % (Auto) (25.0-50.0) % Evans % (Auto) (2.0-11.0) % Eos % (Auto) (0.0-4.0) % Baso % (Auto) (0.2-1.2) % PT 12.0 (9.9-12.5) SEC INR 1.1 L (2.0-3.5) APTT 30.3 (25.6-32.8) SEC Sodium (136-145) mmol/L Potassium (3.5-5.1) mmol/L Chloride (98-107) mmol/L Carbon Dioxide (21-32) mmol/L Anion Gap (5-15) mmol/L BUN (7-18) mg/dL Creatinine (0.70-1.30) mg/dL Est Cr Clr Drug Dosing mL/min Estimated GFR (MDRD) Glucose (70-99) mg/dL Lactic Acid 2.0 (0.4-2.0) mmol/L Calcium (8.5-10.1) mg/dL Corrected Calcium (8.5-10.1) mg/dL Magnesium (1.8-2.4) mg/dL Total Bilirubin (0.2-1.0) mg/dL AST (15-37) U/L ALT (16-63) U/L Alkaline Phosphatase (46-116) U/L Creatine Kinase (39-308) U/L Troponin I High Sens (<=76) ng/L C-Reactive Protein (<=0.9) mg/dL Total Protein (6.4-8.2) g/dL Albumin (3.4-5.0) g/dL Globulin Albumin/Globulin Ratio Urine Color (YELLOW) Urine Appearance (CLEAR) Urine pH (5.0-8.0) Ur Specific [place] Urine Protein (NEGATIVE) mg/dL Urine Glucose (UA) (NEGATIVE) mg/dL Urine Ketones (NEGATIVE) mg/dL Urine Occult Blood (NEGATIVE) Urine Nitrite (NEGATIVE) Urine Bilirubin (NEGATIVE) Urine Urobilinogen (0.2) EU/dL Ur Leukocyte Esterase (NEGATIVE) U Hyaline Cast (Auto) Urine RBC (NOT SEEN) /HPF Urine WBC (NOT SEEN) /HPF Ur Squamous Epith Cells (NOT SEEN) /HPF Urine Bacteria (NOT SEEN) /HPF Urine Mucus (NOT SEEN) /LPF Ethyl Alcohol (0-3) mg/dL SARS CoV-2 RNA Rapid HUMBERTO Negative (NEGATIVE) Meds: Medications Generic Name Dose Route Start Last Admin Trade Name Freq PRN Reason Stop Dose Admin Acetaminophen 650 mg 11/19/20 11:57 Acetaminophen 325 Mg Tab PO Q4H PRN Pain (Mild 1-3)/fever Aspirin 81 mg 11/20/20 08:00 Aspirin 81 Mg Tab.Ec PO DAILY [facility] Atorvastatin Calcium 40 mg 11/19/20 20:00 Atorvastatin 40 Mg Tab PO BEDTIME [facility] Clopidogrel Bisulfate 75 mg 11/20/20 08:00 Clopidogrel 75 Mg Tab PO DAILY [facility] Cyclobenzaprine HCl 10 mg 11/19/20 12:01 Cyclobenzaprine 10 Mg Tab PO BID PRN Muscle Spasm - Painful Enoxaparin Sodium 40 mg 11/19/20 12:00 Enoxaparin 40 Mg/0.4 Ml Syringe SUBCUT DAILY@1200 [facility] Lactated Ringer's 1,000 mls @ 150 mls/hr 11/19/20 09:00 11/19/20 09:10 Ringers, Lactated IV 150 mls/hr ASDIRECTED RADHA Administration Lactated Ringer's 1,000 mls @ 175 mls/hr 11/19/20 10:00 11/19/20 11:21 Ringers, Lactated IV 175 mls/hr ASDIRECTED RADHA Administration Metformin HCl 500 mg 11/19/20 18:00 Metformin 500 Mg Tab PO BIDMEALS [facility] Metoprolol Tartrate 50 mg 11/19/20 20:00 Metoprolol Tartrate 50 Mg Tab PO BID RADHA Nifedipine 60 mg 11/20/20 08:00 Nifedipine 30 Mg Tab.Er PO DAILY [facility] Non-Formulary Medication 500 mg 11/19/20 20:00 Cephalexin [Cephalexin] PO BID RADHA Ondansetron HCl 4 mg 11/19/20 11:57 Ondansetron 4 Mg Tab.Dis PO Q4H PRN nausea, able to take PO Senna/Docusate Sodium 2 tab 11/20/20 08:00 Docusate Sodium/Sennosides 50-8.6 Mg Tab PO DAILY [facility] Sodium Chloride 10 ml 11/19/20 08:40 Sodium Chloride 0.9% 10 Ml Syringe FLUSH ASDIRECTED PRN Keep Vein Open Tramadol HCl 50 mg 11/19/20 12:01 Tramadol 50 Mg Tab PO Q6H PRN SEVERE PAIN Discontinued Medications Generic Name Dose Route Start Last Admin Trade Name Freq PRN Reason Stop Dose Admin Morphine Sulfate 4 mg 11/19/20 09:07 11/19/20 09:10 Morphine 4 Mg/Ml Syringe IVPUSH 11/19/20 09:08 4 mg ONETIME ONE Administration - Radiology Interpretation Free Text/Narrative:: X-ray of the left hip and pelvis per radiology shows no acute plain film abnormality. - Re-Assessments/Exams Free Text/Narrative Re-Assessment/Exam: 11/19/20 IV was established of LR 500 mill bolus and 125 an hour. Laboratory evaluation was drawn. X-ray of the left hip to include pelvis is negative plain film for any acute abnormality. Patient initially was given 4 mg of morphine for his left hip pain with good improvement. Laboratory evaluation with a white blood cell count of 14.5, hemoglobin 12.8, platelet 367. I wonder if his WBC is just not from stress from him laying on the ground. CMP with the BUN at 20 creatinine 1.1 anion gap of 24, glucose 113 T bili normal at 0.7, AST 75 ALT 15 alk phos 110. Lactic acid negative at 2.0. Troponin negative at 9. CPK 3221. C-reactive protein 31.2 which is most likely an inflammatory process of his rhabdomyolysis or the laying on the floor that he has been doing for the last couple of days. Urinalysis is quite concentrated with a urine specific gravity greater than 1.030 Richard 100 protein, negative for glucose, 40+ ketones moderate amount of blood. Nitrites leukocytes negative. Multiple U WBCs we will culture the urine he is asymptomatic. Urine myoglobin sent and pending. Alcohol negative. Covid negative. The patient is on atorvastatin at home but his rhabdomyolysis at this time is most likely cause due to the reason for the fall and laying on the ground the last couple of days. I did talk with his primary care provider Dr. Keith and he was suppose to come to [facility] for swingbed following his stroke although he didn't want to and went home to himself with PT OT and home health. He clearly needs some IV hydration for his rhabdo and following his kidney function. HPI ER course findings and concerns were explained to Dr. Keith. She accepted the patient in transfer and the patient is comfortable with the plan of care. Departure - Departure Time of Disposition: 09:41 Disposition: Admitted As Inpatient 64 Clinical Impression: Generalized weakness, Hip pain, left Rhabdomyolysis Qualifiers: Rhabdomyolysis type: traumatic Encounter type: initial encounter Qualified Code(s): T79.6XXA - Traumatic ischemia of muscle, initial encounter Fall Qualifiers: Encounter type: initial encounter Qualified Code(s): W19.XXXA - Unspecified fall, initial encounter - Discharge Information Sepsis Event Note (ED) - Evaluation Sepsis Screening Result: No Definite Risk - Focused Exam Vital Signs: Vital Signs Temp Pulse Resp BP Pulse Ox 11/19/20 08:54 98.3 F 106 H 16 153/80 H 94 L - My Orders Last 24 Hours: My Active Orders 11/19/20 08:30 MYOGLOBIN, URINE Stat 11/19/20 08:39 CORONAVIRUS COVID-19 [facility]O [MOLEC] Stat Peripheral IV Insertion Adult [OM.PC] Stat 11/19/20 08:40 EKG Documentation Completion [RC] STAT Sodium Chloride 0.9% [Saline Flush] 10 ml FLUSH ASDIRECTED PRN 11/19/20 09:00 Lactated Ringers [Ringers, Lactated] 1,000 ml IV ASDIRECTED - Assessment/Plan Last 24 Hours: My Active Orders 11/19/20 08:30 MYOGLOBIN, URINE Stat 11/19/20 08:39 CORONAVIRUS COVID-19 HUMBERTO [MOLEC] Stat Peripheral IV Insertion Adult [OM.PC] Stat 11/19/20 08:40 EKG Documentation Completion [RC] STAT Sodium Chloride 0.9% [Saline Flush] 10 ml FLUSH ASDIRECTED PRN 11/19/20 09:00 Lactated Ringers [Ringers, Lactated] 1,000 ml IV ASDIRECTED
--- NOTE | 2020-11-19 10:09 | PCM.EKG ---
#1 Interpretation EKG Date: 11/19/20 Time: 08:39 Rhythm: NSR Rate (Beats/Min): 108 [place]: Normal P-Wave: Present QRS: Normal ST-T: Normal QT: Normal Comparison: No Change
[2020-11-19] MEDS: Lactated Ringers 1,000 ML IV SCH ×2 (11:21→12:14)
[2020-11-19] MEDS: Ondansetron 4 MG Tab.DIS PO PRN ×2 (12:13→19:36)
[2020-11-19] MEDS: Cyclobenzaprine 10 MG Tab PO PRN (12:13)
[2020-11-19] MEDS: traMADol 50 MG Tab PO PRN ×2 (12:13→17:42)
[2020-11-19] MEDS: Enoxaparin 40 MG/0.4 ML Syringe SUBCUT SCH (12:14)
[2020-11-19] MEDS: Clopidogrel 75 MG Tab PO SCH (12:20)
[2020-11-19] MEDS: Aspirin 81 MG Tab.EC PO SCH (12:20)
[2020-11-19] MEDS: NIFEdipine 30 MG Tab.ER PO SCH (12:20)
[2020-11-19] MEDS: Cephalexin 500 MG Cap PO SCH ×2 (12:21→19:36)
[2020-11-19] MEDS: Metoprolol Tartrate 50 MG Tab PO SCH ×2 (12:21→19:36)
[2020-11-19] MEDS: metFORMIN 500 MG Tab PO SCH ×2 (12:21→17:42)
--- NOTE | 2020-11-19 12:24 | PCM.HP.2 ---
H&P History of Present Illness - General Date of Service: 11/19/20 Admit Problem/Dx: Admission Diagnosis/Problem Admission Diagnosis/Problem Rhabdomyolysis - History of Present Illness Initial Comments - Free Text/Narative: Mike is an 80-year-old male with past medical history of coronary artery disease, TIA/Stroke, hypertension, COPD, hyperlipidemia, type 2 diabetes, chronic low back pain who presented to the ER this morning via EMS. He has recently been discharged home from [facility] after a stroke (there from 11/12/20- 11/14/20) thought to be due to carotid artery stenosis. He deferred any intervention at that time stating that he is 'done' with interventions. He was home and doing well for 2-3 days when he tripped and ended up on the floor unable to get up. Best guess is he was down since Tuesday. His son had been trying to get ahold of him without success so called a wellfare check and the patient was found on the ground by the police/EMS. He was brought to the ER where he was found to be alert and appropriate with no specific neuro deficits, did complain of left hip pain but plain films were negative. His vitals were stable. Labs were notable for a leukocytosis as well as elevated CK (3200). Kidney function was stable. He was given a 1L bolus of LR in the ER and was then put on a rate of 175mL/hr. At this time he is alert and interactive. Frustrated by his ongoing medical concerns and ready to just 'coast' without any further intervention. In hind- sight notes that he maybe should have come to [facility] for ongoing PT/OT instead of going home from the hospital last week. Complains of his chronic low back pain at this time, but nothing new. Left Hip Pain Score (Numeric/FACES): 10 - Related Data Allergies/Adverse Reactions: Allergies Allergy/AdvReac Type Severity Reaction Status Date / Time [id number] Reductase AdvReac Leg Cramps Verified 11/19/20 11:19 Inhibitor Home Medications: Home Meds metFORMIN [Glucophage] 500 mg PO BID 01/19/14 [History] Cyclobenzaprine [Flexeril] 10 mg PO BID PRN 07/01/20 [History] Sennosides/Docusate Sodium [Senna-Docusate Sodium Tablet] 2 tab PO DAILY 07/01/20 [History] Aspirin [Adult Aspirin Regimen] 81 mg PO DAILY 07/02/20 [History] Metoprolol Tartrate [Lopressor] 50 mg PO BID 07/02/20 [History] NIFEdipine [Procardia Xl] 60 mg PO DAILY 07/29/20 [History] Clopidogrel [Plavix] 75 mg PO DAILY 11/19/20 [History] Tiotropium BR/Olodaterol HCL [Stiolto Respimat] 2 puff IH DAILY 11/19/20 [History] Triamcinolone Acetonide [Triamcinolone Acetonide 0.1% Crm] 1 gm TOP BID PRN 11/19/20 [History] Vitamin B Complex [B Complex] 1 tab PO DAILY 11/19/20 [History] atorvaSTATin [Lipitor] 40 mg PO BEDTIME 11/19/20 [History] cephALEXin [Cephalexin] 500 mg PO BID 11/19/20 [History] traMADol [Ultram] 50 mg PO Q6H PRN 11/19/20 [History] Past Medical History HEENT History: Reports: Hard of Hearing, Other (See Below) Other HEENT History: Occipital Neuritis with ZAMORA Cardiovascular History: Reports: Aneurysm, CAD, High Cholesterol, Hypertension, [place], PVD, Other (See Below) Other Cardiovascular History: coronary atherosclerosis. AAA without rupture Respiratory History: Reports: COPD Gastrointestinal History: Reports: PUD Other Gastrointestinal History: peptic ulcer disease. inguinal hernia Genitourinary History: Reports: Other (See Below) Other Genitourinary History: Hypertrophy of prostate w/o urinary obstruction. elevated PSA Musculoskeletal History: Reports: Gout, Neck Pain, Chronic, Other (See Below) Other Musculoskeletal History: LBP radiating to right leg Neurological History: Reports: CVA, TIA, Other (See Below) Other Neuro History: abd aortic aneurysm. occipital neuritis. Chronic midline low back pain with bilateral sciatica Psychiatric History: Reports: Depression, Other (See Below) Other Psychiatric History: depressive disorder not classified elsewhere Endocrine/Metabolic History: Reports: Diabetes, Type II Hematologic History: Reports: Blood Transfusion(s) Oncologic (Cancer) History: Reports: Other (See Below) Other Oncologic History: Skin cancer - Infectious Disease History Infectious Disease History: Reports: Chicken Pox, Measles, Mumps - Past Surgical History HEENT Surgical History: Reports: Tonsillectomy Cardiovascular Surgical History: Reports: Other (See Below) Other Cardiovascular Surgeries/Procedures: right to left femoral artery bypass. right femoral politeal bypass. vein grafting Neurological Surgical History: Reports: Spinal Fusion, Other (See Below) Other Neurological Surgeries/Procedures: L3-L4 spinal fusion Musculoskeletal Surgical History: Reports: Other (See Below) Other Musculoskeletal Surgeries/Procedures:: right hallux partial amputation Social & Family History - Family History Family Medical History: No Pertinent Family History Cardiac: Reports: CAD, [place] Other Cardiac Family History: Father Respiratory: Reports: Asthma Other Respiratory Family Hisory: Brother. 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[employer].) H&P Review of Systems - Review of Systems: Review Of Systems: See Below General: Reports: No Symptoms HEENT: Reports: No Symptoms Pulmonary: Reports: No Symptoms Cardiovascular: Reports: No Symptoms Gastrointestinal: Reports: No Symptoms Genitourinary: Reports: No Symptoms Musculoskeletal: Reports: Back Pain, Other (hip pain, left) Skin: Reports: Bruising Psychiatric: Reports: No Symptoms Neurological: Reports: No Symptoms Hematologic/Lymphatic: Reports: No Symptoms Exam - Exam Exam: See Below - Vital Signs Vital Signs: Last Vital Signs Temp 98.6 F 11/19/20 10:55 Pulse 106 H 11/19/20 10:55 Resp 16 11/19/20 10:55 BP 165/83 H 11/19/20 10:55 Pulse Ox 98 11/19/20 10:55 Weight: 162 lb 7.691 oz - Exam General: Alert, Oriented HEENT: Conjunctiva Clear, EOMI, Mucosa Moist & [place] Neck: Supple, Trachea Midline Lungs: Clear to Auscultation, Normal Respiratory Effort Cardiovascular: Regular Rate, Regular Rhythm GI/Abdominal Exam: Normal Bowel Sounds, Soft, Non-Tender Extremities: Normal Inspection, Non-Tender, No Pedal Edema Skin: Warm, Dry, Wound (abrasion to right knee), Other (bruising to the dorsum of the hands/wrists) Neurological: Cranial Nerves Intact Neuro Extensive - Mental Status: Alert, Oriented x3, Normal Mood/Affect, Normal Cognition Psychiatric: Alert, Normal Affect, Normal Mood - Patient Data Lab Results Last 24 hrs: Laboratory Results - last 24 hr 11/19/20 11/19/20 11/19/20 Range/Units 08:30 08:43 08:43 WBC 14.5 H (4.0-10.0) x10^3/uL RBC 4.31 L (4.5-6.0) x10^6/uL Hgb 12.8 L (14.0-18.0) g/dL Hct 38.6 L (40.0-52.0) % MCV 89.6 D (78.0-93.0) fL MCH 29.7 (26.0-32.0) pg MCHC 33.2 (32.0-36.0) g/dL RDW Coeff of Bobo 13.6 (10.0-15.0) % Plt Count 367 D (130-400) x10^3/uL Neut % (Auto) 86.3 H (50.0-80.0) % Lymph % (Auto) 7.0 L (25.0-50.0) % Holmes % (Auto) 6.5 (2.0-11.0) % Eos % (Auto) 0.1 (0.0-4.0) % Baso % (Auto) 0.1 L (0.2-1.2) % PT (9.9-12.5) SEC INR (2.0-3.5) APTT (25.6-32.8) SEC Sodium 138 (136-145) mmol/L Potassium 3.9 (3.5-5.1) mmol/L Chloride 98 (98-107) mmol/L Carbon Dioxide 19 L (21-32) mmol/L Anion Gap 24.9 H (5-15) mmol/L BUN 20 H (7-18) mg/dL Creatinine 1.1 (0.70-1.30) mg/dL Est Cr Clr Drug Dosing 53.15 mL/min Estimated GFR (MDRD) > 60 Glucose 113 H (70-99) mg/dL Lactic Acid (0.4-2.0) mmol/L Calcium 9.9 (8.5-10.1) mg/dL Corrected Calcium 10.5 H (8.5-10.1) mg/dL Magnesium 1.9 (1.8-2.4) mg/dL Total Bilirubin 0.7 (0.2-1.0) mg/dL AST 75 H (15-37) U/L ALT 15 L (16-63) U/L Alkaline Phosphatase 110 (46-116) U/L Creatine Kinase 3221 H* (39-308) U/L Troponin I High Sens 9 (<=76) ng/L C-Reactive Protein 31.2 H (<=0.9) mg/dL Total Protein 8.2 (6.4-8.2) g/dL Albumin 3.2 L (3.4-5.0) g/dL Globulin 5.0 Albumin/Globulin Ratio 0.64 Urine Color Dark yellow H (YELLOW) Urine Appearance Slightly cloudy H (CLEAR) Urine pH 5.5 (5.0-8.0) Ur Specific [place] >=1.030 Urine Protein 100 H (NEGATIVE) mg/dL Urine Glucose (UA) Negative (NEGATIVE) mg/dL Urine Ketones 40 H (NEGATIVE) mg/dL Urine Occult Blood Moderate H (NEGATIVE) Urine Nitrite Negative (NEGATIVE) Urine Bilirubin Small H (NEGATIVE) Urine Urobilinogen 0.2 (0.2) EU/dL Ur Leukocyte Esterase Negative (NEGATIVE) U Hyaline Cast (Auto) Many Urine RBC 5-10 H (NOT SEEN) /HPF Urine WBC 5-10 H (NOT SEEN) /HPF Ur Squamous Epith Cells Rare (NOT SEEN) /HPF Urine Bacteria Few H (NOT SEEN) /HPF Urine Mucus Rare H (NOT SEEN) /LPF Ethyl Alcohol < 3 (0-3) mg/dL SARS CoV-2 RNA Rapid HUMBERTO (NEGATIVE) 11/19/20 11/19/20 11/19/20 Range/Units 08:43 08:43 09:15 WBC (4.0-10.0) x10^3/uL RBC (4.5-6.0) x10^6/uL Hgb (14.0-18.0) g/dL Hct (40.0-52.0) % MCV (78.0-93.0) fL MCH (26.0-32.0) pg MCHC (32.0-36.0) g/dL RDW Coeff of Bobo (10.0-15.0) % Plt Count (130-400) x10^3/uL Neut % (Auto) (50.0-80.0) % Lymph % (Auto) (25.0-50.0) % Holmes % (Auto) (2.0-11.0) % Eos % (Auto) (0.0-4.0) % Baso % (Auto) (0.2-1.2) % PT 12.0 (9.9-12.5) SEC INR 1.1 L (2.0-3.5) APTT 30.3 (25.6-32.8) SEC Sodium (136-145) mmol/L Potassium (3.5-5.1) mmol/L Chloride (98-107) mmol/L Carbon Dioxide (21-32) mmol/L Anion Gap (5-15) mmol/L BUN (7-18) mg/dL Creatinine (0.70-1.30) mg/dL Est Cr Clr Drug Dosing mL/min Estimated GFR (MDRD) Glucose (70-99) mg/dL Lactic Acid 2.0 (0.4-2.0) mmol/L Calcium (8.5-10.1) mg/dL Corrected Calcium (8.5-10.1) mg/dL Magnesium (1.8-2.4) mg/dL Total Bilirubin (0.2-1.0) mg/dL AST (15-37) U/L ALT (16-63) U/L Alkaline Phosphatase (46-116) U/L Creatine Kinase (39-308) U/L Troponin I High Sens (<=76) ng/L C-Reactive Protein (<=0.9) mg/dL Total Protein (6.4-8.2) g/dL Albumin (3.4-5.0) g/dL Globulin Albumin/Globulin Ratio Urine Color (YELLOW) Urine Appearance (CLEAR) Urine pH (5.0-8.0) Ur Specific [place] Urine Protein (NEGATIVE) mg/dL Urine Glucose (UA) (NEGATIVE) mg/dL Urine Ketones (NEGATIVE) mg/dL Urine Occult Blood (NEGATIVE) Urine Nitrite (NEGATIVE) Urine Bilirubin (NEGATIVE) Urine Urobilinogen (0.2) EU/dL Ur Leukocyte Esterase (NEGATIVE) U Hyaline Cast (Auto) Urine RBC (NOT SEEN) /HPF Urine WBC (NOT SEEN) /HPF Ur Squamous Epith Cells (NOT SEEN) /HPF Urine Bacteria (NOT SEEN) /HPF Urine Mucus (NOT SEEN) /LPF Ethyl Alcohol (0-3) mg/dL SARS CoV-2 RNA Rapid HUMBERTO Negative (NEGATIVE) Result Diagrams: 11/19/20 08:43 11/19/20 08:43 Sepsis Event Note - Evaluation Sepsis Screening Result: No Definite Risk - Focused Exam Vital Signs: Vital Signs Temp Pulse Resp BP Pulse Ox 11/19/20 10:55 98.6 F 106 H 16 165/83 H 98 11/19/20 08:54 98.3 F 106 H 16 153/80 H 94 L - Problem List (1) Rhabdomyolysis SNOMED Code(s): 248786002 ICD Code: M62.82 - RHABDOMYOLYSIS Status: Acute Current Visit: Yes Qualifiers: Rhabdomyolysis type: traumatic Encounter type: initial encounter Qualified Code(s): T79.6XXA - Traumatic ischemia of muscle, initial encounter (2) Fall SNOMED Code(s): 0534187, 654891866 ICD Code: W19.XXXA - UNSPECIFIED FALL, INITIAL ENCOUNTER Status: Acute Current Visit: Yes Qualifiers: Encounter type: initial encounter Qualified Code(s): W19.XXXA - Unspecified fall, initial encounter Problem List Initiated/Reviewed/Updated: Yes Orders Last 24hrs: Active Orders 24 hr Category Date Time Status Admission Status [Patient Status] [ADT] Routine ADT 11/19/20 09:39 Active EKG Documentation Completion [RC] STAT Care 11/19/20 08:40 Active Intake and Output [RC] QSHIFT Care 11/19/20 11:58 Ordered Oxygen Therapy [RC] PRN Care 11/19/20 11:57 Ordered VTE/DVT Education [RC] PER UNIT ROUTINE Care 11/19/20 11:57 Ordered Vital Signs [RC] Q4H Care 11/19/20 11:57 Ordered Heart Healthy Diet [DIET] Diet 11/19/20 Lunch Ordered CBC WITH AUTO DIFF [HEME] AM Lab 11/20/20 05:11 Ordered COMPREHENSIVE METABOLIC PN,CMP [CHEM] AM Lab 11/20/20 05:11 Ordered CORONAVIRUS COVID-19 HUMBERTO [MOLEC] Stat Lab 11/19/20 08:39 Ordered CREATINE KINASE,CK [CHEM] AM Lab 11/20/20 05:11 Ordered CULTURE URINE [RM] Routine Lab 11/19/20 08:30 Received MYOGLOBIN, URINE Stat Lab 11/19/20 08:30 Received Acetaminophen [TylenoL] Med 11/19/20 11:57 Ordered 650 mg PO Q4H PRN Aspirin [Halfprin] Med 11/20/20 08:00 Ordered 81 mg PO DAILY Clopidogrel [Plavix] Med 11/20/20 08:00 Ordered 75 mg PO DAILY Cyclobenzaprine [Flexeril] Med 11/19/20 12:01 Ordered 10 mg PO BID PRN Docusate Sodium/Sennosides [Senna Plus] Med 11/20/20 08:00 Ordered 2 tab PO DAILY Enoxaparin [Lovenox] Med 11/19/20 12:00 Ordered 40 mg SUBCUT DAILY Lactated Ringers [Ringers, Lactated] 1,000 ml Med 11/19/20 09:00 Stop Req IV ASDIRECTED Lactated Ringers [Ringers, Lactated] 1,000 ml Med 11/19/20 10:00 Active IV ASDIRECTED Metoprolol Tartrate [Lopressor] Med 11/19/20 20:00 Ordered 50 mg PO BID NIFEdipine [Procardia Xl] Med 11/20/20 08:00 Ordered 60 mg PO DAILY Ondansetron [Zofran ODT] Med 11/19/20 11:57 Ordered 4 mg PO Q4H PRN Sodium Chloride 0.9% [Saline Flush] Med 11/19/20 08:40 Active 10 ml FLUSH ASDIRECTED PRN Tiotropium BR/Olodaterol HCL [Stiolto Respimat] Med 11/20/20 08:00 Ordered 2 puff INH DAILY atorvaSTATin [Lipitor] Med 11/19/20 20:00 Ordered 40 mg PO BEDTIME cephALEXin [Cephalexin] Med 11/19/20 20:00 Ordered 500 mg PO BID metFORMIN [Glucophage] Med 11/19/20 20:00 Ordered 500 mg PO BID traMADol [Ultram] Med 11/19/20 12:01 Ordered 50 mg PO Q6H PRN Peripheral IV Insertion Adult [OM.PC] Stat Oth 11/19/20 08:39 Ordered Resuscitation Status Routine Resus Stat 11/19/20 11:57 Ordered Medication Orders Acetaminophen (Acetaminophen 325 Mg Tab) 650 mg PO Q4H PRN PRN Reason: Pain (Mild 1-3)/fever Aspirin (Aspirin 81 Mg Tab.Ec) 81 mg PO DAILY [facility] Atorvastatin Calcium (Atorvastatin 40 Mg Tab) 40 mg PO BEDTIME [facility] Clopidogrel Bisulfate (Clopidogrel 75 Mg Tab) 75 mg PO DAILY [facility] Cyclobenzaprine HCl (Cyclobenzaprine 10 Mg Tab) 10 mg PO BID PRN PRN Reason: Muscle Spasm - Painful Last Admin: 11/19/20 12:13 Dose: 10 mg Documented by: JER Enoxaparin Sodium (Enoxaparin 40 Mg/0.4 Ml Syringe) 40 mg SUBCUT DAILY@1200 [facility] Lactated Ringer's (Ringers, Lactated) 1,000 mls @ 150 mls/hr IV ASDIRECTED [facility] Last Admin: 11/19/20 09:10 Dose: 150 mls/hr Documented by: NEREYDA Lactated Ringer's (Ringers, Lactated) 1,000 mls @ 175 mls/hr IV ASDIRECTED [facility] Last Admin: 11/19/20 12:14 Dose: 175 mls/hr Documented by: Infusion: 11/19/20 12:14 Dose: 175 mls/hr Documented by: Admin: 11/19/20 11:21 Dose: 175 mls/hr Documented by: JER Metformin HCl (Metformin 500 Mg Tab) 500 mg PO BIDMEALS [facility] Metoprolol Tartrate (Metoprolol Tartrate 50 Mg Tab) 50 mg PO BID [facility] Nifedipine (Nifedipine 30 Mg Tab.Er) 60 mg PO DAILY [facility] Non-Formulary Medication (Cephalexin [Cephalexin]) 500 mg PO BID [facility] Ondansetron HCl (Ondansetron 4 Mg Tab.Dis) 4 mg PO Q4H PRN PRN Reason: nausea, able to take PO Last Admin: 11/19/20 12:13 Dose: 4 mg Documented by: JER Senna/Docusate Sodium (Docusate Sodium/Sennosides 50-8.6 Mg Tab) 2 tab PO DAILY [facility] Sodium Chloride (Sodium Chloride 0.9% 10 Ml Syringe) 10 ml FLUSH ASDIRECTED PRN PRN Reason: Keep Vein Open Tramadol HCl (Tramadol 50 Mg Tab) 50 mg PO Q6H PRN PRN Reason: SEVERE PAIN Last Admin: 11/19/20 12:13 Dose: 50 mg Documented by: JER Assessment/Plan Comment:: Rhabdomyolysis - Patient found down after 48 hours - CK elevated at 3200 on time of admit, renal function stable, some blood in the urine Plan: - IVF: continue LR at 175mL/hr - Repeat CK and CMP in the am - Pain: tylenol, home tramadol and flexeril prn as well - I+Os - PT/OT - Discussed concerns regarding safety returning home (with life-alert) versus p otential SNF placement. Will await PT/OT input. 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 Will monitor clinical status on a daily. PT/OT/CM to offer input as well in regards to strengthening and discharge planning. - Mortality Measure Prognosis:: Good
[2020-11-19] MEDS: Acetaminophen 325 MG Tab PO PRN (19:34)
[2020-11-19] MEDS: atorvaSTATin 40 MG Tab PO SCH (19:37)
[2020-11-20] MEDS: Lactated Ringers 1,000 ML IV SCH ×4 (01:04→19:30)
[2020-11-20] MEDS: traMADol 50 MG Tab PO PRN ×4 (04:36→23:35)
[2020-11-20] MEDS: Ondansetron 4 MG Tab.DIS PO PRN (04:37)
[2020-11-20 07:53] LABS: CHLORIDE,CL 104 mmol/L (98-107); SODIUM,NA 139 mmol/L (136-145)
[2020-11-20 07:55] LABS: ANION GAP 12.7 mmol/L (5-15)
[2020-11-20] MEDS: NIFEdipine 30 MG Tab.ER PO SCH (08:09)
[2020-11-20] MEDS: Metoprolol Tartrate 50 MG Tab PO SCH ×2 (08:10→19:30)
[2020-11-20] MEDS: Cephalexin 500 MG Cap PO SCH ×2 (08:10→19:30)
[2020-11-20] MEDS: metFORMIN 500 MG Tab PO SCH ×2 (08:10→17:14)
[2020-11-20] MEDS: Aspirin 81 MG Tab.EC PO SCH (08:10)
[2020-11-20] MEDS: Clopidogrel 75 MG Tab PO SCH (08:10)
[2020-11-20] MEDS: Tiotropium BR/Olodaterol HCL 4 GM Inhalation Spray 2.5mcg/1 dose; 10 doses INH SCH (08:23)
--- NOTE | 2020-11-20 10:27 | PCM.PN ---
- General Info Date of Service: 11/20/20 Admission Dx/Problem (Free Text): Admission Diagnosis/Problem Admission Diagnosis/Problem Rhabdomyolysis Subjective Update: Mike is an 80-year-old male with past medical history of coronary artery disease, TIA/Stroke, hypertension, COPD, hyperlipidemia, type 2 diabetes, chronic low back pain who presented to the ER on 11/19/20 after being found down. By best estimates he had been down for 48-72 hours. He has recently been discharged home from [facility] after a stroke (there from 11/12/20-11/14/20) thought to be due to carotid artery stenosis. He deferred any intervention at that time stating that he is 'done' with interventions. He was home and doing well for 2- 3 days when he tripped and ended up on the floor unable to get up. On arrival to the ER his vitals were stable. Labs were notable for a leukocytosis as well as elevated CK (3200). Kidney function was stable. He was given a 1L bolus of LR in the ER and was then put on a rate of 175mL/hr for treatment of Rhabdomyolysis. Patient did well overnight. Still feeling weak/tired this morning. Vitals stable. CK improved to 1000 (from 3000). - Review of Systems General: Reports: Weakness, Fatigue HEENT: Reports: No Symptoms Pulmonary: Reports: No Symptoms Cardiovascular: Reports: No Symptoms Gastrointestinal: Reports: No Symptoms Genitourinary: Reports: No Symptoms, Urgency Musculoskeletal: Reports: Back Pain (back, left hip) Skin: Reports: Bruising (hands) Neurological: Reports: No Symptoms Psychiatric: Reports: No Symptoms - Patient Data Vitals - Most Recent: Last Vital Signs Temp 97.4 F 11/20/20 05:09 Pulse 74 11/20/20 08:10 Resp 16 11/20/20 05:09 BP 126/64 11/20/20 08:10 Pulse Ox 96 11/20/20 05:09 Weight - Most Recent: 162 lb 7.691 oz I&O - Last 24 Hours: Intake & Output 11/19/20 11/20/20 11/20/20 22:59 06:59 14:59 Intake Total 2088 Balance 2088 Lab Results Last 24 Hours: Laboratory Results - last 24 hr 11/20/20 11/20/20 Range/Units 06:25 06:25 WBC 9.4 (4.0-10.0) x10^3/uL RBC 3.46 L (4.5-6.0) x10^6/uL Hgb 10.2 L D (14.0-18.0) g/dL Hct 31.1 L (40.0-52.0) % MCV 89.9 (78.0-93.0) fL MCH 29.5 (26.0-32.0) pg MCHC 32.8 (32.0-36.0) g/dL RDW Coeff of Bobo 13.6 (10.0-15.0) % Plt Count 310 (130-400) x10^3/uL Neut % (Auto) 72.9 (50.0-80.0) % Lymph % (Auto) 16.3 L (25.0-50.0) % [place] % (Auto) 9.1 (2.0-11.0) % Eos % (Auto) 1.5 (0.0-4.0) % Baso % (Auto) 0.2 (0.2-1.2) % Sodium 139 (136-145) mmol/L Potassium 3.7 (3.5-5.1) mmol/L Chloride 104 (98-107) mmol/L Carbon Dioxide 26 (21-32) mmol/L Anion Gap 12.7 (5-15) mmol/L BUN 17 (7-18) mg/dL Creatinine 0.9 (0.70-1.30) mg/dL Est Cr Clr Drug Dosing 65.34 mL/min Estimated GFR (MDRD) > 60 Glucose 76 (70-99) mg/dL Calcium 8.6 (8.5-10.1) mg/dL Corrected Calcium 10.0 (8.5-10.1) mg/dL Total Bilirubin 0.4 (0.2-1.0) mg/dL AST 43 H (15-37) U/L ALT 14 L (16-63) U/L Alkaline Phosphatase 74 (46-116) U/L Creatine Kinase 1191 H* (39-308) U/L Total Protein 6.0 L (6.4-8.2) g/dL Albumin 2.3 L (3.4-5.0) g/dL Globulin 3.7 Albumin/Globulin Ratio 0.62 Manjit Results Last 24 Hours: Microbiology 11/19/20 08:30 Urine Culture - Preliminary Urine, Bladder Gram Negative Rods Med Orders - Current: Current Medications Acetaminophen (Acetaminophen 325 Mg Tab) 650 mg PO Q4H PRN PRN Reason: Pain (Mild 1-3)/fever Last Admin: 11/19/20 19:34 Dose: 650 mg Documented by: Aspirin (Aspirin 81 Mg Tab.Ec) 81 mg PO DAILY [facility] Last Admin: 11/20/20 08:10 Dose: 81 mg Documented by: Atorvastatin Calcium (Atorvastatin 40 Mg Tab) 40 mg PO BEDTIME [facility] Last Admin: 11/19/20 19:37 Dose: 40 mg Documented by: Cephalexin (Cephalexin 500 Mg Cap) 500 mg PO BID [facility] Last Admin: 11/20/20 08:10 Dose: 500 mg Documented by: Clopidogrel Bisulfate (Clopidogrel 75 Mg Tab) 75 mg PO DAILY [facility] Last Admin: 11/20/20 08:10 Dose: 75 mg Documented by: Cyclobenzaprine HCl (Cyclobenzaprine 10 Mg Tab) 10 mg PO BID PRN PRN Reason: Muscle Spasm - Painful Last Admin: 11/19/20 12:13 Dose: 10 mg Documented by: Enoxaparin Sodium (Enoxaparin 40 Mg/0.4 Ml Syringe) 40 mg SUBCUT DAILY@1200 [facility] Last Admin: 11/19/20 12:14 Dose: 40 mg Documented by: Lactated Ringer's (Ringers, Lactated) 1,000 mls @ 175 mls/hr IV ASDIRECTED [facility] Last Admin: 11/20/20 06:04 Dose: 175 mls/hr Documented by: Metformin HCl (Metformin 500 Mg Tab) 500 mg PO BIDMEALS [facility] Last Admin: 11/20/20 08:10 Dose: 500 mg Documented by: Metoprolol Tartrate (Metoprolol Tartrate 50 Mg Tab) 50 mg PO BID [facility] Last Admin: 11/20/20 08:10 Dose: 50 mg Documented by: Nifedipine (Nifedipine 30 Mg Tab.Er) 60 mg PO DAILY [facility] Last Admin: 11/20/20 08:09 Dose: 60 mg Documented by: Ondansetron HCl (Ondansetron 4 Mg Tab.Dis) 4 mg PO Q4H PRN PRN Reason: nausea, able to take PO Last Admin: 11/20/20 04:37 Dose: 4 mg Documented by: Senna/Docusate Sodium (Docusate Sodium/Sennosides 50-8.6 Mg Tab) 2 tab PO DAILY [facility] Last Admin: 11/20/20 08:10 Dose: 2 tab Documented by: Sodium Chloride (Sodium Chloride 0.9% 10 Ml Syringe) 10 ml FLUSH ASDIRECTED PRN PRN Reason: Keep Vein Open Tramadol HCl (Tramadol 50 Mg Tab) 50 mg PO Q4H PRN PRN Reason: SEVERE PAIN Last Admin: 11/20/20 08:19 Dose: 50 mg Documented by: Discontinued Medications Lactated Ringer's (Ringers, Lactated) 1,000 mls @ 150 mls/hr IV ASDIRECTED [facility] Last Admin: 11/19/20 09:10 Dose: 150 mls/hr Documented by: Morphine Sulfate (Morphine 4 Mg/Ml Syringe) 4 mg IVPUSH ONETIME ONE Stop: 11/19/20 09:08 Last Admin: 11/19/20 09:10 Dose: 4 mg Documented by: Tramadol HCl (Tramadol 50 Mg Tab) 50 mg PO Q6H PRN PRN Reason: SEVERE PAIN Last Admin: 11/19/20 17:42 Dose: 50 mg Documented by: - Exam General: Alert, Oriented, Cooperative, No Acute Distress HEENT: EOMI, Mucous Membr. Moist/[place] Neck: Supple Lungs: Clear to Auscultation, Normal Respiratory Effort Cardiovascular: Regular Rate, Regular Rhythm GI/Abdominal Exam: Normal Bowel Sounds, Soft, Non-Tender Extremities: Non-Tender, No Pedal Edema Skin: Warm, Dry, Other (bruising to bilateral posterior hands/wrists) Psy/Mental Status: Alert, Normal Affect, Normal Mood - Patient Data Lab Results Last 24 hrs: Laboratory Results - last 24 hr 11/20/20 11/20/20 Range/Units 06:25 06:25 WBC 9.4 (4.0-10.0) x10^3/uL RBC 3.46 L (4.5-6.0) x10^6/uL Hgb 10.2 L D (14.0-18.0) g/dL Hct 31.1 L (40.0-52.0) % MCV 89.9 (78.0-93.0) fL MCH 29.5 (26.0-32.0) pg MCHC 32.8 (32.0-36.0) g/dL RDW Coeff of Bobo 13.6 (10.0-15.0) % Plt Count 310 (130-400) x10^3/uL Neut % (Auto) 72.9 (50.0-80.0) % Lymph % (Auto) 16.3 L (25.0-50.0) % [place] % (Auto) 9.1 (2.0-11.0) % Eos % (Auto) 1.5 (0.0-4.0) % Baso % (Auto) 0.2 (0.2-1.2) % Sodium 139 (136-145) mmol/L Potassium 3.7 (3.5-5.1) mmol/L Chloride 104 (98-107) mmol/L Carbon Dioxide 26 (21-32) mmol/L Anion Gap 12.7 (5-15) mmol/L BUN 17 (7-18) mg/dL Creatinine 0.9 (0.70-1.30) mg/dL Est Cr Clr Drug Dosing 65.34 mL/min Estimated GFR (MDRD) > 60 Glucose 76 (70-99) mg/dL Calcium 8.6 (8.5-10.1) mg/dL Corrected Calcium 10.0 (8.5-10.1) mg/dL Total Bilirubin 0.4 (0.2-1.0) mg/dL AST 43 H (15-37) U/L ALT 14 L (16-63) U/L Alkaline Phosphatase 74 (46-116) U/L Creatine Kinase 1191 H* (39-308) U/L Total Protein 6.0 L (6.4-8.2) g/dL Albumin 2.3 L (3.4-5.0) g/dL Globulin 3.7 Albumin/Globulin Ratio 0.62 Result Diagrams: 11/20/20 06:25 11/20/20 06:25 Manjit Results Last 24 hrs: Microbiology 11/19/20 08:30 Urine Culture - Preliminary Urine, Bladder Gram Negative Rods Sepsis Event Note - Evaluation Sepsis Screening Result: No Definite Risk - Focused Exam Vital Signs: Vital Signs Temp Pulse Pulse Resp BP BP Pulse Ox 11/20/20 08:10 74 126/64 11/20/20 08:09 126/64 11/20/20 05:09 97.4 F 70 16 128/64 96 11/20/20 02:00 97.6 F 66 18 126/59 L 92 L - Problem List & Annotations (1) Rhabdomyolysis SNOMED Code(s): 750495123 Code(s): M62.82 - RHABDOMYOLYSIS Status: Acute Current Visit: Yes Qualifiers: Rhabdomyolysis type: traumatic Encounter type: initial encounter Qualified Code(s): T79.6XXA - Traumatic ischemia of muscle, initial encounter (2) Fall SNOMED Code(s): 0687585, 090301057 Code(s): W19.XXXA - UNSPECIFIED FALL, INITIAL ENCOUNTER Status: Acute Current Visit: Yes Qualifiers: Encounter type: initial encounter Qualified Code(s): W19.XXXA - Unspecified fall, initial encounter - Problem List Review Problem List Initiated/Reviewed/Updated: Yes - My Orders Last 24 Hours: My Active Orders 11/19/20 Lunch Heart Healthy Diet [DIET] 11/19/20 11:57 Oxygen Therapy [RC] PRN VTE/DVT Education [RC] PER UNIT ROUTINE Vital Signs [RC] 06,10,14,18,,02 Acetaminophen [TylenoL] 650 mg PO Q4H PRN Ondansetron [Zofran ODT] 4 mg PO Q4H PRN Resuscitation Status Routine 11/19/20 11:58 Intake and Output [RC] 11/19/20 12:00 Enoxaparin [Lovenox] 40 mg SUBCUT DAILY@1200 11/19/20 12:01 Cyclobenzaprine [Flexeril] 10 mg PO BID PRN 11/19/20 12:15 cephALEXin [Keflex] 500 mg PO BID 11/19/20 12:30 OT Evaluation and Treatment [CONS] Routine PT Evaluation and Treatment [CONS] Routine Aspirin [Halfprin] 81 mg PO DAILY Clopidogrel [Plavix] 75 mg PO DAILY Docusate Sodium/Sennosides [Senna Plus] 2 tab PO DAILY Metoprolol Tartrate [Lopressor] 50 mg PO BID NIFEdipine [Procardia XL] 60 mg PO DAILY metFORMIN [Glucophage] 500 mg PO BIDMEALS 11/19/20 20:00 atorvaSTATin [Lipitor] 40 mg PO BEDTIME 11/20/20 08:00 Tiotropium BR/Olodaterol HCL [Stiolto Respimat] 0 gm INH DAILY - Plan Plan:: Jacek Rincon is an 80yoM who is HD #2 for treatment of rhabdomyolysis. Rhabdomyolysis - Patient found down after 48 hours - CK elevated at 3200 on time of admit, renal function stable, some blood in the urine - Labs improving overnight: CK down to 1000 Plan: - IVF: slow LR rate to 150mL/hr today - Repeat CK and CMP in the am - Pain: tylenol, home tramadol and flexeril prn as well - I+Os - PT/OT - Discussed concerns regarding safety returning home (with life-alert), home health, potential SNF placement. Will await PT/OT input. CM consulted as well. 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 Will monitor clinical status on a daily. PT/OT/CM to offer input as well in regards to strengthening and discharge planning.
[2020-11-20] MEDS: Enoxaparin 40 MG/0.4 ML Syringe SUBCUT SCH (11:21)
[2020-11-20] MEDS: atorvaSTATin 40 MG Tab PO SCH (19:30)
[2020-11-20] MEDS: Cyclobenzaprine 10 MG Tab PO PRN (23:35)
[2020-11-21] MEDS: Lactated Ringers 1,000 ML IV SCH ×3 (02:17→22:40)
[2020-11-21] MEDS: Aspirin 81 MG Tab.EC PO SCH (07:19)
[2020-11-21] MEDS: Metoprolol Tartrate 50 MG Tab PO SCH ×2 (07:19→19:26)
[2020-11-21] MEDS: NIFEdipine 30 MG Tab.ER PO SCH (07:19)
[2020-11-21] MEDS: metFORMIN 500 MG Tab PO SCH ×2 (07:19→17:17)
[2020-11-21] MEDS: Cephalexin 500 MG Cap PO SCH ×2 (07:19→19:26)
[2020-11-21] MEDS: Tiotropium BR/Olodaterol HCL 4 GM Inhalation Spray 2.5mcg/1 dose; 10 doses INH SCH (07:20)
[2020-11-21] MEDS: Clopidogrel 75 MG Tab PO SCH (07:20)
[2020-11-21] MEDS: traMADol 50 MG Tab PO PRN ×2 (07:20→19:30)
[2020-11-21 07:36] LABS: CHLORIDE,CL 104 mmol/L (98-107); SODIUM,NA 139 mmol/L (136-145)
[2020-11-21 07:37] LABS: ANION GAP 11.3 mmol/L (5-15)
[2020-11-21] MEDS ORDERED: Potassium Chloride 20 MEQ Tab.ER PO ONE (08:45)
--- NOTE | 2020-11-21 09:05 | PCM.PN ---
- General Info Date of Service: 11/21/20 Admission Dx/Problem (Free Text): Admission Diagnosis/Problem Admission Diagnosis/Problem Rhabdomyolysis Subjective Update: Mike is an 80-year-old male with past medical history of coronary artery disease, TIA/Stroke, hypertension, COPD, hyperlipidemia, type 2 diabetes, chronic low back pain who presented to the ER on 11/19/20 after being found down. By best estimates he had been down for 48-72 hours. He has recently been discharged home from [facility] after a stroke (there from 11/12/20-11/14/20) thought to be due to carotid artery stenosis. He deferred any intervention at that time stating that he is 'done' with interventions. He was home and doing well for 2- 3 days when he tripped and ended up on the floor unable to get up. On arrival to the ER his vitals were stable. Labs were notable for a leukocytosis as well as elevated CK (3200). Kidney function was stable. He was given a 1L bolus of LR in the ER and was then put on a rate of 175mL/hr for treatment of Rhabdomyolysis. Patient did well overnight. Weakness/fatigue improving. Up and ambulating with a stand-by. CK improved more overnight. Eating/drinking. Troubles with voids: admits to some pain with urination on and off and dribbling. In review of labs did have UA suggestive of UTI on admit; will treat at this time with symptoms. - Review of Systems General: Reports: No Symptoms HEENT: Reports: No Symptoms Pulmonary: Reports: No Symptoms Cardiovascular: Reports: No Symptoms Gastrointestinal: Reports: No Symptoms Genitourinary: Reports: Dysuria, Frequency, Incontinence Musculoskeletal: Reports: Back Pain Neurological: Reports: No Symptoms Psychiatric: Reports: No Symptoms - Patient Data Vitals - Most Recent: Last Vital Signs Temp 98.3 F 11/21/20 05:05 Pulse 75 11/21/20 07:19 Resp 16 11/21/20 05:05 BP 137/71 11/21/20 07:19 Pulse Ox 95 11/21/20 05:05 Weight - Most Recent: 162 lb 7.691 oz I&O - Last 24 Hours: Intake & Output 11/20/20 11/21/20 11/21/20 22:59 06:59 14:59 Intake Total 120 1800 Output Total 825 Balance 120 975 Lab Results Last 24 Hours: Laboratory Results - last 24 hr 11/21/20 11/21/20 Range/Units 06:20 06:20 WBC 6.4 (4.0-10.0) x10^3/uL RBC 3.28 L (4.5-6.0) x10^6/uL Hgb 9.6 L (14.0-18.0) g/dL Hct 29.8 L (40.0-52.0) % MCV 90.9 (78.0-93.0) fL MCH 29.3 (26.0-32.0) pg MCHC 32.2 (32.0-36.0) g/dL RDW Coeff of Bobo 13.8 (10.0-15.0) % Plt Count 288 (130-400) x10^3/uL Sodium 139 (136-145) mmol/L Potassium 3.3 L (3.5-5.1) mmol/L Chloride 104 (98-107) mmol/L Carbon Dioxide 27 (21-32) mmol/L Anion Gap 11.3 (5-15) mmol/L BUN 11 (7-18) mg/dL Creatinine 0.8 (0.70-1.30) mg/dL Est Cr Clr Drug Dosing 73.51 mL/min Estimated GFR (MDRD) > 60 Glucose 90 (70-99) mg/dL Calcium 7.9 L (8.5-10.1) mg/dL Creatine Kinase 736 H* (39-308) U/L Manjit Results Last 24 Hours: Microbiology 11/19/20 08:30 Urine Culture - Final Urine, Bladder Pseudomonas Aeruginosa Med Orders - Current: Current Medications Acetaminophen (Acetaminophen 325 Mg Tab) 650 mg PO Q4H PRN PRN Reason: Pain (Mild 1-3)/fever Last Admin: 11/19/20 19:34 Dose: 650 mg Documented by: Aspirin (Aspirin 81 Mg Tab.Ec) 81 mg PO DAILY [facility] Last Admin: 11/21/20 07:19 Dose: 81 mg Documented by: Atorvastatin Calcium (Atorvastatin 40 Mg Tab) 40 mg PO BEDTIME [facility] Last Admin: 11/20/20 19:30 Dose: 40 mg Documented by: Cephalexin (Cephalexin 500 Mg Cap) 500 mg PO BID [facility] Last Admin: 11/21/20 07:19 Dose: 500 mg Documented by: Clopidogrel Bisulfate (Clopidogrel 75 Mg Tab) 75 mg PO DAILY [facility] Last Admin: 11/21/20 07:20 Dose: 75 mg Documented by: Cyclobenzaprine HCl (Cyclobenzaprine 10 Mg Tab) 10 mg PO BID PRN PRN Reason: Muscle Spasm - Painful Last Admin: 11/20/20 23:35 Dose: 10 mg Documented by: Enoxaparin Sodium (Enoxaparin 40 Mg/0.4 Ml Syringe) 40 mg SUBCUT DAILY@1200 [facility] Last Admin: 11/20/20 11:21 Dose: 40 mg Documented by: Lactated Ringer's (Ringers, Lactated) 1,000 mls @ 150 mls/hr IV ASDIRECTED [facility] Last Admin: 11/21/20 02:17 Dose: 150 mls/hr Documented by: Metformin HCl (Metformin 500 Mg Tab) 500 mg PO BIDMEALS [facility] Last Admin: 11/21/20 07:19 Dose: 500 mg Documented by: Metoprolol Tartrate (Metoprolol Tartrate 50 Mg Tab) 50 mg PO BID [facility] Last Admin: 11/21/20 07:19 Dose: 50 mg Documented by: Nifedipine (Nifedipine 30 Mg Tab.Er) 60 mg PO DAILY [facility] Last Admin: 11/21/20 07:19 Dose: 60 mg Documented by: Ondansetron HCl (Ondansetron 4 Mg Tab.Dis) 4 mg PO Q4H PRN PRN Reason: nausea, able to take PO Last Admin: 11/20/20 04:37 Dose: 4 mg Documented by: Senna/Docusate Sodium (Docusate Sodium/Sennosides 50-8.6 Mg Tab) 2 tab PO DAILY [facility] Last Admin: 11/21/20 07:19 Dose: 2 tab Documented by: Sodium Chloride (Sodium Chloride 0.9% 10 Ml Syringe) 10 ml FLUSH ASDIRECTED PRN PRN Reason: Keep Vein Open Tramadol HCl (Tramadol 50 Mg Tab) 50 mg PO Q4H PRN PRN Reason: SEVERE PAIN Last Admin: 11/21/20 07:20 Dose: 50 mg Documented by: Discontinued Medications Lactated Ringer's (Ringers, Lactated) 1,000 mls @ 150 mls/hr IV ASDIRECTED [facility] Last Admin: 11/19/20 09:10 Dose: 150 mls/hr Documented by: Morphine Sulfate (Morphine 4 Mg/Ml Syringe) 4 mg IVPUSH ONETIME ONE Stop: 11/19/20 09:08 Last Admin: 11/19/20 09:10 Dose: 4 mg Documented by: Potassium Chloride (Potassium Chloride 20 Meq Tab.Er) 40 meq PO ONETIME ONE Stop: 11/21/20 08:46 Tramadol HCl (Tramadol 50 Mg Tab) 50 mg PO Q6H PRN PRN Reason: SEVERE PAIN Last Admin: 11/19/20 17:42 Dose: 50 mg Documented by: - Exam General: Alert, Oriented HEENT: Mucous Membr. Moist/[place] Lungs: Clear to Auscultation, Normal Respiratory Effort Cardiovascular: Regular Rate, Regular Rhythm GI/Abdominal Exam: Soft, Non-Tender, No Distention Extremities: Normal Inspection, Non-Tender, No Pedal Edema Skin: Warm, Dry, Other (bruising on the dorsum of the hands) Neurological: No New Focal Deficit Psy/Mental Status: Alert, Normal Affect, Normal Mood - Patient Data Lab Results Last 24 hrs: Laboratory Results - last 24 hr 11/21/20 11/21/20 Range/Units 06:20 06:20 WBC 6.4 (4.0-10.0) x10^3/uL RBC 3.28 L (4.5-6.0) x10^6/uL Hgb 9.6 L (14.0-18.0) g/dL Hct 29.8 L (40.0-52.0) % MCV 90.9 (78.0-93.0) fL MCH 29.3 (26.0-32.0) pg MCHC 32.2 (32.0-36.0) g/dL RDW Coeff of Bobo 13.8 (10.0-15.0) % Plt Count 288 (130-400) x10^3/uL Sodium 139 (136-145) mmol/L Potassium 3.3 L (3.5-5.1) mmol/L Chloride 104 (98-107) mmol/L Carbon Dioxide 27 (21-32) mmol/L Anion Gap 11.3 (5-15) mmol/L BUN 11 (7-18) mg/dL Creatinine 0.8 (0.70-1.30) mg/dL Est Cr Clr Drug Dosing 73.51 mL/min Estimated GFR (MDRD) > 60 Glucose 90 (70-99) mg/dL Calcium 7.9 L (8.5-10.1) mg/dL Creatine Kinase 736 H* (39-308) U/L Result Diagrams: 11/21/20 06:20 11/21/20 06:20 Manjit Results Last 24 hrs: Microbiology 11/19/20 08:30 Urine Culture - Final Urine, Bladder Pseudomonas Aeruginosa Sepsis Event Note - Evaluation Sepsis Screening Result: No Definite Risk - Focused Exam Vital Signs: Vital Signs Temp Pulse Pulse Resp BP BP Pulse Ox 11/21/20 07:19 75 137/71 11/21/20 05:05 98.3 F 75 16 136/71 95 11/21/20 02:00 98.1 F 16 116/58 L 95 11/20/20 22:00 98.8 F 86 16 105/56 L 94 L - Problem List & Annotations (1) Rhabdomyolysis SNOMED Code(s): 155207509 Code(s): M62.82 - RHABDOMYOLYSIS Status: Acute Current Visit: Yes Qualifiers: Rhabdomyolysis type: traumatic Encounter type: initial encounter Qualified Code(s): T79.6XXA - Traumatic ischemia of muscle, initial encounter (2) Fall SNOMED Code(s): 4243011, 789721130 Code(s): W19.XXXA - UNSPECIFIED FALL, INITIAL ENCOUNTER Status: Acute Current Visit: Yes Qualifiers: Encounter type: initial encounter Qualified Code(s): W19.XXXA - Unspecified fall, initial encounter (3) UTI (urinary tract infection) SNOMED Code(s): 88517122 Code(s): N39.0 - URINARY TRACT INFECTION, SITE NOT SPECIFIED Status: Acute Current Visit: Yes - Problem List Review Problem List Initiated/Reviewed/Updated: Yes - My Orders Last 24 Hours: My Active Orders 11/21/20 09:00 Nitrofurantoin [place]/Macrocryst [Macrobid] 100 mg PO BID 11/22/20 06:00 BASIC METABOLIC PANEL,BMP [CHEM] Routine CREATINE KINASE,CK [CHEM] Routine - Plan Plan:: Jacek Rincon is an 80yoM who is HD #3 for treatment of rhabdomyolysis. Rhabdomyolysis - Patient found down after 48 hours - CK elevated at 3200 on time of admit, renal function stable, some blood in the urine - Labs improving overnight: CK down to 700s Plan: - IVF: continue LR at 150mL/hr - Repeat CK and BMP in the am - Pain: tylenol, home tramadol and flexeril prn as well - I+Os - PT/OT - Discussed concerns regarding safety returning home (with life-alert), home health, potential SNF placement. Will await PT/OT input. CM consulted as well. 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 Will monitor clinical status on a daily. PT/OT/CM to offer input as well in regards to strengthening and discharge planning.
[2020-11-21] MEDS: Nitrofurantoin Monohydrate/Macrocrystalline 100 MG Cap PO SCH ×2 (09:11→19:26)
[2020-11-21] MEDS: Enoxaparin 40 MG/0.4 ML Syringe SUBCUT SCH (11:37)
[2020-11-21] MEDS: atorvaSTATin 40 MG Tab PO SCH (19:26)
[2020-11-21] MEDS: Cyclobenzaprine 10 MG Tab PO PRN (19:30)
[2020-11-22] MEDS: traMADol 50 MG Tab PO PRN ×3 (02:44→20:50)
[2020-11-22] MEDS: Lactated Ringers 1,000 ML IV SCH ×2 (05:49→20:54)
[2020-11-22] MEDS: Metoprolol Tartrate 50 MG Tab PO SCH ×2 (08:56→20:51)
[2020-11-22] MEDS: Cephalexin 500 MG Cap PO SCH ×2 (08:57→20:50)
[2020-11-22] MEDS: NIFEdipine 30 MG Tab.ER PO SCH (08:57)
[2020-11-22] MEDS: Aspirin 81 MG Tab.EC PO SCH (08:57)
[2020-11-22] MEDS: Nitrofurantoin Monohydrate/Macrocrystalline 100 MG Cap PO SCH (08:57)
[2020-11-22] MEDS: metFORMIN 500 MG Tab PO SCH ×2 (08:57→17:14)
[2020-11-22] MEDS: Clopidogrel 75 MG Tab PO SCH (08:57)
[2020-11-22] MEDS: Tiotropium BR/Olodaterol HCL 4 GM Inhalation Spray 2.5mcg/1 dose; 10 doses INH SCH (09:00)
[2020-11-22 09:09] LABS: CHLORIDE,CL 102 mmol/L (98-107); SODIUM,NA 139 mmol/L (136-145)
[2020-11-22 09:11] LABS: ANION GAP 13.5 mmol/L (5-15)
--- NOTE | 2020-11-22 09:38 | PCM.SN.2 ---
- Free Text/Narrative Note: Progress note 11/22/20 S: No complaints, except for urinary incontinence, wants to go home on Tuesday; states he and his son have a daily check in. He denies drinking mor [place] 2 beers/day. Knows he has lost 20 lbs over the last few months, says he is on an oral antibiotic for 3 months for a bone infection with blood infection( I am not seeing a note for this in [facility]( O BP 158/75 pulse 78 temp 97.5 O2 sat 93% RR 16 Pt awake and alert Lungs clear Cor w/o rubs,murmurs or gallop Ext no edema Labs from today poending Hb yesterday 29.8 from 38.6 K 3.3 U ca n Pseudomonas I and O yesterday: 3200 cc Out in urine MEDS: Metformin, Nifedipine, nitrofurantoin, ondansetron prn, senna, tramadol prn, metoprolol, tylenol prn, ASA, Lipitor, Cephalexin, Plavix,Flexeril, Lovenox IMP: 1. Fall with rhabdomyalysis: contineu hydration 2. Anemia : suspect dilution and chronic disease- check B12, folate, iron, stool for blood 3. Hypokalemia: replace po 4. UTI: switch from macrobid to levoquin 5.? alcohol use- start thiamine, MG 6. Fall- enc PT and getting up today
[2020-11-22] MEDS: Magnesium Chloride 64 MG Tab.ER PO SCH (10:16)
[2020-11-22] MEDS: Levofloxacin 250 MG Tab PO SCH (10:16)
[2020-11-22] MEDS: Cyclobenzaprine 10 MG Tab PO PRN ×2 (12:08→20:48)
[2020-11-22] MEDS: Enoxaparin 40 MG/0.4 ML Syringe SUBCUT SCH (12:09)
[2020-11-22] MEDS: Thiamine 100 MG Tab PO SCH (20:50)
[2020-11-22] MEDS: atorvaSTATin 40 MG Tab PO SCH (20:50)
[2020-11-23] MEDS: Lactated Ringers 1,000 ML IV SCH (04:03)
[2020-11-23] MEDS: metFORMIN 500 MG Tab PO SCH ×2 (07:56→17:06)
[2020-11-23] MEDS: Aspirin 81 MG Tab.EC PO SCH (07:56)
[2020-11-23] MEDS: Magnesium Chloride 64 MG Tab.ER PO SCH (07:56)
[2020-11-23] MEDS: Cyclobenzaprine 10 MG Tab PO PRN ×2 (07:56→17:06)
[2020-11-23] MEDS: Metoprolol Tartrate 50 MG Tab PO SCH ×2 (07:56→20:30)
[2020-11-23] MEDS: Cephalexin 500 MG Cap PO SCH ×2 (07:57→20:30)
[2020-11-23] MEDS: traMADol 50 MG Tab PO PRN ×2 (07:57→17:07)
[2020-11-23] MEDS: NIFEdipine 30 MG Tab.ER PO SCH (07:57)
[2020-11-23] MEDS: Clopidogrel 75 MG Tab PO SCH (07:57)
[2020-11-23] MEDS: Levofloxacin 250 MG Tab PO SCH (08:00)
[2020-11-23] MEDS: Tiotropium BR/Olodaterol HCL 4 GM Inhalation Spray 2.5mcg/1 dose; 10 doses INH SCH (08:01)
[2020-11-23] MEDS ORDERED: Potassium Chloride 10 MEQ Tab.ER PO ONE ×2 (09:10→18:00)
--- NOTE | 2020-11-23 09:17 | PCM.SN.2 ---
- Free Text/Narrative Note: Progress note 11/23/2020 S: Feels fine; no abd pain, hx CI bleeding, Gu bleeding. Pt eats donuts for breakfast, grazes and has maybe soup, frozen meal the rest of the day. Pt declines Meals on Wheels-" I have had to many hospital meals the last few months. 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 Low K- one more dose K 3. Anemia: suspect dietary- check levels,stool for blood 4. Falls: pt enc to stay for PT on Swing bed
[2020-11-23] MEDS: Enoxaparin 40 MG/0.4 ML Syringe SUBCUT SCH (11:55)
[2020-11-23] MEDS: atorvaSTATin 40 MG Tab PO SCH (20:29)
[2020-11-23] MEDS: Thiamine 100 MG Tab PO SCH (20:30)
[2020-11-24] MEDS: Lactated Ringers 1,000 ML IV SCH ×2 (01:22→08:12)
[2020-11-24] MEDS: Levofloxacin 250 MG Tab PO SCH (08:10)
[2020-11-24] MEDS: Clopidogrel 75 MG Tab PO SCH (08:10)
[2020-11-24] MEDS: Cephalexin 500 MG Cap PO SCH ×2 (08:11→20:00)
[2020-11-24] MEDS: Aspirin 81 MG Tab.EC PO SCH (08:11)
[2020-11-24] MEDS: NIFEdipine 30 MG Tab.ER PO SCH (08:11)
[2020-11-24] MEDS: Metoprolol Tartrate 50 MG Tab PO SCH ×2 (08:11→20:00)
[2020-11-24] MEDS: metFORMIN 500 MG Tab PO SCH ×2 (08:11→17:45)
[2020-11-24] MEDS: Magnesium Chloride 64 MG Tab.ER PO SCH (08:11)
[2020-11-24] MEDS: traMADol 50 MG Tab PO PRN ×2 (08:11→14:50)
[2020-11-24] MEDS: Tiotropium BR/Olodaterol HCL 4 GM Inhalation Spray 2.5mcg/1 dose; 10 doses INH SCH (08:15)
--- NOTE | 2020-11-24 08:43 | PCM.PN ---
- General Info Date of Service: 11/24/20 Admission Dx/Problem (Free Text): Admission Diagnosis/Problem Admission Diagnosis/Problem Rhabdomyolysis Subjective Update: Mike is an 80-year-old male with past medical history of coronary artery disease, TIA/Stroke, hypertension, COPD, hyperlipidemia, type 2 diabetes, chronic low back pain who presented to the ER on 11/19/20 after being found down. By best estimates he had been down for 48-72 hours. He has recently been discharged home from [facility] after a stroke (there from 11/12/20-11/14/20) thought to be due to carotid artery stenosis. He deferred any intervention at that time stating that he is 'done' with interventions. He was home and doing well for 2- 3 days when he tripped and ended up on the floor unable to get up. On arrival to the ER his vitals were stable. Labs were notable for a leukocytosis as well as elevated CK (3200). Kidney function was stable. He was given a 1L bolus of LR in the ER and was then put on a rate of 175mL/hr for treatment of Rhabdomyolysis. Patient was stable over the weekend. Did have a slight dip in his Hgb but this is back up this am. Per nursing was not up much over the weekend. He is anxious to go home. We discussed that his time with PT today will determine his ability to return home or if we need to swing him for continued strengthening. Also discussed likely need for outpatient therapies. He is frustrated but understanding. Still having some urinary incontinence; discussed with him the UTI as well as the IVF as probably inciting this. Functional Status: Reports: Pain Controlled, Tolerating Diet - Review of Systems General: Reports: Weakness HEENT: Reports: No Symptoms Pulmonary: Reports: No Symptoms Cardiovascular: Reports: No Symptoms Gastrointestinal: Reports: No Symptoms Genitourinary: Reports: Incontinence Musculoskeletal: Reports: Back Pain Skin: Reports: No Symptoms Neurological: Reports: No Symptoms Psychiatric: Reports: No Symptoms - Patient Data Vitals - Most Recent: Last Vital Signs Temp 98.0 F 11/24/20 06:00 Pulse 72 11/24/20 08:11 Resp 18 11/24/20 06:00 BP 132/71 11/24/20 08:11 Pulse Ox 96 11/24/20 06:00 Weight - Most Recent: 162 lb 7.691 oz I&O - Last 24 Hours: Intake & Output 11/23/20 11/24/20 11/24/20 22:59 06:59 14:59 Intake Total 1720 1957 Output Total 1100 1000 750 Balance 620 957 -750 Lab Results Last 24 Hours: Laboratory Results - last 24 hr 11/23/20 Range/Units 07:33 WBC 6.1 (4.0-10.0) x10^3/uL RBC 3.43 L (4.5-6.0) x10^6/uL Hgb 10.2 L (14.0-18.0) g/dL Hct 31.3 L (40.0-52.0) % MCV 91.3 (78.0-93.0) fL MCH 29.7 (26.0-32.0) pg MCHC 32.6 (32.0-36.0) g/dL RDW Coeff of Bobo 14.0 (10.0-15.0) % Plt Count 305 (130-400) x10^3/uL Med Orders - Current: Current Medications Acetaminophen (Acetaminophen 325 Mg Tab) 650 mg PO Q4H PRN PRN Reason: Pain (Mild 1-3)/fever Last Admin: 11/19/20 19:34 Dose: 650 mg Documented by: Aspirin (Aspirin 81 Mg Tab.Ec) 81 mg PO DAILY [facility] Last Admin: 11/24/20 08:11 Dose: 81 mg Documented by: Atorvastatin Calcium (Atorvastatin 40 Mg Tab) 40 mg PO BEDTIME [facility] Last Admin: 11/23/20 20:29 Dose: 40 mg Documented by: Cephalexin (Cephalexin 500 Mg Cap) 500 mg PO BID [facility] Last Admin: 11/24/20 08:11 Dose: 500 mg Documented by: Clopidogrel Bisulfate (Clopidogrel 75 Mg Tab) 75 mg PO DAILY [facility] Last Admin: 11/24/20 08:10 Dose: 75 mg Documented by: Cyclobenzaprine HCl (Cyclobenzaprine 10 Mg Tab) 10 mg PO BID PRN PRN Reason: Muscle Spasm - Painful Last Admin: 11/23/20 17:06 Dose: 10 mg Documented by: Enoxaparin Sodium (Enoxaparin 40 Mg/0.4 Ml Syringe) 40 mg SUBCUT DAILY@1200 [facility] Last Admin: 11/23/20 11:55 Dose: 40 mg Documented by: Lactated Ringer's (Ringers, Lactated) 1,000 mls @ 75 mls/hr IV ASDIRECTED [facility] Last Infusion: 11/24/20 08:19 Dose: 75 mls/hr Documented by: Levofloxacin (Levofloxacin 250 Mg Tab) 250 mg PO Q24H [facility] Stop: 11/27/20 09:01 Last Admin: 11/24/20 08:10 Dose: 250 mg Documented by: Magnesium Chloride (Magnesium Chloride 64 Mg Tab.Er) 64 mg PO DAILY [facility] Last Admin: 11/24/20 08:11 Dose: 64 mg Documented by: Metformin HCl (Metformin 500 Mg Tab) 500 mg PO BIDMEALS [facility] Last Admin: 11/24/20 08:11 Dose: 500 mg Documented by: Metoprolol Tartrate (Metoprolol Tartrate 50 Mg Tab) 50 mg PO BID [facility] Last Admin: 11/24/20 08:11 Dose: 50 mg Documented by: Nifedipine (Nifedipine 30 Mg Tab.Er) 60 mg PO DAILY [facility] Last Admin: 11/24/20 08:11 Dose: 60 mg Documented by: Senna/Docusate Sodium (Docusate Sodium/Sennosides 50-8.6 Mg Tab) 2 tab PO DAILY [facility] Last Admin: 11/24/20 08:10 Dose: 2 tab Documented by: Sodium Chloride (Sodium Chloride 0.9% 10 Ml Syringe) 10 ml FLUSH ASDIRECTED PRN PRN Reason: Keep Vein Open Thiamine HCl (Thiamine 100 Mg Tab) 100 mg PO BEDTIME [facility] Last Admin: 11/23/20 20:30 Dose: 100 mg Documented by: Tramadol HCl (Tramadol 50 Mg Tab) 50 mg PO Q4H PRN PRN Reason: SEVERE PAIN Last Admin: 11/24/20 08:11 Dose: 50 mg Documented by: Discontinued Medications Lactated Ringer's (Ringers, Lactated) 1,000 mls @ 150 mls/hr IV ASDIRECTED [facility] Last Admin: 11/19/20 09:10 Dose: 150 mls/hr Documented by: Morphine Sulfate (Morphine 4 Mg/Ml Syringe) 4 mg IVPUSH ONETIME ONE Stop: 11/19/20 09:08 Last Admin: 11/19/20 09:10 Dose: 4 mg Documented by: Nitrofurantoin Macrocrystals (Nitrofurantoin Monohydrate/Macrocrystalline 100 Mg Cap) 100 mg PO BID [facility] Stop: 11/22/20 09:01 Last Admin: 11/22/20 08:57 Dose: 100 mg Documented by: Ondansetron HCl (Ondansetron 4 Mg Tab.Dis) 4 mg PO Q4H PRN PRN Reason: nausea, able to take PO Last Admin: 11/20/20 04:37 Dose: 4 mg Documented by: Potassium Chloride (Potassium Chloride 20 Meq Tab.Er) 40 meq PO ONETIME ONE Stop: 11/21/20 08:46 Last Admin: 11/21/20 09:06 Dose: 40 meq Documented by: Potassium Chloride (Potassium Chloride 10 Meq Tab.Er) 20 meq PO ONETIME ONE Stop: 11/23/20 09:11 Last Admin: 11/23/20 13:03 Dose: Not Given Documented by: Potassium Chloride (Potassium Chloride 10 Meq Tab.Er) 20 meq PO ONETIME ONE Stop: 11/23/20 18:01 Last Admin: 11/23/20 17:06 Dose: 20 meq Documented by: Tramadol HCl (Tramadol 50 Mg Tab) 50 mg PO Q6H PRN PRN Reason: SEVERE PAIN Last Admin: 11/19/20 17:42 Dose: 50 mg Documented by: - Patient Data Lab Results Last 24 hrs: Laboratory Results - last 24 hr 11/23/20 Range/Units 07:33 WBC 6.1 (4.0-10.0) x10^3/uL RBC 3.43 L (4.5-6.0) x10^6/uL Hgb 10.2 L (14.0-18.0) g/dL Hct 31.3 L (40.0-52.0) % MCV 91.3 (78.0-93.0) fL MCH 29.7 (26.0-32.0) pg MCHC 32.6 (32.0-36.0) g/dL RDW Coeff of Bobo 14.0 (10.0-15.0) % Plt Count 305 (130-400) x10^3/uL Result Diagrams: 11/23/20 07:33 11/22/20 08:08 Sepsis Event Note - Evaluation Sepsis Screening Result: No Definite Risk - Focused Exam Vital Signs: Vital Signs Temp Pulse Pulse Resp BP BP Pulse Ox 11/24/20 08:11 72 132/71 11/24/20 06:00 98.0 F 72 18 132/71 96 11/24/20 01:25 97 F 75 16 140/72 95 11/23/20 22:00 97.1 F 73 16 145/79 H 94 L - Problem List & Annotations (1) Rhabdomyolysis SNOMED Code(s): 899078876 Code(s): M62.82 - RHABDOMYOLYSIS Status: Acute Current Visit: Yes Qualifiers: Rhabdomyolysis type: traumatic Encounter type: initial encounter Qualified Code(s): T79.6XXA - Traumatic ischemia of muscle, initial encounter (2) Fall SNOMED Code(s): 3582876, 880190996 Code(s): W19.XXXA - UNSPECIFIED FALL, INITIAL ENCOUNTER Status: Acute Cur rent Visit: Yes Qualifiers: Encounter type: initial encounter Qualified Code(s): W19.XXXA - Unspecified fall, initial encounter (3) UTI (urinary tract infection) SNOMED Code(s): 88843110 Code(s): N39.0 - URINARY TRACT INFECTION, SITE NOT SPECIFIED Status: Acute Current Visit: Yes - Problem List Review Problem List Initiated/Reviewed/Updated: Yes - Plan Plan:: Jacek Rincon is an 80yoM who is HD #6 for treatment of rhabdomyolysis. Rhabdomyolysis - Patient found down after 48 hours - CK elevated at 3200 on time of admit, renal function stable, some blood in the urine - Labs improving Plan: - IVF: cut LR to 75mL/hr, plan to stop this evening - Repeat CK and BMP in the am - Pain: tylenol, home tramadol and flexeril prn as well - I+Os - PT/OT - Discussed concerns regarding safety returning home (with life-alert), home health, potential SNF placement. Will await PT/OT input. CM consulted as well. UTI - Patient with c/o of intermittent dysuria and incontinence - UA on admit was suggestive of UTI - Culture grew out pseudomonas, patient switched to Levaquin Plan: - Continue Levaquin Anemia - Hgb slowly trending down - down to 9 yesterday, back into the 10s today - Anticipate much of this is dilutional however may be dietary deficiencies as well as chronic disease induced Plan: -Repeat CBC in the am Chronic: Hypertension/PVD - continue home meds metoprolol 50 mg twice a day, Procardia 60 mg daily Diabetes - continue home metformin 500 mg twice a day COPD - continue tiotropium-olodaterol 2 puffs daily CVA - continue home lipitor, plavix 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 Will monitor clinical s tatus on a daily. PT/OT/CM to offer input as well in regards to strengthening and discharge planning.
[2020-11-24] MEDS: Enoxaparin 40 MG/0.4 ML Syringe SUBCUT SCH (11:51)
[2020-11-24] MEDS: Cyclobenzaprine 10 MG Tab PO PRN (14:50)
[2020-11-24] MEDS: Acetaminophen 325 MG Tab PO PRN (17:45)
[2020-11-24] MEDS: Thiamine 100 MG Tab PO SCH (20:00)
[2020-11-24] MEDS: atorvaSTATin 40 MG Tab PO SCH (20:00)
[2020-11-25 07:25] LABS: ANION GAP 8.1 mmol/L (5-15); CHLORIDE,CL 106 mmol/L (98-107); SODIUM,NA 140 mmol/L (136-145)
[2020-11-25] MEDS ORDERED: Enoxaparin 40 MG/0.4 ML Syringe SUBCUT SCH (08:00)
[2020-11-25] MEDS: Aspirin 81 MG Tab.EC PO SCH (08:02)
[2020-11-25] MEDS: metFORMIN 500 MG Tab PO SCH (08:02)
[2020-11-25] MEDS: Tiotropium BR/Olodaterol HCL 4 GM Inhalation Spray 2.5mcg/1 dose; 10 doses INH SCH (08:02)
[2020-11-25] MEDS: Cephalexin 500 MG Cap PO SCH (08:03)
[2020-11-25] MEDS: Magnesium Chloride 64 MG Tab.ER PO SCH (08:03)
[2020-11-25] MEDS: Levofloxacin 250 MG Tab PO SCH (08:05)
[2020-11-25] MEDS: Clopidogrel 75 MG Tab PO SCH (08:05)
[2020-11-25] MEDS: traMADol 50 MG Tab PO PRN ×2 (08:05→13:21)
[2020-11-25] MEDS: Metoprolol Tartrate 50 MG Tab PO SCH (08:06)
[2020-11-25] MEDS: Acetaminophen 325 MG Tab PO PRN (08:06)
[2020-11-25] MEDS: NIFEdipine 30 MG Tab.ER PO SCH (08:06)
[2020-11-25 11:20] VITALS: BP 149/69; PULSE 68
--- NOTE | 2020-11-25 13:14 | PCM.DCSUM1 ---
Discharge Summary - Hospital Course Free Text/Narrative:: brock is an 80-year-old male with past medical history of coronary artery disease, TIA/Stroke, hypertension, COPD, hyperlipidemia, type 2 diabetes, chronic low back pain who presented to the ER on 11/19/20 after being found down in his apartment. By best estimates he had been down for 48-72 hours. He had recently been discharged home from [facility] after a stroke (there from 11/12/20- 11/14/20) thought to be due to carotid artery stenosis. He deferred any interve ntion at that time stating that he is 'done' with interventions. He was home and doing well for 2-3 days when he tripped and ended up on the floor unable to get up. On arrival to the ER his vitals were stable. Labs were notable for a leukocytosis as well as elevated CK (3200). Kidney function was stable. He was given a 1L bolus of LR in the ER and was then put on a rate of 175mL/hr for treatment of Rhabdomyolysis. He did well during his stay and maintained on IVF for 5 days for treatment of the Rhabdo with his CK finally back into range this morning. He was also treated for UTI; has antibiotics scheduled through 11/27/20. He has been seen by PT and recommendation was given for a couple more days of therapy prior to discharge home. We will be downgrading him to swing bed status today for ongoing therapies. - Discharge Data Discharge Date: 11/25/20 Discharge Disposition: DC/Tfer W/I Hosp To Swing 61 Condition: Good - Referral to Home Health Primary Care Physician: Lisette Keith MD - Discharge Diagnosis/Problem(s) (1) Rhabdomyolysis SNOMED Code(s): 057690029 ICD Code: M62.82 - RHABDOMYOLYSIS Status: Acute Qualifiers: Rhabdomyolysis type: traumatic Encounter type: initial encounter Qualified Code(s): T79.6XXA - Traumatic ischemia of muscle, initial encounter (2) Fall SNOMED Code(s): 5482965, 528569885 ICD Code: W19.XXXA - UNSPECIFIED FALL, INITIAL ENCOUNTER Status: Acute Qualifiers: Encounter type: initial encounter Qualified Code(s): W19.XXXA - Unspecified fall, initial encounter (3) UTI (urinary tract infection) SNOMED Code(s): 89779995 ICD Code: N39.0 - URINARY TRACT INFECTION, SITE NOT SPECIFIED Status: Acute - Patient Summary/Data Consults: Consultations 11/19/20 12:30 OT Evaluation and Treatment [CONS] Routine PT Evaluation and Treatment [CONS] Routine - Discharge Plan Home Medications: Home Meds metFORMIN [Glucophage] 500 mg PO BID 01/19/14 [History] Cyclobenzaprine [Flexeril] 10 mg PO BID PRN 07/01/20 [History] Sennosides/Docusate Sodium [Senna-Docusate Sodium Tablet] 2 tab PO DAILY 07/01/20 [History] Aspirin [Adult Aspirin Regimen] 81 mg PO DAILY 07/02/20 [History] Metoprolol Tartrate [Lopressor] 50 mg PO BID 07/02/20 [History] NIFEdipine [Procardia Xl] 60 mg PO DAILY 07/29/20 [History] Clopidogrel [Plavix] 75 mg PO DAILY 11/19/20 [History] Tiotropium BR/Olodaterol HCL [Stiolto Respimat] 2 puff IH DAILY 11/19/20 [History] Triamcinolone Acetonide [Triamcinolone Acetonide 0.1% Crm] 1 gm TOP BID PRN 11/19/20 [History] Vitamin B Complex [B Complex] 1 tab PO DAILY 11/19/20 [History] atorvaSTATin [Lipitor] 40 mg PO BEDTIME 11/19/20 [History] cephALEXin [Cephalexin] 500 mg PO BID 11/19/20 [History] traMADol [Ultram] 50 mg PO Q6H PRN 11/19/20 [History] Forms: ED Department Discharge Referrals: Lisette Keith MD [Primary Care Provider] - - Discharge Summary/Plan Comment DC Time >30 min.: No - Review of Systems General: Reports: Weakness HEENT: Reports: No Symptoms Pulmonary: Reports: No Symptoms Cardiovascular: Reports: No Symptoms Gastrointestinal: Reports: No Symptoms Musculoskeletal: Reports: Back Pain Skin: Reports: No Symptoms Neurological: Reports: No Symptoms Psychiatric: Reports: No Symptoms - Patient Data Vitals - Most Recent: Last Vital Signs Temp 97.5 F 11/25/20 10:00 Pulse 68 11/25/20 10:00 Resp 16 11/25/20 05:52 BP 149/69 H 11/25/20 10:00 Pulse Ox 100 11/25/20 10:00 Weight - Most Recent: 162 lb 7.691 oz I&O - Last 24 hours: Intake & Output 11/24/20 11/25/20 11/25/20 22:59 06:59 14:59 Intake Total 1011 468 120 Output Total 200 300 Balance 811 168 120 Lab Results - Last 24 hrs: Laboratory Results - last 24 hr 11/19/20 11/23/20 11/23/20 Range/Units 08:30 07:33 07:33 WBC (4.0-10.0) x10^3/uL RBC (4.5-6.0) x10^6/uL Hgb (14.0-18.0) g/dL Hct (40.0-52.0) % MCV (78.0-93.0) fL MCH (26.0-32.0) pg MCHC (32.0-36.0) g/dL RDW Coeff of Bobo (10.0-15.0) % Plt Count (130-400) x10^3/uL Add Manual Diff Neutrophils % (Manual) (50-80) % Band Neutrophils % (0-6) % Lymphocytes % (Manual) (25-50) % Monocytes % (Manual) (2-11) % Eosinophils % (Manual) (0-4) % Platelet Estimate Anisocytosis Sodium (136-145) mmol/L Potassium (3.5-5.1) mmol/L Chloride (98-107) mmol/L Carbon Dioxide (21-32) mmol/L Anion Gap (5-15) mmol/L BUN (7-18) mg/dL Creatinine (0.70-1.30) mg/dL Est Cr Clr Drug Dosing mL/min Estimated GFR (MDRD) Glucose (70-99) mg/dL Calcium (8.5-10.1) mg/dL Iron (50-150) ug/dL TIBC (261-478) ug/dL Unsaturated IBC (155-355) ug/dL Transferrin % Sat (20.0-50.0) % Creatine Kinase (39-308) U/L Vitamin B12 416 (180-914) pg/mL Folate 3.7 ng/mL Urine Myoglobin <2 (0-13) ng/mL 0611/25/20 11/25/20 Range/Units 07:33 06:40 06:40 WBC 7.2 (4.0-10.0) x10^3/uL RBC 3.80 L (4.5-6.0) x10^6/uL Hgb 11.0 L (14.0-18.0) g/dL Hct 34.8 L (40.0-52.0) % MCV 91.6 (78.0-93.0) fL MCH 28.9 (26.0-32.0) pg MCHC 31.6 L (32.0-36.0) g/dL RDW Coeff of Bobo 14.0 (10.0-15.0) % Plt Count 320 (130-400) x10^3/uL Add Manual Diff Yes Neutrophils % (Manual) 70 (50-80) % Band Neutrophils % 3 (0-6) % Lymphocytes % (Manual) 21 L (25-50) % Monocytes % (Manual) 2 (2-11) % Eosinophils % (Manual) 4 (0-4) % Platelet Estimate Adequate Anisocytosis 1+ slight H Sodium 140 (136-145) mmol/L Potassium 4.1 (3.5-5.1) mmol/L Chloride 106 (98-107) mmol/L Carbon Dioxide 30 (21-32) mmol/L Anion Gap 8.1 (5-15) mmol/L BUN 9 (7-18) mg/dL Creatinine 1.1 (0.70-1.30) mg/dL Est Cr Clr Drug Dosing 53.46 mL/min Estimated GFR (MDRD) > 60 Glucose 103 H (70-99) mg/dL Calcium 8.7 (8.5-10.1) mg/dL Iron 22 L (50-150) ug/dL TIBC 219 L (261-478) ug/dL Unsaturated IBC 197 (155-355) ug/dL Transferrin % Sat 10.0 L (20.0-50.0) % Creatine Kinase 59 (39-308) U/L Vitamin B12 (180-914) pg/mL Folate ng/mL Urine Myoglobin (0-13) ng/mL Med Orders - Current: Current Medications Acetaminophen (Acetaminophen 325 Mg Tab) 650 mg PO Q4H PRN PRN Reason: Pain (Mild 1-3)/fever Last Admin: 11/25/20 08:06 Dose: 650 mg Documented by: Aspirin (Aspirin 81 Mg Tab.Ec) 81 mg PO DAILY [facility] Last Admin: 11/25/20 08:02 Dose: 81 mg Documented by: Atorvastatin Calcium (Atorvastatin 40 Mg Tab) 40 mg PO BEDTIME [facility] Last Admin: 11/24/20 20:00 Dose: 40 mg Documented by: Cephalexin (Cephalexin 500 Mg Cap) 500 mg PO BID [facility] Last Admin: 11/25/20 08:03 Dose: 500 mg Documented by: Clopidogrel Bisulfate (Clopidogrel 75 Mg Tab) 75 mg PO DAILY [facility] Last Admin: 11/25/20 08:05 Dose: 75 mg Documented by: Cyclobenzaprine HCl (Cyclobenzaprine 10 Mg Tab) 10 mg PO BID PRN PRN Reason: Muscle Spasm - Painful Last Admin: 11/24/20 14:50 Dose: 10 mg Documented by: Enoxaparin Sodium (Enoxaparin 40 Mg/0.4 Ml Syringe) 40 mg SUBCUT DAILY [facility] Last Admin: 11/25/20 08:02 Dose: 40 mg Documented by: Levofloxacin (Levofloxacin 250 Mg Tab) 250 mg PO Q24H [facility] Stop: 11/27/20 09:01 Last Admin: 11/25/20 08:05 Dose: 250 mg Documented by: Magnesium Chloride (Magnesium Chloride 64 Mg Tab.Er) 64 mg PO DAILY [facility] Last Admin: 11/25/20 08:03 Dose: 64 mg Documented by: Metformin HCl (Metformin 500 Mg Tab) 500 mg PO BIDMEALS [facility] Last Admin: 11/25/20 08:02 Dose: 500 mg Documented by: Metoprolol Tartrate (Metoprolol Tartrate 50 Mg Tab) 50 mg PO BID [facility] Last Admin: 11/25/20 08:06 Dose: 50 mg Documented by: Nifedipine (Nifedipine 30 Mg Tab.Er) 60 mg PO DAILY [facility] Last Admin: 11/25/20 08:06 Dose: 60 mg Documented by: Senna/Docusate Sodium (Docusate Sodium/Sennosides 50-8.6 Mg Tab) 2 tab PO DAILY [facility] Last Admin: 11/25/20 08:05 Dose: 2 tab Documented by: Sodium Chloride (Sodium Chloride 0.9% 10 Ml Syringe) 10 ml FLUSH ASDIRECTED PRN PRN Reason: Keep Vein Open Thiamine HCl (Thiamine 100 Mg Tab) 100 mg PO BEDTIME [facility] Last Admin: 11/24/20 20:00 Dose: 100 mg Documented by: Tramadol HCl (Tramadol 50 Mg Tab) 50 mg PO Q4H PRN PRN Reason: SEVERE PAIN Last Admin: 11/25/20 08:05 Dose: 50 mg Documented by: Discontinued Medications Enoxaparin Sodium (Enoxaparin 40 Mg/0.4 Ml Syringe) 40 mg SUBCUT DAILY@1200 [facility] Last Admin: 11/24/20 11:51 Dose: 40 mg Documented by: Lactated Ringer's (Ringers, Lactated) 1,000 mls @ 150 mls/hr IV ASDIRECTED [facility] Last Admin: 11/19/20 09:10 Dose: 150 mls/hr Documented by: Lactated Ringer's (Ringers, Lactated) 1,000 mls @ 75 mls/hr IV ASDIRECTED [facility] Last Infusion: 11/24/20 08:19 Dose: 75 mls/hr Documented by: Morphine Sulfate (Morphine 4 Mg/Ml Syringe) 4 mg IVPUSH ONETIME ONE Stop: 11/19/20 09:08 Last Admin: 11/19/20 09:10 Dose: 4 mg Documented by: Nitrofurantoin Macrocrystals (Nitrofurantoin Monohydrate/Macrocrystalline 100 Mg Cap) 100 mg PO BID [facility] Stop: 11/22/20 09:01 Last Admin: 11/22/20 08:57 Dose: 100 mg Documented by: Ondansetron HCl (Ondansetron 4 Mg Tab.Dis) 4 mg PO Q4H PRN PRN Reason: nausea, able to take PO Last Admin: 11/20/20 04:37 Dose: 4 mg Documented by: Potassium Chloride (Potassium Chloride 20 Meq Tab.Er) 40 meq PO ONETIME ONE Stop: 11/21/20 08:46 Last Admin: 11/21/20 09:06 Dose: 40 meq Documented by: Potassium Chloride (Potassium Chloride 10 Meq Tab.Er) 20 meq PO ONETIME ONE Stop: 11/23/20 09:11 Last Admin: 11/23/20 13:03 Dose: Not Given Documented by: Potassium Chloride (Potassium Chloride 10 Meq Tab.Er) 20 meq PO ONETIME ONE Stop: 11/23/20 18:01 Last Admin: 11/23/20 17:06 Dose: 20 meq Documented by: Tramadol HCl (Tramadol 50 Mg Tab) 50 mg PO Q6H PRN PRN Reason: SEVERE PAIN Last Admin: 11/19/20 17:42 Dose: 50 mg Documented by: - Exam General: Reports: Alert, Oriented HEENT: Reports: EOMI, Mucous Membr. Moist/[place] Neck: Reports: Supple Lungs: Reports: Clear to Auscultation, Normal Respiratory Effort Cardiovascular: Reports: Regular Rate, Regular Rhythm GI/Abdominal Exam: Normal Bowel Sounds, Soft, Non-Tender Extremities: Normal Inspection, Non-Tender, No Pedal Edema Skin: Reports: Warm, Dry Neurological: Reports: No New Focal Deficit
== END 2020-11-25 13:32 | disposition swing bed (61) | DRG 565 ==
LOC: VM.ED 08:19 → VM.MS 09:39 → UNDOADMIN 09:39
PROVIDERS: ADMIT Nurse Practitioner Family; ATTEND Family Medicine
DX: R53.1 Weakness (principal); M25.552 Pain in left hip; T79.6XXA Traumatic ischemia of muscle, initial encounter; W19.XXXA Unspecified fall, initial encounter; N39.0 Urinary tract infection, site not specified; I25.10 Atherosclerotic heart disease of native coronary artery without angina pectoris; I10 Essential (primary) hypertension; Z66 Do not resuscitate; J44.9 Chronic obstructive pulmonary disease, unspecified; D64.9 Anemia, unspecified; I73.9 Peripheral vascular disease, unspecified; E78.5 Hyperlipidemia, unspecified; G89.29 Other chronic pain; N40.0 Benign prostatic hyperplasia without lower urinary tract symptoms; M54.5 Low back pain; R32 Unspecified urinary incontinence; I69.392 Facial weakness following cerebral infarction; I69.398 Other sequelae of cerebral infarction; E87.6 Hypokalemia; E11.9 Type 2 diabetes mellitus without complications; Z85.828 Personal history of other malignant neoplasm of skin; W01.0XXA Fall on same level from slipping, tripping and stumbling without subsequent striking against object, initial encounter; H91.90 Unspecified hearing loss, unspecified ear; Z79.02 Long term (current) use of antithrombotics/antiplatelets; E78.00 Pure hypercholesterolemia, unspecified; M10.9 Gout, unspecified; M54.2 Cervicalgia; I71.4 Abdominal aortic aneurysm, without rupture; M54.42 Lumbago with sciatica, left side; M54.41 Lumbago with sciatica, right side; F32.9 Major depressive disorder, single episode, unspecified; Z20.822 Contact with and (suspected) exposure to COVID-19; E11.51 Type 2 diabetes mellitus with diabetic peripheral angiopathy without gangrene; Z79.84 Long term (current) use of oral hypoglycemic drugs; Z79.899 Other long term (current) drug therapy; Z86.73 Personal history of transient ischemic attack (TIA), and cerebral infarction without residual deficits; Z79.82 Long term (current) use of aspirin; Z88.8 Allergy status to other drugs, medicaments and biological substances; I25.2 Old myocardial infarction; Z87.11 Personal history of peptic ulcer disease; Z90.89 Acquired absence of other organs; Z98.1 Arthrodesis status; Z86.19 Personal history of other infectious and parasitic diseases; Z87.891 Personal history of nicotine dependence; N40.1 Benign prostatic hyperplasia with lower urinary tract symptoms
CPT/HCPCS: 36415; 80048; 80053; 80307; 81001; 82550; 82607; 82746; 82947; 83540; 83550; 83605; 83735; 83874; 84484; 85025; 85027; 85610; 85730; 86140; 87086; 87088; 87186; 93005; 96374; 97110-GO; 97116-GP; 97161-GP; 97165-GO; 99284; 99285-25; A9270-GY; J1650; J2270; J7120; U0002

== ENCOUNTER 2020-11-25 08:45 | Inpatient (IN) | payer MEDICARE, BC ==
--- NOTE | 2020-11-25 11:19 | PCM.SN.2 ---
- Free Text/Narrative Note: Pain management visit Patient is swing bed on second floor. Patient is due to be discharged in the next day or so and was scheduled for follow-up on Tuesday. I did go down to see him and see how he was doing so that he would not have to come right back into the hospital on Tuesday. I stop by to see the patient and evaluate the effectiveness of the RFA. He did report that he has been able to get up with significantly less pain than he had been experiencing. Patient is not able to give me an exact percentage improvement but he said "oh, yeah its way better ". He still reporting some back pain which may be related to his spondylolisthesis at L5-S1. I did talk to Konstantin Lora and he reported at the patient was doing well getting out of bed by himself without significant discomfort for his physical therapy regime. Patient has very minimal tenderness to palpation at L5-S1. Nursing staff reports that he does complain of pain particularly when he is sitting. At this point I do not see what could be causing this other than his lack of muscle mass and this does seem to happen more frequently when he is sitting on a harder chair. Overall the patient reports that he has had significant improvement in his pain and he is not "crying out "as he is changing position and getting out of bed. Patient may have some pain related to his spondylolisthesis at L5-S1. I do not see other causes like SI joint dysfunction and there was nothing apparent on imaging that could be a cause of his lumbosacral back pain. It does appear that the RFA was effective in reducing his pain. He is not complaining of pain in the right buttock as he had been previously. It is hard to evaluate the effectiveness because the patient is unable to give me a specific answer but the patient reports at least 50% improvement. At this time there are no other interventions that I feel would be beneficial. If the patient begins to have return of his lumbosacral back pain, my plan will be to do radiofrequency ablation at that level again. Thank you for this very challenging consult. We will continue to follow the patient as needed.
[2020-11-25] MEDS ORDERED: Acetaminophen 325 MG Tab PO PRN (14:18)
[2020-11-25] MEDS ORDERED: Sodium Chloride 0.9% 10 ML Syringe FLUSH PRN ×2 (14:18)
[2020-11-25] MEDS: metFORMIN 500 MG Tab PO SCH (18:31)
[2020-11-25] MEDS: Metoprolol Tartrate 50 MG Tab PO SCH (20:31)
[2020-11-25] MEDS: Cephalexin 500 MG Cap PO SCH (20:31)
[2020-11-25] MEDS: atorvaSTATin 40 MG Tab PO SCH (20:32)
[2020-11-25] MEDS: Thiamine 100 MG Tab PO SCH (20:32)
[2020-11-25] MEDS: Cyclobenzaprine 10 MG Tab PO PRN (20:34)
[2020-11-25] MEDS: traMADol 50 MG Tab PO PRN (20:34)
[2020-11-26] MEDS: traMADol 50 MG Tab PO PRN ×4 (02:45→20:05)
[2020-11-26] MEDS: Aspirin 81 MG Tab.EC PO SCH (08:04)
[2020-11-26] MEDS: Levofloxacin 250 MG Tab PO SCH (08:04)
[2020-11-26] MEDS: Enoxaparin 40 MG/0.4 ML Syringe SUBCUT SCH (08:04)
[2020-11-26] MEDS: NIFEdipine 30 MG Tab.ER PO SCH (08:05)
[2020-11-26] MEDS: Cephalexin 500 MG Cap PO SCH ×2 (08:05→20:02)
[2020-11-26] MEDS: Magnesium Chloride 64 MG Tab.ER PO SCH (08:05)
[2020-11-26] MEDS: Metoprolol Tartrate 50 MG Tab PO SCH ×2 (08:05→20:03)
[2020-11-26] MEDS: metFORMIN 500 MG Tab PO SCH ×2 (08:05→18:11)
[2020-11-26] MEDS: Clopidogrel 75 MG Tab PO SCH (08:05)
[2020-11-26] MEDS: Tiotropium BR/Olodaterol HCL 4 GM Inhalation Spray 2.5mcg/1 dose; 10 doses INH SCH (08:06)
[2020-11-26] MEDS ORDERED: Polyethylene Glycol 3350 Powder 17 GM Packet PO PRN ×2 (16:33→18:30)
[2020-11-26] MEDS: Thiamine 100 MG Tab PO SCH (20:02)
[2020-11-26] MEDS: atorvaSTATin 40 MG Tab PO SCH (20:03)
[2020-11-26] MEDS: Cyclobenzaprine 10 MG Tab PO PRN (20:05)
[2020-11-27] MEDS: Cephalexin 500 MG Cap PO SCH ×2 (08:36→19:59)
[2020-11-27] MEDS: traMADol 50 MG Tab PO PRN ×2 (08:36→18:08)
[2020-11-27] MEDS: Clopidogrel 75 MG Tab PO SCH (08:36)
[2020-11-27] MEDS: Levofloxacin 250 MG Tab PO SCH (08:36)
[2020-11-27] MEDS: Magnesium Chloride 64 MG Tab.ER PO SCH (08:36)
[2020-11-27] MEDS: metFORMIN 500 MG Tab PO SCH ×2 (08:36→18:06)
[2020-11-27] MEDS: Aspirin 81 MG Tab.EC PO SCH (08:36)
[2020-11-27] MEDS: Tiotropium BR/Olodaterol HCL 4 GM Inhalation Spray 2.5mcg/1 dose; 10 doses INH SCH (08:37)
[2020-11-27] MEDS: Enoxaparin 40 MG/0.4 ML Syringe SUBCUT SCH (08:37)
[2020-11-27] MEDS: Metoprolol Tartrate 50 MG Tab PO SCH ×2 (08:37→19:59)
[2020-11-27] MEDS: NIFEdipine 30 MG Tab.ER PO SCH (08:37)
[2020-11-27] MEDS: atorvaSTATin 40 MG Tab PO SCH (19:59)
[2020-11-27] MEDS: Thiamine 100 MG Tab PO SCH (20:00)
[2020-11-27] MEDS: Cyclobenzaprine 10 MG Tab PO PRN (20:03)
[2020-11-28] MEDS: traMADol 50 MG Tab PO PRN (06:04)
[2020-11-28 06:17] VITALS: BP 143/73; PULSE 72
[2020-11-28] MEDS: Clopidogrel 75 MG Tab PO SCH (08:09)
[2020-11-28] MEDS: Metoprolol Tartrate 50 MG Tab PO SCH (08:09)
[2020-11-28] MEDS: metFORMIN 500 MG Tab PO SCH (08:09)
[2020-11-28] MEDS: NIFEdipine 30 MG Tab.ER PO SCH (08:09)
[2020-11-28] MEDS: Aspirin 81 MG Tab.EC PO SCH (08:09)
[2020-11-28] MEDS: Cephalexin 500 MG Cap PO SCH (08:09)
[2020-11-28] MEDS: Magnesium Chloride 64 MG Tab.ER PO SCH (08:09)
[2020-11-28] MEDS: Enoxaparin 40 MG/0.4 ML Syringe SUBCUT SCH (08:11)
[2020-11-28] MEDS: Tiotropium BR/Olodaterol HCL 4 GM Inhalation Spray 2.5mcg/1 dose; 10 doses INH SCH (08:15)
--- NOTE | 2020-11-28 09:04 | PCM.DCSUM1 ---
Discharge Summary - Hospital Course Brief History: Mr. Rincon is an 80 yo male who was admitted to swing bed for further strengthening before returning home following an acute hospitalization for rhabdomyolysis secondary to a fall at home as well as a UTI. - Discharge Data Discharge Date: 11/28/20 Discharge Disposition: Home, Self-Care 01 Condition: Good - Referral to Home Health Primary Care Physician: Lisette Keith MD - Discharge Diagnosis/Problem(s) (1) Physical deconditioning SNOMED Code(s): 79630488846173 ICD Code: R53.81 - OTHER [place] Status: Acute Current Visit: No (2) CAD (coronary artery disease) SNOMED Code(s): 64925717 ICD Code: I25.10 - ATHSCL HEART DISEASE OF [place] CORONARY ARTERY W/O ANG PCTRS Status: Chronic Current Visit: Yes Qualifiers: Coronary Disease-Associated Artery/Lesion type: [place] artery [place] vs. transplanted heart: [place] heart Associated angina: without angina Qualified Code(s): I25.10 - Atherosclerotic heart disease of [place] coronary artery without angina pectoris (3) Hypertension SNOMED Code(s): 32980432 ICD Code: I10 - ESSENTIAL (PRIMARY) HYPERTENSION Status: Chronic Current Visit: Yes Qualifiers: Hypertension type: essential hypertension Qualified Code(s): I10 - Essential (primary) hypertension (4) Cerebrovascular disease SNOMED Code(s): 68060198 ICD Code: I67.9 - CEREBROVASCULAR DISEASE, UNSPECIFIED Status: Chronic Current Visit: Yes (5) COPD (chronic obstructive pulmonary disease) SNOMED Code(s): 09228514 ICD Code: J44.9 - CHRONIC OBSTRUCTIVE PULMONARY DISEASE, UNSPECIFIED Status: Chronic Current Visit: Yes Qualifiers: COPD type: unspecified COPD Qualified Code(s): J44.9 - Chronic obstructive pulmonary disease, unspecified (6) Diabetes SNOMED Code(s): 73142266 ICD Code: E11.9 - TYPE 2 DIABETES MELLITUS WITHOUT COMPLICATIONS Status: Chronic Current Visit: Yes Qualifiers: Diabetes mellitus type: type 2 Diabetes mellitus residential insulin use: without residential use Diabetes mellitus complication status: without complication Qualified Code(s): E11.9 - Type 2 diabetes mellitus without complications (7) BPH (benign prostatic hyperplasia) SNOMED Code(s): 628963459 ICD Code: N40.0 - BENIGN PROSTATIC HYPERPLASIA WITHOUT LOWER URINRY TRACT SYMP Status: Chronic Current Visit: Yes Qualifiers: Lower urinary tract symptom presence: unspecified whether lower urinary tract symptoms present Qualified Code(s): N40.0 - Benign prostatic hyperplasia without lower urinary tract symptoms (8) Other spondylosis, lumbosacral region SNOMED Code(s): 649677738 ICD Code: M47.897 - OTHER SPONDYLOSIS, LUMBOSACRAL REGION Status: Chronic Priority: Medium Current Visit: No - Patient Summary/Data Operative Procedure(s) Performed: none Complications: none Consults: Consultations 11/25/20 14:18 OT Evaluation and Treatment [CONS] Routine PT Evaluation and Treatment [CONS] Routine Labs Pending at D/C: none Recommended Follow-up Testing/Procedures: none Planned Operative Procedure(s) after DC: none Hospital Course: The patient was transitioned from acute to swing bed earlier this week. He participated in therapies and progressed well. He is felt stable for d/c home. It has been recommended that he have home health but he has refused this. He plans to transition home independently. His swing bed stay was otherwise uncomplicated. - Patient Instructions Diet: Diabetic Diet - Discharge Plan *PRESCRIPTION DRUG MONITORING PROGRAM REVIEWED*: No *COPY OF PRESCRIPTION DRUG MONITORING REPORT IN PATIENT DARRICK: No Home Medications: Home Meds metFORMIN [Glucophage] 500 mg PO BID 01/19/14 [History] Cyclobenzaprine [Flexeril] 10 mg PO BID PRN 07/01/20 [History] Sennosides/Docusate Sodium [Senna-Docusate Sodium Tablet] 2 tab PO DAILY 07/01/20 [History] Aspirin [Adult Aspirin Regimen] 81 mg PO DAILY 07/02/20 [History] Metoprolol Tartrate [Lopressor] 50 mg PO BID 07/02/20 [History] NIFEdipine [Procardia Xl] 60 mg PO DAILY 07/29/20 [History] Clopidogrel [Plavix] 75 mg PO DAILY 11/19/20 [History] Tiotropium BR/Olodaterol HCL [Stiolto Respimat] 2 puff IH DAILY 11/19/20 [History] Triamcinolone Acetonide [Triamcinolone Acetonide 0.1% Crm] 1 gm TOP BID PRN 11/19/20 [History] Vitamin B Complex [B Complex] 1 tab PO DAILY 11/19/20 [History] atorvaSTATin [Lipitor] 40 mg PO BEDTIME 11/19/20 [History] cephALEXin [Cephalexin] 500 mg PO BID 11/19/20 [History] traMADol [Ultram] 50 mg PO Q6H PRN 11/19/20 [History] Acetaminophen [Tylenol] 650 mg PO Q4H PRN tablet 11/28/20 [Rx] Thiamine [Vitamin B-1] 100 mg PO BEDTIME tablet 11/28/20 [Rx] polyethylene glycoL 3350 [MiraLAX] 17 gm PO DAILY PRN packet 11/28/20 [Rx] - Discharge Summary/Plan Comment DC Time >30 min.: No - General Info Date of Service: 11/28/20 Subjective Update: Patient states he is feeling well and is excited to go home today. Ride is set up for 1 pm. He denies any concerns. ROS is negative. - Review of Systems General: Reports: No Symptoms HEENT: Reports: No Symptoms Pulmonary: Reports: No Symptoms Cardiovascular: Reports: No Symptoms Gastrointestinal: Reports: No Symptoms Genitourinary: Reports: No Symptoms Musculoskeletal: Reports: No Symptoms Skin: Reports: No Symptoms Neurological: Reports: No Symptoms - Patient Data Vitals - Most Recent: Last Vital Signs Temp 36.4 C 11/28/20 06:00 Pulse 72 11/28/20 08:09 Resp 16 11/28/20 06:00 BP 143/73 H 11/28/20 08:09 Pulse Ox 94 L 11/28/20 06:00 Weight - Most Recent: 73.482 kg I&O - Last 24 hours: Intake & Output 11/27/20 11/28/20 11/28/20 22:59 06:59 14:59 Intake Total 240 Balance 240 Med Orders - Current: Current Medications Acetaminophen (Acetaminophen 325 Mg Tab) 650 mg PO Q4H PRN PRN Reason: Pain (Mild 1-3)/fever Last Admin: 11/26/20 05:25 Dose: 650 mg Documented by: Aspirin (Aspirin 81 Mg Tab.Ec) 81 mg PO DAILY [facility] Last Admin: 11/28/20 08:09 Dose: 81 mg Documented by: Atorvastatin Calcium (Atorvastatin 40 Mg Tab) 40 mg PO BEDTIME [facility] Last Admin: 11/27/20 19:59 Dose: 40 mg Documented by: Cephalexin (Cephalexin 500 Mg Cap) 500 mg PO BID [facility] Last Admin: 11/28/20 08:09 Dose: 500 mg Documented by: Clopidogrel Bisulfate (Clopidogrel 75 Mg Tab) 75 mg PO DAILY [facility] Last Admin: 11/28/20 08:09 Dose: 75 mg Documented by: Cyclobenzaprine HCl (Cyclobenzaprine 10 Mg Tab) 10 mg PO BID PRN PRN Reason: Muscle Spasm - Painful Last Admin: 11/27/20 20:03 Dose: 10 mg Documented by: Enoxaparin Sodium (Enoxaparin 40 Mg/0.4 Ml Syringe) 40 mg SUBCUT DAILY [facility] Last Admin: 11/28/20 08:11 Dose: 40 mg Documented by: Magnesium Chloride (Magnesium Chloride 64 Mg Tab.Er) 64 mg PO DAILY [facility] Last Admin: 11/28/20 08:09 Dose: 64 mg Documented by: Metformin HCl (Metformin 500 Mg Tab) 500 mg PO BIDMEALS [facility] Last Admin: 11/28/20 08:09 Dose: 500 mg Documented by: Metoprolol Tartrate (Metoprolol Tartrate 50 Mg Tab) 50 mg PO BID [facility] Last Admin: 11/28/20 08:09 Dose: 50 mg Documented by: Nifedipine (Nifedipine 30 Mg Tab.Er) 60 mg PO DAILY [facility] Last Admin: 11/28/20 08:09 Dose: 60 mg Documented by: Polyethylene Glycol (Polyethylene Glycol 3350 Powder 17 Gm Packet) 17 gm PO DAILY PRN PRN Reason: Constipation Last Admin: 11/27/20 08:35 Dose: 17 gm Documented by: Senna/Docusate Sodium (Docusate Sodium/Sennosides 50-8.6 Mg Tab) 2 tab PO DAILY [facility] Last Admin: 11/28/20 08:09 Dose: 2 tab Documented by: Thiamine HCl (Thiamine 100 Mg Tab) 100 mg PO BEDTIME [facility] Last Admin: 11/27/20 20:00 Dose: 100 mg Documented by: Tramadol HCl (Tramadol 50 Mg Tab) 50 mg PO Q4H PRN PRN Reason: SEVERE PAIN Last Admin: 11/28/20 06:04 Dose: 50 mg Documented by: Discontinued Medications Levofloxacin (Levofloxacin 250 Mg Tab) 250 mg PO Q24H [facility] Stop: 11/27/20 09:01 Last Admin: 11/27/20 08:36 Dose: 250 mg Documented by: Polyethylene Glycol (Polyethylene Glycol 3350 Powder 17 Gm Packet) 17 gm PO BEDTIME PRN PRN Reason: Constipation Sodium Chloride (Sodium Chloride 0.9% 10 Ml Syringe) 10 ml FLUSH ASDIRECTED PRN PRN Reason: Keep Vein Open - Exam General: Reports: Alert, Cooperative, No Acute Distress HEENT: Reports: Mucous Membr. Moist/[place] Neck: Reports: Supple, Trachea Midline, No Thyromegaly. Denies: Lymphadenopathy Lungs: Reports: Clear to Auscultation, Normal Respiratory Effort Cardiovascular: Reports: Regular Rate, Regular Rhythm, No Murmurs GI/Abdominal Exam: Normal Bowel Sounds, Soft, Non-Tender, No Organomegaly, No Distention, No Mass Extremities: Normal Inspection, Non-Tender, No Pedal Edema, Normal Capillary Refill Skin: Reports: Warm, Dry, Intact Neurological: Reports: No New Focal Deficit
== END 2020-11-28 12:50 | disposition home or self-care (01) | DRG 948 ==
LOC: VM.MS 13:32
PROVIDERS: ADMIT Nurse Practitioner Family; ATTEND Family Medicine
DX: R53.81 Other malaise (principal); N39.0 Urinary tract infection, site not specified; T79.6XXD Traumatic ischemia of muscle, subsequent encounter; I25.10 Atherosclerotic heart disease of native coronary artery without angina pectoris; I10 Essential (primary) hypertension; Z86.73 Personal history of transient ischemic attack (TIA), and cerebral infarction without residual deficits; J44.9 Chronic obstructive pulmonary disease, unspecified; E11.9 Type 2 diabetes mellitus without complications; N40.0 Benign prostatic hyperplasia without lower urinary tract symptoms; M47.897 Other spondylosis, lumbosacral region; M54.5 Low back pain; G89.29 Other chronic pain; M43.17 Spondylolisthesis, lumbosacral region; Z79.84 Long term (current) use of oral hypoglycemic drugs; Z79.82 Long term (current) use of aspirin; Z79.899 Other long term (current) drug therapy
CPT/HCPCS: 36415; 85027; 97110-GO; 97110-GP; 97116-GP; A9270-GY; J1650

== ENCOUNTER 2021-03-19 10:34 | Observation (INO) | payer MEDICARE, BC ==
--- NOTE | 2021-03-19 11:22 | EDM.PDOC ---
ED HPI GENERAL MEDICAL PROBLEM - General Chief Complaint: Chest Pain Stated Complaint: chest pain Time Seen by Provider: 03/19/21 10:35 Source of Information: Reports: Patient History Limitations: Reports: No Limitations - History of Present Illness INITIAL COMMENTS - FREE TEXT/NARRATIVE: Mike is an 80 year old male who presents per EMS with complaint of chest pain. States awoke around 0730 this am and felt well. Was sitting in the chair trying to get his remote to work for his TV. Was getting frustrated. Had tightness in his chest, lasted about 30 minutes. Was talking to his son "to let him know I am still alive" and family got concerned and called 911. Pain now is a dull ache in his chest. Unsure if he really felt short of breath. Denies nausea or diaphoresis. No abdominal pain. Is currently being treated with Cipro for a tooth infection. No fevers. Has been eating and drinking well. No diarrhea. Relates was hospitalized in November after a fall and was "very weak". Chart notes rhabdomyolysis and UTI. Onset: Today, Sudden Duration: Minutes:, Waxing/Waning Location: Reports: Chest Quality: Reports: Ache Severity: Mild Improves with: Reports: Rest Associated Symptoms: Reports: Chest Pain, Weakness. 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 Left Shoulder Pain Score (Numeric/FACES): 3 - Related Data Allergies Allergy/AdvReac Type Severity Reaction Status Date / Time [id number] Reductase AdvReac Leg Cramps Verified 03/19/21 11:21 Inhibitor Home Meds: Home Meds metFORMIN [Glucophage] 500 mg PO BID 01/19/14 [History] Cyclobenzaprine [Flexeril] 10 mg PO BID PRN 07/01/20 [History] Sennosides/Docusate Sodium [Senna-Docusate Sodium Tablet] 2 tab PO DAILY 07/01/20 [History] Aspirin [Adult Aspirin Regimen] 81 mg PO DAILY 07/02/20 [History] Metoprolol Tartrate [Lopressor] 50 mg PO BID 07/02/20 [History] NIFEdipine [Procardia Xl] 60 mg PO DAILY 07/29/20 [History] Clopidogrel [Plavix] 75 mg PO DAILY 11/19/20 [History] Tiotropium BR/Olodaterol HCL [Stiolto Respimat] 2 puff IH DAILY 11/19/20 [History] Triamcinolone Acetonide [Triamcinolone Acetonide 0.1% Crm] 1 gm TOP BID PRN 11/19/20 [History] Vitamin B Complex [B Complex] 1 tab PO DAILY 11/19/20 [History] atorvaSTATin [Lipitor] 40 mg PO BEDTIME 11/19/20 [History] cephALEXin [Cephalexin] 500 mg PO BID 11/19/20 [History] traMADol [Ultram] 50 mg PO Q6H PRN 11/19/20 [History] Acetaminophen [Tylenol] 650 mg PO Q4H PRN tablet 11/28/20 [Rx] Thiamine [Vitamin B-1] 100 mg PO BEDTIME tablet 11/28/20 [Rx] polyethylene glycoL 3350 [MiraLAX] 17 gm PO DAILY PRN packet 11/28/20 [Rx] Past Medical History HEENT History: Reports: Hard of Hearing, Other (See Below) Other HEENT History: Occipital Neuritis with ZAMORA Cardiovascular History: Reports: Aneurysm, CAD, High Cholesterol, Hypertension, [place], PVD, Other (See Below) Other Cardiovascular History: coronary atherosclerosis. AAA without rupture Respiratory History: Reports: COPD Gastrointestinal History: Reports: PUD Other Gastrointestinal History: peptic ulcer disease. inguinal hernia Genitourinary History: Reports: Other (See Below) Other Genitourinary History: Hypertrophy of prostate w/o urinary obstruction. elevated PSA Musculoskeletal History: Reports: Gout, Neck Pain, Chronic, Other (See Below) Other Musculoskeletal History: LBP radiating to right leg Neurological History: Reports: CVA, TIA, Other (See Below) Other Neuro History: abd aortic aneurysm. occipital neuritis. Chronic midline low back pain with bilateral sciatica Psychiatric History: Reports: Depression, Other (See Below) Other Psychiatric History: depressive disorder not classified elsewhere Endocrine/Metabolic History: Reports: Diabetes, Type II Hematologic History: Reports: Blood Transfusion(s) Oncologic (Cancer) History: Reports: Other (See Below) Other Oncologic History: Skin cancer - Infectious Disease History Infectious Disease History: Reports: Chicken Pox, Measles, Mumps - Past Surgical History HEENT Surgical History: Reports: Tonsillectomy Cardiovascular Surgical History: Reports: Other (See Below) Other Cardiovascular Surgeries/Procedures: right to left femoral artery bypass. right femoral politeal bypass. vein grafting Neurological Surgical History: Reports: Spinal Fusion, Other (See Below) Other Neurological Surgeries/Procedures: L3-L4 spinal fusion Musculoskeletal Surgical History: Reports: Other (See Below) Other Musculoskeletal Surgeries/Procedures:: right hallux partial amputation Social & Family History - Family History Family Medical History: No Pertinent Family History Cardiac: Reports: CAD, [place] Other Cardiac Family History: Father Respiratory: Reports: Asthma Other Respiratory Family Hisory: Brother. 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 Denies: Fever, Chills, Decreased Appetite HEENT: Denies: Ear Pain, Rhinitis, Sinus Problem, Throat Pain, Vertigo, Vision Change Respiratory: Denies: Shortness of Breath, Cough Cardiovascular: Reports: Chest Pain, Edema. Denies: Lightheadedness Endocrine: Reports: Fatigue GI/Abdominal: Denies: Abdominal Pain, Constipation, Diarrhea, Nausea, Vomiting : Reports: No Symptoms Musculoskeletal: Reports: No Symptoms Skin: Reports: No Symptoms Neurological: Reports: Weakness ED EXAM, GENERAL - Physical Exam Exam: See Below Exam Limited By: No Limitations General Appearance: Alert, WD/WN, No Apparent Distress Ears: Normal External Exam, Normal TMs Nose: Normal Inspection, Normal Mucosa, No Blood Throat/Mouth: Normal Inspection, Normal Oropharynx Head: Normocephalic Neck: Normal Inspection, Supple, Non-Tender Respiratory/Chest: No Respiratory Distress, Lungs Clear, Normal Breath Sounds Cardiovascular: Regular Rate, Rhythm, Other (frequent PVCs, occasional bigeminy noted) GI/Abdominal: Normal Bowel Sounds, Soft, Non-Tender Extremities: Normal Inspection, Pedal Edema (1+ LLE, trace RLE) Neurological: Alert, Oriented Skin Exam: Warm, Dry #1 Interpretation EKG Date: 03/19/21 Rhythm: Other (sinus tachycardia with frequent PVCs) [place]: Normal P-Wave: Present QRS: Wide ST-T: Normal Comparison: Change From Previous EKG (noted PVCs) Course - Vital Signs Last Recorded V/S: Last Vital Signs Temp 97.7 F 03/19/21 10:34 Pulse 92 03/19/21 10:34 Resp 19 03/19/21 10:34 BP 117/90 03/19/21 10:34 Pulse Ox 96 03/19/21 10:34 - Orders/Labs/Meds Orders: Active Orders 24 hr Category Date Time Status Chest 1V Frontal [CR] Stat Exams 03/19/21 10:51 Taken CULTURE URINE [RM] Stat Lab 03/19/21 11:28 Received Labs: Laboratory Tests 03/19/21 03/19/21 03/19/21 Range/Units 11:02 11:02 11:28 WBC 5.8 (4.0-10.0) x10^3/uL RBC 4.84 (4.5-6.0) x10^6/uL Hgb 14.3 (14.0-18.0) g/dL Hct 44.8 (40.0-52.0) % MCV 92.6 (78.0-93.0) fL MCH 29.5 (26.0-32.0) pg MCHC 31.9 L (32.0-36.0) g/dL RDW Coeff of [place] 16.2 H (10.0-15.0) % Plt Count 174 (130-400) x10^3/uL Immature Gran % (Auto) 0.30 (0.00-0.43) % Neut % (Auto) 81.2 H (50.0-80.0) % Lymph % (Auto) 8.5 L (25.0-50.0) % [place] % (Auto) 9.2 (2.0-11.0) % Eos % (Auto) 0.3 (0.0-4.0) % Baso % (Auto) 0.5 (0.2-1.2) % Neut # (Auto) 4.7 (1.8-7.7) x10^3/uL Lymph # (Auto) 0.5 L (1.0-4.8) x10^3/uL [place] # (Auto) 0.5 (0.0-0.8) x10^3/uL Eos # (Auto) 0.0 (0.0-0.5) x10^3/uL Baso # (Auto) 0.0 (0.0-0.2) x10^3/uL Immature Gran # (Auto) 0.02 (0.00-0.07) x10^3/uL Sodium 139 (136-145) mmol/L Potassium 4.9 (3.5-5.1) mmol/L Chloride 103 (98-107) mmol/L Carbon Dioxide 25 (21-32) mmol/L Anion Gap 15.9 H (5-15) mmol/L BUN 27 H (7-18) mg/dL Creatinine 1.5 H (0.70-1.30) mg/dL Est Cr Clr Drug Dosing TNP Estimated GFR (MDRD) 45 Glucose 126 H (70-99) mg/dL Calcium 9.2 (8.5-10.1) mg/dL Corrected Calcium 9.6 (8.5-10.1) mg/dL Total Bilirubin 0.6 (0.2-1.0) mg/dL AST 19 (15-37) U/L ALT 19 (16-63) U/L Alkaline Phosphatase 94 (46-116) U/L Lactate Dehydrogenase 162 (85-227) U/L Creatine Kinase 64 (39-308) U/L Troponin I High Sens 10 (<=76) ng/L C-Reactive Protein 11.8 H (<=0.9) mg/dL NT-Pro-B Natriuret Pep 1939 H (<=450) pg/mL Total Protein 7.5 (6.4-8.2) g/dL Albumin 3.5 (3.4-5.0) g/dL Globulin 4.0 Albumin/Globulin Ratio 0.88 Urine Color Dark yellow H (YELLOW) Urine Appearance Clear (CLEAR) Urine pH 5.5 (5.0-8.0) Ur Specific [place] 1.025 Urine Protein 30 H (NEGATIVE) mg/dL Urine Glucose (UA) Negative (NEGATIVE) mg/dL Urine Ketones Negative (NEGATIVE) mg/dL Urine Occult Blood Trace-intact H (NEGATIVE) Urine Nitrite Negative (NEGATIVE) Urine Bilirubin Negative (NEGATIVE) Urine Urobilinogen 0.2 (0.2) EU/dL Ur Leukocyte Esterase Small H (NEGATIVE) Urine RBC 0-5 (NOT SEEN) /HPF Urine WBC 20-30 H (NOT SEEN) /HPF Ur Squamous Epith Cells Rare (NOT SEEN) /HPF Urine Bacteria Rare (NOT SEEN) /HPF Urine Mucus Not seen (NOT SEEN) /LPF - Re-Assessments/Exams Free Text/Narrative Re-Assessment/Exam: 03/19/21 11:33 Patient is stable. Low ache in his chest. Did have more tightness when starting his IV. UA collected. Vitals remain stable. 03/19/21 12:07 Patient states feeling weak yet. No pain. Will admit observation, repeat labs at 1500. Give a dose of IV Lasix this afternoon. Repeat labs in am. Departure - Departure Time of Disposition: 12:07 Disposition: Refer to Observation Condition: Fair Clinical Impression: Atypical chest pain, Generalized weakness Sepsis Event Note (ED) - Focused Exam Vital Signs: Vital Signs Temp Pulse Resp BP Pulse Ox 03/19/21 10:34 97.7 F 92 19 117/90 96 - Problem List & Annotations (1) Chest pain SNOMED Code(s): 22612344 Code(s): R07.9 - CHEST PAIN, UNSPECIFIED Status: Acute Priority: High Current Visit: Yes (2) Generalized weakness SNOMED Code(s): 89509611 Code(s): R53.1 - WEAKNESS Status: Acute Priority: High Current Visit: Yes - Problem List Review Problem List Initiated/Reviewed/Updated: Yes - My Orders Last 24 Hours: My Active Orders 03/19/21 10:51 Chest 1V Frontal [CR] Stat 03/19/21 11:28 CULTURE URINE [RM] Stat - Assessment/Plan Admission H&P: Please use this note as an admission H&P Last 24 Hours: My Active Orders 03/19/21 10:51 Chest 1V Frontal [CR] Stat 03/19/21 11:28 CULTURE URINE [RM] Stat Assessment:: Atypical chest pain Weakness Plan: Admit observation. Repeat labs. Cardiac monitoring. Lasix IV. Will follow
[2021-03-19 11:33] LABS: CHLORIDE,CL 103 mmol/L (98-107); SODIUM,NA 139 mmol/L (136-145)
[2021-03-19 11:34] LABS: ANION GAP 15.9 mmol/L (5-15)
[2021-03-19] MEDS ORDERED: Furosemide 20 MG/2 ML VIAL IV ONE (12:55)
[2021-03-19] MEDS ORDERED: Ondansetron 4 MG Tab.DIS PO PRN (12:55)
[2021-03-19] MEDS ORDERED: Ondansetron 4 MG/2 ML SDV IV PRN (12:55)
--- NOTE | 2021-03-19 12:55 | CR ---
[id number] RAD/RAD Chest PA or AP 1V EXAM: FRONTAL CHEST INDICATION: CHEST PAIN. COMPARISON: July 29, 2020. DISCUSSION: Small to moderate hiatus hernia. Prior sternotomy. Tortuous thoracic aorta. The lungs are clear. No effusions. IMPRESSION: 1. No acute findings. Osiel Neumann MD 03/19/21 [id number] Thank you for allowing us to participate in the care of your patient.
[2021-03-19] MEDS ORDERED: Acetaminophen 325 MG Tab PO PRN (13:55)
[2021-03-19] MEDS ORDERED: Polyethylene Glycol 3350 Powder 17 GM Packet PO PRN (13:55)
[2021-03-19] MEDS ORDERED: traMADol 50 MG Tab PO PRN (13:55)
[2021-03-19] MEDS: metFORMIN 500 MG Tab PO SCH (17:26)
[2021-03-19] MEDS: Ciprofloxacin 500 MG Tab PO SCH (19:59)
[2021-03-19] MEDS: Metoprolol Tartrate 50 MG Tab PO SCH (19:59)
[2021-03-19] MEDS: Acetaminophen 325 MG Tab PO PRN (20:00)
[2021-03-20 05:27] VITALS: BP 118/58
[2021-03-20] MEDS: Ciprofloxacin 500 MG Tab PO SCH (06:23)
[2021-03-20] MEDS: metFORMIN 500 MG Tab PO SCH (07:26)
[2021-03-20] MEDS: Acetaminophen 325 MG Tab PO PRN (07:26)
[2021-03-20] MEDS: Metoprolol Tartrate 50 MG Tab PO SCH (07:27)
[2021-03-20 07:28] VITALS: PULSE 16
[2021-03-20 07:36] LABS: ANION GAP 13.6 mmol/L (5-15)
[2021-03-20] MEDS ORDERED: Clopidogrel 75 MG Tab PO SCH (08:00)
[2021-03-20] MEDS ORDERED: NIFEdipine 30 MG Tab.ER PO SCH (08:00)
[2021-03-20] MEDS ORDERED: Aspirin 81 MG Tab.EC PO SCH (08:00)
[2021-03-20] MEDS ORDERED: Vitamin B Complex Tab PO SCH (08:00)
--- NOTE | 2021-03-20 09:48 | PCM.DCSUM1 ---
Discharge Summary - Hospital Course HPI Initial Comments: To observation unit on 03-19-2021 for atypical chest pain and weakness. Patient had an uneventful evening. Patient states he feels much better and has no concerns or complaints and is ready to go home. Patient has not had any further chest pain. Patient has been up and ambulatory in the room. Patient has been taking an oral intake throughout the night without difficulty. Patient also denies any chest pain, shortness of breath, dizziness, fever, gastrointestinal issues, or peripheral edema. Patient states that he feels back to his diet and is ready for discharge. Diagnosis: Stroke: No Modified Mcfarland Scale: No Symptoms at All Modified Marco Antonio Scale Score: 0 - Discharge Data Discharge Date: 03/20/21 Discharge Disposition: Home, Self-Care 01 Condition: Good - Referral to Home Health Primary Care Physician: Lisette Keith MD - Discharge Diagnosis/Problem(s) (1) Atypical chest pain SNOMED Code(s): 192787343 ICD Code: R07.89 - OTHER CHEST PAIN Status: Acute Current Visit: Yes (2) Generalized weakness SNOMED Code(s): 23599195 ICD Code: R53.1 - WEAKNESS Status: Acute Priority: High Current Visit: Yes - Patient Instructions Diet: Usual Diet as Tolerated Activity: As Tolerated Showering/Bathing: May Shower Notify Provider of: Fever, Nausea and/or Vomiting - Discharge Plan *PRESCRIPTION DRUG MONITORING PROGRAM REVIEWED*: Not Applicable *COPY OF PRESCRIPTION DRUG MONITORING REPORT IN PATIENT DARRICK: Not Applicable Home Medications: Home Meds metFORMIN [Glucophage] 500 mg PO BID 01/19/14 [History] Cyclobenzaprine [Flexeril] 10 mg PO BID PRN 07/01/20 [History] Sennosides/Docusate Sodium [Senna-Docusate Sodium Tablet] 2 tab PO DAILY 07/01/20 [History] Aspirin [Adult Aspirin Regimen] 81 mg PO DAILY 07/02/20 [History] Metoprolol Tartrate [Lopressor] 50 mg PO BID 07/02/20 [History] NIFEdipine [Procardia Xl] 60 mg PO DAILY 07/29/20 [History] Clopidogrel [Plavix] 75 mg PO DAILY 11/19/20 [History] Triamcinolone Acetonide [Triamcinolone Acetonide 0.1% Crm] 1 gm TOP BID PRN 11/19/20 [History] Vitamin B Complex [B Complex] 1 tab PO DAILY 11/19/20 [History] traMADol [Ultram] 50 mg PO Q6H PRN 11/19/20 [History] Acetaminophen [Tylenol] 650 mg PO Q4H PRN tablet 11/28/20 [Rx] Thiamine [Vitamin B-1] 100 mg PO BEDTIME tablet 11/28/20 [Rx] polyethylene glycoL 3350 [MiraLAX] 17 gm PO DAILY PRN packet 11/28/20 [Rx] Ciprofloxacin [Ciprofloxacin HCl] 500 mg PO BID 03/19/21 [History] Acetaminophen [Tylenol] 650 mg PO Q4H PRN tablet 03/20/21 [Rx] Oxygen Therapy Mode: Room Air Patient Handouts: Nonspecific Chest Pain, Adult Forms: ED Department Discharge Referrals: Lisette Keith MD [Primary Care Provider] - - Discharge Summary/Plan Comment DC Time >30 min.: No Total # of Minutes for Discharge Time: 25 - Patient Data Vitals - Most Recent: Last Vital Signs Temp 36.4 C 03/20/21 05:25 Pulse 16 L 03/20/21 07:27 Resp 14 03/20/21 05:25 BP 118/58 L 03/20/21 07:27 Pulse Ox 96 03/20/21 05:25 Weight - Most Recent: 74.389 kg I&O - Last 24 hours: Intake & Output 03/19/21 03/20/21 03/20/21 22:59 06:59 14:59 Intake Total 600 120 240 Output Total 300 700 Balance 300 -580 240 Lab Results - Last 24 hrs: Laboratory Results - last 24 hr 03/19/21 03/19/21 03/19/21 Range/Units 11:02 11:02 11:28 WBC 5.8 (4.0-10.0) x10^3/uL RBC 4.84 (4.5-6.0) x10^6/uL Hgb 14.3 (14.0-18.0) g/dL Hct 44.8 (40.0-52.0) % MCV 92.6 (78.0-93.0) fL MCH 29.5 (26.0-32.0) pg MCHC 31.9 L (32.0-36.0) g/dL RDW Coeff of Bobo 16.2 H (10.0-15.0) % Plt Count 174 (130-400) x10^3/uL Immature Gran % (Auto) 0.30 (0.00-0.43) % Neut % (Auto) 81.2 H (50.0-80.0) % Lymph % (Auto) 8.5 L (25.0-50.0) % Marin % (Auto) 9.2 (2.0-11.0) % Eos % (Auto) 0.3 (0.0-4.0) % Baso % (Auto) 0.5 (0.2-1.2) % Neut # (Auto) 4.7 (1.8-7.7) x10^3/uL Lymph # (Auto) 0.5 L (1.0-4.8) x10^3/uL Marin # (Auto) 0.5 (0.0-0.8) x10^3/uL Eos # (Auto) 0.0 (0.0-0.5) x10^3/uL Baso # (Auto) 0.0 (0.0-0.2) x10^3/uL Immature Gran # (Auto) 0.02 (0.00-0.07) x10^3/uL Sodium 139 (136-145) mmol/L Potassium 4.9 (3.5-5.1) mmol/L Chloride 103 (98-107) mmol/L Carbon Dioxide 25 (21-32) mmol/L Anion Gap 15.9 H (5-15) mmol/L BUN 27 H (7-18) mg/dL Creatinine 1.5 H (0.70-1.30) mg/dL Est Cr Clr Drug Dosing TNP Estimated GFR (MDRD) 45 Glucose 126 H (70-99) mg/dL POC Glucose (70-99) mg/dL Calcium 9.2 (8.5-10.1) mg/dL Corrected Calcium 9.6 (8.5-10.1) mg/dL Total Bilirubin 0.6 (0.2-1.0) mg/dL AST 19 (15-37) U/L ALT 19 (16-63) U/L Alkaline Phosphatase 94 (46-116) U/L Lactate Dehydrogenase 162 (85-227) U/L Creatine Kinase 64 (39-308) U/L Troponin I High Sens 10 (<=76) ng/L C-Reactive Protein 11.8 H (<=0.9) mg/dL NT-Pro-B Natriuret Pep 1939 H (<=450) pg/mL Total Protein 7.5 (6.4-8.2) g/dL Albumin 3.5 (3.4-5.0) g/dL Globulin 4.0 Albumin/Globulin Ratio 0.88 Urine Color Dark yellow H (YELLOW) Urine Appearance Clear (CLEAR) Urine pH 5.5 (5.0-8.0) Ur Specific Elbe 1.025 Urine Protein 30 H (NEGATIVE) mg/dL Urine Glucose (UA) Negative (NEGATIVE) mg/dL Urine Ketones Negative (NEGATIVE) mg/dL Urine Occult Blood Trace-intact H (NEGATIVE) Urine Nitrite Negative (NEGATIVE) Urine Bilirubin Negative (NEGATIVE) Urine Urobilinogen 0.2 (0.2) EU/dL Ur Leukocyte Esterase Small H (NEGATIVE) Urine RBC 0-5 (NOT SEEN) /HPF Urine WBC 20-30 H (NOT SEEN) /HPF Ur Squamous Epith Cells Rare (NOT SEEN) /HPF Urine Bacteria Rare (NOT SEEN) /HPF Urine Mucus Not seen (NOT SEEN) /LPF SARS CoV-2 RNA Rapid HUMBERTO (NEGATIVE) 03/19/21 03/19/21 03/20/21 Range/Units 12:16 15:04 06:22 WBC (4.0-10.0) x10^3/uL RBC (4.5-6.0) x10^6/uL Hgb (14.0-18.0) g/dL Hct (40.0-52.0) % MCV (78.0-93.0) fL MCH (26.0-32.0) pg MCHC (32.0-36.0) g/dL RDW Coeff of Bobo (10.0-15.0) % Plt Count (130-400) x10^3/uL Immature Gran % (Auto) (0.00-0.43) % Neut % (Auto) (50.0-80.0) % Lymph % (Auto) (25.0-50.0) % Marin % (Auto) (2.0-11.0) % Eos % (Auto) (0.0-4.0) % Baso % (Auto) (0.2-1.2) % Neut # (Auto) (1.8-7.7) x10^3/uL Lymph # (Auto) (1.0-4.8) x10^3/uL Marin # (Auto) (0.0-0.8) x10^3/uL Eos # (Auto) (0.0-0.5) x10^3/uL Baso # (Auto) (0.0-0.2) x10^3/uL Immature Gran # (Auto) (0.00-0.07) x10^3/uL Sodium (136-145) mmol/L Potassium (3.5-5.1) mmol/L Chloride (98-107) mmol/L Carbon Dioxide (21-32) mmol/L Anion Gap (5-15) mmol/L BUN (7-18) mg/dL Creatinine (0.70-1.30) mg/dL Est Cr Clr Drug Dosing Estimated GFR (MDRD) Glucose (70-99) mg/dL POC Glucose 123 H (70-99) mg/dL Calcium (8.5-10.1) mg/dL Corrected Calcium (8.5-10.1) mg/dL Total Bilirubin (0.2-1.0) mg/dL AST (15-37) U/L ALT (16-63) U/L Alkaline Phosphatase (46-116) U/L Lactate Dehydrogenase (85-227) U/L Creatine Kinase (39-308) U/L Troponin I High Sens 10 (<=76) ng/L C-Reactive Protein (<=0.9) mg/dL NT-Pro-B Natriuret Pep (<=450) pg/mL Total Protein (6.4-8.2) g/dL Albumin (3.4-5.0) g/dL Globulin Albumin/Globulin Ratio Urine Color (YELLOW) Urine Appearance (CLEAR) Urine pH (5.0-8.0) Ur Specific Elbe Urine Protein (NEGATIVE) mg/dL Urine Glucose (UA) (NEGATIVE) mg/dL Urine Ketones (NEGATIVE) mg/dL Urine Occult Blood (NEGATIVE) Urine Nitrite (NEGATIVE) Urine Bilirubin (NEGATIVE) Urine Urobilinogen (0.2) EU/dL Ur Leukocyte Esterase (NEGATIVE) Urine RBC (NOT SEEN) /HPF Urine WBC (NOT SEEN) /HPF Ur Squamous Epith Cells (NOT SEEN) /HPF Urine Bacteria (NOT SEEN) /HPF Urine Mucus (NOT SEEN) /LPF SARS CoV-2 RNA Rapid HUMBERTO Negative (NEGATIVE) 03/20/21 03/20/21 Range/Units 06:37 06:37 WBC 4.8 (4.0-10.0) x10^3/uL RBC 4.58 (4.5-6.0) x10^6/uL Hgb 13.7 L (14.0-18.0) g/dL Hct 42.9 (40.0-52.0) % MCV 93.7 H (78.0-93.0) fL MCH 29.9 (26.0-32.0) pg MCHC 31.9 L (32.0-36.0) g/dL RDW Coeff of Bobo 16.2 H (10.0-15.0) % Plt Count 173 (130-400) x10^3/uL Immature Gran % (Auto) 0.20 (0.00-0.43) % Neut % (Auto) 59.2 (50.0-80.0) % Lymph % (Auto) 22.2 L (25.0-50.0) % Marin % (Auto) 14.5 H (2.0-11.0) % Eos % (Auto) 3.3 (0.0-4.0) % Baso % (Auto) 0.6 (0.2-1.2) % Neut # (Auto) 2.9 (1.8-7.7) x10^3/uL Lymph # (Auto) 1.1 (1.0-4.8) x10^3/uL Marin # (Auto) 0.7 (0.0-0.8) x10^3/uL Eos # (Auto) 0.2 (0.0-0.5) x10^3/uL Baso # (Auto) 0.0 (0.0-0.2) x10^3/uL Immature Gran # (Auto) 0.01 (0.00-0.07) x10^3/uL Sodium 141 (136-145) mmol/L Potassium 4.6 (3.5-5.1) mmol/L Chloride 106 (98-107) mmol/L Carbon Dioxide 26 (21-32) mmol/L Anion Gap 13.6 (5-15) mmol/L BUN 30 H (7-18) mg/dL Creatinine 1.3 (0.70-1.30) mg/dL Est Cr Clr Drug Dosing 45.24 Estimated GFR (MDRD) 53 Glucose 133 H (70-99) mg/dL POC Glucose (70-99) mg/dL Calcium 9.0 (8.5-10.1) mg/dL Corrected Calcium (8.5-10.1) mg/dL Total Bilirubin (0.2-1.0) mg/dL AST (15-37) U/L ALT (16-63) U/L Alkaline Phosphatase (46-116) U/L Lactate Dehydrogenase (85-227) U/L Creatine Kinase (39-308) U/L Troponin I High Sens (<=76) ng/L C-Reactive Protein 7.0 H (<=0.9) mg/dL NT-Pro-B Natriuret Pep (<=450) pg/mL Total Protein (6.4-8.2) g/dL Albumin (3.4-5.0) g/dL Globulin Albumin/Globulin Ratio Urine Color (YELLOW) Urine Appearance (CLEAR) Urine pH (5.0-8.0) Ur Specific Elbe Urine Protein (NEGATIVE) mg/dL Urine Glucose (UA) (NEGATIVE) mg/dL Urine Ketones (NEGATIVE) mg/dL Urine Occult Blood (NEGATIVE) Urine Nitrite (NEGATIVE) Urine Bilirubin (NEGATIVE) Urine Urobilinogen (0.2) EU/dL Ur Leukocyte Esterase (NEGATIVE) Urine RBC (NOT SEEN) /HPF Urine WBC (NOT SEEN) /HPF Ur Squamous Epith Cells (NOT SEEN) /HPF Urine Bacteria (NOT SEEN) /HPF Urine Mucus (NOT SEEN) /LPF SARS CoV-2 RNA Rapid HUMBERTO (NEGATIVE) BLADIMIR Results - Last 24 hrs: Microbiology 03/19/21 11:28 Urine Culture - Preliminary Urine, Clean Catch NO GROWTH AFTER 1 DAY Med Orders - Current: Current Medications Acetaminophen (Acetaminophen 325 Mg Tab) 650 mg PO Q4H PRN PRN Reason: Pain (Mild 1-3)/fever Last Admin: 03/20/21 07:26 Dose: 650 mg Documented by: Acetaminophen (Acetaminophen 325 Mg Tab) 650 mg PO Q4H PRN PRN Reason: Pain (Mild 1-3)/fever Aspirin (Aspirin 81 Mg Tab.Ec) 81 mg PO DAILY [facility] Last Admin: 03/20/21 07:27 Dose: 81 mg Documented by: Ciprofloxacin (Ciprofloxacin 500 Mg Tab) 500 mg PO BID@[phone] [facility] Last Admin: 03/20/21 06:23 Dose: 500 mg Documented by: Clopidogrel Bisulfate (Clopidogrel 75 Mg Tab) 75 mg PO DAILY [facility] Last Admin: 03/20/21 07:27 Dose: 75 mg Documented by: Metformin HCl (Metformin 500 Mg Tab) 500 mg PO BIDMEALS [facility] Last Admin: 03/20/21 07:26 Dose: 500 mg Documented by: Metoprolol Tartrate (Metoprolol Tartrate 50 Mg Tab) 50 mg PO BID [facility] Last Admin: 03/20/21 07:27 Dose: 50 mg Documented by: Nifedipine (Nifedipine 30 Mg Tab.Er) 60 mg PO DAILY [facility] Last Admin: 03/20/21 07:26 Dose: 60 mg Documented by: Ondansetron HCl (Ondansetron 4 Mg Tab.Dis) 4 mg PO Q4H PRN PRN Reason: nausea, able to take PO Ondansetron HCl (Ondansetron 4 Mg/2 Ml Sdv) 4 mg IV Q4H PRN PRN Reason: Nausea/Vomiting Polyethylene Glycol (Polyethylene Glycol 3350 Powder 17 Gm Packet) 17 gm PO DAILY PRN PRN Reason: Constipation Senna/Docusate Sodium (Docusate Sodium/Sennosides 50-8.6 Mg Tab) 2 tab PO DAILY [facility] Last Admin: 03/20/21 07:26 Dose: 2 tab Documented by: Tramadol HCl (Tramadol 50 Mg Tab) 50 mg PO Q6H PRN PRN Reason: SEVERE PAIN Vitamin B Complex (Vitamin B Complex Tab) 1 each PO DAILY [facility] Last Admin: 03/20/21 07:27 Dose: 1 each Documented by: Discontinued Medications Furosemide (Furosemide 20 Mg/2 Ml Vial) 20 mg IV ONETIME ONE Stop: 03/19/21 12:56 Last Admin: 03/19/21 14:14 Dose: 20 mg Documented by: Influenza Virus Vaccine (Flu Vacc [id number](65yr Up)/Pf 240 Mcg/0.7 Ml Syringe) 240 mcg IM .ONCE ONE Stop: 03/19/21 16:18 Last Admin: 03/19/21 16:35 Dose: 240 mcg Documented by:
== END 2021-03-20 13:30 | disposition home or self-care (01) ==
LOC: VM.ED 10:34 → VM.MS 12:02 → UNDOADMOB 12:02 → VM.MS 14:35
PROVIDERS: ADMIT Physician Assistant Medical; ATTEND Physician Assistant Medical
DX: R07.89 Other chest pain (principal); R53.1 Weakness; I25.10 Atherosclerotic heart disease of native coronary artery without angina pectoris; E78.00 Pure hypercholesterolemia, unspecified; I10 Essential (primary) hypertension; I25.2 Old myocardial infarction; I73.9 Peripheral vascular disease, unspecified; J44.9 Chronic obstructive pulmonary disease, unspecified; Z98.890 Other specified postprocedural states; Z88.8 Allergy status to other drugs, medicaments and biological substances; Z79.899 Other long term (current) drug therapy; Z20.822 Contact with and (suspected) exposure to COVID-19
CPT/HCPCS: 36415; 71045; 80048; 80053; 81001; 82550; 82947; 83615; 83880; 84484; 85025; 86140; 87086; 90662; 96374; 99285-25; A9270-GY; G0008; G0378; J1940; U0002

== ENCOUNTER 2022-08-13 10:08 | Emergency (ER) | payer MEDICARE, BC ==
[2022-08-13 10:56] LABS: ANION GAP 13.6 mmol/L (5-15)
[2022-08-13 15:16] VITALS: BP 164/78; PULSE 72
== END 2022-08-13 15:21 | disposition home or self-care (01) ==
LOC: VM.ED 10:08
DX: R07.89 Other chest pain (principal); R53.1 Weakness; I25.10 Atherosclerotic heart disease of native coronary artery without angina pectoris; E78.00 Pure hypercholesterolemia, unspecified; I10 Essential (primary) hypertension; I25.2 Old myocardial infarction; J44.9 Chronic obstructive pulmonary disease, unspecified; E11.9 Type 2 diabetes mellitus without complications; Z86.73 Personal history of transient ischemic attack (TIA), and cerebral infarction without residual deficits; Z88.8 Allergy status to other drugs, medicaments and biological substances; Z79.82 Long term (current) use of aspirin; Z79.02 Long term (current) use of antithrombotics/antiplatelets; Z79.899 Other long term (current) drug therapy; Z79.84 Long term (current) use of oral hypoglycemic drugs
CPT/HCPCS: 36415; 70450; 71046; 80053; 83880; 84484; 85025; 93005; 93010; 99284; 99285